=== PATIENT | male | born 1945 | race Caucasian/White ===

== ENCOUNTER → 2017-12-20 13:07 | Day surgery (SDC) | payer OTHER, SELFPAY ==
[2017-12-11 15:36] VITALS: TEMP 36.5
[2017-12-20] VITALS (10 sets, daily range): BP systolic 143–172; BP diastolic 72–99; PULSE 68–84; RESP 15–18; TEMP 36.1–36.5; O2SAT 94–97; BMI 26.9
[2017-12-20] MEDS: LACTATED RINGERS 1,000 ML 100 ML IV (14:15)
--- NOTE | 2017-12-20 14:43 | SUR.PREOP ---
Pt's scheduled surgery for 1415 got delayed d/t an emergent case requiring the OR. Pt is now read and prepped for surgery and he is aware of his delay as is Nicholas, his ride home. Delay is expected to be 60 minutes or more.
--- NOTE | 2017-12-20 16:36 | PM.HP.1 ---
History of Present Illness Chief complaint: repair hernia [id number] Narrative: Sung Hightower is a 72 year old male Here for repair of a left inguinal hernia that is symptomatic [facility] Surgical History Status post hernia repair Status post knee surgery Status post knee surgery Status post rotator cuff repair Social History household members: none Smoking Status: Never smoker Meds Home Medications Medication Instructions Recorded Confirmed Type aspirin [Aspir-81] 81 mg PO DAILY 11/27/17 12/20/17 History simvastatin 20 mg PO QPM 11/27/17 12/20/17 History Generic Name Dose Route Start Last Admin Trade Name Freq PRN Reason Stop Dose Admin Fentanyl 50 mcg 12/20/17 11:46 Sublimaze IV Q5MIN PRN Moderate Pain Lactated Ringer's 1,000 mls @ 100 mls/hr 12/20/17 01:00 12/20/17 14:15 Lactated Ringers IV 100 mls/hr CONT DARRELL Administration Lactated Ringer's 1,000 mls @ 42 mls/hr 12/20/17 12:00 Lactated Ringers IV CONT DARRELL Meperidine HCl 25 mg 12/20/17 11:46 Demerol IV Q5MIN PRN Pain and shivering Ondansetron HCl 4 mg 12/20/17 11:46 Zofran IV NOW PRN Nausea And Vomiting Oxycodone/Acetaminophen 1 tab 12/20/17 11:46 Percocet 5/325 PO Q30MIN PRN Mild or moderate pain Allergies Allergy/AdvReac Type Severity Reaction Status Date / Time No Known Drug Allergies Allergy Verified 11/27/17 15:47 Review of Systems Review of Systems All systems reviewed & are unremarkable except as noted in HPI and below Exam Vital Signs (past 8 hours): Vital Signs - 8 hr 12/20/17 13:47 Temperature 97 F L Pulse Rate 72 Respiratory Rate 16 Blood Pressure 143/72 H Pulse Oximetry 95 Pulse Oximetry 95 Oxygen Delivery Method Room Air Narrative Exam Narrative: Operative no apparent distress. His lungs are clear to auscultation there is rhonchi. Heart regular rate and rhythm no murmur or gallop. Abdomen is soft nontender without masses. He has a reducible left inguinal hernia. Testicles are unremarkable. He is alert and oriented x3. Assessment & Plan Plan: Plan: Operation including risks and benefits all discussed with the patient he appears to understand and wishes to proceed
--- NOTE | 2017-12-20 16:47 | PM.HP.1 ---
History of Present Illness Chief complaint: repair hernia [id number] Narrative: Sung Hightower is a 72 year old male [facility] Surgical History Status post hernia repair Status post knee surgery Status post knee surgery Status post rotator cuff repair Social History household members: none Smoking Status: Never smoker Meds Home Medications Medication Instructions Recorded Confirmed Type aspirin [Aspir-81] 81 mg PO DAILY 11/27/17 12/20/17 History simvastatin 20 mg PO QPM 11/27/17 12/20/17 History Generic Name Dose Route Start Last Admin Trade Name Freq PRN Reason Stop Dose Admin Fentanyl 50 mcg 12/20/17 11:46 Sublimaze IV Q5MIN PRN Moderate Pain Lactated Ringer's 1,000 mls @ 100 mls/hr 12/20/17 01:00 12/20/17 14:15 Lactated Ringers IV 100 mls/hr CONT DARRELL Administration Lactated Ringer's 1,000 mls @ 42 mls/hr 12/20/17 12:00 Lactated Ringers IV CONT DARRELL Meperidine HCl 25 mg 12/20/17 11:46 Demerol IV Q5MIN PRN Pain and shivering Ondansetron HCl 4 mg 12/20/17 11:46 Zofran IV NOW PRN Nausea And Vomiting Oxycodone/Acetaminophen 1 tab 12/20/17 11:46 Percocet 5/325 PO Q30MIN PRN Mild or moderate pain Allergies Allergy/AdvReac Type Severity Reaction Status Date / Time No Known Drug Allergies Allergy Verified 11/27/17 15:47 Review of Systems Review of Systems All systems reviewed & are unremarkable except as noted in HPI and below Exam Vital Signs (past 8 hours): Vital Signs - 8 hr 12/20/17 13:47 Temperature 97 F L Pulse Rate 72 Respiratory Rate 16 Blood Pressure 143/72 H Pulse Oximetry 95 Pulse Oximetry 95 Oxygen Delivery Method Room Air Narrative Exam Narrative: Lungs clear heart regular rate and rhythm without murmur or gallop abdomen is soft nontender without mass reducible left inguinal hernia normal testicle left. Scar from right inguinal hernias noted in the right. Assessment & Plan Plan: Plan: I discussed the procedure in rationale with the patient for repair. Risks of bleeding, infection, recurrence, injury to nerves which could cause chronic pain or numbness, testicular loss or vas deferens injury were all discussed with him. He appears to understand and wishes to proceed
--- NOTE | 2017-12-20 16:50 | P.HP_ITS ---
History of Present Illness Chief complaint: repair hernia [id number] Narrative: Sung Hightower is a 72 year old male Here for repair of a left inguinal hernia that is symptomatic [facility] Surgical History Status post hernia repair Status post knee surgery Status post knee surgery Status post rotator cuff repair Social History household members: none Smoking Status: Never smoker Meds Home Medications Medication Instructions Recorded Confirmed Type aspirin [Aspir-81] 81 mg PO DAILY 11/27/17 12/20/17 History simvastatin 20 mg PO QPM 11/27/17 12/20/17 History Generic Name Dose Route Start Last Admin Trade Name Freq PRN Reason Stop Dose Admin Fentanyl 50 mcg 12/20/17 11:46 Sublimaze IV Q5MIN PRN Moderate Pain Lactated Ringer's 1,000 mls @ 100 mls/hr 12/20/17 01:00 12/20/17 14:15 Lactated Ringers IV 100 mls/hr CONT DARRELL Administration Lactated Ringer's 1,000 mls @ 42 mls/hr 12/20/17 12:00 Lactated Ringers IV CONT DARRELL Meperidine HCl 25 mg 12/20/17 11:46 Demerol IV Q5MIN PRN Pain and shivering Ondansetron HCl 4 mg 12/20/17 11:46 Zofran IV NOW PRN Nausea And Vomiting Oxycodone/Acetaminophen 1 tab 12/20/17 11:46 Percocet 5/325 PO Q30MIN PRN Mild or moderate pain Allergies Allergy/AdvReac Type Severity Reaction Status Date / Time No Known Drug Allergies Allergy Verified 11/27/17 15:47 Review of Systems Review of Systems All systems reviewed & are unremarkable except as noted in HPI and below Exam Vital Signs (past 8 hours): Vital Signs - 8 hr 3 12/20/17 13:47 Temperature 97 F L Pulse Rate 72 Respiratory Rate 16 Blood Pressure 143/72 H Pulse Oximetry 95 Pulse Oximetry 95 Oxygen Delivery Method Room Air Narrative Exam Narrative: Operative no apparent distress. His lungs are clear to auscultation there is rhonchi. Heart regular rate and rhythm no murmur or gallop. Abdomen is soft nontender without masses. He has a reducible left inguinal hernia. Testicles are unremarkable. He is alert and oriented x3. Assessment & Plan Plan: Plan: Operation including risks and benefits all discussed with the patient he appears to understand and wishes to proceed
--- NOTE | 2017-12-20 16:50 | PM.PREOP ---
Pre-operative Note Interval Note Pre-op Check: History & Physical exam performed today H&P completed within 30 days and has changed as indicated here:: No change
[2017-12-20] MEDS: CEFAZOLIN 2 GM/100 ML FROZ.PIGGY IV (17:00)
--- NOTE | 2017-12-20 17:35 | SUR.OPER ---
Supine on padded OR bed, head on pillow, arms secured on padded arm boards at <90 degrees abduction, legs uncrossed, safety belt at thigh, tape over blanket over lower legs.
--- NOTE | 2017-12-20 18:11 | PM.OP.1 ---
Operative Date/Time/Diagnoses - Date of procedure: 12/20/17 Time of procedure: 18:12 Pre-op diagnosis: Reducible left inguinal hernia no incarceration and strangulation Post-op diagnosis: same (Direct and indirect component) Procedure & Clinicians Procedure: Left inguinal hernia repair with plug and patch technique Same procedure as scheduled: Yes Indications: Symptomatic hernia Surgeon: Aaron Neumann Anesthesia Type: General Operative Notes Findings: See postop diagnosis Closure Type: primary Specimen(s): none sent Implants & Drains: Match Estimated Blood Loss (mL): 5 Blood products transfused: none Procedure in detail: The patient was placed supine on the operating room table and underwent general LMA anesthesia. He was prepped and draped in the usual fashion. A transverse incision was made overlying the internal ring and carried down to the level of the external oblique. The external oblique was opened parallel with its fibers through the external ring. The cord structures were elevated. The cremaster was opened proximally and search made for an indirect sac. 1 was found containing intraperitoneal fat. It was opened, the fat was reduced and a 2 0 silk pursestring was placed. Distal portion of the sac was removed. The stump was allowed to retract. The cremaster was closed over the plug and cord structures with a 3 0 Polysorb.. The floor was examined and was found to be[lax]. A patch was placed across the floor and tacked at the pubic tubercle, the posterior lamella of the anterior rectus sheath, the ilioinguinal ligament, and superior lateral to the cord. The opening was modified as necessary to prevent tight constriction of the cord. Sutures of 0 Tycron were used to secure the mesh. The external oblique was closed with a running 3 0 Polysorb. The subcu was closed with interrupted 3 0 Polysorb. The skin was closed with a running 4 0 Polysorb subcuticular stitch and Steri-Strips. Dressing was applied, the patient was awakened, and the patient was taken to the recovery area in good condition. Complications: none Condition: stable Disposition: PACU
--- NOTE | 2017-12-20 18:51 | SUR.PHASEI ---
Somewhat prolonged stay in PACU due to being slow to wake up. Otherwise stable.
== END | disposition home or self-care (01) ==
PROVIDERS: Family Provider Family Medicine; PCP Family Medicine; Visit Provider Specialist
PROC: (CPT 49505; principal; 2017-12-20 14:15)
DX: K40.90 Unilateral inguinal hernia, without obstruction or gangrene, not specified as recurrent (principal)
CPT/HCPCS: 49505; C1781; J0690; J1100; J2405; J2704; J3010

== ENCOUNTER → 2018-02-21 10:13 | Outpatient (CLI) | payer OTHER, SELFPAY ==
[2018-02-21 11:23] LABS: Add Manual Diff / Slide Review NO; Basophils Percent Auto 0.6 % (0-2); Eosinophils Percent Auto 2.4 % (2-4); Hematocrit 43.1 % (41-53); Hemoglobin 14.8 g/dL (13.5-17.5); Lymphocytes Percent Auto 26.2 % (25-40); Mean Corpuscular HGB Conc 34.2 % (30-36); Mean Corpuscular Hemoglobin 31.4 PG (26-34); Mean Corpuscular Volume 91.7 fL (80-100); Monocytes Percent Auto 6.9 % (3-14); Neutrophils Absolute Auto 3600 /uL (3000-5900); Neutrophils Percent Auto 63.9 % (50-75); Platelet Count 186 X10^3/uL (150-400); Red Cell Distribution Width 13.4 % (11.6-14.8); White Blood Cell Count 5.6 X10^3/uL (4.5-11.0)
[2018-02-21 12:04] LABS: Alanine Aminotransferase 49 IU/L (21-72); Albumin 4.1 g/dL (3.5-5.0); Albumin Globulin Ratio 1.5 (1.0-2.8); Alkaline Phosphatase 74 U/L (38-126); Aspartate Aminotransferase 44 IU/L (17-59); BUN Creatinine Ratio 22.5 (6-22); Bilirubin Total 0.8 mg/dL (0.2-1.3); Blood Urea Nitrogen 18 mg/dL (9-20); Calcium 9.3 mg/dL (8.4-10.2); Carbon Dioxide 29 mmol/L (22-32); Chloride 105 mmol/L (98-107); Cholesterol 146 mg/dL (140-199); Estimated Glomerular Filt Rate > 60.0 mL/min (>60); Globulin 2.8 g/dL (1.7-4.1); Glucose 99 mg/dL (80-110); HDL Cholesterol 54 mg/dL (40-60); HEMOLYSIS < 15 (0-50); LDL Cholesterol Calculated 79 mg/dL (<100); Sodium 142 mmol/L (137-145); Total Protein 6.9 g/dL (6.3-8.2); Triglycerides 64 mg/dL (35-150)
== END ==
PROVIDERS: Family Provider Family Medicine; PCP Family Medicine; Visit Provider Family Medicine
DX: E78.00 Pure hypercholesterolemia, unspecified (principal); Z12.5 Encounter for screening for malignant neoplasm of prostate
CPT/HCPCS: 36415; 80053; 80061; 84153; 85025

== ENCOUNTER → 2018-12-11 08:32 | Outpatient (CLI) | payer OTHER, SELFPAY ==
--- NOTE | 2018-12-11 | DI.MRI.S_ITS ---
PROCEDURE: MR KNEE RT WO CON INDICATIONS: RT KNEE OSTEOARTHRITIS TECHNIQUE: Noncontrast sagittal PD fast spin echo and T2 fast spin echo with fat saturation, sagittal 3-D FLASH with fat saturation; coronal T1 spin echo and PD fast spin echo with fat saturation, and axial PD fast spin echo with fat saturation through the knee. COMPARISON: [facility] Clarissa, CR, KNEE SERIES RT, 02/27/2017, 11:00. FINDINGS: Image quality: Excellent. Menisci: There is moderate to severe degenerative tearing of the medial meniscus which is diminutive in appearance. There is mild peripheral extrusion. The meniscal root ligaments appear grossly intact. The lateral meniscus also appears intact. Cruciate ligaments: The anterior cruciate ligament is thickened and intermediate in signal intensity likely representing chronic myxoid degeneration versus sequela of a prior sprain. The posterior cruciate ligament appears intact. Medial structures: The medial collateral ligament appears intact. The semimembranosus tendon insertions and meniscocapsular junction appear intact. Visualized portions of the pes anserinus tendons appear intact without associated bursal fluid collections. Lateral structures: The lateral collateral ligament, long and short heads of the biceps femoris tendon appear intact. The popliteus tendon appears intact. Iliotibial band appears normal. Anterior structures: The quadriceps and patellar tendons appear intact. Patellar alignment is normal. No femoral trochlear dysplasia or ventral trochlear prominence. Bones and cartilage: No bone marrow contusions or fractures. There is tricompartmental osteophytosis. Severe cartilage thinning is demonstrated in the medial compartment with areas of full-thickness cartilage loss along the medial tibial plateau. There is associated subchondral sclerosis and subchondral edema most prominent along the medial tibial plateau. In the lateral compartment, there is mild cartilage thinning with superficial chondral fissuring. In the patellofemoral compartment, there is mild cartilage thinning with superficial chondral fissuring. Joint space: There is a small joint effusion. There is a small Lin's cyst. Normal appearing synovial plicae are incidentally noted. IMPRESSION: 1. Moderate to severe degenerative tearing of the medial meniscus. 2. Tricompartmental osteoarthritic changes including severe degeneration in the medial compartment. 3. Small joint effusion and small Lin's cyst. 4. 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 The majority of the fibers appear intact. Dictated by: Luis Nathan M.D. on 12/11/2018 at 16:13 Approved by: Luis Nathan M.D. on 12/11/2018 at 16:17
== END ==
PROVIDERS: PCP Nurse Practitioner Family; Visit Provider Orthopaedic Surgery
DX: M17.11 Unilateral primary osteoarthritis, right knee (principal); M23.203 Derangement of unspecified medial meniscus due to old tear or injury, right knee; M25.461 Effusion, right knee; M71.21 Synovial cyst of popliteal space [Baker], right knee
CPT/HCPCS: 73721

== ENCOUNTER → 2018-12-31 09:56 | Outpatient (CLI) | payer OTHER, SELFPAY ==
[2018-12-31 11:54] LABS: Hematocrit 45.9 % (41-53); Hemoglobin 15.4 g/dL (13.5-17.5); Mean Corpuscular HGB Conc 33.5 % (30-36); Mean Corpuscular Hemoglobin 30.8 PG (26-34); Platelet Count 194 X10^3/uL (150-400); Red Blood Cell Count 4.98 X10^6/uL (4.5-5.9); Red Cell Distribution Width 13.1 % (11.6-14.8); White Blood Cell Count 6.4 X10^3/uL (4.5-11.0)
[2018-12-31 12:34] LABS: Alanine Aminotransferase 42 IU/L (21-72); Albumin 4.3 g/dL (3.5-5.0); Albumin Globulin Ratio 1.5 (1.0-2.8); Alkaline Phosphatase 82 U/L (38-126); Aspartate Aminotransferase 38 IU/L (17-59); BUN Creatinine Ratio 22.9 (6-22); Blood Urea Nitrogen 16 mg/dL (9-20); Calcium 9.4 mg/dL (8.4-10.2); Carbon Dioxide 29 mmol/L (22-32); Chloride 103 mmol/L (98-107); Cholesterol 153 mg/dL (140-199); Estimated Glomerular Filt Rate > 60.0 mL/min (>60); Globulin 2.8 g/dL (1.7-4.1); Glucose 94 mg/dL (80-110); HDL Cholesterol 60 mg/dL (40-60); HEMOLYSIS < 15 (0-50); LDL Cholesterol Calculated 80 mg/dL (<100); Potassium 4.3 mmol/L (3.4-5.1); Sodium 138 mmol/L (137-145); Total Protein 7.1 g/dL (6.3-8.2); Triglycerides 63 mg/dL (35-150)
== END ==
PROVIDERS: Family Provider Nurse Practitioner Family; PCP Nurse Practitioner Family; Visit Provider Orthopaedic Surgery
DX: M17.11 Unilateral primary osteoarthritis, right knee (principal); E78.2 Mixed hyperlipidemia; Z01.818 Encounter for other preprocedural examination; Z01.812 Encounter for preprocedural laboratory examination
CPT/HCPCS: 36415; 80053; 80061; 85027; 93005; 93010

== ENCOUNTER 2019-01-29 08:13 | Inpatient (IN) | payer OTHER, SELFPAY ==
[2019-01-15 08:48] VITALS: BMI 27.8
[2019-01-29] VITALS (16 sets, daily range): BP systolic 96–141; BP diastolic 60–86; PULSE 68–97; RESP 12–18; TEMP 36.2–37.1; O2SAT 95–100; BMI 27.6
--- NOTE | 2019-01-29 06:00 | DI.RAD.S_ITS ---
PROCEDURE: XR KNEE RT 1TO2V INDICATIONS: post op right TKA TECHNIQUE: 2 view(s) of the knee acquired. COMPARISON: None. FINDINGS: Bones: Patient is status post knee joint arthroplasty. Hardware components are in expected positions. Visualized bony structures are intact. Soft tissues: Overlying postoperative changes are noted. IMPRESSION: Postop changes from right total knee arthroplasty with anatomic right knee alignment. Dictated by: Ford Bailey M.D. on 01/29/2019 at 14:09 Approved by: Ford Bailey M.D. on 01/29/2019 at 14:09
--- NOTE | 2019-01-29 08:48 | PM.PREOP ---
Pre-operative Note Interval Note History & Physical reviewed/Exam performed by Physician: Yes Changes to H&P: No
--- NOTE | 2019-01-29 08:49 | PM.OP.1 ---
Operative Date/Time/Diagnoses Date of procedure: 01/29/19 Time of procedure: 11:44 Pre-op diagnosis: Right knee osteoarthritis Post-op diagnosis: same Procedure & Clinicians Procedure: Right total knee arthroplasty Same procedure as scheduled: Yes Indications: The patient presents today for total knee arthroplasty after failure of conservative treatment. The nature of the procedure including the risks and benefits, alternatives, postoperative course and expected outcome were discussed and all questions answered. Consent was obtained. Operative site confirmed and marked. Surgeon: Luis Olivas Sanitation Superintendent: Valerie Gee Anesthesia Type: Spinal, Peripheral nerve block and Local Operative Notes Findings: Tricompartmental osteoarthritis with severe varus alignment Closure Type: primary Specimen(s): none sent Prosthetic devices, grafts, tissues, transplants, or devices: [employer] BCS: 5 femoral component, 5 tibial component, 9 mm BCS polyethylene tray and 35 x 9 mm round patella Applied: implant(s) Estimated Blood Loss (mL): 75 Blood products transfused: none Tourniquet time (min): 52 Procedure in detail: The patient was taken to the operative suite and placed under spinal anesthesia with an abductor nerve block. The patient was given prophylactic antibiotics prior to surgery. The patient was also given tranexamic acid, 1 g, just prior to surgery for postoperative hemostasis. The lateral knee was prepped and the joint injected with 20 mL of 1% Lidocaine with epinephrine. The knee was then prepped and draped in usual sterile fashion. The leg was exsanguinated with an Esmarch dressing and the tourniquet raised to 250 torr. A 15 cm anterior incision was made. Next a medial trivector arthrotomy was made. The extensor mechanism was marked to ensure accurate repair. Initial exposing dissection was carried out medially and laterally. The knee was then extended and the patellar thickness was measured and a cut made removing approximately 9 mm of bone with a goal of restoring normal patellar thickness. The patella was then sized and drilled. Some excess lateral bone was excised and the patellofemoral ligament released. The tourniquet was then released. The knee was then flexed and the [employer] femoral guide was placed. The anterior pins were placed and the distal rotation holes drilled. The distal cutting guide was placed and the templated distal femoral cut was made. The templating cutting block was then placed and the anterior, posterior and chamfer cuts made. The [employer] tibial guide was placed and the alignment checked along the axis of the proximal tibial with a isaura. The proximal tibial cut was then made with an oscillating saw. All meniscus and bony debris was then removed. Flexion extension gaps were checked. The medial side was tight as expected from the deformity. This was corrected with routine osteophyte and exposing releases. It also required some percutaneous release of the MCL with an 18 gauge needle. The soft tissues were then injected with a combination of 20 mL of half percent Marcaine with epinephrine and 20 mL of Exparel. The trial components were then placed. The knee went into full extension and flexion beyond 120?. There was excellent medial- lateral balance throughout motion with just slight increased lateral laxity in flexion and extension. Patellar tracking was excellent. The trial components were removed and size is confirmed for the final implants. The knee was then exsanguinated with an Esmarch dressing and the tourniquet reapplied for cementing. The knee was cleansed with Pulsavac irrigation and dried. The final components were cemented in with high viscosity vacuum mixed bone cement with antibiotics. The knee was held in extension and the patellar clamp until the cement had adequately cured. The knee was then irrigated with dilute Betadine solution. The extensor mechanism was closed with 5 interrupted #1 Vicryl sutures in 90 degrees of flexion. The joint was then injected with a combination of 1 g of tranexamic acid and 20 mL of quarter percent Marcaine with epinephrine. The subcutaneous tissue was closed with 2-0 Vicryl. The skin was closed with donald and surgical adhesive. An Aquacel dressing and Ramos wrap were then applied. Complications: none Condition: stable Disposition: PACU Plan for aftercare: [facility] protocol for total knee arthroplasty. Patient to be discharged today or tomorrow depending on initial postoperative course.
[2019-01-29] MEDS: CELECOXIB 200 MG CAPSULE PO (09:15)
[2019-01-29] MEDS: ACETAMINOPHEN 325 MG TABLET 975 MG PO ×3 (09:15→20:59)
[2019-01-29] MEDS: PREGABALIN 75 MG CAPSULE PO (09:15)
[2019-01-29] MEDS: fentaNYL 100 MCG/2 ML INJ 50 MCG IV (09:38)
[2019-01-29] MEDS: MIDAZOLAM 2 MG/2 ML VIAL IV (09:38)
[2019-01-29] MEDS: LACTATED RINGERS 1,000 ML 42 ML IV ×2 (10:03→11:09)
--- NOTE | 2019-01-29 10:05 | SUR.PREOP ---
Block start time [0938] . Monitoring initiated and maintained throughout procedure. Oxygen and medications given per anesthesiologist instructions. Patient remained stable throughout procedure, no adverse reactions noted. Block end time [0956].
[2019-01-29] MEDS: CEFAZOLIN 2 GM/100 ML FROZ.PIGGY IV ×2 (10:20→18:09)
--- NOTE | 2019-01-29 10:35 | SUR.OPER ---
Supine on padded OR bed. Pillow under head, arms secured on padded armboards <90 degree abduction. Safety belt across torso. Non-operative leg secured with tape over blanket over lower leg. Operative leg secured in DeMayo/López positioner. Foam padded brace at thigh of operative leg.
[2019-01-29] MEDS: BUPIVACAINE 0.25% W/ EPI (PF) 40 ML, BUPIVACAINE LIPOSOME 266 MG, SODIUM CHLORIDE 0.9% ... INJ (10:40)
[2019-01-29] MEDS: LIDOCAINE 1% W/EPI INJ 20 ML INJ (10:40)
[2019-01-29] MEDS: BUPIVACAINE 0.5% W/ EPI (PF) 10 ML, TRANEXAMIC ACID 1,000 MG, SODIUM CHLORIDE 0.9% 20 ML INJ (10:41)
[2019-01-29] MEDS: TRANEXAMIC ACID 1,000 MG VIAL 1000 MG INJ (10:43)
[2019-01-29] MEDS: POVIDONE-IODINE 15 ML, SODIUM CHLORIDE 0.9% 250 ML TOP (10:54)
--- NOTE | 2019-01-29 12:10 | SUR.PHASEI ---
bedside report given to MYRIAM Ernst. transferred care of pt to MYRIAM Ernst at this time. pt in stable condition, vss.
--- NOTE | 2019-01-29 13:21 | PC.NURSE ---
Patient brought up from PACU, VSS, denies pain. Oriented to room and call light. Transfer ordered not in, PACU notified, awaiting orders. Will continue to follow.
[2019-01-29] MEDS: LACTATED RINGERS 1,000 ML 125 ML IV ×2 (15:07→23:26)
--- NOTE | 2019-01-29 15:08 | PC.NURSE ---
Received from PACU, awake, alert, oriented. NAD. VSS. Sp02>/=90% on RA. SCDs in place. IVF started per order. All personal belongings with pt. Taking p.o. without difficulty. Call light in reach. Discussed plan of care and potential discharge.
--- NOTE | 2019-01-29 15:23 | CM.DANOTE ---
Discharge Planning/Care Management DCP: assessment: initiated: CR: pt has been in surgery all day and just now arrived to rm 208 and is getting admitted by RN team. Documentation reveals that pt is a 73 year old male who admitted this morning for a planned R TKA: Surgeon: Dr. Olivas. Payer: [facility]. PCP: Mara Arevalo. Dr. Olivas had documented that pt is ok to d/c either later this evening or tomorrow. Pt will see PT but is unclear if this will be this evening. Pt had identified his pre op plan/see below as home with a friend to assist. P: will check in with pt tomorrow for introduction of self and role and follow for any d/c needs that may arise. CM Discharge Assessment Start: 01/29/19 15:22 Freq: Status: Active Protocol: Document 01/29/19 15:22 ITV (Rec: 01/29/19 15:23 ITV [id number]) Discharge Planning Assessment Advance Directives? Yes Advance Directives on File No History Provided By Medical Record Prior Living Arrangements House Household Members none Review Status In Process Pre-Anesthesia Assessment Start: 01/15/19 08:48 Freq: Status: Active Protocol: Document 01/15/19 08:48 CAB (Rec: 01/15/19 09:31 CAB [id number]) Pre-Anesthesia Assessment PAC Comment Previous EKG 2014 scanned to chart, no significant change Patient Also Known As (AKA) Omid Patient Information Reviewed Via Phone Assessment Assessment Completed With Patient Diagnostic Results BMP/CMP CBC EKG Comment Labs/EKG @ [facility] 01/01/19 Primary Care Provider Mara Arevalo Seen Specialist in Last 12 Months Yes Specialist Seen General surgeon Orthopedist Primary Language Indonesian Clinical Data Research Required No Height 163.83 cm Weight 74.843 kg Body Mass Index (BMI) 27.8 Hearing Ability Normal Visual Assist Magnifying Glass Dentition Type Teeth, Natural Present Barriers to Learning None Other Aids No Hx Anesthesia Reactions No Hx Family Anesthesia Reaction No Hx Malignant Hyperthermia No Hx Blood Transfusions No Hx Blood Transfusion Reaction No Anesthesia Review Requested No Division Engineer No alcohol intake current alcohol intake frequency a few times a week Smoking Status Never smoker Substance Use Type does not use Pain Present Pain Reported Musculoskeletal Symptoms Abnormal Gait Difficulty Walking Joint Pain History of Falling (Recent or History of No ) Patient is completely paralyzed or No completely immobile Mental Status Oriented to own ability Is patient on oxygen? No Does patient have VEGA/SOB No Hx Sleep Apnea No CPAP/BIPAP use not prescribed Currently Taking a Beta Sandoval No Can You Climb a Flight of Stairs Without Yes SOB Hx Chest Pain No Hx SOB No Hx Syncope or Dizziness No Anti-Coagulant Therapy No Has a Oiler And Greaser No Cardiac Testing No Hx Pacemaker/ICD No Pacemaker Rep Required? No Cardiac Clearance Received Not Applicable Comment Previous EKG 2014 scanned to chart, no significant change Diet Type At Home Regular dysphagia No Bladder Pattern Frequency Urinary Catheter Present No Hx Urinary Self Catheterization No Diabetes No Hx Drug Resistant Organism No Presence of External or Internal Medical No Devices Have you traveled outside the [facility] in the last 30 days? Marital Status Single Lives With none Prior Living Arrangements House Number of Floors (Floors) One Floor Support System Friend(s) Patient Discharge Plan Description Return Home Comment Friend plans to stay w/pt to assist w/DC. Pt wants to go home same day Feels Safe in Current Environment Yes Been Physically Hurt or Threatened By a No Person in Current Environment Do you have thoughts of harming yourself None or others? Are you currently considering suicide? No Do you have a plan to hurt yourself or No Plan others? Do You Have Any Spiritual Beliefs That No May Affect Your HC Choices? Do You Have Any Cultural Practices That No May Affect Your HC Choices? Spiritual Referral None Comment [facility] Who Can We Speak to About Patient's Care Family, friends Identifying Code for Release of Patient Declines to issue Information Health Care Proxy/Next of Kin Aarti (sister) Health Care Proxy Emergency Contact Name Aarti (sister) Emergency Contact Advance Directives? Yes Advance Directives on File No Requested Patient Bring Advanced Yes Directives DOS Power of Distance Learning Technician Yes Power of Distance Learning Technician Name Aarti Hightower--Sister Power of Distance Learning Technician Phone Number Home: Work: PAC Instructions Durable medical equipment Medications to take/avoid Nasal antibiotic No ETOH/petroleum product on skin DOS NPO Pre-surgical wash Sturdy shoes/comfortable clothes Do not bring valuables and remove jewelry
--- NOTE | 2019-01-29 16:15 | PT.IIE ---
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) Cardiac arrhythmia (Chronic ~2009) Osteoarthritis (Chronic Unknown) Chickenpox (Resolved ~1949) Measles (Resolved ~1949) Mumps (Resolved ~1949) Physical Therapy Inpatient Evaluation/Re-Eval M1 PT/OT-IP Prior Functional Status Start: 01/29/19 17:18 Freq: NEEDED Status: Active Protocol: Document 01/29/19 16:15 AB (Rec: 01/29/19 17:34 AB [id number]) Medical Review Prior Functional Status Medical History Reviewed Yes Communication able to make needs known Mobility and Gait pt stated that he is independent with all mobilities and ambulation without AD Social History Household Members none Living Arrangements House Number of Floors (Floors) One Floor Number of Stairs To Enter/Railing? 1 step to enter Home Environment Standard Height Toilet Walk in Shower Home Equipment Front Wheel Walker Four Wheel Walker Straight Cane Crutches Raised Toilet Seat w/Armrests Shower Seat without Backrest Hand Held Shower Grab Bars In Shower Additional Social History Comment pt stated that his friend kassy will be staying with him to assist him at home M2 PT-IP Current Condition Start: 01/29/19 17:18 Freq: NEEDED Status: Active Protocol: Document 01/29/19 16:15 AB (Rec: 01/29/19 17:34 AB [id number]) Physical Therapy Current Condition Current Condition Evaluation Date 01/29/19 Treatment Diagnosis s/p R TKA; difficulty in walking Onset Date 01/29/19 Precautions Other Precautions BP Weight Bearing Status Weight Bearing Status Weight Bear as Tolerated M3 PT-IP Subjective Start: 01/29/19 17:18 Freq: NEEDED Status: Active Protocol: Document 01/29/19 16:15 AB (Rec: 01/29/19 17:34 AB [id number]) Subjective Physical Therapy Visit Type Type Initial Evaluation Visit Start Time 16:15 Visit Stop Time 17:15 Total Visit Minutes 60 Number of PROBATE CLERK Visits 0 Physical Therapy Visit Comments Patient Comments pt agreeable to do PT Therapy Pain Assessment Pain When Pain Assessed At Rest Pain Present Pain Present Pain Reported Location Right Knee Intensity 3 Scale Used Numeric (1 - 10) Pain Management Techniques Apply Cold Modification of Treatment Timing of Activity with Medications M4 PT-IP Mobility and Gait Start: 01/29/19 17:18 Freq: NEEDED Status: Active Protocol: Document 01/29/19 16:15 AB (Rec: 01/29/19 17:34 AB [id number]) PT-Bed Mobility Assessment Supine to Sit Supine to Sit Moderate Assistance 1 Person Assistance Sit to Supine Sit to Supine Maximum Assistance 1 Person Assistance Scooting Scooting to Edge of Bed Standby Assistance Scooting Up and Down in Bed Maximum Assistance PT-Transfer Assessment Comments Mobility Comments BP supine: 123/67. pt completed supine to sit mod A and max cues. pt was able to sit on EOB SBA. c/o dizziness /ooziness. BP 105/64. BP checked again after ~ 2 min: 86/41. instructed pt to scoot up towards HOB. assisted pt with sit to supine max A and max cues. NAC present to assist. positioned pt in bed. BP checked again: 87/50. ice pack provided. call light and table positioned. BP checked again: 110/61. PT-Balance Assessment Sitting Balance and Reactions Static Sitting Balance Ability Good Dynamic Sitting Balance Ability Good M5 PT-IP Objective Assessments Start: 01/29/19 17:18 Freq: NEEDED Status: Active Protocol: Document 01/29/19 16:15 AB (Rec: 01/29/19 17:34 AB [id number]) Orientation Orientation/Cognition Level of Alertness Alert Orientation Name Place Situation Language Function Ability No Deficits Noted Gross Range of Motion Lower Extremity ROM Assessment Right Impaired Impairments R knee flexion: ~ 80 deg R knee extension: lacking ~ 10deg R ankle DF tightness Strength Lower Extremity Strength Assessment Right Impaired Hip 4-/5 Knee 3+/5 Coordination Assessment Gross Coordination Gross Coordination WNL Muscle Tone Muscle Tone WNL Yes M6 PT-IP Treatment Start: 01/29/19 17:18 Freq: NEEDED Status: Active Protocol: Document 01/29/19 16:15 AB (Rec: 01/29/19 17:34 AB [id number]) Physical Therapy Treatment Exercises Exercises Quad Sets Heel Slides Education Education Provided Precautions Weight Bearing Status Post-Op Packet Safety M7 PT-IP Assessment and Plan Start: 01/29/19 17:18 Freq: NEEDED Status: Active Protocol: Document 01/29/19 16:15 AB (Rec: 01/29/19 17:34 AB [id number]) PT Summary Assessment and Plan Potential Rehabilitation Potential Good Status of Condition at Evaluation Evolving Summary Impairments Pain ROM Strength Balance Coordination Sensation Tone Cognition Bed Mobility Transfers Gait Activity Tolerance Assessment Summary pt unable to tolerate much activity today with decrease in BP during upright activity. d/c plan depending on progress and will have to assess further. pt plans to go home with his friend to assist him and stated that he is set up for outpt PT next week. Goals Bed Mobility Goal Independent Transfer Goal Independent Front Wheeled Walker Gait Goal Standby Assistance Front Wheel Walker Gait Distance 200 Other Goals up/down 1 step using FWW SBA Days to Meet Goals 5 Frequency of Treatment Frequency Of Treatment Twice a Day Treatment Plan Physical Therapy Treatment Plan Bed Mobility Training Transfer Training Gait Training Therapeutic Exercise Balance Retraining Post Op Education Discharge Planning Hot or Cold Pack Neuromuscular Re-ed Coordination Retraining Manual Therapy Other Recommendations and Next Treatment ambulation Focus Recommendations To Nursing Amount of Assist Needed PT/OT Assist Only Discharge Recommendations PT Discharge Recommendations Home with Assistance SNF Rehab Outpatient PT Other Discharge Recommendations depending on progress: SNF vs home with assist and outpt PT
[2019-01-29] MEDS: SIMVASTATIN 20 MG TABLET PO (16:16)
[2019-01-29] MEDS: IBUPROFEN 200 MG TABLET 400 MG PO (16:31)
[2019-01-29] MEDS: ASPIRIN EC 81 MG TABLET PO (21:00)
[2019-01-30] MEDS: OXYCODONE IR 5 MG TABLET PO ×3 (00:03→21:28)
[2019-01-30] MEDS: CEFAZOLIN 2 GM/100 ML FROZ.PIGGY IV (02:10)
--- NOTE | 2019-01-30 03:00 | PC.NURSE ---
Shift note: Received pt from evening shift. Pt returning to bed from bathroom at time of assessment. Assessment notable for incision to right knee, aquacell dressing C/D/I, venancio wrap over aquacell, pt reports 3/10 numeric pain in knee with movement, medicated with 5mg PO oxycodone per MAR. VSS, RA 98% O2 sat, SCDs to bilateral legs on and working. Uses urinal but can be impulsive when he feels like he needs to go and states that he must stand to pass urine. Bed alarm on, call light in reach, calls appropriately, pt is moderate fall risk at this time.
[2019-01-30 05:00] VITALS: BP 129/61; PULSE 63; RESP 16; TEMP 37.3; O2SAT 96
[2019-01-30 05:59] LABS: Hematocrit 38.5 % (41-53); Hemoglobin 12.9 g/dL (13.5-17.5)
[2019-01-30 07:39] VITALS: BP 130/68; PULSE 68; RESP 17; TEMP 36.4; O2SAT 97
[2019-01-30] MEDS: ASPIRIN EC 81 MG TABLET PO ×2 (08:21→21:28)
[2019-01-30] MEDS: ACETAMINOPHEN 325 MG TABLET 975 MG PO ×3 (08:21→21:28)
[2019-01-30] MEDS: SODIUM CHLORIDE 0.9% FLUSH 10 ML IV ×2 (08:22→21:31)
[2019-01-30] MEDS: ONDANSETRON 4 MG ODT PO (08:24)
--- NOTE | 2019-01-30 10:04 | P.PN_ITS ---
Subjective Date Patient Seen: 01/30/19 Time Patient Seen: 10:01 Interval history: Hospital day 2, postop day 1 following right total knee arthroplasty by Dr. Olivas. Patient has remained stable postoperatively. He did have limited physical therapy yesterday with limited weight-bearing. Does have increased knee pain today. He is a [facility]. He does not feel he is ready to go home today. He does have physical therapy scheduled at [facility]. Taking oxycodone for pain. Exam Vital Signs (past 8 hours): - 01/30/19 05:00 01/30/19 07:39 Temperature 99.1 F 97.5 F L Pulse Rate 63 68 Respiratory Rate 16 17 Blood Pressure 129/61 130/68 Pulse Oximetry 96 97 Fraction of Inspired Oxygen 21 Oxygen Delivery Method Room Air Oxygen Flow Rate 0 Narrative Exam Narrative: Alert, oriented no acute distress sitting in chair. Legs. Ramos wrap an Aquacel dressing to right knee is dry without drainage or inflammation. Mild swelling of thigh and calf. No calf tenderness. Pulses symmetrical. Patient unable to do right knee extension from sitting because of thigh pain. Objective Labs Result Diagrams: 01/30/19 05:28 Labs: Laboratory Results - last 24 hr 01/30/19 05:28 Hgb 12.9 L Hct 38.5 L Assessment & Plan Post-op Postoperative Procedures Operation Date: 01/29/19 10:15 Actual Procedures Side Surgeon p Total Knee Arthroplasty Right Luis Olivas MD Plan: Patient desiring to stay 1 more day to allow for better pain control and more physical therapy before going home. He does have prescriptions for oxycodone and Vistaril home. Anticipate discharge home tomorrow if stable.
--- NOTE | 2019-01-30 10:07 | PT.IPTN ---
Current Diagnoses Unilateral primary osteoarthritis, right knee (01/29/19) Surgery Performed Operation Date: 01/29/19 10:15 Actual Procedures p Total Knee Arthroplasty(Right) - Luis Olivas MD Physical Therapy Treatment Note M2 PT-IP Current Condition Start: 01/29/19 17:18 Freq: NEEDED Status: Active Protocol: Document 01/29/19 16:15 AB (Rec: 01/29/19 17:34 AB [id number]) Physical Therapy Current Condition Current Condition Evaluation Date 01/29/19 Treatment Diagnosis s/p R TKA; difficulty in walking Onset Date 01/29/19 Precautions Other Precautions BP Weight Bearing Status Weight Bearing Status Weight Bear as Tolerated M3 PT-IP Subjective Start: 01/29/19 17:18 Freq: NEEDED Status: Active Protocol: Document 01/30/19 09:57 SA (Rec: 01/30/19 10:07 SA [id number]) Subjective Physical Therapy Visit Type Type Treatment Note Visit Start Time 09:20 Visit Stop Time 09:55 Total Visit Minutes 35 Number of VEGETABLE TRIMMER Visits 1 Physical Therapy Visit Comments Patient Comments Pt up in chair, agreeable to PT. Patient Goals To go home tomorrow. Therapy Pain Assessment Pain When Pain Assessed During Mobility Pain Present Pain Present Pain Reported Location Right Knee Intensity 4 Scale Used Numeric (1 - 10) Pain Management Techniques Apply Cold Modification of Treatment Timing of Activity with Medications M4 PT-IP Mobility and Gait Start: 01/29/19 17:18 Freq: NEEDED Status: Active Protocol: Document 01/30/19 09:57 SA (Rec: 01/30/19 10:07 SA [id number]) PT-Bed Mobility Assessment Scooting Scooting to Edge of Bed Standby Assistance PT-Transfer Assessment Sit to and From Stand Sit to and from Stand Minimal Assistance 1 Person Assistance Use of Upper Extremities Equipment Transfer Assistive Device Gait Belt Front Wheeled Walker Orthotic/Prosthetic Devices or Brace: No Transfers Transfer Destination Chair Toilet Transfer Technique Stand Step Pivot Transfer Ability Level of Assist Contact Guard Assistance Minimal Assistance 1 Person Assistance Comments Mobility Comments BP seated prior to activity 148/71, standing at FWW 145/68 and seated after walking 141/ 83. Pt had no symptoms with mobility. CGA-Min A with sit to stands and transfers using FWW. Gait Assessment Gait Gait Assistance Required: Contact Guard Assist 1 Person Assist Distance (Feet) 85 Able to Maintain Weight Bearing Status Yes During Gait Assistive Devices Assistive Device Gait Belt Front Wheeled Walker Orthotic/Prosthetic Devices or Brace: No Gait Deviations General Gait Pattern Decreased Stride Length Decreased Feet Clearance Flexed Trunk Step-to Gait Factors Limiting Gait Function Factors Limiting Gait Function Decreased Activity Tolerance Decreased Strength Limited Range of Motion Pain Comments Gait Comments Pt with step to gait pattern and limited RLE WBing, able to increase WBing and LLE step length with cues as walking continued. Stair Climbing Assessment Comments Stair Climbing Comments To attempt single step this afternoon with caregiver present. PT-Balance Assessment Sitting Balance and Reactions Static Sitting Balance Ability Good Dynamic Sitting Balance Ability Good M5 PT-IP Objective Assessments Start: 01/29/19 17:18 Freq: NEEDED Status: Active Protocol: Document 01/29/19 16:15 AB (Rec: 01/29/19 17:34 AB [id number]) Orientation Orientation/Cognition Level of Alertness Alert Orientation Name Place Situation Language Function Ability No Deficits Noted Gross Range of Motion Lower Extremity ROM Assessment Right Impaired Impairments R knee flexion: ~ 80 deg R knee extension: lacking ~ 10deg R ankle DF tightness Strength Lower Extremity Strength Assessment Right Impaired Hip 4-/5 Knee 3+/5 Coordination Assessment Gross Coordination Gross Coordination WNL Muscle Tone Muscle Tone WNL Yes M6 PT-IP Treatment Start: 01/29/19 17:18 Freq: NEEDED Status: Active Protocol: Document 01/30/19 09:57 SA (Rec: 01/30/19 10:07 SA [id number]) Physical Therapy Treatment Exercises Exercises Ankle Pumps Gluteal Sets Quad Sets Heel Slides Seated Knee Flexion/Extension Education Education Provided Precautions Weight Bearing Status Post-Op Packet Safety Equipment Issued Equipment Type and Company Pt has FWW, elevated toilet seat. M7 PT-IP Assessment and Plan Start: 01/29/19 17:18 Freq: NEEDED Status: Active Protocol: Document 01/30/19 09:57 SA (Rec: 01/30/19 10:07 SA [id number]) PT Summary Assessment and Plan Potential Rehabilitation Potential Good Status of Condition at Evaluation Evolving Summary Impairments Pain ROM Strength Balance Coordination Sensation Tone Cognition Bed Mobility Transfers Gait Activity Tolerance Assessment Summary Pt BPs stabilized with good activity tolerance this AM. Pt able to ambulate and perform several transfers to/from toilet and chair. Frequency of Treatment Frequency Of Treatment Twice a Day Treatment Plan Physical Therapy Treatment Plan Bed Mobility Training Transfer Training Gait Training Therapeutic Exercise Balance Retraining Post Op Education Discharge Planning Hot or Cold Pack Neuromuscular Re-ed Coordination Retraining Manual Therapy Recommendations To Nursing Amount of Assist Needed 1 Person Assist Discharge Recommendations PT Discharge Recommendations Home with Assistance Outpatient PT
[2019-01-30] MEDS: MELOXICAM 7.5 MG TABLET 15 MG PO (10:51)
[2019-01-30 12:08] VITALS: BP 117/73; PULSE 68; RESP 15; TEMP 37.7; O2SAT 97
--- NOTE | 2019-01-30 14:51 | PT.IPTN ---
Current Diagnoses Unilateral primary osteoarthritis, right knee (01/29/19) Surgery Performed Operation Date: 01/29/19 10:15 Actual Procedures p Total Knee Arthroplasty(Right) - Luis Olivas MD Physical Therapy Treatment Note M2 PT-IP Current Condition Start: 01/29/19 17:18 Freq: NEEDED Status: Active Protocol: Document 01/29/19 16:15 AB (Rec: 01/29/19 17:34 AB [id number]) Physical Therapy Current Condition Current Condition Evaluation Date 01/29/19 Treatment Diagnosis s/p R TKA; difficulty in walking Onset Date 01/29/19 Precautions Other Precautions BP Weight Bearing Status Weight Bearing Status Weight Bear as Tolerated M3 PT-IP Subjective Start: 01/29/19 17:18 Freq: NEEDED Status: Active Protocol: Document 01/30/19 14:43 SA (Rec: 01/30/19 14:51 SA [id number]) Subjective Physical Therapy Visit Type Type Treatment Note Visit Start Time 13:40 Visit Stop Time 14:18 Total Visit Minutes 38 Number of STATISTICAL GENETICIST Visits 2 Physical Therapy Visit Comments Patient Comments Pt agreeable to PT, friend/ caregiver Nicholas present for caregiver training. Patient Goals To go home tomorrow. Therapy Pain Assessment Pain When Pain Assessed During Mobility Pain Present Pain Present Pain Reported Location Right Knee Intensity 4 Scale Used Numeric (1 - 10) Pain Management Techniques Apply Cold Modification of Treatment Timing of Activity with Medications M4 PT-IP Mobility and Gait Start: 01/29/19 17:18 Freq: NEEDED Status: Active Protocol: Document 01/30/19 14:43 SA (Rec: 01/30/19 14:51 SA [id number]) PT-Bed Mobility Assessment Supine to Sit Supine to Sit Minimal Assistance 1 Person Assistance Sit to Supine Sit to Supine Minimal Assistance Scooting Scooting to Edge of Bed Standby Assistance Scooting Up and Down in Bed Standby Assistance PT-Transfer Assessment Sit to and From Stand Sit to and from Stand Contact Guard Assistance 1 Person Assistance Equipment Transfer Assistive Device Gait Belt Front Wheeled Walker Orthotic/Prosthetic Devices or Brace: No Transfers Transfer Destination Bed Chair Transfer Technique Stand Step Pivot Transfer Ability Level of Assist Contact Guard Assistance 1 Person Assistance Comments Mobility Comments Pt able to use LLE underneath RLE for SUP<>sit transition in bed, needs Min A to cross legs but can do the rest himself. CGA with stand pivot txs and FWW. Gait Assessment Gait Gait Assistance Required: Standby Assistance Contact Guard Assist 1 Person Assist Distance (Feet) 125 Able to Maintain Weight Bearing Status Yes During Gait Assistive Devices Assistive Device Gait Belt Front Wheeled Walker Orthotic/Prosthetic Devices or Brace: No Gait Deviations General Gait Pattern Decreased Stride Length Flexed Trunk Factors Limiting Gait Function Factors Limiting Gait Function Decreased Activity Tolerance Decreased Strength Limited Range of Motion Pain Comments Gait Comments Improving gait distance and quality, pt doing well with step through gait pattern and self corrects posture, uses FWW safely. Did some walking with caregiver providing SBA- CGA. Stair Climbing Assessment Evaluation Level of Assist On Stairs Contact Guard Assistance Devices Stair Climbing Assistive Devices Front Wheel Walker Technique/Endurance Stair Climbing Direction Ascend and Descend Stair Climbing Technique Step to Step Number of Steps Climbed 1 Stair Climbing Set # Repetitions (reps) 2 Comments Stair Climbing Comments Used platform to replicate step at home, pt required CGA and min cues, step to gait pattern and able to do safely with Nicholas. Both feel comfortable doing at home. PT-Balance Assessment Sitting Balance and Reactions Static Sitting Balance Ability Good Dynamic Sitting Balance Ability Good M5 PT-IP Objective Assessments Start: 01/29/19 17:18 Freq: NEEDED Status: Active Protocol: Document 01/29/19 16:15 AB (Rec: 01/29/19 17:34 AB [id number]) Orientation Orientation/Cognition Level of Alertness Alert Orientation Name Place Situation Language Function Ability No Deficits Noted Gross Range of Motion Lower Extremity ROM Assessment Right Impaired Impairments R knee flexion: ~ 80 deg R knee extension: lacking ~ 10deg R ankle DF tightness Strength Lower Extremity Strength Assessment Right Impaired Hip 4-/5 Knee 3+/5 Coordination Assessment Gross Coordination Gross Coordination WNL Muscle Tone Muscle Tone WNL Yes M6 PT-IP Treatment Start: 01/29/19 17:18 Freq: NEEDED Status: Active Protocol: Document 01/30/19 14:43 SA (Rec: 01/30/19 14:51 SA [id number]) Physical Therapy Treatment Exercises Exercises Ankle Pumps Gluteal Sets Quad Sets Heel Slides Seated Knee Flexion/Extension Education Education Provided Precautions Weight Bearing Status Post-Op Packet Safety Equipment Issued Equipment Type and Company Pt has FWW, elevated toilet seat. M7 PT-IP Assessment and Plan Start: 01/29/19 17:18 Freq: NEEDED Status: Active Protocol: Document 01/30/19 14:43 SA (Rec: 01/30/19 14:51 [id number]) PT Summary Assessment and Plan Summary Assessment Summary Pt progressing well today with all mobilities. Anticipate safe d/c home tomorrow and cont with OP PT. Frequency of Treatment Frequency Of Treatment Twice a Day Treatment Plan Physical Therapy Treatment Plan Bed Mobility Training Transfer Training Gait Training Therapeutic Exercise Balance Retraining Post Op Education Discharge Planning Hot or Cold Pack Neuromuscular Re-ed Coordination Retraining Manual Therapy Recommendations To Nursing Amount of Assist Needed 1 Person Assist Discharge Recommendations PT Discharge Recommendations Home with Assistance Outpatient PT
--- NOTE | 2019-01-30 15:36 | CM.DPC ---
DCP: continued: met with pt as planned after EMR review and morning discussion of case in Team Rounds. Introduced self and role. Pt states he lives in a single level home in [place]: [address]. He has a room set up for his old climbing shelley who will be assisting him at d/c and who was here today particiapating in a PT session. He confirms he has a good assessment by Ortho WANDA Crawford this morning and says he greatly appreciated his obvious expertise. He plans at this point to d/c home tomorrow if deemed stable for same and will have OUTPT PT at . Will check in prn tomorrow. Documentation by PT supports this d/c plan. Pt expressed thankfulness for the visit.
[2019-01-30 16:00] VITALS: BP 142/65; PULSE 66; RESP 20; TEMP 37; O2SAT 96
[2019-01-30] MEDS: SIMVASTATIN 20 MG TABLET PO (18:06)
[2019-01-30 19:30] VITALS: BP 136/56; PULSE 71; RESP 20; TEMP 36.9
[2019-01-31 00:39] VITALS: BP 144/80; PULSE 72; RESP 18; TEMP 36.4; O2SAT 98
[2019-01-31] MEDS: OXYCODONE IR 5 MG TABLET PO ×2 (01:20→05:59)
--- NOTE | 2019-01-31 02:33 | PC.NURSE ---
Pt is A and O x 4, VSS. Pt reports px to be 3/10 and very positional. He prefers to have both LE elevated. Pt has urinated in urinal, standing by bedside. Pt is motivated to discharge.
[2019-01-31 04:50] VITALS: BP 142/81; PULSE 67; RESP 18; TEMP 36.6; O2SAT 97
[2019-01-31 08:00] VITALS: BP 144/75; PULSE 71; RESP 18; TEMP 36.7; O2SAT 97
[2019-01-31] MEDS: ASPIRIN EC 81 MG TABLET PO (08:41)
[2019-01-31] MEDS: MELOXICAM 7.5 MG TABLET 15 MG PO (08:41)
[2019-01-31] MEDS: ACETAMINOPHEN 325 MG TABLET 975 MG PO (08:42)
[2019-01-31] MEDS: SODIUM CHLORIDE 0.9% FLUSH 10 ML IV (08:42)
--- NOTE | 2019-01-31 09:29 | PT.IPTN ---
Current Diagnoses Unilateral primary osteoarthritis, right knee (01/29/19) Surgery Performed Operation Date: 01/29/19 10:15 Actual Procedures p Total Knee Arthroplasty(Right) - Luis Olivas MD Physical Therapy Treatment Note M2 PT-IP Current Condition Start: 01/29/19 17:18 Freq: NEEDED Status: Discharge Protocol: Document 01/29/19 16:15 AB (Rec: 01/29/19 17:34 AB [id number]) Physical Therapy Current Condition Current Condition Evaluation Date 01/29/19 Treatment Diagnosis s/p R TKA; difficulty in walking Onset Date 01/29/19 Precautions Other Precautions BP Weight Bearing Status Weight Bearing Status Weight Bear as Tolerated M3 PT-IP Subjective Start: 01/29/19 17:18 Freq: NEEDED Status: Discharge Protocol: Document 01/31/19 09:29 AB (Rec: 01/31/19 13:14 AB [id number]) Subjective Physical Therapy Visit Type Type Treatment Note Visit Start Time 09:29 Visit Stop Time 10:00 Total Visit Minutes 31 Number of BEEF LUGGER Visits 0 Physical Therapy Visit Comments Patient Comments pt agreeable to do PT Therapy Pain Assessment Pain When Pain Assessed At Rest Pain Present Pain Present Pain Reported Location Right Knee Intensity 4 Scale Used Numeric (1 - 10) Pain Management Techniques Apply Cold Re-positioning Timing of Activity with Medications M4 PT-IP Mobility and Gait Start: 01/29/19 17:18 Freq: NEEDED Status: Discharge Protocol: Document 01/31/19 09:29 AB (Rec: 01/31/19 13:14 AB [id number]) PT-Bed Mobility Assessment Supine to Sit Supine to Sit Standby Assistance Sit to Supine Sit to Supine Standby Assistance Scooting Scooting to Edge of Bed Standby Assistance PT-Transfer Assessment Sit to and From Stand Sit to and from Stand Standby Assistance Equipment Transfer Assistive Device Gait Belt Front Wheeled Walker Orthotic/Prosthetic Devices or Brace: No Comments Mobility Comments bed mobility training x 2 sets requiring SBA with intial cues for techniques to be able to elevate RLE up in bed without use of AD completed sit <>stand x 3 reps and cues for techniques for stability for initial standing Gait Assessment Gait Gait Assistance Required: Standby Assistance Distance (Feet) 100 Able to Maintain Weight Bearing Status Yes During Gait Assistive Devices Assistive Device Gait Belt Front Wheeled Walker Orthotic/Prosthetic Devices or Brace: No Gait Deviations General Gait Pattern Antalgic Decreased Stride Length Decreased Feet Clearance Factors Limiting Gait Function Factors Limiting Gait Function Decreased Activity Tolerance Decreased Strength Limited Range of Motion Pain Poor Balance Stair Climbing Assessment Evaluation Level of Assist On Stairs Contact Guard Assistance Devices Stair Climbing Assistive Devices Front Wheel Walker Technique/Endurance Stair Climbing Direction Ascend and Descend Stair Climbing Technique Step to Step Number of Steps Climbed 1 Stair Climbing Set # Repetitions (reps) 2 M5 PT-IP Objective Assessments Start: 01/29/19 17:18 Freq: NEEDED Status: Discharge Protocol: Document 01/29/19 16:15 AB (Rec: 01/29/19 17:34 AB [id number]) Orientation Orientation/Cognition Level of Alertness Alert Orientation Name Place Situation Language Function Ability No Deficits Noted Gross Range of Motion Lower Extremity ROM Assessment Right Impaired Impairments R knee flexion: ~ 80 deg R knee extension: lacking ~ 10deg R ankle DF tightness Strength Lower Extremity Strength Assessment Right Impaired Hip 4-/5 Knee 3+/5 Coordination Assessment Gross Coordination Gross Coordination WNL Muscle Tone Muscle Tone WNL Yes M6 PT-IP Treatment Start: 01/29/19 17:18 Freq: NEEDED Status: Discharge Protocol: Document 01/31/19 09:29 AB (Rec: 01/31/19 13:14 AB [id number]) Physical Therapy Treatment Education Education Provided Safety M7 PT-IP Assessment and Plan Start: 01/29/19 17:18 Freq: NEEDED Status: Discharge Protocol: Document 01/31/19 09:29 AB (Rec: 01/31/19 13:14 AB [id number]) PT Summary Assessment and Plan Potential Rehabilitation Potential Good Summary Impairments Pain ROM Strength Balance Coordination Sensation Tone Cognition Bed Mobility Transfers Gait Activity Tolerance Progress Towards Goals Progressing Toward Goals Assessment Summary pt requiring SBA with mobility and CGA with stair climbing. pt plans to go home and his friend will be assist him. pt may go home when medically stable. Goals Bed Mobility Goal Independent Transfer Goal Independent Front Wheeled Walker Gait Goal Standby Assistance Front Wheel Walker Gait Distance 200 Other Goals up/down 1 step using FWW SBA Days to Meet Goals 5 Frequency of Treatment Frequency Of Treatment Twice a Day Treatment Plan Physical Therapy Treatment Plan Bed Mobility Training Transfer Training Gait Training Therapeutic Exercise Balance Retraining Post Op Education Discharge Planning Hot or Cold Pack Neuromuscular Re-ed Coordination Retraining Manual Therapy Recommendations To Nursing Amount of Assist Needed 1 Person Assist Discharge Recommendations PT Discharge Recommendations Home with Assistance Outpatient PT
--- NOTE | 2019-01-31 11:23 | PM.DS.1 ---
History of Present Illness Date Patient Seen: 01/31/19 Time Patient Seen: 11:23 Chief complaint: [id number] Narrative: Hospital day 3, postop day 2 following right total knee arthroplasty by Dr. Olivas. Patient states he is doing much better today. Able to ambulate with physical therapy more. Patient ready for discharge home today. Discharge Providers Date of admission: 01/29/19 08:13 Discharge Date: 01/31/19 Primary care physician: KERON Callaway Consults: 01/29/19 14:06 Consult to Discharge Planning Routine Comment: Consult to Physical Therapy Evaluate & Treat Comment: Physician Instructions: postop TKA protocol Consult to Respiratory Therapy Evaluate & Treat Comment: Physician Instructions: Evaluate and treat Discharge provider: Sergo Crawford PA-C Summary Discharge Diagnosis: Status post right total knee arthroplasty Hospital Course: Patient brought to hospital on 01/29/2019 for above-noted surgery. Remained stable postoperatively. Had increased pain on postop day 1. And not ready to go home. Patient doing better at this time. Ready for discharge home. Status at Discharge Cognitive/behavioral status at discharge: oriented Functional status at discharge: uses cane/walker Overall status at discharge: patient is progressing back to baseline Time Spent with Patient Less than 30 minutes Exam Vital Signs (past 8 hours): - 01/31/19 04:50 01/31/19 08:00 Temperature 97.9 F 98.1 F Pulse Rate 67 71 Respiratory Rate 18 18 Blood Pressure 142/81 H 144/75 H Pulse Oximetry 97 97 Fraction of Inspired Oxygen 21 Oxygen Delivery Method Room Air Oxygen Flow Rate 0 Narrative Exam Narrative: Alert, oriented no acute distress sitting in chair. Legs. Ramos wrap an Aquacel dressing to right knee are dry without drainage or inflammation. No calf pain or swelling. Pulses symmetrical. Patient to be able to move his knee freely. Objective Labs Result Diagrams: 01/30/19 05:28 Discharge Plan Discharge Plan Patient Disposition: Home Discharge comment: Patient be discharged home after cleared by PT. He is a [facility] patient and has postoperative pain medication at home. Discharge Med Rec/Prescriptions Prescriptions: Continued simvastatin 20 mg tablet 20 mg PO QPM Qty: 90 RF: 1 Follow up/Referrals: Mara Arevalo ARNP [Primary Care Provider] - Luis Olivas MD [Physician] - 2 Weeks Provider Discharge Instructions Diet: Diet as Tolerated and Regular Activity: Rest the knee for the 1st few days for pain control. May then progress activity as tolerated. Cold/Heat Therapy: Ice the knee 2 or 3 times a day for 20 minutes. Other treatments: Use pain medication as prescribed from the clinic. Skin/Wound/Dressing Care Report to your healthcare provider any signs of infection, such as:: chills, fever, increased pain, unusual drainage and unusual redness Dressing: Keep Aquacel dressing in place until postop visit. Visit Report/Discharge Packet Instructions: DI for Knee Replacement Visit Report Forms: Stroke Signs & Symptoms Discharge Data Primary Care Provider: Mara Arevalo Attending Provider: Luis Olivas Admit Date/Time: 01/29/19 08:13
--- NOTE | 2019-01-31 11:58 | PC.NURSE ---
Pt showered, dressed, packed up and ready for discharge home with friend. Went over d/c instructions with Pt - discussed d/c meds, time of last dose, reviewed stroke education and s/s of infection. Encouraged Pt to drink plenty of fluids to prevent constipation or dehydration. Pt denies further questions and already has a follow up appointment set up. Pt out via w/c by [employer] to POV with Friend and all belongings.
== END 2019-01-31 11:58 | disposition home or self-care (01) | DRG 470 ==
PROVIDERS: Admitting Provider Orthopaedic Surgery; Family Provider Nurse Practitioner Family; PCP Nurse Practitioner Family; Visit Provider Orthopaedic Surgery
PROC: 0SRC0JZ Replacement of Right Knee Joint with Synthetic Substitute, Open Approach (ICD-10-PCS; CPT 27447; principal; 2019-01-29 10:15)
DX: M17.11 Unilateral primary osteoarthritis, right knee (principal)
CPT/HCPCS: 36415; 64447; 73560; 85014; 85018; 94762; 97110; 97116; 97162; 97530; C1776; C9290; J0690; J2250; J2704; J3010

== ENCOUNTER → 2019-06-09 14:07 | Outpatient (CLI) | payer OTHER, SELFPAY ==
[2019-01-29 13:12] VITALS: BMI 27.6
[2019-06-09 14:52] LABS: Add Manual Diff / Slide Review NO; Basophils Absolute Auto 0 /uL (0-100); Basophils Percent Auto 0.6 % (0-2); Eosinophils Absolute Auto 100 /uL (0-450); Eosinophils Percent Auto 0.9 % (2-4); Hematocrit 44.5 % (41-53); Hemoglobin 15.3 g/dL (13.5-17.5); Lymphocytes Absolute Auto 1800 /uL (1100-4500); Lymphocytes Percent Auto 24.2 % (25-40); Mean Corpuscular HGB Conc 34.3 % (30-36); Mean Corpuscular Hemoglobin 29.8 PG (26-34); Mean Corpuscular Volume 86.9 fL (80-100); Monocytes Absolute Auto 500 /uL (0-900); Monocytes Percent Auto 7.1 % (3-14); Neutrophils Absolute Auto 5000 /uL (1500-7000); Neutrophils Percent Auto 67.2 % (50-75); Platelet Count 238 X10^3/uL (150-400); Red Blood Cell Count 5.12 X10^6/uL (4.5-5.9); Red Cell Distribution Width 13.7 % (11.6-14.8); White Blood Cell Count 7.4 X10^3/uL (4.5-11.0)
[2019-06-09 15:16] LABS: Erythrocyte Sedimentation Rate 4 MM/HR (0-15)
[2019-06-09 15:25] LABS: C-Reactive Protein Quant < 0.5 mg/dL (<1.0)
== END ==
PROVIDERS: Family Provider Nurse Practitioner Family; PCP Nurse Practitioner Family; Visit Provider Orthopaedic Surgery
DX: R52 Pain, unspecified (principal); Z96.651 Presence of right artificial knee joint
CPT/HCPCS: 36415; 85025; 85651; 86140

== ENCOUNTER 2019-06-12 10:30 | Outpatient (RCR) | payer OTHER, SELFPAY ==
--- NOTE | 2019-01-15 14:37 | PT.OIE ---
Current Diagnoses Unilateral primary osteoarthritis, right knee (01/15/19) Past Medical History (Last Reviewed 02/19/18 @ 10:10 by Pollo Shi MD) Hyperlipemia (Chronic Unknown) Shoulder pain (Chronic Unknown) Hip pain, left (Resolved 1987) Knee pain, right (Chronic 2014) Primary osteoarthritis of left hip (Chronic 06/29/16) Cardiac arrhythmia (Chronic ~2009) Osteoarthritis (Chronic Unknown) Chickenpox (Resolved ~1950) Measles (Resolved ~1950) Mumps (Resolved ~1950) Past Surgical History (Last Reviewed 02/19/18 @ 10:10 by Pollo Shi MD) Status post hernia repair (Chronic) Status post knee surgery (Chronic) Status post knee surgery (Chronic) Status post rotator cuff repair (Chronic) Provider Visit Care Team Role Provider Type KERON Callaway Family Provider Advanced Ticket Writer Primary Care Provider Specialty: Family Practice Address: [address] [place] [address], [id number] Email: Luis Olivas MD Attending Provider Physician Specialty: Orthopedic Surgery Address: [address] [place] [address], [id number] Email: [email or web address] Physical Therapy Initial Evaluation PT-OP-A Visit Information Start: 01/15/19 13:58 Freq: Status: Active Protocol: Document 01/15/19 12:20 HH (Rec: 01/15/19 14:32 [email or web address]) Out-Patient Physical Therapy Visit Information Visit Information Visit Type Initial Evaluation Visit Note Pre-R TKA assessment Next appt on 02/10/19 Pt brought in FWW for adjustment. He also has 4ww and SPC at home. Visit Start Time 12:20 Visit Stop Time 13:05 Total Visit Minutes 45 Visit Number 08/27 Number of WIDE AREA NETWORK ENGINEER Visits 0 Evaluation Information Evaluation Date 01/15/19 PT-OP-B Current Condition Start: 01/15/19 13:58 Freq: Status: Active Protocol: Document 01/15/19 12:20 HH (Rec: 01/15/19 14:32 HH [email or web address]) Current Condition History of Current Condition Onset Date 4 years ago Current Complaints B knee pain R>L, decreased R knee strength, difficulty return to sports History of Current Condition Pt presents to clinic with chronic bilateral knee pain R> L since 4 years ago. Pt scheduled for [facility] Path R TKA on 01/29/[address] Olivas at [facility]. Pt's primary c/o at this point is knee pain and unable to fully extend his R knee. Symptoms get worse with hiking , skiing, stair climbing, prolonged walking and standing . He stated I had multiple x- rays for my knees and they all showed bone on bone especially my inner knee. I also noticed i have bow legged R>L. He prefers to use step to to climb stair with supoprt from railings recently. Pt is a very active and loves to ski and hike throughout the year. Prior Treatments and Tests Significant OA at his R knee from x-ray Future Testing and Treatments Planned R TKA on 01/29/19 Treatment Goals Patient/Caregiver Goals 1. To increase his LEs flexibility to be able to fully extend his R knee 2. Able to return to sports such as hiking and skiing 3. to be able to stand up from low chair without UE support Prior Functional Status Baseline Function- ADL's Independent Baseline Function- Mobility Independent Baseline Function- Other step over pattern for stair climbing without railings Current Functional Impairments (Reported) Functional Limitations- Mobility/Gait step to pattern for stairs Functional Limitations- Recreation/ increased pain during walking Hobbies on uneven surface, hiking, prolonged walking, standing. Unable to skii due to increased pain PT-OP-C Subjective Start: 01/15/19 13:58 Freq: Status: Active Protocol: Document 01/15/19 12:20 (Rec: 01/15/19 14:32 [email or web address]) OP-PT Subjective Patient Comments Patient Comments I am ready for the surgery . Patient Questionnaires Lower Extremity Functional Scale LEFS Score 57 LEFS Impairment 20 to 39% Impaired (Score 48- 62) OP-PT Pain Assessment Location Right Knee Pain Location Details medial knee pain Intensity 3 Scale Used Numeric (1 - 10) Description Aching Dull Frequency Constant Pain Aggravating Factors Activity Exercise Standing Walking Stair Climbing Pain Alleviating Factors Cold Inactivity PT-OP-G Mobility & Gait Start: 01/15/19 13:58 Freq: Status: Active Protocol: Document 01/15/19 12:20 (Rec: 01/15/19 14:32 [email or web address]) OP Gait Assessment Gait Gait Assistance Required: Independent Assistive Devices Assistive Device None Gait Deviations General Gait Pattern Antalgic Decreased Stride Length Decreased Feet Clearance Factors Limiting Gait Function Factors Limiting Gait Function Decreased Strength Limited Range of Motion Pain Comments Gait Comments R antalgic gait with decreased stance phase on RLE. Mod R knee varus noted at static stance. Stair Climbing Evaluation Evaluation Level of Assist On Stairs Independent Devices Stair Climbing Assistive Devices Left Railing Right Railing Technique/Endurance Stair Climbing Direction Ascend and Descend Stair Climbing Technique Step to Step PT-OP-J Posture/Palpation/Skin Start: 01/15/19 13:58 Freq: Status: Active Protocol: Document 01/15/19 12:20 (Rec: 01/15/19 14:32 [email or web address]) Posture Evaluation Position Standing Evaluation View Anterior Weight Distribution Weight Shifted Left Knee Posture (R) Genu Varus (R) Ext. Tibial Torsion PT-OP-K Range of Motion Start: 01/15/19 13:58 Freq: Status: Active Protocol: Document 01/15/19 12:20 (Rec: 01/15/19 14:32 [email or web address]) Knee Goniometric Range of Motion Knee Measured in Degrees Right Knee ROM WFL Yes Patient Position Supine Flexion Active (degrees) 115 Extension Active (degrees) 12 Left Knee ROM WFL Yes Patient Position Supine Flexion Active (degrees) 120 Extension Active (degrees) 4 PT-OP-M Strength Start: 01/15/19 13:58 Freq: Status: Active Protocol: Document 01/15/19 12:20 (Rec: 01/15/19 14:34 [email or web address]) Hip Strength Hip Manual Muscle Testing Right Flexion (L2) 4+ Good+ Extension (S1) 4+ Good+ Abduction 4+ Good+ Adduction 4+ Good+ Left Flexion (L2) 4+ Good+ Extension (S1) 4+ Good+ Abduction 4+ Good+ Adduction 4+ Good+ Knee Strength Knee Manual Muscle Testing Right Flexion (S2) 5 Normal Extension (L3) 4 Good Left Flexion (S2) 5 Normal Extension (L3) 5 Normal Ankle/Foot Strength Ankle and Foot Manual Muscle Testing Right Dorsiflexion (L4) 5 Normal Plantarflexion (S1) 5 Normal Inversion 5 Normal Eversion (S1) 5 Normal Left Dorsiflexion (L4) 5 Normal Plantarflexion (S1) 5 Normal Inversion 5 Normal Eversion (S1) 5 Normal PT-OP-T Assessment and Plan Start: 01/15/19 13:58 Freq: Status: Active Protocol: Document 01/15/19 12:20 HH (Rec: 01/15/19 14:32 HH [email or web address]) Physical Therapy Assessment Rehab Potential Rehabilitation Potential Excellent Evaluation Complexity Number of Personal Factors/Comorbidities 1-2 Number of Body Systems Impaired 1-2 Clinical Presentation at Evaluation Stable Impairments Impairments Activity Tolerance Balance Edema Functional Activities Functional Mobility Gait Pain Posture ROM Sensation Soft Tissue Mobility Strength Tone Goals walking program Impairment expect to have decreased activity tolerance after sx Nursing Home Goal (LTG) Pt will be able to amb >1 mile a day even/uneven ground safely without AD / increase in pain in order to return to sports in the future. LTG Duration 04/13/19 strength Impairment difficulty getting up from low chair and stair climbing Bathroom Tiling Professional Goal (LTG) Pt will be able to climb stair with step over pattern and stand up from low chair (15 inch) without using UEs for push off. LTG Duration 04/13/19 ROM Impairment R knee extension at 12 degrees during IE Nursing Home Goal (LTG) pt will be able to reach <5 degrees of R knee extension actively to improve gait mechanics and body upright alignment. LTG Duration 04/13/19 LEFS Impairment Pt scores 57 (20-39% impairment) for LEFS Bathroom Tiling Professional Goal (LTG) Pt will be able to score >63 points (below 20% impairments) on LEFS to improve his overall quality of life and functional mobility. LTG Duration 04/13/19 Assessment Summary Assessment Pt presents to clinic with chronic B knee pain R> L due to significant R knee OA. Pt will undergo R TKA on 01/29/19 who is here for pre-surgical assessment today. Pt is low complexity with high functional mobility upon assessment. Pt does present mild R genu varus with slight R antalgic gait during postural assessment and gait analysis. He also demonstrates lack of R knee extension (12- 115 degrees). Today's session focused on educating pt on post op ther-ex, gait training with FWW, stair climbing techniques and prognosis. Also adjusted pt's FWW to his wrist level. Pt will benefit from skilled PT to improve his post surgical mobility by overall strengthening, gait training, self care and balance training. Physical Therapy Plan Frequency and Duration Frequency of Treatment 2x/Week Duration of Treatment 10 weeks Plan of Care Start Date 01/15/19 Plan of Care End Date 04/13/19 Therapeutic Interventions Therapeutic Interventions Aquatic Therapy Balance Training Gait Training Home Exercise Program Joint Mobilizations Manual Therapy Neuromuscular Re-education Patient/Caregiver Education Self-Care/Home Management Soft Tissue Mobilization Taping Therapeutic Activities Therapeutic Exercises Modalities Cold Pack/Ice Massage Electric Stimulation Hot Packs Infrared Therapy Ultrasound Next Visit Focus/Plan Next Note Type Re-Evaluation Next Visit Plan Reassess pt's post op status review heP ROM as cristopher bike as cristopher
--- NOTE | 2019-02-10 17:28 | PT.OTN ---
Current Diagnoses Unilateral primary osteoarthritis, right knee (02/10/19) Physical Therapy Treatment Note PT-OP-A Visit Information Start: 01/15/19 13:58 Freq: Status: Active Protocol: Document 02/10/19 14:24 EA (Rec: 02/10/19 14:34 EA [id number]) Out-Patient Physical Therapy Visit Information Visit Information Visit Note re-cval performed today Visit Start Time 13:45 Visit Stop Time 14:30 Total Visit Minutes 45 Visit Number 2 PT-OP-B Current Condition Start: 01/15/19 13:58 Freq: Status: Active Protocol: Document 02/10/19 14:24 EA (Rec: 02/10/19 14:34 EA [id number]) Current Condition History of Current Condition Onset Date s/p L TKA 01/29/2019 Current Complaints gait difficulty History of Current Condition Patient is s/p left TKA. Patient independent in all functional mobility except with driving Treatment Goals Patient/Caregiver Goals 1. To increase his LEs flexibility to be able to fully extend his R knee 2. Able to return to sports such as hiking and skiing 3. to be able to stand up from low chair without UE support Prior Functional Status Baseline Function- ADL's Independent Baseline Function- Mobility Independent Baseline Function- Other step over pattern for stair climbing without railings Current Functional Impairments (Reported) Functional Limitations- Mobility/Gait step to pattern for stairs Functional Limitations- Recreation/ increased pain during walking Hobbies on uneven surface, hiking, prolonged walking, standing. Unable to skii due to increased pain PT-OP-C Subjective Start: 01/15/19 13:58 Freq: Status: Active Protocol: Document 02/10/19 14:24 EA (Rec: 02/10/19 14:34 EA [id number]) OP-PT Subjective Patient Comments Patient Comments Patient c/o of walking difficulty due to pain and weakness to left LE. Patient Questionnaires Lower Extremity Functional Scale LEFS Score 16 LEFS Impairment 80 to 99% Impaired (Score 1-16 ) OP-PT Pain Assessment Location Right Knee Pain Location Details medial knee pain Intensity 5 Scale Used Numeric (1 - 10) Description Aching Dull Frequency Constant Pain Aggravating Factors Activity Exercise Standing Walking Stair Climbing Pain Alleviating Factors Cold Inactivity Home Pain Medication Use Pain Medications Used Yes Home Pain Medication Frequency oxycodone Pain Behaviors Pain Behaviors Guarding Wincing PT-OP-G Mobility & Gait Start: 01/15/19 13:58 Freq: Status: Active Protocol: Document 01/15/19 12:20 HH (Rec: 01/15/19 14:32 HH [email or web address]) OP Gait Assessment Gait Gait Assistance Required: Independent Assistive Devices Assistive Device None Gait Deviations General Gait Pattern Antalgic Decreased Stride Length Decreased Feet Clearance Factors Limiting Gait Function Factors Limiting Gait Function Decreased Strength Limited Range of Motion Pain Comments Gait Comments R antalgic gait with decreased stance phase on RLE. Mod R knee varus noted at static stance. Stair Climbing Evaluation Evaluation Level of Assist On Stairs Independent Devices Stair Climbing Assistive Devices Left Railing Right Railing Technique/Endurance Stair Climbing Direction Ascend and Descend Stair Climbing Technique Step to Step PT-OP-J Posture/Palpation/Skin Start: 01/15/19 13:58 Freq: Status: Active Protocol: Document 02/10/19 14:24 EA (Rec: 02/10/19 14:34 EA [id number]) Skin Assessment Circumference Measurement 1 Comments 16.5 L: 14 R Incisional Assessment Incision Appearance/Comments Incision still covered PT-OP-K Range of Motion Start: 01/15/19 13:58 Freq: Status: Active Protocol: Document 01/15/19 12:20 HH (Rec: 01/15/19 14:32 HH [email or web address]) Knee Goniometric Range of Motion Knee Right Knee ROM WFL Yes Patient Position Supine Flexion Active (degrees) 115 Extension Active (degrees) 12 Left Knee ROM WFL Yes Patient Position Supine Flexion Active (degrees) 120 Extension Active (degrees) 4 PT-OP-M Strength Start: 01/15/19 13:58 Freq: Status: Active Protocol: Document 02/10/19 14:24 EA (Rec: 02/10/19 14:34 EA [id number]) Hip Strength Hip Manual Muscle Testing Right Reason Not Measured Pain Left Reason Not Measured WFL Knee Strength Knee Manual Muscle Testing Right Reason Not Measured WFL Pain Left Flexion (S2) 5 Normal Extension (L3) 5 Normal PT-OP-Q Treatments Start: 01/15/19 13:58 Freq: Status: Active Protocol: Document 02/10/19 14:24 EA (Rec: 02/10/19 14:34 EA [id number]) Therapeutic Exercises Supine Exercises 5 Supine Exercise Name SLR Reps/Minutes x 10 reps x 2 4 Supine Exercise Name Passive stretching 3 Supine Exercise Name SAQ Reps/Minutes x 10 reps x 2 2 Supine Exercise Name Quads sets 1 Supine Exercise Name Heel slides Reps/Minutes x 10 reps x 2 Self-Care/Home Management Treatment Education Patient Education Home Exercise Program Joint Protection Pain Management Safety PT-OP-R Modalities Start: 01/15/19 13:58 Freq: Status: Active Protocol: Document 02/10/19 14:24 EA (Rec: 02/10/19 14:34 EA [id number]) Electric Stimulation Electric Stimulation Interferential Current (IFC) Body Location right quads Duration (Minutes) 15 Patient Position Supine Combined With Heat/Cold Cold Pack PT-OP-T Assessment and Plan Start: 01/15/19 13:58 Freq: Status: Active Protocol: Document 02/10/19 14:24 EA (Rec: 02/10/19 14:34 EA [id number]) Physical Therapy Assessment Impairments Impairments Activity Tolerance Functional Mobility Gait Pain ROM Soft Tissue Mobility Strength Assessment Summary Assessment Patient presents 10 days R TKA post op with healing as expected. Right knee bending and extension is equally limited due to increased of swelling with grade 2 edema. Patient exhibited difficulty of mobility using FWW however has been independent at home. Patient would cont. to benfit with skilled PT focusing on gait correction, strengthening and increasing ROM with an aim of decreasing knee swelling.
--- NOTE | 2019-02-12 16:53 | PT.OTN ---
Current Diagnoses Unilateral primary osteoarthritis, right knee (02/12/19) Physical Therapy Treatment Note PT-OP-A Visit Information Start: 01/15/19 13:58 Freq: Status: Active Protocol: Document 02/12/19 12:53 EA (Rec: 02/12/19 13:00 EA [id number]) Out-Patient Physical Therapy Visit Information Visit Information Visit Type Aquatic Treatment Note Visit Start Time 12:15 Visit Stop Time 13:05 Total Visit Minutes 50 Visit Number 3 PT-OP-B Current Condition Start: 01/15/19 13:58 Freq: Status: Active Protocol: Document 02/10/19 14:24 EA (Rec: 02/10/19 14:34 EA [id number]) Current Condition History of Current Condition Onset Date s/p L TKA 01/29/2019 Current Complaints gait difficulty History of Current Condition Patient is s/p left TKA. Patient independent in all functional mobility except with driving Treatment Goals Patient/Caregiver Goals 1. To increase his LEs flexibility to be able to fully extend his R knee 2. Able to return to sports such as hiking and skiing 3. to be able to stand up from low chair without UE support Prior Functional Status Baseline Function- ADL's Independent Baseline Function- Mobility Independent Baseline Function- Other step over pattern for stair climbing without railings Current Functional Impairments (Reported) Functional Limitations- Mobility/Gait step to pattern for stairs Functional Limitations- Recreation/ increased pain during walking Hobbies on uneven surface, hiking, prolonged walking, standing. 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 PT-OP-G Mobility & Gait Start: 01/15/19 13:58 Freq: Status: Active Protocol: Document 01/15/19 12:20 HH (Rec: 01/15/19 14:32 HH [email or web address]) OP Gait Assessment Gait Gait Assistance Required: Independent Assistive Devices Assistive Device None Gait Deviations General Gait Pattern Antalgic Decreased Stride Length Decreased Feet Clearance Factors Limiting Gait Function Factors Limiting Gait Function Decreased Strength Limited Range of Motion Pain Comments Gait Comments R antalgic gait with decreased stance phase on RLE. Mod R knee varus noted at static stance. Stair Climbing Evaluation Evaluation Level of Assist On Stairs Independent Devices Stair Climbing Assistive Devices Left Railing Right Railing Technique/Endurance Stair Climbing Direction Ascend and Descend Stair Climbing Technique Step to Step PT-OP-J Posture/Palpation/Skin Start: 01/15/19 13:58 Freq: Status: Active Protocol: Document 02/10/19 14:24 EA (Rec: 02/10/19 14:34 EA [id number]) Skin Assessment Circumference Measurement 1 Comments 16.5 L: 14 R Incisional Assessment Incision Appearance/Comments Incision still covered PT-OP-K Range of Motion Start: 01/15/19 13:58 Freq: Status: Active Protocol: Document 01/15/19 12:20 HH (Rec: 01/15/19 14:32 HH [email or web address]) Knee Goniometric Range of Motion Knee Right Knee ROM WFL Yes Patient Position Supine Flexion Active (degrees) 115 Extension Active (degrees) 12 Left Knee ROM WFL Yes Patient Position Supine Flexion Active (degrees) 120 Extension Active (degrees) 4 PT-OP-M Strength Start: 01/15/19 13:58 Freq: Status: Active Protocol: Document 02/10/19 14:24 EA (Rec: 02/10/19 14:34 EA [id number]) Hip Strength Hip Manual Muscle Testing Right Reason Not Measured Pain Left Reason Not Measured WFL Knee Strength Knee Manual Muscle Testing Right Reason Not Measured WFL Pain Left Flexion (S2) 5 Normal Extension (L3) 5 Normal PT-OP-Q Treatments Start: 01/15/19 13:58 Freq: Status: Active Protocol: Document 02/12/19 12:53 EA (Rec: 02/12/19 13:00 EA [id number]) Cardio Equipment Recumbent Stepper (Sci-Fit) Duration (Minutes) 8 Resistance 1 Seat Position 13 Gym Equipment Shuttle Recovery Bilateral Squats Resistance 2cords Reps/Time pain free range Therapeutic Exercises Supine Exercises 5 Supine Exercise Name SLR Reps/Minutes x 10 reps x 2 4 Supine Exercise Name Passive hamstring stretching 3 Supine Exercise Name SAQ Reps/Minutes x 10 reps x 2 2 Supine Exercise Name Quads sets Reps/Minutes x5sh x 10 reps 1 Supine Exercise Name Heel slides Reps/Minutes x 10 reps x 2 Standing Exercises 2 Standing Exercise Name LEORA gastroc stretch 1 Standing Exercise Name hip // bars 3 way Reps/Minutes x 12 reps Gait Training Gait Activity 1 Device Used STC Level of Assistance flat level Surface SBA Distance/Duration 5 mins Treatment Focus heel to toe gait; cane sequencing Comments left hand use the cane PT-OP-R Modalities Start: 01/15/19 13:58 Freq: Status: Active Protocol: Document 02/12/19 12:53 EA (Rec: 02/12/19 13:00 EA [id number]) Electric Stimulation Electric Stimulation Interferential Current (IFC) Body Location right quads Duration (Minutes) 15 Intensity 15 Patient Position Supine Combined With Heat/Cold Cold Pack PT-OP-T Assessment and Plan Start: 01/15/19 13:58 Freq: Status: Active Protocol: Document 02/12/19 12:53 EA (Rec: 02/12/19 13:00 EA [id number]) Physical Therapy Assessment Assessment Summary Assessment Improved knee flexion and ext range with increased exercises tolerance today. Physical Therapy Plan Next Visit Focus/Plan Next Note Type Treatment Note
--- NOTE | 2019-02-17 17:27 | PT.OTN ---
Current Diagnoses Unilateral primary osteoarthritis, right knee (02/17/19) Physical Therapy Treatment Note PT-OP-A Visit Information Start: 01/15/19 13:58 Freq: Status: Active Protocol: Document 02/17/19 17:17 EA (Rec: 02/17/19 17:27 EA [id number]) Out-Patient Physical Therapy Visit Information Visit Information Visit Type Treatment Note Visit Start Time 12:15 Visit Stop Time 13:00 Total Visit Minutes 45 Visit Number 4 PT-OP-B Current Condition Start: 01/15/19 13:58 Freq: Status: Active Protocol: Document 02/10/19 14:24 EA (Rec: 02/10/19 14:34 EA [id number]) Current Condition History of Current Condition Onset Date s/p L TKA 01/29/2019 Current Complaints gait difficulty History of Current Condition Patient is s/p left TKA. Patient independent in all functional mobility except with driving Treatment Goals Patient/Caregiver Goals 1. To increase his LEs flexibility to be able to fully extend his R knee 2. Able to return to sports such as hiking and skiing 3. to be able to stand up from low chair without UE support Prior Functional Status Baseline Function- ADL's Independent Baseline Function- Mobility Independent Baseline Function- Other step over pattern for stair climbing without railings Current Functional Impairments (Reported) Functional Limitations- Mobility/Gait step to pattern for stairs Functional Limitations- Recreation/ increased pain during walking Hobbies on uneven surface, hiking, prolonged walking, standing. Unable to skii due to increased pain PT-OP-C Subjective Start: 01/15/19 13:58 Freq: Status: Active Protocol: Document 02/17/19 17:17 EA (Rec: 02/17/19 17:27 EA [id number]) OP-PT Subjective Patient Comments Patient Comments Pt reports compliant with HEP; states he has been walking somtimes without a cane and pain meds has been off. PT-OP-G Mobility & Gait Start: 01/15/19 13:58 Freq: Status: Active Protocol: Document 01/15/19 12:20 HH (Rec: 01/15/19 14:32 HH [email or web address]) OP Gait Assessment Gait Gait Assistance Required: Independent Assistive Devices Assistive Device None Gait Deviations General Gait Pattern Antalgic Decreased Stride Length Decreased Feet Clearance Factors Limiting Gait Function Factors Limiting Gait Function Decreased Strength Limited Range of Motion Pain Comments Gait Comments R antalgic gait with decreased stance phase on RLE. Mod R knee varus noted at static stance. Stair Climbing Evaluation Evaluation Level of Assist On Stairs Independent Devices Stair Climbing Assistive Devices Left Railing Right Railing Technique/Endurance Stair Climbing Direction Ascend and Descend Stair Climbing Technique Step to Step PT-OP-J Posture/Palpation/Skin Start: 01/15/19 13:58 Freq: Status: Active Protocol: Document 02/10/19 14:24 EA (Rec: 02/10/19 14:34 EA [id number]) Skin Assessment Circumference Measurement 1 Comments 16.5 L: 14 R Incisional Assessment Incision Appearance/Comments Incision still covered PT-OP-K Range of Motion Start: 01/15/19 13:58 Freq: Status: Active Protocol: Document 01/15/19 12:20 HH (Rec: 01/15/19 14:32 HH [email or web address]) Knee Goniometric Range of Motion Knee Right Knee ROM WFL Yes Patient Position Supine Flexion Active (degrees) 115 Extension Active (degrees) 12 Left Knee ROM WFL Yes Patient Position Supine Flexion Active (degrees) 120 Extension Active (degrees) 4 PT-OP-M Strength Start: 01/15/19 13:58 Freq: Status: Active Protocol: Document 02/10/19 14:24 EA (Rec: 02/10/19 14:34 EA [id number]) Hip Strength Hip Manual Muscle Testing Right Reason Not Measured Pain Left Reason Not Measured WFL Knee Strength Knee Manual Muscle Testing Right Reason Not Measured WFL Pain Left Flexion (S2) 5 Normal Extension (L3) 5 Normal PT-OP-Q Treatments Start: 01/15/19 13:58 Freq: Status: Active Protocol: Document 02/17/19 17:17 EA (Rec: 02/17/19 17:27 EA [id number]) Cardio Equipment Recumbent Stepper (Sci-Fit) Duration (Minutes) 8 Resistance 1 Seat Position 13 Gym Equipment Shuttle Recovery Unilateral Squats Resistance 12# Shuttle Recovery Platform Stable Reps/Time x 15 reps x2 Bilateral Squats Resistance 3cords Reps/Time pain free range Therapeutic Exercises Supine Exercises 5 Supine Exercise Name SLR Reps/Minutes x 10 reps x 2 4 Supine Exercise Name Passive hamstring stretching 3 Supine Exercise Name SAQ Reps/Minutes x 10 reps x 2 2 Supine Exercise Name Quads sets Reps/Minutes x5sh x 10 reps 1 Supine Exercise Name Heel slides Reps/Minutes x 10 reps x 2 Standing Exercises 4 Standing Exercise Name heels raises Reps/Minutes 15 reps 3 Standing Exercise Name side step squat Reps/Minutes x 3 laps 2 Standing Exercise Name LEORA gastroc stretch 1 Standing Exercise Name hip // bars 3 way Reps/Minutes x 12 reps Manual Therapy Treatment Soft Tissue Mobilization 1 Body Location quads Mobilization Type Manual Lymphatic Drainage Myofascial Release Intensity/Depth Moderate Body Position supine/hooklying PT-OP-R Modalities Start: 01/15/19 13:58 Freq: Status: Active Protocol: Document 02/17/19 17:17 EA (Rec: 02/17/19 17:27 EA [id number]) Electric Stimulation Electric Stimulation Interferential Current (IFC) Body Location right quads Duration (Minutes) 15 Intensity 15 Patient Position Supine Combined With Heat/Cold Cold Pack PT-OP-T Assessment and Plan Start: 01/15/19 13:58 Freq: Status: Active Protocol: Document 02/17/19 17:17 EA (Rec: 02/17/19 17:27 EA [id number]) Physical Therapy Assessment Assessment Summary Assessment Gait shows decreased push off and terminal extension but much improved since. ROM reveal - 2 to 60 deg Ext/F Physical Therapy Plan Next Visit Focus/Plan Next Note Type Treatment Note Next Visit Plan Cont. with current plan.
--- NOTE | 2019-02-20 13:50 | PT.OTN ---
Current Diagnoses Unilateral primary osteoarthritis, right knee (02/20/19) Physical Therapy Treatment Note PT-OP-A Visit Information Start: 01/15/19 13:58 Freq: Status: Active Protocol: Document 02/20/19 12:58 EA (Rec: 02/20/19 13:03 EA [id number]) Out-Patient Physical Therapy Visit Information Visit Information Visit Type Treatment Note Visit Start Time 12:15 Visit Stop Time 13:08 Total Visit Minutes 53 Visit Number 5 PT-OP-B Current Condition Start: 01/15/19 13:58 Freq: Status: Active Protocol: Document 02/10/19 14:24 EA (Rec: 02/10/19 14:34 EA [id number]) Current Condition History of Current Condition Onset Date s/p L TKA 01/29/2019 Current Complaints gait difficulty History of Current Condition Patient is s/p left TKA. Patient independent in all functional mobility except with driving Treatment Goals Patient/Caregiver Goals 1. To increase his LEs flexibility to be able to fully extend his R knee 2. Able to return to sports such as hiking and skiing 3. to be able to stand up from low chair without UE support Prior Functional Status Baseline Function- ADL's Independent Baseline Function- Mobility Independent Baseline Function- Other step over pattern for stair climbing without railings Current Functional Impairments (Reported) Functional Limitations- Mobility/Gait step to pattern for stairs Functional Limitations- Recreation/ increased pain during walking Hobbies on uneven surface, hiking, prolonged walking, standing. Unable to skii due to increased pain PT-OP-C Subjective Start: 01/15/19 13:58 Freq: Status: Active Protocol: Document 02/20/19 12:58 EA (Rec: 02/20/19 13:03 EA [id number]) OP-PT Subjective Patient Comments Patient Comments Pt reports not taking oxycodone only tylenol; feels swelling is getting down. PT-OP-G Mobility & Gait Start: 01/15/19 13:58 Freq: Status: Active Protocol: Document 01/15/19 12:20 HH (Rec: 01/15/19 14:32 HH [email or web address]) OP Gait Assessment Gait Gait Assistance Required: Independent Assistive Devices Assistive Device None Gait Deviations General Gait Pattern Antalgic Decreased Stride Length Decreased Feet Clearance Factors Limiting Gait Function Factors Limiting Gait Function Decreased Strength Limited Range of Motion Pain Comments Gait Comments R antalgic gait with decreased stance phase on RLE. Mod R knee varus noted at static stance. Stair Climbing Evaluation Evaluation Level of Assist On Stairs Independent Devices Stair Climbing Assistive Devices Left Railing Right Railing Technique/Endurance Stair Climbing Direction Ascend and Descend Stair Climbing Technique Step to Step PT-OP-J Posture/Palpation/Skin Start: 01/15/19 13:58 Freq: Status: Active Protocol: Document 02/10/19 14:24 EA (Rec: 02/10/19 14:34 EA [id number]) Skin Assessment Circumference Measurement 1 Comments 16.5 L: 14 R Incisional Assessment Incision Appearance/Comments Incision still covered PT-OP-K Range of Motion Start: 01/15/19 13:58 Freq: Status: Active Protocol: Document 01/15/19 12:20 HH (Rec: 01/15/19 14:32 HH [email or web address]) Knee Goniometric Range of Motion Knee Right Knee ROM WFL Yes Patient Position Supine Flexion Active (degrees) 115 Extension Active (degrees) 12 Left Knee ROM WFL Yes Patient Position Supine Flexion Active (degrees) 120 Extension Active (degrees) 4 PT-OP-M Strength Start: 01/15/19 13:58 Freq: Status: Active Protocol: Document 02/10/19 14:24 EA (Rec: 02/10/19 14:34 EA [id number]) Hip Strength Hip Manual Muscle Testing Right Reason Not Measured Pain Left Reason Not Measured WFL Knee Strength Knee Manual Muscle Testing Right Reason Not Measured WFL Pain Left Flexion (S2) 5 Normal Extension (L3) 5 Normal PT-OP-Q Treatments Start: 01/15/19 13:58 Freq: Status: Active Protocol: Document 02/20/19 12:58 EA (Rec: 02/20/19 13:03 EA [id number]) Cardio Equipment Recumbent Stepper (Sci-Fit) Duration (Minutes) 8 Resistance 1 Seat Position 13-11 Gym Equipment Shuttle Recovery Unilateral Squats Resistance 12# Shuttle Recovery Platform Stable Reps/Time x 15 reps x2 Bilateral Squats Resistance 3cords Reps/Time pain free range Therapeutic Exercises Supine Exercises 5 Supine Exercise Name SLR Reps/Minutes x 10 reps x 2 4 Supine Exercise Name Passive hamstring stretching 2 Supine Exercise Name Quads sets Reps/Minutes x5sh x 10 reps 1 Supine Exercise Name Heel slides Reps/Minutes x 10 reps x 2 Sitting Exercises 1 Sitting Exercise Name LAQ edge of bed Reps/Minutes x 15 reps x 2 Standing Exercises 4 Standing Exercise Name heels raises Reps/Minutes 15 reps 3 Standing Exercise Name side step squat Reps/Minutes x 3 laps 2 Standing Exercise Name LEORA gastroc stretch 1 Standing Exercise Name hip // bars 3 way Reps/Minutes x 12 reps Manual Therapy Treatment Soft Tissue Mobilization 1 Body Location quads Mobilization Type Manual Lymphatic Drainage Myofascial Release Intensity/Depth Moderate Body Position supine/hooklying Joint Mobilizations 1 Joint PF Direction sup/inf Grade I Body Position Supine Comments gentle PT-OP-R Modalities Start: 01/15/19 13:58 Freq: Status: Active Protocol: Document 02/20/19 12:58 EA (Rec: 02/20/19 13:03 EA [id number]) Electric Stimulation Electric Stimulation Interferential Current (IFC) Body Location right quads Duration (Minutes) 15 Intensity 15 Patient Position Supine Combined With Heat/Cold Cold Pack PT-OP-T Assessment and Plan Start: 01/15/19 13:58 Freq: Status: Active Protocol: Document 02/20/19 12:58 EA (Rec: 02/20/19 13:03 EA [id number]) Physical Therapy Assessment Assessment Summary Assessment Improved gait and exercises tolerance. Noted much decreased swelling. Physical Therapy Plan Next Visit Focus/Plan Next Note Type Treatment Note Next Visit Plan Cont. with current plan.
--- NOTE | 2019-02-24 12:15 | PT.OTN ---
Current Diagnoses Unilateral primary osteoarthritis, right knee (02/24/19) Physical Therapy Treatment Note PT-OP-A Visit Information Start: 01/15/19 13:58 Freq: Status: Active Protocol: Document 02/24/19 12:11 EA (Rec: 02/24/19 12:15 EA [id number]) Out-Patient Physical Therapy Visit Information Visit Information Visit Type Treatment Note Visit Start Time 10:30 Visit Stop Time 11:23 Total Visit Minutes 53 Visit Number 6 PT-OP-B Current Condition Start: 01/15/19 13:58 Freq: Status: Active Protocol: Document 02/10/19 14:24 EA (Rec: 02/10/19 14:34 EA [id number]) Current Condition History of Current Condition Onset Date s/p L TKA 01/29/2019 Current Complaints gait difficulty History of Current Condition Patient is s/p left TKA. Patient independent in all functional mobility except with driving Treatment Goals Patient/Caregiver Goals 1. To increase his LEs flexibility to be able to fully extend his R knee 2. Able to return to sports such as hiking and skiing 3. to be able to stand up from low chair without UE support Prior Functional Status Baseline Function- ADL's Independent Baseline Function- Mobility Independent Baseline Function- Other step over pattern for stair climbing without railings Current Functional Impairments (Reported) Functional Limitations- Mobility/Gait step to pattern for stairs Functional Limitations- Recreation/ increased pain during walking Hobbies on uneven surface, hiking, prolonged walking, standing. Unable to skii due to increased pain PT-OP-C Subjective Start: 01/15/19 13:58 Freq: Status: Active Protocol: Document 02/24/19 12:11 EA (Rec: 02/24/19 12:15 EA [id number]) OP-PT Subjective Patient Comments Patient Comments Pt reports able to sleep better last night and he has been compliant with HEP. He reports he will be seeing his surgeon tasha for possible manip under anesthesia. PT-OP-G Mobility & Gait Start: 01/15/19 13:58 Freq: Status: Active Protocol: Document 01/15/19 12:20 HH (Rec: 01/15/19 14:32 HH [email or web address]) OP Gait Assessment Gait Gait Assistance Required: Independent Assistive Devices Assistive Device None Gait Deviations General Gait Pattern Antalgic Decreased Stride Length Decreased Feet Clearance Factors Limiting Gait Function Factors Limiting Gait Function Decreased Strength Limited Range of Motion Pain Comments Gait Comments R antalgic gait with decreased stance phase on RLE. Mod R knee varus noted at static stance. Stair Climbing Evaluation Evaluation Level of Assist On Stairs Independent Devices Stair Climbing Assistive Devices Left Railing Right Railing Technique/Endurance Stair Climbing Direction Ascend and Descend Stair Climbing Technique Step to Step PT-OP-J Posture/Palpation/Skin Start: 01/15/19 13:58 Freq: Status: Active Protocol: Document 02/10/19 14:24 EA (Rec: 02/10/19 14:34 EA [id number]) Skin Assessment Circumference Measurement 1 Comments 16.5 L: 14 R Incisional Assessment Incision Appearance/Comments Incision still covered PT-OP-K Range of Motion Start: 01/15/19 13:58 Freq: Status: Active Protocol: Document 01/15/19 12:20 HH (Rec: 01/15/19 14:32 HH [email or web address]) Knee Goniometric Range of Motion Knee Right Knee ROM WFL Yes Patient Position Supine Flexion Active (degrees) 115 Extension Active (degrees) 12 Left Knee ROM WFL Yes Patient Position Supine Flexion Active (degrees) 120 Extension Active (degrees) 4 PT-OP-M Strength Start: 01/15/19 13:58 Freq: Status: Active Protocol: Document 02/10/19 14:24 EA (Rec: 02/10/19 14:34 EA [id number]) Hip Strength Hip Manual Muscle Testing Right Reason Not Measured Pain Left Reason Not Measured WFL Knee Strength Knee Manual Muscle Testing Right Reason Not Measured WFL Pain Left Flexion (S2) 5 Normal Extension (L3) 5 Normal PT-OP-Q Treatments Start: 01/15/19 13:58 Freq: Status: Active Protocol: Document 02/24/19 12:11 EA (Rec: 02/24/19 12:15 EA [id number]) Cardio Equipment Recumbent Stepper (Sci-Fit) Duration (Minutes) 8 Resistance 2 Seat Position 11-10 Gym Equipment Shuttle Recovery Unilateral Squats Resistance 12# Shuttle Recovery Platform Stable Reps/Time x 15 reps x2 Bilateral Squats Resistance 3cords Reps/Time pain free range Therapeutic Exercises Supine Exercises 5 Supine Exercise Name SLR Reps/Minutes x 10 reps x 2 4 Supine Exercise Name Passive hamstring stretching 2 Supine Exercise Name Quads sets Reps/Minutes x5sh x 10 reps 1 Supine Exercise Name Heel slides Reps/Minutes x 10 reps x 2 Sitting Exercises 1 Sitting Exercise Name LAQ edge of bed Reps/Minutes x 15 reps x 2 Standing Exercises 6 Standing Exercise Name step lunges fwd Comments rails support 5 Standing Exercise Name 4 steps up leading with right leg Comments with rails support 4 Standing Exercise Name heels raises Reps/Minutes 15 reps 3 Standing Exercise Name side step squat Reps/Minutes x 3 laps 2 Standing Exercise Name LEORA gastroc stretch 1 Standing Exercise Name hip // bars 3 way Reps/Minutes x 12 reps Manual Therapy Treatment Soft Tissue Mobilization 1 Body Location quads Mobilization Type Manual Lymphatic Drainage Myofascial Release Intensity/Depth Moderate Body Position supine/hooklying Joint Mobilizations 1 Joint PF Direction sup/inf Grade I Body Position Supine Comments gentle PT-OP-R Modalities Start: 01/15/19 13:58 Freq: Status: Active Protocol: Document 02/24/19 12:11 EA (Rec: 02/24/19 12:15 EA [id number]) Electric Stimulation Electric Stimulation Interferential Current (IFC) Body Location right quads Duration (Minutes) 15 Intensity 15 Patient Position Supine Combined With Heat/Cold Cold Pack PT-OP-T Assessment and Plan Start: 01/15/19 13:58 Freq: Status: Active Protocol: Document 02/24/19 12:11 EA (Rec: 02/24/19 12:15 EA [id number]) Physical Therapy Assessment Assessment Summary Assessment Improved gait with no AD; range to flexion still limited but decreased swelling. Physical Therapy Plan Next Visit Focus/Plan Next Note Type Treatment Note Next Visit Plan Cont. with current plan.
--- NOTE | 2019-02-27 12:34 | PT.OTN ---
Current Diagnoses Unilateral primary osteoarthritis, right knee (02/27/19) Physical Therapy Treatment Note PT-OP-A Visit Information Start: 01/15/19 13:58 Freq: Status: Active Protocol: Document 02/27/19 12:01 EA (Rec: 02/27/19 12:32 EA [id number]) Out-Patient Physical Therapy Visit Information Visit Information Visit Type Treatment Note Visit Start Time 10:30 Visit Stop Time 11:23 Total Visit Minutes 50 Visit Number 7 PT-OP-B Current Condition Start: 01/15/19 13:58 Freq: Status: Active Protocol: Document 02/10/19 14:24 EA (Rec: 02/10/19 14:34 EA [id number]) Current Condition History of Current Condition Onset Date s/p L TKA 01/29/2019 Current Complaints gait difficulty History of Current Condition Patient is s/p left TKA. Patient independent in all functional mobility except with driving Treatment Goals Patient/Caregiver Goals 1. To increase his LEs flexibility to be able to fully extend his R knee 2. Able to return to sports such as hiking and skiing 3. to be able to stand up from low chair without UE support Prior Functional Status Baseline Function- ADL's Independent Baseline Function- Mobility Independent Baseline Function- Other step over pattern for stair climbing without railings Current Functional Impairments (Reported) Functional Limitations- Mobility/Gait step to pattern for stairs Functional Limitations- Recreation/ increased pain during walking Hobbies on uneven surface, hiking, prolonged walking, standing. Unable to skii due to increased pain PT-OP-C Subjective Start: 01/15/19 13:58 Freq: Status: Active Protocol: Document 02/27/19 12:01 EA (Rec: 02/27/19 12:32 EA [id number]) OP-PT Subjective Patient Comments Patient Comments Pt reports compliant with HEP; states uses ICE pack and is helping him to decrease pain. PT-OP-G Mobility & Gait Start: 01/15/19 13:58 Freq: Status: Active Protocol: Document 01/15/19 12:20 HH (Rec: 01/15/19 14:32 HH [email or web address]) OP Gait Assessment Gait Gait Assistance Required: Independent Assistive Devices Assistive Device None Gait Deviations General Gait Pattern Antalgic Decreased Stride Length Decreased Feet Clearance Factors Limiting Gait Function Factors Limiting Gait Function Decreased Strength Limited Range of Motion Pain Comments Gait Comments R antalgic gait with decreased stance phase on RLE. Mod R knee varus noted at static stance. Stair Climbing Evaluation Evaluation Level of Assist On Stairs Independent Devices Stair Climbing Assistive Devices Left Railing Right Railing Technique/Endurance Stair Climbing Direction Ascend and Descend Stair Climbing Technique Step to Step PT-OP-J Posture/Palpation/Skin Start: 01/15/19 13:58 Freq: Status: Active Protocol: Document 02/10/19 14:24 EA (Rec: 02/10/19 14:34 EA [id number]) Skin Assessment Circumference Measurement 1 Comments 16.5 L: 14 R Incisional Assessment Incision Appearance/Comments Incision still covered PT-OP-K Range of Motion Start: 01/15/19 13:58 Freq: Status: Active Protocol: Document 01/15/19 12:20 HH (Rec: 01/15/19 14:32 HH [email or web address]) Knee Goniometric Range of Motion Knee Right Knee ROM WFL Yes Patient Position Supine Flexion Active (degrees) 115 Extension Active (degrees) 12 Left Knee ROM WFL Yes Patient Position Supine Flexion Active (degrees) 120 Extension Active (degrees) 4 PT-OP-M Strength Start: 01/15/19 13:58 Freq: Status: Active Protocol: Document 02/10/19 14:24 EA (Rec: 02/10/19 14:34 EA [id number]) Hip Strength Hip Manual Muscle Testing Right Reason Not Measured Pain Left Reason Not Measured WFL Knee Strength Knee Manual Muscle Testing Right Reason Not Measured WFL Pain Left Flexion (S2) 5 Normal Extension (L3) 5 Normal PT-OP-Q Treatments Start: 01/15/19 13:58 Freq: Status: Active Protocol: Document 02/27/19 12:32 EA (Rec: 02/27/19 12:34 EA [id number]) Therapeutic Exercises Supine Exercises 5 Supine Exercise Name SLR Reps/Minutes x 10 reps x 2 4 Supine Exercise Name Passive hamstring stretching 2 Supine Exercise Name Quads sets Reps/Minutes x5sh x 10 reps Comments ICE pack on top while exercising 1 Supine Exercise Name Heel slides Reps/Minutes x 10 reps x 2 Sitting Exercises 1 Sitting Exercise Name LAQ edge of bed Reps/Minutes x 15 reps x 2 Standing Exercises 6 Standing Exercise Name step lunges fwd Comments rails support 5 Standing Exercise Name 4 steps up leading with right leg Comments with rails support 4 Standing Exercise Name heels raises Reps/Minutes 15 reps 3 Standing Exercise Name side step squat Reps/Minutes x 3 laps 2 Standing Exercise Name LEORA gastroc stretch 1 Standing Exercise Name hip // bars 3 way Reps/Minutes x 12 reps Manual Therapy Treatment Soft Tissue Mobilization 1 Body Location quads Mobilization Type Manual Lymphatic Drainage Myofascial Release Intensity/Depth Moderate Body Position supine/hooklying Joint Mobilizations 1 Joint PF Direction sup/inf Grade I Body Position Supine Comments gentle PT-OP-R Modalities Start: 01/15/19 13:58 Freq: Status: Active Protocol: Document 02/27/19 12:01 EA (Rec: 02/27/19 12:32 EA [id number]) Hot Pack/Cold Pack Treatment Cold Pack Location right knee Patient Position Hooklying Treatment Duration (minutes) 10 Patient Tolerance Good PT-OP-T Assessment and Plan Start: 01/15/19 13:58 Freq: Status: Active Protocol: Document 02/27/19 12:01 EA (Rec: 02/27/19 12:32 EA [id number]) Physical Therapy Assessment Assessment Summary Assessment Pt has improved weight bearing tolerance to right; knee ROM progress is slow but improving . Physical Therapy Plan Next Visit Focus/Plan Next Note Type Treatment Note Next Visit Plan Cont. with current plan.
--- NOTE | 2019-03-03 12:10 | PT.OTN ---
Current Diagnoses Unilateral primary osteoarthritis, right knee (03/03/19) Physical Therapy Treatment Note PT-OP-A Visit Information Start: 01/15/19 13:58 Freq: Status: Active Protocol: Document 03/03/19 11:03 EA (Rec: 03/03/19 11:09 EA [id number]) Out-Patient Physical Therapy Visit Information Visit Information Visit Type Treatment Note Visit Start Time 10:30 Visit Stop Time 11:25 Total Visit Minutes 55 Visit Number 8 PT-OP-B Current Condition Start: 01/15/19 13:58 Freq: Status: Active Protocol: Document 02/10/19 14:24 EA (Rec: 02/10/19 14:34 EA [id number]) Current Condition History of Current Condition Onset Date s/p L TKA 01/29/2019 Current Complaints gait difficulty History of Current Condition Patient is s/p left TKA. Patient independent in all functional mobility except with driving Treatment Goals Patient/Caregiver Goals 1. To increase his LEs flexibility to be able to fully extend his R knee 2. Able to return to sports such as hiking and skiing 3. to be able to stand up from low chair without UE support Prior Functional Status Baseline Function- ADL's Independent Baseline Function- Mobility Independent Baseline Function- Other step over pattern for stair climbing without railings Current Functional Impairments (Reported) Functional Limitations- Mobility/Gait step to pattern for stairs Functional Limitations- Recreation/ increased pain during walking Hobbies on uneven surface, hiking, prolonged walking, standing. Unable to skii due to increased pain PT-OP-C Subjective Start: 01/15/19 13:58 Freq: Status: Active Protocol: Document 03/03/19 11:03 EA (Rec: 03/03/19 11:09 EA [id number]) OP-PT Subjective Patient Comments Patient Comments Pt reports able to walk 6 blocks yesterday and pain is quite increased last night. Reports compliance with the HEP. PT-OP-G Mobility & Gait Start: 01/15/19 13:58 Freq: Status: Active Protocol: Document 01/15/19 12:20 HH (Rec: 01/15/19 14:32 HH [email or web address]) OP Gait Assessment Gait Gait Assistance Required: Independent Assistive Devices Assistive Device None Gait Deviations General Gait Pattern Antalgic Decreased Stride Length Decreased Feet Clearance Factors Limiting Gait Function Factors Limiting Gait Function Decreased Strength Limited Range of Motion Pain Comments Gait Comments R antalgic gait with decreased stance phase on RLE. Mod R knee varus noted at static stance. Stair Climbing Evaluation Evaluation Level of Assist On Stairs Independent Devices Stair Climbing Assistive Devices Left Railing Right Railing Technique/Endurance Stair Climbing Direction Ascend and Descend Stair Climbing Technique Step to Step PT-OP-J Posture/Palpation/Skin Start: 01/15/19 13:58 Freq: Status: Active Protocol: Document 02/10/19 14:24 EA (Rec: 02/10/19 14:34 EA [id number]) Skin Assessment Circumference Measurement 1 Comments 16.5 L: 14 R Incisional Assessment Incision Appearance/Comments Incision still covered PT-OP-K Range of Motion Start: 01/15/19 13:58 Freq: Status: Active Protocol: Document 01/15/19 12:20 HH (Rec: 01/15/19 14:32 HH [email or web address]) Knee Goniometric Range of Motion Knee Right Knee ROM WFL Yes Patient Position Supine Flexion Active (degrees) 115 Extension Active (degrees) 12 Left Knee ROM WFL Yes Patient Position Supine Flexion Active (degrees) 120 Extension Active (degrees) 4 PT-OP-M Strength Start: 01/15/19 13:58 Freq: Status: Active Protocol: Document 02/10/19 14:24 EA (Rec: 02/10/19 14:34 EA [id number]) Hip Strength Hip Manual Muscle Testing Right Reason Not Measured Pain Left Reason Not Measured WFL Knee Strength Knee Manual Muscle Testing Right Reason Not Measured WFL Pain Left Flexion (S2) 5 Normal Extension (L3) 5 Normal PT-OP-Q Treatments Start: 01/15/19 13:58 Freq: Status: Active Protocol: Document 03/03/19 11:03 EA (Rec: 03/03/19 11:09 EA [id number]) Cardio Equipment Recumbent Stepper (Sci-Fit) Duration (Minutes) 8 Resistance 2 Seat Position 11-9 Gym Equipment Shuttle Recovery Unilateral Squats Resistance 25# Shuttle Recovery Platform Stable Reps/Time x 15 reps x2 Bilateral Squats Resistance 3cords Reps/Time pain free range Therapeutic Exercises Supine Exercises 5 Supine Exercise Name SLR Reps/Minutes x 10 reps x 2 2 Supine Exercise Name Quads sets Reps/Minutes x5sh x 10 reps Comments ICE pack on top while exercising 1 Supine Exercise Name Heel slides Reps/Minutes x 10 reps x 2 Sitting Exercises 1 Sitting Exercise Name LAQ edge of bed Reps/Minutes x 15 reps x 2 Standing Exercises 6 Standing Exercise Name step lunges fwd Comments rails support 5 Standing Exercise Name 4 steps up leading with right leg Comments with rails support 4 Standing Exercise Name heels raises Reps/Minutes 15 reps 3 Standing Exercise Name side step squat Reps/Minutes x 3 laps 2 Standing Exercise Name LEORA gastroc stretch 1 Standing Exercise Name hip // bars 3 way Reps/Minutes x 12 reps Manual Therapy Treatment Soft Tissue Mobilization 1 Body Location quads Mobilization Type Manual Lymphatic Drainage Myofascial Release Intensity/Depth Moderate Body Position supine/hooklying Joint Mobilizations 1 Joint PF Direction sup/inf Grade I Body Position Supine Comments gentle PT-OP-R Modalities Start: 01/15/19 13:58 Freq: Status: Active Protocol: Document 03/03/19 11:03 EA (Rec: 03/03/19 11:09 EA [id number]) Electric Stimulation Electric Stimulation Interferential Current (IFC) Body Location right quads Duration (Minutes) 15 Intensity 15 Patient Position Supine Combined With Heat/Cold Cold Pack PT-OP-T Assessment and Plan Start: 01/15/19 13:58 Freq: Status: Active Protocol: Document 03/03/19 11:03 EA (Rec: 03/03/19 11:09 EA [id number]) Physical Therapy Assessment Assessment Summary Assessment Gait and weight bearing tolerance is improved; however , knee ROM and swelling shows very slight improvement. Recommended patient cut down a bit of weight bearing activities and increase elevation and ROM exercises. Physical Therapy Plan Next Visit Focus/Plan Next Note Type Treatment Note Next Visit Plan Cont. with current plan.
--- NOTE | 2019-03-06 12:08 | PT.OTN ---
Current Diagnoses Unilateral primary osteoarthritis, right knee (03/06/19) Physical Therapy Treatment Note PT-OP-A Visit Information Start: 01/15/19 13:58 Freq: Status: Active Protocol: Document 03/06/19 12:01 EA (Rec: 03/06/19 12:08 EA [id number]) Out-Patient Physical Therapy Visit Information Visit Information Visit Type Treatment Note Visit Start Time 10:30 Visit Stop Time 11:20 Total Visit Minutes 50 Visit Number 9 PT-OP-B Current Condition Start: 01/15/19 13:58 Freq: Status: Active Protocol: Document 02/10/19 14:24 EA (Rec: 02/10/19 14:34 EA [id number]) Current Condition History of Current Condition Onset Date s/p L TKA 01/29/2019 Current Complaints gait difficulty History of Current Condition Patient is s/p left TKA. Patient independent in all functional mobility except with driving Treatment Goals Patient/Caregiver Goals 1. To increase his LEs flexibility to be able to fully extend his R knee 2. Able to return to sports such as hiking and skiing 3. to be able to stand up from low chair without UE support Prior Functional Status Baseline Function- ADL's Independent Baseline Function- Mobility Independent Baseline Function- Other step over pattern for stair climbing without railings Current Functional Impairments (Reported) Functional Limitations- Mobility/Gait step to pattern for stairs Functional Limitations- Recreation/ increased pain during walking Hobbies on uneven surface, hiking, prolonged walking, standing. Unable to skii due to increased pain PT-OP-C Subjective Start: 01/15/19 13:58 Freq: Status: Active Protocol: Document 03/06/19 12:01 EA (Rec: 03/06/19 12:08 EA [id number]) OP-PT Subjective Patient Comments Patient Comments Patient reports complaint with HEP. States he will be seeing his surgeon next week. PT-OP-G Mobility & Gait Start: 01/15/19 13:58 Freq: Status: Active Protocol: Document 01/15/19 12:20 HH (Rec: 01/15/19 14:32 HH [email or web address]) OP Gait Assessment Gait Gait Assistance Required: Independent Assistive Devices Assistive Device None Gait Deviations General Gait Pattern Antalgic Decreased Stride Length Decreased Feet Clearance Factors Limiting Gait Function Factors Limiting Gait Function Decreased Strength Limited Range of Motion Pain Comments Gait Comments R antalgic gait with decreased stance phase on RLE. Mod R knee varus noted at static stance. Stair Climbing Evaluation Evaluation Level of Assist On Stairs Independent Devices Stair Climbing Assistive Devices Left Railing Right Railing Technique/Endurance Stair Climbing Direction Ascend and Descend Stair Climbing Technique Step to Step PT-OP-J Posture/Palpation/Skin Start: 01/15/19 13:58 Freq: Status: Active Protocol: Document 02/10/19 14:24 EA (Rec: 02/10/19 14:34 EA [id number]) Skin Assessment Circumference Measurement 1 Comments 16.5 L: 14 R Incisional Assessment Incision Appearance/Comments Incision still covered PT-OP-K Range of Motion Start: 01/15/19 13:58 Freq: Status: Active Protocol: Document 01/15/19 12:20 HH (Rec: 01/15/19 14:32 HH [email or web address]) Knee Goniometric Range of Motion Knee Right Knee ROM WFL Yes Patient Position Supine Flexion Active (degrees) 115 Extension Active (degrees) 12 Left Knee ROM WFL Yes Patient Position Supine Flexion Active (degrees) 120 Extension Active (degrees) 4 PT-OP-M Strength Start: 01/15/19 13:58 Freq: Status: Active Protocol: Document 02/10/19 14:24 EA (Rec: 02/10/19 14:34 EA [id number]) Hip Strength Hip Manual Muscle Testing Right Reason Not Measured Pain Left Reason Not Measured WFL Knee Strength Knee Manual Muscle Testing Right Reason Not Measured WFL Pain Left Flexion (S2) 5 Normal Extension (L3) 5 Normal PT-OP-Q Treatments Start: 01/15/19 13:58 Freq: Status: Active Protocol: Document 03/06/19 12:01 EA (Rec: 03/06/19 12:08 EA [id number]) Cardio Equipment Recumbent Stepper (Sci-Fit) Duration (Minutes) 8 Resistance 2 Seat Position 10-8 Gym Equipment Shuttle Recovery Unilateral Squats Resistance 37## Shuttle Recovery Platform Stable Reps/Time x 15 reps x2 Bilateral Squats Resistance 4cords Reps/Time pain free range Therapeutic Exercises Supine Exercises 5 Supine Exercise Name SLR Reps/Minutes x 10 reps x 2 2 Supine Exercise Name Quads sets Reps/Minutes x5sh x 10 reps Comments ICE pack on top while exercising 1 Supine Exercise Name Heel slides Reps/Minutes x 10 reps x 2 Sitting Exercises 1 Sitting Exercise Name LAQ edge of bed Reps/Minutes x 15 reps x 2 Standing Exercises 6 Standing Exercise Name step lunges fwd Comments rails support 5 Standing Exercise Name 4 steps up leading with right leg Comments with rails support 4 Standing Exercise Name heels raises Reps/Minutes 15 reps 3 Standing Exercise Name side step squat Reps/Minutes x 3 laps 2 Standing Exercise Name LEORA gastroc stretch 1 Standing Exercise Name hip // bars 3 way Reps/Minutes x 12 reps Manual Therapy Treatment Soft Tissue Mobilization 1 Body Location quads Mobilization Type Manual Lymphatic Drainage Myofascial Release Intensity/Depth Moderate Body Position supine/hooklying Joint Mobilizations 1 Joint PF Direction sup/inf Grade II Body Position Supine Comments gentle PT-OP-R Modalities Start: 01/15/19 13:58 Freq: Status: Active Protocol: Document 03/06/19 12:01 EA (Rec: 03/06/19 12:08 EA [id number]) Hot Pack/Cold Pack Treatment Cold Pack Location right knee Patient Position Hooklying Treatment Duration (minutes) 10 Patient Tolerance Good PT-OP-T Assessment and Plan Start: 01/15/19 13:58 Freq: Status: Active Protocol: Document 03/06/19 12:01 EA (Rec: 03/06/19 12:08 EA [id number]) Physical Therapy Assessment Assessment Summary Assessment Patient show a min ROM improvement and quads control. He is progressing well. Physical Therapy Plan Next Visit Focus/Plan Next Note Type Treatment Note Next Visit Plan Re assess and see new recommendation from doctors visit.
--- NOTE | 2019-03-10 12:12 | PT.OTN ---
Current Diagnoses Unilateral primary osteoarthritis, right knee (03/10/19) Physical Therapy Treatment Note PT-OP-A Visit Information Start: 01/15/19 13:58 Freq: Status: Active Protocol: Document 03/10/19 11:13 EA (Rec: 03/10/19 11:15 EA [id number]) Out-Patient Physical Therapy Visit Information Visit Information Visit Type Treatment Note Visit Start Time 10:30 Visit Stop Time 11:20 Total Visit Minutes 50 Visit Number 9 PT-OP-B Current Condition Start: 01/15/19 13:58 Freq: Status: Active Protocol: Document 02/10/19 14:24 EA (Rec: 02/10/19 14:34 EA [id number]) Current Condition History of Current Condition Onset Date s/p L TKA 01/29/2019 Current Complaints gait difficulty History of Current Condition Patient is s/p left TKA. Patient independent in all functional mobility except with driving Treatment Goals Patient/Caregiver Goals 1. To increase his LEs flexibility to be able to fully extend his R knee 2. Able to return to sports such as hiking and skiing 3. to be able to stand up from low chair without UE support Prior Functional Status Baseline Function- ADL's Independent Baseline Function- Mobility Independent Baseline Function- Other step over pattern for stair climbing without railings Current Functional Impairments (Reported) Functional Limitations- Mobility/Gait step to pattern for stairs Functional Limitations- Recreation/ increased pain during walking Hobbies on uneven surface, hiking, prolonged walking, standing. Unable to skii due to increased pain PT-OP-C Subjective Start: 01/15/19 13:58 Freq: Status: Active Protocol: Document 03/10/19 11:13 EA (Rec: 03/10/19 11:15 EA [id number]) OP-PT Subjective Patient Comments Patient Comments Patient reports shcduled for EDER this week due to decreased knee ROM; states might cancel the next session after surgery. PT-OP-G Mobility & Gait Start: 01/15/19 13:58 Freq: Status: Active Protocol: Document 01/15/19 12:20 HH (Rec: 01/15/19 14:32 HH [email or web address]) OP Gait Assessment Gait Gait Assistance Required: Independent Assistive Devices Assistive Device None Gait Deviations General Gait Pattern Antalgic Decreased Stride Length Decreased Feet Clearance Factors Limiting Gait Function Factors Limiting Gait Function Decreased Strength Limited Range of Motion Pain Comments Gait Comments R antalgic gait with decreased stance phase on RLE. Mod R knee varus noted at static stance. Stair Climbing Evaluation Evaluation Level of Assist On Stairs Independent Devices Stair Climbing Assistive Devices Left Railing Right Railing Technique/Endurance Stair Climbing Direction Ascend and Descend Stair Climbing Technique Step to Step PT-OP-J Posture/Palpation/Skin Start: 01/15/19 13:58 Freq: Status: Active Protocol: Document 02/10/19 14:24 EA (Rec: 02/10/19 14:34 EA [id number]) Skin Assessment Circumference Measurement 1 Comments 16.5 L: 14 R Incisional Assessment Incision Appearance/Comments Incision still covered PT-OP-K Range of Motion Start: 01/15/19 13:58 Freq: Status: Active Protocol: Document 01/15/19 12:20 HH (Rec: 01/15/19 14:32 HH [email or web address]) Knee Goniometric Range of Motion Knee Right Knee ROM WFL Yes Patient Position Supine Flexion Active (degrees) 115 Extension Active (degrees) 12 Left Knee ROM WFL Yes Patient Position Supine Flexion Active (degrees) 120 Extension Active (degrees) 4 PT-OP-M Strength Start: 01/15/19 13:58 Freq: Status: Active Protocol: Document 02/10/19 14:24 EA (Rec: 02/10/19 14:34 EA [id number]) Hip Strength Hip Manual Muscle Testing Right Reason Not Measured Pain Left Reason Not Measured WFL Knee Strength Knee Manual Muscle Testing Right Reason Not Measured WFL Pain Left Flexion (S2) 5 Normal Extension (L3) 5 Normal PT-OP-Q Treatments Start: 01/15/19 13:58 Freq: Status: Active Protocol: Document 03/10/19 11:13 EA (Rec: 03/10/19 11:15 EA [id number]) Cardio Equipment Recumbent Stepper (Sci-Fit) Duration (Minutes) 8 Resistance 2 Seat Position 10-8 Bicycle (Upright) Duration (Minutes) 3 Resistance 1 Seat Position 7 Other half rev Gym Equipment Shuttle Recovery Unilateral Squats Resistance 37## Shuttle Recovery Platform Stable Reps/Time x 15 reps x2 Bilateral Squats Resistance 4cords Reps/Time pain free range PT-OP-R Modalities Start: 01/15/19 13:58 Freq: Status: Active Protocol: Document 03/06/19 12:01 EA (Rec: 03/06/19 12:08 EA [id number]) Hot Pack/Cold Pack Treatment Cold Pack Location right knee Patient Position Hooklying Treatment Duration (minutes) 10 Patient Tolerance Good PT-OP-T Assessment and Plan Start: 01/15/19 13:58 Freq: Status: Active Protocol: Document 03/10/19 12:10 EA (Rec: 03/10/19 12:12 EA [id number]) Physical Therapy Assessment Assessment Summary Assessment Patient still showing limited right knee flexion ROM and knee extension mildly. Patient would benefit with EDER as patient is currently 6 wks post op. I recommended patient to perform ROM to knee right after EDER and avoid strengthening until re- evaluated. Physical Therapy Plan Next Visit Focus/Plan Next Note Type Treatment Note Next Visit Plan Re-eval after EDER.
--- NOTE | 2019-03-13 13:02 | PT.OTN ---
Current Diagnoses Unilateral primary osteoarthritis, right knee (03/13/19) Physical Therapy Treatment Note PT-OP-A Visit Information Start: 01/15/19 13:58 Freq: Status: Active Protocol: Document 03/13/19 12:10 EA (Rec: 03/13/19 12:18 EA [id number]) Out-Patient Physical Therapy Visit Information Visit Information Visit Type Aquatic Treatment Note Visit Start Time 10:30 Visit Stop Time 11:20 Total Visit Minutes 50 Visit Number 10 PT-OP-B Current Condition Start: 01/15/19 13:58 Freq: Status: Active Protocol: Document 02/10/19 14:24 EA (Rec: 02/10/19 14:34 EA [id number]) Current Condition History of Current Condition Onset Date s/p L TKA 01/29/2019 Current Complaints gait difficulty History of Current Condition Patient is s/p left TKA. Patient independent in all functional mobility except with driving Treatment Goals Patient/Caregiver Goals 1. To increase his LEs flexibility to be able to fully extend his R knee 2. Able to return to sports such as hiking and skiing 3. to be able to stand up from low chair without UE support Prior Functional Status Baseline Function- ADL's Independent Baseline Function- Mobility Independent Baseline Function- Other step over pattern for stair climbing without railings Current Functional Impairments (Reported) Functional Limitations- Mobility/Gait step to pattern for stairs Functional Limitations- Recreation/ increased pain during walking Hobbies on uneven surface, hiking, prolonged walking, standing. Unable to skii due to increased pain PT-OP-C Subjective Start: 01/15/19 13:58 Freq: Status: Active Protocol: Document 03/13/19 12:10 EA (Rec: 03/13/19 12:18 EA [id number]) OP-PT Subjective Patient Comments Patient Comments Patient is s/p right knee EDER and is feeling very less pain at this time. Consistent with his doctor recommendation that patient advised him to perform agressive PT. PT-OP-G Mobility & Gait Start: 01/15/19 13:58 Freq: Status: Active Protocol: Document 01/15/19 12:20 HH (Rec: 01/15/19 14:32 HH [email or web address]) OP Gait Assessment Gait Gait Assistance Required: Independent Assistive Devices Assistive Device None Gait Deviations General Gait Pattern Antalgic Decreased Stride Length Decreased Feet Clearance Factors Limiting Gait Function Factors Limiting Gait Function Decreased Strength Limited Range of Motion Pain Comments Gait Comments R antalgic gait with decreased stance phase on RLE. Mod R knee varus noted at static stance. Stair Climbing Evaluation Evaluation Level of Assist On Stairs Independent Devices Stair Climbing Assistive Devices Left Railing Right Railing Technique/Endurance Stair Climbing Direction Ascend and Descend Stair Climbing Technique Step to Step PT-OP-J Posture/Palpation/Skin Start: 01/15/19 13:58 Freq: Status: Active Protocol: Document 02/10/19 14:24 EA (Rec: 02/10/19 14:34 EA [id number]) Skin Assessment Circumference Measurement 1 Comments 16.5 L: 14 R Incisional Assessment Incision Appearance/Comments Incision still covered PT-OP-K Range of Motion Start: 01/15/19 13:58 Freq: Status: Active Protocol: Document 03/13/19 12:10 EA (Rec: 03/13/19 12:18 EA [id number]) Knee Goniometric Range of Motion Knee Right Knee ROM WFL No Patient Position Supine Flexion Active (degrees) 90 Extension Active (degrees) 12 Left Knee ROM WFL Yes Patient Position Supine Flexion Active (degrees) 120 Extension Active (degrees) 4 PT-OP-M Strength Start: 01/15/19 13:58 Freq: Status: Active Protocol: Document 02/10/19 14:24 EA (Rec: 02/10/19 14:34 EA [id number]) Hip Strength Hip Manual Muscle Testing Right Reason Not Measured Pain Left Reason Not Measured WFL Knee Strength Knee Manual Muscle Testing Right Reason Not Measured WFL Pain Left Flexion (S2) 5 Normal Extension (L3) 5 Normal PT-OP-Q Treatments Start: 01/15/19 13:58 Freq: Status: Active Protocol: Document 03/13/19 12:10 EA (Rec: 03/13/19 12:18 EA [id number]) Therapeutic Exercises Supine Exercises 5 Supine Exercise Name SLR Reps/Minutes x 10 reps x 2 4 Supine Exercise Name Passive hamstring stretching 3 Supine Exercise Name SAQ Reps/Minutes x 10 reps x 2 2 Supine Exercise Name Quads sets Reps/Minutes x5sh x 10 reps Comments ICE pack on top while exercising 1 Supine Exercise Name Heel slides Reps/Minutes x 10 reps x 2 Comments red silk under heel Standing Exercises 6 Standing Exercise Name step lunges fwd Comments rails support 5 Standing Exercise Name 4 steps up leading with right leg Comments with rails support 4 Standing Exercise Name heels raises Reps/Minutes 15 reps 3 Standing Exercise Name side step squat Reps/Minutes x 3 laps 2 Standing Exercise Name LEORA gastroc stretch 1 Standing Exercise Name hip // bars 3 way Reps/Minutes x 12 reps Manual Therapy Treatment Soft Tissue Mobilization 1 Body Location quads Mobilization Type Cross-Friction Manual Lymphatic Drainage Myofascial Release Intensity/Depth Moderate Body Position supine/hooklying Joint Mobilizations 1 Joint PF/TF post glide TF joint Direction sup/inf Grade II Body Position Supine Comments gentle PT-OP-R Modalities Start: 01/15/19 13:58 Freq: Status: Active Protocol: Document 03/13/19 12:10 EA (Rec: 03/13/19 12:18 EA [id number]) Hot Pack/Cold Pack Treatment Cold Pack Location right knee Patient Position Hooklying Treatment Duration (minutes) 10 Patient Tolerance Good PT-OP-T Assessment and Plan Start: 01/15/19 13:58 Freq: Status: Active Protocol: Document 03/13/19 12:10 EA (Rec: 03/13/19 12:18 EA [id number]) Physical Therapy Assessment Assessment Summary Assessment Patient tolerated treatment well. He agreed to try to perform HEP aggressively first and will assess if required daily PT. HEP re-demonstrates and explained again today. Right knee flexion shows 15 degrees improvement than last week. Physical Therapy Plan Next Visit Focus/Plan Next Note Type Treatment Note Next Visit Plan Re-eval knee ROM.
--- NOTE | 2019-03-17 17:40 | PT.OPPOC ---
Current Diagnoses Unilateral primary osteoarthritis, right knee (03/17/19) Provider Visit Care Team Role Provider Type KERON Callaway Family Provider Advanced Director Of Corporate Communications Primary Care Provider Specialty: Family Practice Address: [address] [place] [address], [id number] Email: Luis Olivas MD Attending Provider Physician Specialty: Orthopedic Surgery Address: [address] [place] [address], [id number] Email: [email or web address] Plan Of Care PT-OP-T Assessment and Plan Start: 01/15/19 13:58 Freq: Status: Active Protocol: Document 03/17/19 17:40 EA (Rec: 03/17/19 12:16 EA [id number]) Physical Therapy Assessment Impairments Impairments Activity Tolerance Functional Mobility Gait Pain ROM Soft Tissue Mobility Strength Goals walking program Impairment expect to have decreased activity tolerance after sx Optoelectronic Technician Goal (LTG) Pt will be able to amb >1 mile a day even/uneven ground safely without AD / increase in pain in order to return to sports in the future. LTG Duration 4 wks strength Impairment difficulty getting up from low chair and stair climbing Optoelectronic Technician Goal (LTG) Pt will be able to climb stair with step over pattern and stand up from low chair (15 inch) without using UEs for push off. LTG Duration 4 wks ROM Impairment R knee extension at 12 degrees during IE Retirement Goal (LTG) pt will be able to reach <5 degrees of R knee extension actively to improve gait mechanics and body upright alignment. LTG Duration 4 wks LEFS Impairment Pt scores 57 (20-39% impairment) for LEFS Optoelectronic Technician Goal (LTG) Pt will be able to score >63 points (below 20% impairments) on LEFS to improve his overall quality of life and functional mobility. LTG Duration 6 wks Assessment Summary Assessment Pt tolerated treament with aggressive manual stretching. Increased by 5 degrees of flexion noted at this time. Recommends to increase session to 3 time a week this time. Patient will cont. to benefit with skilled PT. Physical Therapy Plan Frequency and Duration Frequency of Treatment 3x/Week Duration of Treatment 8 wks Plan of Care Start Date 03/17/19 Plan of Care End Date 05/12/19 Therapeutic Interventions Therapeutic Interventions Aquatic Therapy Balance Training Gait Training Home Exercise Program Joint Mobilizations Manual Therapy Neuromuscular Re-education Patient/Caregiver Education Self-Care/Home Management Soft Tissue Mobilization Taping Therapeutic Activities Therapeutic Exercises Modalities Cold Pack/Ice Massage Electric Stimulation Hot Packs Infrared Therapy Ultrasound Next Visit Focus/Plan Next Note Type Treatment Note Next Visit Plan Increase manual stretching and joint mob. Plan of Care Dates Plan of Care Start Date 03/17/19 Plan of Care End Date 05/12/19 Please Sign and Return: I have reviewed this Plan of Care and certify that the skilled therapy services above are required to meet the patient?s needs. Physician Signature Date Printed Name and Credentials Clinical Instructor Signature Printed Name and Credentials
--- NOTE | 2019-03-18 09:55 | PT.OTN ---
Current Diagnoses Unilateral primary osteoarthritis, right knee (03/18/19) Physical Therapy Treatment Note PT-OP-A Visit Information Start: 01/15/19 13:58 Freq: Status: Active Protocol: Document 03/18/19 09:44 GGD (Rec: 03/18/19 09:55 GGD [email or web address]) Out-Patient Physical Therapy Visit Information Visit Information Visit Type Treatment Note Visit Start Time 09:00 Visit Stop Time 09:55 Total Visit Minutes 55 Visit Number 12 Number of EMAIL OPERATIONS MANAGER Visits 1 PT-OP-B Current Condition Start: 01/15/19 13:58 Freq: Status: Active Protocol: Document 02/10/19 14:24 EA (Rec: 02/10/19 14:34 EA [id number]) Current Condition History of Current Condition Onset Date s/p L TKA 01/29/2019 Current Complaints gait difficulty History of Current Condition Patient is s/p left TKA. Patient independent in all functional mobility except with driving Treatment Goals Patient/Caregiver Goals 1. To increase his LEs flexibility to be able to fully extend his R knee 2. Able to return to sports such as hiking and skiing 3. to be able to stand up from low chair without UE support Prior Functional Status Baseline Function- ADL's Independent Baseline Function- Mobility Independent Baseline Function- Other step over pattern for stair climbing without railings Current Functional Impairments (Reported) Functional Limitations- Mobility/Gait step to pattern for stairs Functional Limitations- Recreation/ increased pain during walking Hobbies on uneven surface, hiking, prolonged walking, standing. Unable to skii due to increased pain PT-OP-C Subjective Start: 01/15/19 13:58 Freq: Status: Active Protocol: Document 03/18/19 09:44 GGD (Rec: 03/18/19 09:55 GGD [id number]) OP-PT Subjective Patient Comments Patient Comments PT states he is doing his HEP. PT-OP-G Mobility & Gait Start: 01/15/19 13:58 Freq: Status: Active Protocol: Document 01/15/19 12:20 HH (Rec: 01/15/19 14:32 HH [email or web address]) OP Gait Assessment Gait Gait Assistance Required: Independent Assistive Devices Assistive Device None Gait Deviations General Gait Pattern Antalgic Decreased Stride Length Decreased Feet Clearance Factors Limiting Gait Function Factors Limiting Gait Function Decreased Strength Limited Range of Motion Pain Comments Gait Comments R antalgic gait with decreased stance phase on RLE. Mod R knee varus noted at static stance. Stair Climbing Evaluation Evaluation Level of Assist On Stairs Independent Devices Stair Climbing Assistive Devices Left Railing Right Railing Technique/Endurance Stair Climbing Direction Ascend and Descend Stair Climbing Technique Step to Step PT-OP-J Posture/Palpation/Skin Start: 01/15/19 13:58 Freq: Status: Active Protocol: Document 02/10/19 14:24 EA (Rec: 02/10/19 14:34 EA [id number]) Skin Assessment Circumference Measurement 1 Comments 16.5 L: 14 R Incisional Assessment Incision Appearance/Comments Incision still covered PT-OP-K Range of Motion Start: 01/15/19 13:58 Freq: Status: Active Protocol: Document 03/18/19 09:44 GGD (Rec: 03/18/19 09:55 GGD [email or web address]) Knee Goniometric Range of Motion Knee Right Patient Position Supine Flexion Active (degrees) 93 Flexion Passive (degrees) 105 PT-OP-M Strength Start: 01/15/19 13:58 Freq: Status: Active Protocol: Document 02/10/19 14:24 EA (Rec: 02/10/19 14:34 EA [id number]) Hip Strength Hip Manual Muscle Testing Right Reason Not Measured Pain Left Reason Not Measured WFL Knee Strength Knee Manual Muscle Testing Right Reason Not Measured WFL Pain Left Flexion (S2) 5 Normal Extension (L3) 5 Normal PT-OP-Q Treatments Start: 01/15/19 13:58 Freq: Status: Active Protocol: Document 03/18/19 09:44 GGD (Rec: 03/18/19 09:55 GGD [email or web address]) Cardio Equipment Recumbent Stepper (Sci-Fit) Duration (Minutes) 5 Resistance 2-3 Seat Position 9-6 Bicycle (Upright) Duration (Minutes) 5 Resistance 1 Seat Position 7 Other half rev Manual Therapy Treatment Soft Tissue Mobilization 1 Body Location quads Mobilization Type Cross-Friction Manual Lymphatic Drainage Myofascial Release Intensity/Depth Moderate Body Position supine/hooklying Joint Mobilizations 1 Joint PF/TF post glide TF joint Direction sup/inf Grade III Body Position Supine Manual Techniques 1 Type Contract-relax passive stretch Comments x 5 mins: prone and supine PT-OP-R Modalities Start: 01/15/19 13:58 Freq: Status: Active Protocol: Document 03/18/19 09:44 GGD (Rec: 03/18/19 09:55 GGD [email or web address]) Electric Stimulation Electric Stimulation Interferential Current (IFC) Body Location right quads Duration (Minutes) 15 Intensity 15 Patient Position Supine Combined With Heat/Cold Cold Pack PT-OP-T Assessment and Plan Start: 01/15/19 13:58 Freq: Status: Active Protocol: Document 03/18/19 09:44 GGD (Rec: 03/18/19 09:55 GGD [email or web address]) Physical Therapy Assessment Assessment Summary Assessment Pt improving slowly with ROM. He tolerated treatment with aggressive manual stretching. Physical Therapy Plan Next Visit Focus/Plan Next Note Type Treatment Note Next Visit Plan Increase manual stretching and joint mob.
--- NOTE | 2019-03-20 12:17 | PT.OTN ---
Current Diagnoses Unilateral primary osteoarthritis, right knee (03/20/19) Physical Therapy Treatment Note PT-OP-A Visit Information Start: 01/15/19 13:58 Freq: Status: Active Protocol: Document 03/20/19 12:09 EA (Rec: 03/20/19 12:16 EA [id number]) Out-Patient Physical Therapy Visit Information Visit Information Visit Type Treatment Note Visit Start Time 10:30 Visit Stop Time 11:20 Total Visit Minutes 50 Visit Number 13 PT-OP-B Current Condition Start: 01/15/19 13:58 Freq: Status: Active Protocol: Document 02/10/19 14:24 EA (Rec: 02/10/19 14:34 EA [id number]) Current Condition History of Current Condition Onset Date s/p L TKA 01/29/2019 Current Complaints gait difficulty History of Current Condition Patient is s/p left TKA. Patient independent in all functional mobility except with driving Treatment Goals Patient/Caregiver Goals 1. To increase his LEs flexibility to be able to fully extend his R knee 2. Able to return to sports such as hiking and skiing 3. to be able to stand up from low chair without UE support Prior Functional Status Baseline Function- ADL's Independent Baseline Function- Mobility Independent Baseline Function- Other step over pattern for stair climbing without railings Current Functional Impairments (Reported) Functional Limitations- Mobility/Gait step to pattern for stairs Functional Limitations- Recreation/ increased pain during walking Hobbies on uneven surface, hiking, prolonged walking, standing. Unable to skii due to increased pain PT-OP-C Subjective Start: 01/15/19 13:58 Freq: Status: Active Protocol: Document 03/20/19 12:09 EA (Rec: 03/20/19 12:16 EA [id number]) OP-PT Subjective Patient Comments Patient Comments Patient reports not much pain but weak and tight. PT-OP-G Mobility & Gait Start: 01/15/19 13:58 Freq: Status: Active Protocol: Document 01/15/19 12:20 HH (Rec: 01/15/19 14:32 HH [email or web address]) OP Gait Assessment Gait Gait Assistance Required: Independent Assistive Devices Assistive Device None Gait Deviations General Gait Pattern Antalgic Decreased Stride Length Decreased Feet Clearance Factors Limiting Gait Function Factors Limiting Gait Function Decreased Strength Limited Range of Motion Pain Comments Gait Comments R antalgic gait with decreased stance phase on RLE. Mod R knee varus noted at static stance. Stair Climbing Evaluation Evaluation Level of Assist On Stairs Independent Devices Stair Climbing Assistive Devices Left Railing Right Railing Technique/Endurance Stair Climbing Direction Ascend and Descend Stair Climbing Technique Step to Step PT-OP-J Posture/Palpation/Skin Start: 01/15/19 13:58 Freq: Status: Active Protocol: Document 02/10/19 14:24 EA (Rec: 02/10/19 14:34 EA [id number]) Skin Assessment Circumference Measurement 1 Comments 16.5 L: 14 R Incisional Assessment Incision Appearance/Comments Incision still covered PT-OP-K Range of Motion Start: 01/15/19 13:58 Freq: Status: Active Protocol: Document 03/18/19 09:44 GGD (Rec: 03/18/19 09:55 GGD [id number]) Knee Goniometric Range of Motion Knee Right Patient Position Supine Flexion Active (degrees) 93 Flexion Passive (degrees) 105 PT-OP-M Strength Start: 01/15/19 13:58 Freq: Status: Active Protocol: Document 02/10/19 14:24 EA (Rec: 02/10/19 14:34 EA [id number]) Hip Strength Hip Manual Muscle Testing Right Reason Not Measured Pain Left Reason Not Measured WFL Knee Strength Knee Manual Muscle Testing Right Reason Not Measured WFL Pain Left Flexion (S2) 5 Normal Extension (L3) 5 Normal PT-OP-Q Treatments Start: 01/15/19 13:58 Freq: Status: Active Protocol: Document 03/20/19 12:09 EA (Rec: 03/20/19 12:16 EA [id number]) Cardio Equipment Recumbent Stepper (Sci-Fit) Duration (Minutes) 6 Resistance 2-3 Seat Position 9-6 Bicycle (Upright) Duration (Minutes) 5 Resistance 1 Seat Position 7 Other half rev Gym Equipment Shuttle Recovery Unilateral Squats Resistance 50## Shuttle Recovery Platform Stable Reps/Time x 15 reps x2 Shuttle Rebound 1 Exercise Details FWD/BWD tilt Reps/Duration 4 mins Therapeutic Exercises Prone Exercises 1 Prone Exercise Name Prone passive stretch Reps/Minutes 10 reps Comments RI: to follow stretch Standing Exercises 6 Standing Exercise Name step lunges fwd Reps/Minutes x10 reps Comments rails support 5 Standing Exercise Name 4 steps up leading with right leg Comments with rails support 4 Standing Exercise Name heels raises Reps/Minutes 15 reps 3 Standing Exercise Name BUSO with marching Reps/Minutes 3 mins Comments with support 2 Standing Exercise Name LEORA gastroc stretch 1 Standing Exercise Name 6 steps and down Reps/Minutes x 12 reps x 2 sets Comments cues to form Gait Training Gait Activity 1 Description Heel to toe gait Comments cues to swing velocity/right foot moment of stance phase Manual Therapy Treatment Soft Tissue Mobilization 1 Body Location quads Mobilization Type Cross-Friction Manual Lymphatic Drainage Myofascial Release Intensity/Depth Moderate Body Position supine/hooklying Manual Techniques 1 Type Contract-relax passive stretch Comments x 5 mins: prone and supine PT-OP-R Modalities Start: 01/15/19 13:58 Freq: Status: Active Protocol: Document 03/20/19 12:09 EA (Rec: 03/20/19 12:16 EA [id number]) Hot Pack/Cold Pack Treatment Cold Pack Location right knee Patient Position Hooklying Treatment Duration (minutes) 12 Patient Tolerance Good PT-OP-T Assessment and Plan Start: 01/15/19 13:58 Freq: Status: Active Protocol: Document 03/20/19 12:09 EA (Rec: 03/20/19 12:16 EA [id number]) Physical Therapy Assessment Assessment Summary Assessment Patient continued to show guarding prone manual mobilization. Advised to focus with ROM and stretching at home . Physical Therapy Plan Next Visit Focus/Plan Next Note Type Treatment Note Next Visit Plan Increase manual stretching and joint mob.
--- NOTE | 2019-03-21 16:15 | PT.OTN ---
Current Diagnoses Unilateral primary osteoarthritis, right knee (03/21/19) Physical Therapy Treatment Note PT-OP-A Visit Information Start: 01/15/19 13:58 Freq: Status: Active Protocol: Document 03/21/19 13:00 HH (Rec: 03/21/19 16:13 HH [email or web address]) Out-Patient Physical Therapy Visit Information Visit Information Visit Type Treatment Note Visit Start Time 13:00 Visit Stop Time 13:45 Total Visit Minutes 45 Visit Number 14 Number of METALLURGICAL OR MATERIALS TECHNICIAN Visits 0 PT-OP-B Current Condition Start: 01/15/19 13:58 Freq: Status: Active Protocol: Document 02/10/19 14:24 EA (Rec: 02/10/19 14:34 EA [id number]) Current Condition History of Current Condition Onset Date s/p L TKA 01/29/2019 Current Complaints gait difficulty History of Current Condition Patient is s/p left TKA. Patient independent in all functional mobility except with driving Treatment Goals Patient/Caregiver Goals 1. To increase his LEs flexibility to be able to fully extend his R knee 2. Able to return to sports such as hiking and skiing 3. to be able to stand up from low chair without UE support Prior Functional Status Baseline Function- ADL's Independent Baseline Function- Mobility Independent Baseline Function- Other step over pattern for stair climbing without railings Current Functional Impairments (Reported) Functional Limitations- Mobility/Gait step to pattern for stairs Functional Limitations- Recreation/ increased pain during walking Hobbies on uneven surface, hiking, prolonged walking, standing. Unable to skii due to increased pain PT-OP-C Subjective Start: 01/15/19 13:58 Freq: Status: Active Protocol: Document 03/21/19 13:00 HH (Rec: 03/21/19 16:13 HH [email or web address]) OP-PT Subjective Patient Comments Patient Comments Patient reports not much pain but still have a hard time bending his knee. PT-OP-G Mobility & Gait Start: 01/15/19 13:58 Freq: Status: Active Protocol: Document 01/15/19 12:20 HH (Rec: 01/15/19 14:32 HH [email or web address]) OP Gait Assessment Gait Gait Assistance Required: Independent Assistive Devices Assistive Device None Gait Deviations General Gait Pattern Antalgic Decreased Stride Length Decreased Feet Clearance Factors Limiting Gait Function Factors Limiting Gait Function Decreased Strength Limited Range of Motion Pain Comments Gait Comments R antalgic gait with decreased stance phase on RLE. Mod R knee varus noted at static stance. Stair Climbing Evaluation Evaluation Level of Assist On Stairs Independent Devices Stair Climbing Assistive Devices Left Railing Right Railing Technique/Endurance Stair Climbing Direction Ascend and Descend Stair Climbing Technique Step to Step PT-OP-J Posture/Palpation/Skin Start: 01/15/19 13:58 Freq: Status: Active Protocol: Document 02/10/19 14:24 EA (Rec: 02/10/19 14:34 EA [id number]) Skin Assessment Circumference Measurement 1 Comments 16.5 L: 14 R Incisional Assessment Incision Appearance/Comments Incision still covered PT-OP-K Range of Motion Start: 01/15/19 13:58 Freq: Status: Active Protocol: Document 03/18/19 09:44 GGD (Rec: 03/18/19 09:55 GGD [email or web address]) Knee Goniometric Range of Motion Knee Right Patient Position Supine Flexion Active (degrees) 93 Flexion Passive (degrees) 105 PT-OP-M Strength Start: 01/15/19 13:58 Freq: Status: Active Protocol: Document 02/10/19 14:24 EA (Rec: 02/10/19 14:34 EA [id number]) Hip Strength Hip Manual Muscle Testing Right Reason Not Measured Pain Left Reason Not Measured WFL Knee Strength Knee Manual Muscle Testing Right Reason Not Measured WFL Pain Left Flexion (S2) 5 Normal Extension (L3) 5 Normal PT-OP-Q Treatments Start: 01/15/19 13:58 Freq: Status: Active Protocol: Document 03/21/19 13:00 HH (Rec: 03/21/19 16:13 HH [email or web address]) Cardio Equipment Recumbent Bicycle Duration (Minutes) 5 Other half of the cycle Therapeutic Exercises Supine Exercises passive knee flexion Supine Exercise Name A/PROM knee flexion Side right Reps/Minutes 5 mins Comments body at the edge of the table with hip extension and knee flexion Manual Therapy Treatment Soft Tissue Mobilization hamstrings Body Location hamstrings Mobilization Type Cross-Friction Manual Lymphatic Drainage Myofascial Release Sustained Pressure Intensity/Depth Deep Body Position Hooklying Comments proximal stroke 1 Body Location quads Mobilization Type Cross-Friction Manual Lymphatic Drainage Myofascial Release Intensity/Depth Deep Body Position supine/hooklying Comments proximal stroke Joint Mobilizations 1 Joint PF/TF post glide TF joint Direction sup/inf Grade III Body Position Supine PT-OP-R Modalities Start: 01/15/19 13:58 Freq: Status: Active Protocol: Document 03/20/19 12:09 EA (Rec: 03/20/19 12:16 EA [id number]) Hot Pack/Cold Pack Treatment Cold Pack Location right knee Patient Position Hooklying Treatment Duration (minutes) 12 Patient Tolerance Good PT-OP-T Assessment and Plan Start: 01/15/19 13:58 Freq: Status: Active Protocol: Document 03/21/19 13:00 HH (Rec: 03/21/19 16:13 HH [email or web address]) Physical Therapy Assessment Assessment Summary Assessment pt cont to show muscle guarding on quads and hamstrings during Passive ROM. Pt stated I think im relaxed but apparently im not. Tx focused on aggressive STM on quad and HS muscle belly. Pt felt relieved with less stiffness and reduced muscle guarding. Pt did not c/o pain much for today. pt able to reach 90-100 degrees of knee flexion on recumbent bike. Physical Therapy Plan Next Visit Focus/Plan Next Note Type Treatment Note Next Visit Plan Increase manual stretching and joint mob.
--- NOTE | 2019-03-24 17:35 | PT.OTN ---
Current Diagnoses Unilateral primary osteoarthritis, right knee (03/24/19) Physical Therapy Treatment Note PT-OP-A Visit Information Start: 01/15/19 13:58 Freq: Status: Active Protocol: Document 03/24/19 17:34 EA (Rec: 03/24/19 17:40 EA [id number]) Out-Patient Physical Therapy Visit Information Visit Information Visit Type Treatment Note Visit Start Time 10:30 Visit Stop Time 11:20 Total Visit Minutes 50 Visit Number 15 PT-OP-B Current Condition Start: 01/15/19 13:58 Freq: Status: Active Protocol: Document 02/10/19 14:24 EA (Rec: 02/10/19 14:34 EA [id number]) Current Condition History of Current Condition Onset Date s/p L TKA 01/29/2019 Current Complaints gait difficulty History of Current Condition Patient is s/p left TKA. Patient independent in all functional mobility except with driving Treatment Goals Patient/Caregiver Goals 1. To increase his LEs flexibility to be able to fully extend his R knee 2. Able to return to sports such as hiking and skiing 3. to be able to stand up from low chair without UE support Prior Functional Status Baseline Function- ADL's Independent Baseline Function- Mobility Independent Baseline Function- Other step over pattern for stair climbing without railings Current Functional Impairments (Reported) Functional Limitations- Mobility/Gait step to pattern for stairs Functional Limitations- Recreation/ increased pain during walking Hobbies on uneven surface, hiking, prolonged walking, standing. Unable to skii due to increased pain PT-OP-C Subjective Start: 01/15/19 13:58 Freq: Status: Active Protocol: Document 03/24/19 17:34 EA (Rec: 03/24/19 17:40 EA [id number]) OP-PT Subjective Patient Comments Patient Comments Pt reports angelito he has been compliant with HEP. PT-OP-G Mobility & Gait Start: 01/15/19 13:58 Freq: Status: Active Protocol: Document 01/15/19 12:20 HH (Rec: 01/15/19 14:32 HH [email or web address]) OP Gait Assessment Gait Gait Assistance Required: Independent Assistive Devices Assistive Device None Gait Deviations General Gait Pattern Antalgic Decreased Stride Length Decreased Feet Clearance Factors Limiting Gait Function Factors Limiting Gait Function Decreased Strength Limited Range of Motion Pain Comments Gait Comments R antalgic gait with decreased stance phase on RLE. Mod R knee varus noted at static stance. Stair Climbing Evaluation Evaluation Level of Assist On Stairs Independent Devices Stair Climbing Assistive Devices Left Railing Right Railing Technique/Endurance Stair Climbing Direction Ascend and Descend Stair Climbing Technique Step to Step PT-OP-J Posture/Palpation/Skin Start: 01/15/19 13:58 Freq: Status: Active Protocol: Document 02/10/19 14:24 EA (Rec: 02/10/19 14:34 EA [id number]) Skin Assessment Circumference Measurement 1 Comments 16.5 L: 14 R Incisional Assessment Incision Appearance/Comments Incision still covered PT-OP-K Range of Motion Start: 01/15/19 13:58 Freq: Status: Active Protocol: Document 03/18/19 09:44 GGD (Rec: 03/18/19 09:55 GGD [email or web address]) Knee Goniometric Range of Motion Knee Right Patient Position Supine Flexion Active (degrees) 93 Flexion Passive (degrees) 105 PT-OP-M Strength Start: 01/15/19 13:58 Freq: Status: Active Protocol: Document 02/10/19 14:24 EA (Rec: 02/10/19 14:34 EA [id number]) Hip Strength Hip Manual Muscle Testing Right Reason Not Measured Pain Left Reason Not Measured WFL Knee Strength Knee Manual Muscle Testing Right Reason Not Measured WFL Pain Left Flexion (S2) 5 Normal Extension (L3) 5 Normal PT-OP-Q Treatments Start: 01/15/19 13:58 Freq: Status: Active Protocol: Document 03/24/19 17:34 EA (Rec: 03/24/19 17:40 EA [id number]) Cardio Equipment Recumbent Stepper (Sci-Fit) Duration (Minutes) 6 Resistance 2-3 Seat Position 9-6 Gym Equipment Shuttle Recovery Unilateral Heel Raises Resistance 1 cord Reps/Time x 15 reps x 2 Unilateral Squats Resistance 50-75## Shuttle Recovery Platform Stable Reps/Time x 15 reps x2 Shuttle Rebound 1 Exercise Details FWD/BWD tilt Reps/Duration 4 mins Therapeutic Exercises Prone Exercises 1 Prone Exercise Name Prone passive stretch Reps/Minutes 10 reps Comments RI: to follow stretch Sitting Exercises 2 Sitting Exercise Name Hamstring curl Resistance GTB Reps/Minutes x 15 reps x 2 1 Sitting Exercise Name LAQ Resistance 4# Reps/Minutes x 12 reps x 2 Standing Exercises 5 Standing Exercise Name 4 steps up leading with right leg Comments with rails support 4 Standing Exercise Name heels raises Reps/Minutes 15 reps 3 Standing Exercise Name BUSO with marching Reps/Minutes 3 mins Comments with support 2 Standing Exercise Name LEORA gastroc stretch Manual Therapy Treatment Soft Tissue Mobilization hamstrings Body Location hamstrings Mobilization Type Cross-Friction Manual Lymphatic Drainage Myofascial Release Sustained Pressure Intensity/Depth Deep Body Position Hooklying Comments proximal stroke 1 Body Location quads Mobilization Type Cross-Friction Manual Lymphatic Drainage Myofascial Release Intensity/Depth Deep Body Position supine/hooklying Joint Mobilizations 1 Joint PF/TF post glide TF joint Direction sup/inf Grade III Body Position Supine Manual Techniques 1 Type Contract-relax passive stretch Comments x 5 mins: prone and supine PT-OP-R Modalities Start: 01/15/19 13:58 Freq: Status: Active Protocol: Document 03/24/19 17:34 EA (Rec: 03/24/19 17:40 EA [id number]) Hot Pack/Cold Pack Treatment Cold Pack Location right knee Patient Position Hooklying Treatment Duration (minutes) 12 Patient Tolerance Good PT-OP-T Assessment and Plan Start: 01/15/19 13:58 Freq: Status: Active Protocol: Document 03/24/19 17:34 EA (Rec: 03/24/19 17:40 EA [id number]) Physical Therapy Assessment Assessment Summary Assessment Received his doctor's referral of a dynamic extension brace. Today patient demonstrates improve tolerance to therex and improve gait with few minor cues. Still noted difficulty with 6 stairs descent due to lack of knee flexion and weak quads strength. Knee extension reached max of -2 to full extension in passive. Patient may benefit with extension brace and will discussed next session. Physical Therapy Plan Next Visit Focus/Plan Next Note Type Treatment Note Next Visit Plan To discuss acquiring of knee extension brace. Cont. manual PT to improve knee flexion and extension.
--- NOTE | 2019-03-25 07:33 | PT.OPPOC ---
Current Diagnoses Unilateral primary osteoarthritis, right knee (03/24/19) Provider Visit Care Team Role Provider Type KERON Callaway Family Provider Advanced Wearing Apparel Shaker Primary Care Provider Specialty: Family Practice Address: [address] [place] [address], [id number] Email: Luis Olivas MD Attending Provider Physician Specialty: Orthopedic Surgery Address: [address] [place] [address], [id number] Email: [email or web address] Plan Of Care PT-OP-T Assessment and Plan Start: 01/15/19 13:58 Freq: Status: Active Protocol: Document 03/24/19 17:40 EA (Rec: 03/17/19 12:16 EA [id number]) Physical Therapy Assessment Impairments Impairments Activity Tolerance Functional Mobility Gait Pain ROM Soft Tissue Mobility Strength Goals walking program Impairment expect to have decreased activity tolerance after sx Pipeline Welder Goal (LTG) Pt will be able to amb >1 mile a day even/uneven ground safely without AD / increase in pain in order to return to sports in the future. LTG Duration 4 wks strength Impairment difficulty getting up from low chair and stair climbing Pipeline Welder Goal (LTG) Pt will be able to climb stair with step over pattern and stand up from low chair (15 inch) without using UEs for push off. LTG Duration 4 wks ROM Impairment R knee extension at 12 degrees during IE Senior Living Goal (LTG) pt will be able to reach <5 degrees of R knee extension actively to improve gait mechanics and body upright alignment. LTG Duration 4 wks LEFS Impairment Pt scores 57 (20-39% impairment) for LEFS Pipeline Welder Goal (LTG) Pt will be able to score >63 points (below 20% impairments) on LEFS to improve his overall quality of life and functional mobility. LTG Duration 6 wks Assessment Summary Assessment Pt tolerated treatment with aggressive manual stretching. Increased by 5 degrees of flexion noted at this time. Recommends to increase session to 3 time a week this time. Patient will cont. to benefit with skilled PT. Physical Therapy Plan Frequency and Duration Frequency of Treatment 3x/Week Duration of Treatment 8 wks Plan of Care Start Date 03/17/19 Plan of Care End Date 05/12/19 Therapeutic Interventions Therapeutic Interventions Aquatic Therapy Balance Training Gait Training Home Exercise Program Joint Mobilizations Manual Therapy Neuromuscular Re-education Patient/Caregiver Education Self-Care/Home Management Soft Tissue Mobilization Taping Therapeutic Activities Therapeutic Exercises Modalities Cold Pack/Ice Massage Electric Stimulation Hot Packs Infrared Therapy Ultrasound Next Visit Focus/Plan Next Note Type Treatment Note Next Visit Plan Increase manual stretching and joint mob. Plan of Care Dates Plan of Care Start Date 03/17/19 Plan of Care End Date 05/12/19 Please Sign and Return: I have reviewed this Plan of Care and certify that the skilled therapy services above are required to meet the patient?s needs. Physician Signature Date Printed Name and Credentials Clinical Instructor Signature Printed Name and Credentials
--- NOTE | 2019-03-25 15:21 | PT.OTN ---
Current Diagnoses Unilateral primary osteoarthritis, right knee (03/25/19) Physical Therapy Treatment Note PT-OP-A Visit Information Start: 01/15/19 13:58 Freq: Status: Active Protocol: Document 03/25/19 14:30 DCW (Rec: 03/25/19 15:21 DCW [id number]) Out-Patient Physical Therapy Visit Information Visit Information Visit Type Treatment Note Visit Start Time 14:30 Visit Stop Time 15:25 Total Visit Minutes 55 Visit Number 16 PT-OP-B Current Condition Start: 01/15/19 13:58 Freq: Status: Active Protocol: Document 02/10/19 14:24 EA (Rec: 02/10/19 14:34 EA [id number]) Current Condition History of Current Condition Onset Date s/p L TKA 01/29/2019 Current Complaints gait difficulty History of Current Condition Patient is s/p left TKA. Patient independent in all functional mobility except with driving Treatment Goals Patient/Caregiver Goals 1. To increase his LEs flexibility to be able to fully extend his R knee 2. Able to return to sports such as hiking and skiing 3. to be able to stand up from low chair without UE support Prior Functional Status Baseline Function- ADL's Independent Baseline Function- Mobility Independent Baseline Function- Other step over pattern for stair climbing without railings Current Functional Impairments (Reported) Functional Limitations- Mobility/Gait step to pattern for stairs Functional Limitations- Recreation/ increased pain during walking Hobbies on uneven surface, hiking, prolonged walking, standing. Unable to skii due to increased pain PT-OP-C Subjective Start: 01/15/19 13:58 Freq: Status: Active Protocol: Document 03/25/19 14:30 DCW (Rec: 03/25/19 15:21 DCW [id number]) OP-PT Subjective Patient Comments Patient Comments Pt feels like he is making pregress, although it is slow. PT-OP-G Mobility & Gait Start: 01/15/19 13:58 Freq: Status: Active Protocol: Document 01/15/19 12:20 HH (Rec: 01/15/19 14:32 HH [email or web address]) OP Gait Assessment Gait Gait Assistance Required: Independent Assistive Devices Assistive Device None Gait Deviations General Gait Pattern Antalgic Decreased Stride Length Decreased Feet Clearance Factors Limiting Gait Function Factors Limiting Gait Function Decreased Strength Limited Range of Motion Pain Comments Gait Comments R antalgic gait with decreased stance phase on RLE. Mod R knee varus noted at static stance. Stair Climbing Evaluation Evaluation Level of Assist On Stairs Independent Devices Stair Climbing Assistive Devices Left Railing Right Railing Technique/Endurance Stair Climbing Direction Ascend and Descend Stair Climbing Technique Step to Step PT-OP-J Posture/Palpation/Skin Start: 01/15/19 13:58 Freq: Status: Active Protocol: Document 02/10/19 14:24 EA (Rec: 02/10/19 14:34 EA [id number]) Skin Assessment Circumference Measurement 1 Comments 16.5 L: 14 R Incisional Assessment Incision Appearance/Comments Incision still covered PT-OP-K Range of Motion Start: 01/15/19 13:58 Freq: Status: Active Protocol: Document 03/18/19 09:44 GGD (Rec: 03/18/19 09:55 GGD [id number]) Knee Goniometric Range of Motion Knee Right Patient Position Supine Flexion Active (degrees) 93 Flexion Passive (degrees) 105 PT-OP-M Strength Start: 01/15/19 13:58 Freq: Status: Active Protocol: Document 02/10/19 14:24 EA (Rec: 02/10/19 14:34 EA [id number]) Hip Strength Hip Manual Muscle Testing Right Reason Not Measured Pain Left Reason Not Measured WFL Knee Strength Knee Manual Muscle Testing Right Reason Not Measured WFL Pain Left Flexion (S2) 5 Normal Extension (L3) 5 Normal PT-OP-Q Treatments Start: 01/15/19 13:58 Freq: Status: Active Protocol: Document 03/25/19 14:30 DCW (Rec: 03/25/19 15:21 DCW [id number]) Cardio Equipment Recumbent Stepper (Sci-Fit) Duration (Minutes) 6 Resistance 2-3 Seat Position 9-6 Gym Equipment Shuttle Recovery Unilateral Heel Raises Resistance 50# Reps/Time 2x15 Unilateral Squats Resistance 75# Shuttle Recovery Platform Stable Reps/Time x 15 reps x2 Therapeutic Exercises Standing Exercises 6 Standing Exercise Name step flexion stretch 5 Standing Exercise Name 6 steps up leading with right leg Comments with rails support 3 Standing Exercise Name BUSO with marching Reps/Minutes 3 mins Comments with support Manual Therapy Treatment Soft Tissue Mobilization hamstrings Body Location hamstrings Mobilization Type Cross-Friction Manual Lymphatic Drainage Myofascial Release Sustained Pressure Other Intensity/Depth Deep Body Position Hooklying Comments proximal stroke 1 Body Location quads Mobilization Type Cross-Friction Manual Lymphatic Drainage Myofascial Release Intensity/Depth Deep Body Position supine/hooklying Joint Mobilizations 1 Joint PF/TF post glide TF joint Direction sup/inf Grade III Body Position Supine Manual Techniques 1 Type Contract-relax passive stretch Comments x 5 mins: prone and supine PT-OP-R Modalities Start: 01/15/19 13:58 Freq: Status: Active Protocol: Document 03/25/19 14:30 DCW (Rec: 03/25/19 15:21 DCW [id number]) Electric Stimulation Electric Stimulation Interferential Current (IFC) Body Location right quads Duration (Minutes) 15 Intensity 15 Patient Position Supine Combined With Heat/Cold Cold Pack PT-OP-T Assessment and Plan Start: 01/15/19 13:58 Freq: Status: Active Protocol: Document 03/25/19 14:30 DCW (Rec: 03/25/19 15:21 DCW [id number]) Physical Therapy Assessment Goals walking program Impairment expect to have decreased activity tolerance after sx Senior Living Goal (LTG) Pt will be able to amb >1 mile a day even/uneven ground safely without AD / increase in pain in order to return to sports in the future. LTG Duration 4 wks strength Impairment difficulty getting up from low chair and stair climbing Senior Living Goal (LTG) Pt will be able to climb stair with step over pattern and stand up from low chair (15 inch) without using UEs for push off. LTG Duration 4 wks ROM Impairment R knee extension at 12 degrees during IE [employer] Goal (LTG) pt will be able to reach <5 degrees of R knee extension actively to improve gait mechanics and body upright alignment. LTG Duration 4 wks LEFS Impairment Pt scores 57 (20-39% impairment) for LEFS Senior Living Goal (LTG) Pt will be able to score >63 points (below 20% impairments) on LEFS to improve his overall quality of life and functional mobility. LTG Duration 6 wks Assessment Summary Assessment Pt felt much better following STM/Manual therapy, notes overall improvement with strength. Pt interested in obtaining dynamic extension brace. Physical Therapy Plan Frequency and Duration Frequency of Treatment 3x/Week Duration of Treatment 8 wks Plan of Care Start Date 03/17/19 Plan of Care End Date 05/12/19 Next Visit Focus/Plan Next Note Type Treatment Note Next Visit Plan Increase manual stretching and joint mob.
--- NOTE | 2019-03-27 12:51 | PT.OTN ---
Current Diagnoses Unilateral primary osteoarthritis, right knee (03/27/19) Physical Therapy Treatment Note PT-OP-A Visit Information Start: 01/15/19 13:58 Freq: Status: Active Protocol: Document 03/27/19 11:14 EA (Rec: 03/27/19 11:15 EA [id number]) Out-Patient Physical Therapy Visit Information Visit Information Visit Type Treatment Note Visit Start Time 10:30 Visit Stop Time 11:20 Total Visit Minutes 53 Visit Number 15 PT-OP-B Current Condition Start: 01/15/19 13:58 Freq: Status: Active Protocol: Document 02/10/19 14:24 EA (Rec: 02/10/19 14:34 EA [id number]) Current Condition History of Current Condition Onset Date s/p L TKA 01/29/2019 Current Complaints gait difficulty History of Current Condition Patient is s/p left TKA. Patient independent in all functional mobility except with driving Treatment Goals Patient/Caregiver Goals 1. To increase his LEs flexibility to be able to fully extend his R knee 2. Able to return to sports such as hiking and skiing 3. to be able to stand up from low chair without UE support Prior Functional Status Baseline Function- ADL's Independent Baseline Function- Mobility Independent Baseline Function- Other step over pattern for stair climbing without railings Current Functional Impairments (Reported) Functional Limitations- Mobility/Gait step to pattern for stairs Functional Limitations- Recreation/ increased pain during walking Hobbies on uneven surface, hiking, prolonged walking, standing. Unable to skii due to increased pain PT-OP-C Subjective Start: 01/15/19 13:58 Freq: Status: Active Protocol: Document 03/27/19 11:58 EA (Rec: 03/27/19 12:01 EA [id number]) OP-PT Subjective Patient Comments Patient Comments Pt reports called recived from his docotr's office to followed up with knee extension brace. Previous PT states that order was in placed and just waiting for it . PT-OP-G Mobility & Gait Start: 01/15/19 13:58 Freq: Status: Active Protocol: Document 01/15/19 12:20 HH (Rec: 01/15/19 14:32 HH [email or web address]) OP Gait Assessment Gait Gait Assistance Required: Independent Assistive Devices Assistive Device None Gait Deviations General Gait Pattern Antalgic Decreased Stride Length Decreased Feet Clearance Factors Limiting Gait Function Factors Limiting Gait Function Decreased Strength Limited Range of Motion Pain Comments Gait Comments R antalgic gait with decreased stance phase on RLE. Mod R knee varus noted at static stance. Stair Climbing Evaluation Evaluation Level of Assist On Stairs Independent Devices Stair Climbing Assistive Devices Left Railing Right Railing Technique/Endurance Stair Climbing Direction Ascend and Descend Stair Climbing Technique Step to Step PT-OP-J Posture/Palpation/Skin Start: 01/15/19 13:58 Freq: Status: Active Protocol: Document 02/10/19 14:24 EA (Rec: 02/10/19 14:34 EA [id number]) Skin Assessment Circumference Measurement 1 Comments 16.5 L: 14 R Incisional Assessment Incision Appearance/Comments Incision still covered PT-OP-K Range of Motion Start: 01/15/19 13:58 Freq: Status: Active Protocol: Document 03/18/19 09:44 GGD (Rec: 03/18/19 09:55 GGD [id number]) Knee Goniometric Range of Motion Knee Right Patient Position Supine Flexion Active (degrees) 93 Flexion Passive (degrees) 105 PT-OP-M Strength Start: 01/15/19 13:58 Freq: Status: Active Protocol: Document 02/10/19 14:24 EA (Rec: 02/10/19 14:34 EA [id number]) Hip Strength Hip Manual Muscle Testing Right Reason Not Measured Pain Left Reason Not Measured WFL Knee Strength Knee Manual Muscle Testing Right Reason Not Measured WFL Pain Left Flexion (S2) 5 Normal Extension (L3) 5 Normal PT-OP-Q Treatments Start: 01/15/19 13:58 Freq: Status: Active Protocol: Document 03/27/19 11:58 EA (Rec: 03/27/19 12:01 EA [id number]) Cardio Equipment Recumbent Bicycle Duration (Minutes) 10 Other Full cycle with few trunk bending to complete Gym Equipment Shuttle Recovery Unilateral Heel Raises Resistance 50# Reps/Time 2x15 Unilateral Squats Resistance 75# Shuttle Recovery Platform Stable Reps/Time x 15 reps x2 Therapeutic Exercises Standing Exercises 6 Standing Exercise Name step flexion stretch 5 Standing Exercise Name 6 steps up leading with right leg Comments with rails support 3 Standing Exercise Name BUSO with marching Reps/Minutes 3 mins Comments with support 2 Standing Exercise Name LEORA gastroc stretch Manual Therapy Treatment Soft Tissue Mobilization hamstrings Body Location hamstrings Mobilization Type Cross-Friction Manual Lymphatic Drainage Myofascial Release Sustained Pressure Other Intensity/Depth Deep Body Position Hooklying Comments proximal stroke 1 Body Location quads Mobilization Type Cross-Friction Manual Lymphatic Drainage Myofascial Release Intensity/Depth Deep Body Position supine/hooklying Joint Mobilizations 1 Joint PF/TF post glide TF joint Direction sup/inf Grade III Body Position Supine Manual Techniques 1 Type Contract-relax passive stretch Comments x 5 mins: prone and supine PT-OP-R Modalities Start: 01/15/19 13:58 Freq: Status: Active Protocol: Document 03/27/19 11:58 EA (Rec: 03/27/19 12:01 EA [id number]) Hot Pack/Cold Pack Treatment Cold Pack Location right knee Patient Position Hooklying Treatment Duration (minutes) 12 Patient Tolerance Good PT-OP-T Assessment and Plan Start: 01/15/19 13:58 Freq: Status: Active Protocol: Document 03/27/19 11:58 EA (Rec: 03/27/19 12:01 EA [id number]) Physical Therapy Assessment Assessment Summary Assessment Patient shows improved quads control during gait; however full extension still not evident and therefore requires knee extension brace. Ant trunk lean during right stance phase is much less which consistent to less patient pain complaint. Patient is progressing slow. Physical Therapy Plan Next Visit Focus/Plan Next Note Type Treatment Note Next Visit Plan Increase manual stretching and joint mob.
--- NOTE | 2019-03-31 13:53 | PT.OTN ---
Current Diagnoses Unilateral primary osteoarthritis, right knee (03/31/19) Physical Therapy Treatment Note PT-OP-A Visit Information Start: 01/15/19 13:58 Freq: Status: Active Protocol: Document 03/31/19 11:09 EA (Rec: 03/31/19 11:16 EA [id number]) Out-Patient Physical Therapy Visit Information Visit Information Visit Type Treatment Note Visit Start Time 10:30 Visit Stop Time 11:18 Total Visit Minutes 48 Visit Number 16 PT-OP-B Current Condition Start: 01/15/19 13:58 Freq: Status: Active Protocol: Document 02/10/19 14:24 EA (Rec: 02/10/19 14:34 EA [id number]) Current Condition History of Current Condition Onset Date s/p L TKA 01/29/2019 Current Complaints gait difficulty History of Current Condition Patient is s/p left TKA. Patient independent in all functional mobility except with driving Treatment Goals Patient/Caregiver Goals 1. To increase his LEs flexibility to be able to fully extend his R knee 2. Able to return to sports such as hiking and skiing 3. to be able to stand up from low chair without UE support Prior Functional Status Baseline Function- ADL's Independent Baseline Function- Mobility Independent Baseline Function- Other step over pattern for stair climbing without railings Current Functional Impairments (Reported) Functional Limitations- Mobility/Gait step to pattern for stairs Functional Limitations- Recreation/ increased pain during walking Hobbies on uneven surface, hiking, prolonged walking, standing. Unable to skii due to increased pain PT-OP-C Subjective Start: 01/15/19 13:58 Freq: Status: Active Protocol: Document 03/31/19 11:09 EA (Rec: 03/31/19 11:16 EA [id number]) OP-PT Subjective Patient Comments Patient Comments Pt reports complaint with HEP; states feels improving. PT-OP-G Mobility & Gait Start: 01/15/19 13:58 Freq: Status: Active Protocol: Document 01/15/19 12:20 HH (Rec: 01/15/19 14:32 HH [email or web address]) OP Gait Assessment Gait Gait Assistance Required: Independent Assistive Devices Assistive Device None Gait Deviations General Gait Pattern Antalgic Decreased Stride Length Decreased Feet Clearance Factors Limiting Gait Function Factors Limiting Gait Function Decreased Strength Limited Range of Motion Pain Comments Gait Comments R antalgic gait with decreased stance phase on RLE. Mod R knee varus noted at static stance. Stair Climbing Evaluation Evaluation Level of Assist On Stairs Independent Devices Stair Climbing Assistive Devices Left Railing Right Railing Technique/Endurance Stair Climbing Direction Ascend and Descend Stair Climbing Technique Step to Step PT-OP-J Posture/Palpation/Skin Start: 01/15/19 13:58 Freq: Status: Active Protocol: Document 02/10/19 14:24 EA (Rec: 02/10/19 14:34 EA [id number]) Skin Assessment Circumference Measurement 1 Comments 16.5 L: 14 R Incisional Assessment Incision Appearance/Comments Incision still covered PT-OP-K Range of Motion Start: 01/15/19 13:58 Freq: Status: Active Protocol: Document 03/18/19 09:44 GGD (Rec: 03/18/19 09:55 GGD [email or web address]) Knee Goniometric Range of Motion Knee Right Patient Position Supine Flexion Active (degrees) 93 Flexion Passive (degrees) 105 PT-OP-M Strength Start: 01/15/19 13:58 Freq: Status: Active Protocol: Document 02/10/19 14:24 EA (Rec: 02/10/19 14:34 EA [id number]) Hip Strength Hip Manual Muscle Testing Right Reason Not Measured Pain Left Reason Not Measured WFL Knee Strength Knee Manual Muscle Testing Right Reason Not Measured WFL Pain Left Flexion (S2) 5 Normal Extension (L3) 5 Normal PT-OP-Q Treatments Start: 01/15/19 13:58 Freq: Status: Active Protocol: Document 03/31/19 11:09 EA (Rec: 03/31/19 11:16 EA [id number]) Cardio Equipment Recumbent Stepper (Sci-Fit) Duration (Minutes) 6 Resistance 2-3 Seat Position 9-3 Recumbent Bicycle Duration (Minutes) 5 Seat Position 6-4 Other Full rev Gym Equipment Shuttle Recovery Unilateral Heel Raises Resistance 50# Reps/Time 2x15 Unilateral Squats Resistance 75# Shuttle Recovery Platform Stable Reps/Time x 15 reps x2 Therapeutic Exercises Prone Exercises 1 Prone Exercise Name Prone passive stretch Reps/Minutes 10 reps Comments RI: to follow stretch Sitting Exercises 2 Sitting Exercise Name Hamstring curl Resistance GTB Reps/Minutes x 15 reps x 2 1 Sitting Exercise Name LAQ Resistance 6# Reps/Minutes x 12 reps x 2 Standing Exercises 5 Standing Exercise Name 4-6 steps up and down fwd/bwd Comments Rails PRN 4 Standing Exercise Name heels raises Reps/Minutes 15 reps 3 Standing Exercise Name BUSO with marching Reps/Minutes 3 mins Comments with support 2 Standing Exercise Name LEORA gastroc stretch 1 Standing Exercise Name Side step squats Reps/Minutes x 12 ft rails x 2 sets Manual Therapy Treatment Soft Tissue Mobilization 1 Body Location quads Mobilization Type Cross-Friction Manual Lymphatic Drainage Myofascial Release Intensity/Depth Deep Body Position supine/hooklying Joint Mobilizations 1 Joint PF/TF post glide TF joint Direction sup/inf, post/ant Grade III Body Position Supine Comments grade 11/111 PT-OP-R Modalities Start: 01/15/19 13:58 Freq: Status: Active Protocol: Document 03/31/19 11:09 EA (Rec: 03/31/19 11:16 EA [id number]) Hot Pack/Cold Pack Treatment Cold Pack Location right knee Patient Position Hooklying Treatment Duration (minutes) 10 Patient Tolerance Good PT-OP-T Assessment and Plan Start: 01/15/19 13:58 Freq: Status: Active Protocol: Document 03/31/19 11:09 EA (Rec: 03/31/19 11:16 EA [id number]) Physical Therapy Assessment Assessment Summary Assessment Improved range to 107 knee flexion and 0 extension. Patient cont. to progress as to ROM and activity tolerance. Physical Therapy Plan Next Visit Focus/Plan Next Note Type Treatment Note Next Visit Plan Progressive strengthening
--- NOTE | 2019-04-03 16:16 | PT.OTN ---
Current Diagnoses Unilateral primary osteoarthritis, right knee (04/03/19) Physical Therapy Treatment Note PT-OP-A Visit Information Start: 01/15/19 13:58 Freq: Status: Active Protocol: Document 04/03/19 16:04 GGD (Rec: 04/03/19 16:16 GGD [email or web address]) Out-Patient Physical Therapy Visit Information Visit Information Visit Type Treatment Note Visit Start Time 10:30 Visit Stop Time 11:25 Total Visit Minutes 50 Visit Number 20 Number of PROMOTION OFFICER Visits 1 Evaluation Information Evaluation Date 01/15/19 PT-OP-B Current Condition Start: 01/15/19 13:58 Freq: Status: Active Protocol: Document 02/10/19 14:24 EA (Rec: 02/10/19 14:34 EA [id number]) Current Condition History of Current Condition Onset Date s/p L TKA 01/29/2019 Current Complaints gait difficulty History of Current Condition Patient is s/p left TKA. Patient independent in all functional mobility except with driving Treatment Goals Patient/Caregiver Goals 1. To increase his LEs flexibility to be able to fully extend his R knee 2. Able to return to sports such as hiking and skiing 3. to be able to stand up from low chair without UE support Prior Functional Status Baseline Function- ADL's Independent Baseline Function- Mobility Independent Baseline Function- Other step over pattern for stair climbing without railings Current Functional Impairments (Reported) Functional Limitations- Mobility/Gait step to pattern for stairs Functional Limitations- Recreation/ increased pain during walking Hobbies on uneven surface, hiking, prolonged walking, standing. Unable to skii due to increased pain PT-OP-C Subjective Start: 01/15/19 13:58 Freq: Status: Active Protocol: Document 04/03/19 16:04 GGD (Rec: 04/03/19 16:16 GGD [email or web address]) OP-PT Subjective Patient Comments Patient Comments Pt states he been doing his HEP. PT-OP-G Mobility & Gait Start: 01/15/19 13:58 Freq: Status: Active Protocol: Document 01/15/19 12:20 HH (Rec: 01/15/19 14:32 HH [email or web address]) OP Gait Assessment Gait Gait Assistance Required: Independent Assistive Devices Assistive Device None Gait Deviations General Gait Pattern Antalgic Decreased Stride Length Decreased Feet Clearance Factors Limiting Gait Function Factors Limiting Gait Function Decreased Strength Limited Range of Motion Pain Comments Gait Comments R antalgic gait with decreased stance phase on RLE. Mod R knee varus noted at static stance. Stair Climbing Evaluation Evaluation Level of Assist On Stairs Independent Devices Stair Climbing Assistive Devices Left Railing Right Railing Technique/Endurance Stair Climbing Direction Ascend and Descend Stair Climbing Technique Step to Step PT-OP-J Posture/Palpation/Skin Start: 01/15/19 13:58 Freq: Status: Active Protocol: Document 02/10/19 14:24 EA (Rec: 02/10/19 14:34 EA [id number]) Skin Assessment Circumference Measurement 1 Comments 16.5 L: 14 R Incisional Assessment Incision Appearance/Comments Incision still covered PT-OP-K Range of Motion Start: 01/15/19 13:58 Freq: Status: Active Protocol: Document 03/18/19 09:44 GGD (Rec: 03/18/19 09:55 GGD [email or web address]) Knee Goniometric Range of Motion Knee Right Patient Position Supine Flexion Active (degrees) 93 Flexion Passive (degrees) 105 PT-OP-M Strength Start: 01/15/19 13:58 Freq: Status: Active Protocol: Document 02/10/19 14:24 EA (Rec: 02/10/19 14:34 EA [id number]) Hip Strength Hip Manual Muscle Testing Right Reason Not Measured Pain Left Reason Not Measured WFL Knee Strength Knee Manual Muscle Testing Right Reason Not Measured WFL Pain Left Flexion (S2) 5 Normal Extension (L3) 5 Normal PT-OP-Q Treatments Start: 01/15/19 13:58 Freq: Status: Active Protocol: Document 04/03/19 16:04 GGD (Rec: 04/03/19 16:16 GGD [email or web address]) Cardio Equipment Recumbent Stepper (Sci-Fit) Duration (Minutes) 6 Resistance 2-3 Seat Position 9-3 Recumbent Bicycle Duration (Minutes) 5 Seat Position 6-4 Other Full rev Gym Equipment Shuttle Recovery Unilateral Heel Raises Resistance 50# Reps/Time 2x15 Unilateral Squats Resistance 75# Shuttle Recovery Platform Stable Reps/Time x 15 reps x2 Therapeutic Exercises Prone Exercises 1 Prone Exercise Name Prone passive stretch Reps/Minutes 10 reps Comments RI: to follow stretch Sitting Exercises 2 Sitting Exercise Name Hamstring curl Resistance GTB Reps/Minutes x 15 reps x 2 1 Sitting Exercise Name LAQ Reps/Minutes x 12 reps x 2 Standing Exercises 6 Standing Exercise Name step flexion stretch 5 Standing Exercise Name 4-6 steps up and down fwd/bwd Comments Rails PRN 2 Standing Exercise Name LEORA gastroc stretch Manual Therapy Treatment Soft Tissue Mobilization hamstrings Body Location hamstrings Mobilization Type Cross-Friction Manual Lymphatic Drainage Myofascial Release Sustained Pressure Other Intensity/Depth Deep Body Position Hooklying Comments proximal stroke 1 Body Location quads Mobilization Type Cross-Friction Manual Lymphatic Drainage Myofascial Release Intensity/Depth Deep Body Position supine/hooklying Joint Mobilizations 1 Joint PF/TF post glide TF joint Direction sup/inf, post/ant Grade III Body Position Supine Comments grade 11/111 Manual Techniques 1 Type Contract-relax passive stretch Comments x 5 mins: prone and supine PT-OP-R Modalities Start: 01/15/19 13:58 Freq: Status: Active Protocol: Document 04/03/19 16:04 GGD (Rec: 04/03/19 16:16 GGD [email or web address]) Hot Pack/Cold Pack Treatment Cold Pack Location right knee Patient Position Hooklying Treatment Duration (minutes) 10 Patient Tolerance Good PT-OP-T Assessment and Plan Start: 01/15/19 13:58 Freq: Status: Active Protocol: Document 04/03/19 16:04 GGD (Rec: 04/03/19 16:16 GGD [email or web address]) Physical Therapy Assessment Goals walking program Impairment expect to have decreased activity tolerance after sx Correction Goal (LTG) Pt will be able to amb >1 mile a day even/uneven ground safely without AD / increase in pain in order to return to sports in the future. LTG Duration 4 wks strength Impairment difficulty getting up from low chair and stair climbing Dining Chair Seat Cushion Trimmer Goal (LTG) Pt will be able to climb stair with step over pattern and stand up from low chair (15 inch) without using UEs for push off. LTG Duration 4 wks ROM Impairment R knee extension at 12 degrees during IE Correction Goal (LTG) pt will be able to reach <5 degrees of R knee extension actively to improve gait mechanics and body upright alignment. LTG Duration 4 wks LEFS Impairment Pt scores 57 (20-39% impairment) for LEFS Correction Goal (LTG) Pt will be able to score >63 points (below 20% impairments) on LEFS to improve his overall quality of life and functional mobility. LTG Duration 6 wks Assessment Summary Assessment Pt is improving slowly with knee flexion ROM. He is progressing his HEP for strengthening. Physical Therapy Plan Frequency and Duration Frequency of Treatment 3x/Week Duration of Treatment 8 wks Plan of Care Start Date 03/17/19 Plan of Care End Date 05/12/19 Next Visit Focus/Plan Next Note Type Progress Note Next Visit Plan Increase manual stretching and joint mob. into extension
--- NOTE | 2019-04-07 12:43 | PT.OTN ---
Current Diagnoses Unilateral primary osteoarthritis, right knee (04/07/19) Physical Therapy Treatment Note PT-OP-A Visit Information Start: 01/15/19 13:58 Freq: Status: Active Protocol: Document 04/07/19 12:06 AW (Rec: 04/07/19 12:42 AW [email or web address]) Out-Patient Physical Therapy Visit Information Visit Information Visit Type Progress Note Visit Start Time 11:15 Visit Stop Time 12:15 Total Visit Minutes 60 Visit Number 21 Number of DIRECTOR PROCESS IMPROVEMENT Visits 0 Evaluation Information Evaluation Date 01/15/19 PT-OP-B Current Condition Start: 01/15/19 13:58 Freq: Status: Active Protocol: Document 02/10/19 14:24 EA (Rec: 02/10/19 14:34 EA [id number]) Current Condition History of Current Condition Onset Date s/p L TKA 01/29/2019 Current Complaints gait difficulty History of Current Condition Patient is s/p left TKA. Patient independent in all functional mobility except with driving Treatment Goals Patient/Caregiver Goals 1. To increase his LEs flexibility to be able to fully extend his R knee 2. Able to return to sports such as hiking and skiing 3. to be able to stand up from low chair without UE support Prior Functional Status Baseline Function- ADL's Independent Baseline Function- Mobility Independent Baseline Function- Other step over pattern for stair climbing without railings Current Functional Impairments (Reported) Functional Limitations- Mobility/Gait step to pattern for stairs Functional Limitations- Recreation/ increased pain during walking Hobbies on uneven surface, hiking, prolonged walking, standing. Unable to skii due to increased pain PT-OP-C Subjective Start: 01/15/19 13:58 Freq: Status: Active Protocol: Document 04/07/19 12:06 AW (Rec: 04/07/19 12:42 AW [email or web address]) OP-PT Subjective Patient Comments Patient Comments Pt states he is happy with his progress, feels his pain-free range of motion is improving Patient Questionnaires Lower Extremity Functional Scale LEFS Score 41/80 LEFS Impairment 40 to 59% Impaired (Score 32- 47) PT-OP-G Mobility & Gait Start: 01/15/19 13:58 Freq: Status: Active Protocol: Document 04/07/19 12:06 AW (Rec: 04/07/19 12:42 AW [email or web address]) Stair Climbing Evaluation Evaluation Level of Assist On Stairs Standby Assistance Contact Guard Assistance Devices Stair Climbing Assistive Devices Left Railing Right Railing Technique/Endurance Stair Climbing Direction Ascend and Descend Stair Climbing Technique Step Over Step Number of Steps Climbed 4 Stair Climbing Set # Repetitions (reps) 8 Comments Stair Climbing Comments Pt able to ascend/descend with step over step pattern, but required CGA to achieve. SBA only required when pt used unilateral rail. PT-OP-J Posture/Palpation/Skin Start: 01/15/19 13:58 Freq: Status: Active Protocol: Document 02/10/19 14:24 EA (Rec: 02/10/19 14:34 EA [id number]) Skin Assessment Circumference Measurement 1 Comments 16.5 L: 14 R Incisional Assessment Incision Appearance/Comments Incision still covered PT-OP-K Range of Motion Start: 01/15/19 13:58 Freq: Status: Active Protocol: Document 04/07/19 12:06 AW (Rec: 04/07/19 12:42 AW [email or web address]) Knee Goniometric Range of Motion Knee Right Patient Position Supine Flexion Active (degrees) 105 Flexion Passive (degrees) 110 Knee ROM Limitations Comments Pt lacking 10 degrees active R knee extension, 8 degrees passive knee extension. PT-OP-M Strength Start: 01/15/19 13:58 Freq: Status: Active Protocol: Document 02/10/19 14:24 EA (Rec: 02/10/19 14:34 EA [id number]) Hip Strength Hip Manual Muscle Testing Right Reason Not Measured Pain Left Reason Not Measured WFL Knee Strength Knee Manual Muscle Testing Right Reason Not Measured WFL Pain Left Flexion (S2) 5 Normal Extension (L3) 5 Normal PT-OP-Q Treatments Start: 01/15/19 13:58 Freq: Status: Active Protocol: Document 04/07/19 12:06 AW (Rec: 04/07/19 12:42 AW [email or web address]) Cardio Equipment Recumbent Stepper (Sci-Fit) Duration (Minutes) 5 Resistance 3.1 Bicycle (Upright) Duration (Minutes) 5 Resistance 4 Seat Position 4 Gym Equipment Shuttle Recovery Unilateral Heel Raises Resistance 50# Shuttle Recovery Platform Stable Reps/Time 2x15 Unilateral Squats Resistance 75# Shuttle Recovery Platform Stable Reps/Time x 15 reps x2 Therapeutic Exercises Standing Exercises 5 Standing Exercise Name 4 steps up and down Side bilateral Reps/Minutes 4 steps x 8 reps Comments Unilateral rail for decreased level of assist. Manual Therapy Treatment Joint Mobilizations 1 Joint PF/TF post glide TF joint Direction sup/inf, post/ant Grade III Body Position Supine Comments pt tolerated well. Extension measured after mob was lacking 8 degrees. PT-OP-R Modalities Start: 01/15/19 13:58 Freq: Status: Active Protocol: Document 04/07/19 12:43 AW (Rec: 04/07/19 12:43 AW [email or web address]) Hot Pack/Cold Pack Treatment Cold Pack Location right knee Patient Position Hooklying Treatment Duration (minutes) 10 Patient Tolerance Good PT-OP-T Assessment and Plan Start: 01/15/19 13:58 Freq: Status: Active Protocol: Document 04/07/19 12:06 AW (Rec: 04/07/19 12:42 AW [email or web address]) Physical Therapy Assessment Goals walking program Impairment expect to have decreased activity tolerance after sx Shelter Goal (LTG) Pt will be able to amb >1 mile a day even/uneven ground safely without AD / increase in pain in order to return to sports in the future. 04/06: Pt walking ~1/2 mile at this time on all surfaces without AD. strength Impairment difficulty getting up from low chair and stair climbing Shelter Goal (LTG) Pt will be able to climb stair with step over pattern and stand up from low chair (15 inch) without using UEs for push off. 04/06 PARTIALLY MET: Pt able to rise from 15 surface x 3 without use of UE's. Pt able to ascend/descend 4 steps mod independent with unilateral handrail, SBA without rails. LTG Duration 4 wks ROM Impairment R knee extension at 12 degrees during IE Shelter Goal (LTG) pt will be able to reach <5 degrees of R knee extension actively to improve gait mechanics and body upright alignment. 04/06 NOT MET: Pt lacking 8-10 degrees extension on exam today. LEFS Impairment Pt scores 57 (20-39% impairment) for LEFS Shelter Goal (LTG) Pt will be able to score >63 points (below 20% impairments) on LEFS to improve his overall quality of life and functional mobility. 04/06 NOT MET: Pt scored 41/80 (49% impaired) on LEFS today Assessment Summary Assessment Pt mainitaining knee flexion gains and ambulating further distance with less pain. Continued skilled PT required to meet functional goals. Physical Therapy Plan Frequency and Duration Frequency of Treatment 3x/Week Duration of Treatment 8 wks Plan of Care Start Date 03/17/19 Plan of Care End Date 05/12/19 Next Visit Focus/Plan Next Visit Plan Continue to progress manual stretching/joint mob to increase R knee extension.
--- NOTE | 2019-04-10 10:17 | PT.OTN ---
Current Diagnoses Unilateral primary osteoarthritis, right knee (04/10/19) Physical Therapy Treatment Note PT-OP-A Visit Information Start: 01/15/19 13:58 Freq: Status: Active Protocol: Document 04/10/19 09:00 HH (Rec: 04/10/19 10:17 HH [email or web address]) Out-Patient Physical Therapy Visit Information Visit Information Visit Type Treatment Note Visit Start Time 09:00 Visit Stop Time 09:49 Total Visit Minutes 49 Visit Number 22 Number of SECURITY DEVELOPER Visits 0 PT-OP-B Current Condition Start: 01/15/19 13:58 Freq: Status: Active Protocol: Document 02/10/19 14:24 EA (Rec: 02/10/19 14:34 EA [id number]) Current Condition History of Current Condition Onset Date s/p L TKA 01/29/2019 Current Complaints gait difficulty History of Current Condition Patient is s/p left TKA. Patient independent in all functional mobility except with driving Treatment Goals Patient/Caregiver Goals 1. To increase his LEs flexibility to be able to fully extend his R knee 2. Able to return to sports such as hiking and skiing 3. to be able to stand up from low chair without UE support Prior Functional Status Baseline Function- ADL's Independent Baseline Function- Mobility Independent Baseline Function- Other step over pattern for stair climbing without railings Current Functional Impairments (Reported) Functional Limitations- Mobility/Gait step to pattern for stairs Functional Limitations- Recreation/ increased pain during walking Hobbies on uneven surface, hiking, prolonged walking, standing. Unable to skii due to increased pain PT-OP-C Subjective Start: 01/15/19 13:58 Freq: Status: Active Protocol: Document 04/10/19 09:00 HH (Rec: 04/10/19 10:17 HH [email or web address]) OP-PT Subjective Patient Comments Patient Comments I am walking better and practicing single leg balance. Patient Reported Progress Improving PT-OP-G Mobility & Gait Start: 01/15/19 13:58 Freq: Status: Active Protocol: Document 04/07/19 12:06 AW (Rec: 04/07/19 12:42 AW [email or web address]) Stair Climbing Evaluation Evaluation Level of Assist On Stairs Standby Assistance,Contact Guard Assistance Devices Stair Climbing Assistive Devices Left Railing,Right Railing Technique/Endurance Stair Climbing Direction Ascend and Descend Stair Climbing Technique Step Over Step Number of Steps Climbed 4 Stair Climbing Set # Repetitions (reps) 8 Comments Stair Climbing Comments Pt able to ascend/descend with step over step pattern, but required CGA to achieve. SBA only required when pt used unilateral rail. PT-OP-J Posture/Palpation/Skin Start: 01/15/19 13:58 Freq: Status: Active Protocol: Document 02/10/19 14:24 EA (Rec: 02/10/19 14:34 EA [id number]) Skin Assessment Circumference Measurement 1 Comments 16.5 L: 14 R Incisional Assessment Incision Appearance/Comments Incision still covered PT-OP-K Range of Motion Start: 01/15/19 13:58 Freq: Status: Active Protocol: Document 04/07/19 12:06 AW (Rec: 04/07/19 12:42 AW [email or web address]) Knee Goniometric Range of Motion Knee Right Patient Position Supine Flexion Active (degrees) 105 Flexion Passive (degrees) 110 Knee ROM Limitations Comments Pt lacking 10 degrees active R knee extension, 8 degrees passive knee extension. PT-OP-M Strength Start: 01/15/19 13:58 Freq: Status: Active Protocol: Document 02/10/19 14:24 EA (Rec: 02/10/19 14:34 EA [id number]) Hip Strength Hip Manual Muscle Testing Right Reason Not Measured Pain Left Reason Not Measured WFL Knee Strength Knee Manual Muscle Testing Right Reason Not Measured WFL,Pain Left Flexion (S2) 5 Normal Extension (L3) 5 Normal PT-OP-Q Treatments Start: 01/15/19 13:58 Freq: Status: Active Protocol: Document 04/10/19 09:00 HH (Rec: 04/10/19 10:17 HH [email or web address]) Cardio Equipment Recumbent Stepper (Sci-Fit) Duration (Minutes) 5 Resistance 3.1 Bicycle (Upright) Duration (Minutes) 5 Resistance 4 Seat Position 4 Therapeutic Exercises Supine Exercises supine hip flexor stretch Supine Exercise Name yi test position Side right Equipment Used manual assistance Reps/Minutes 5 mins Prone Exercises 1 Prone Exercise Name Prone passive stretch Reps/Minutes 10 reps Comments RI: to follow stretch Standing Exercises squat Side bilateral Equipment Used 4 inch stool underneath L foot Reps/Minutes 10 x4 Comments to facilitate WB on RLE standing TKE Standing Exercise Name stagger stance Side right Equipment Used level 3 band Comments cues on isolation knee extension 5 Standing Exercise Name single leg step up and down Equipment Used 4 inch step Reps/Minutes 12 x 3 Comments cues on eccentric control 2 Standing Exercise Name LEORA gastroc stretch Reps/Minutes 10 x2 Comments with toe touch and knee extension PT-OP-R Modalities Start: 01/15/19 13:58 Freq: Status: Active Protocol: Document 04/07/19 12:43 AW (Rec: 04/07/19 12:43 AW [email or web address]) Hot Pack/Cold Pack Treatment Cold Pack Location right knee Patient Position Hooklying Treatment Duration (minutes) 10 Patient Tolerance Good PT-OP-T Assessment and Plan Start: 01/15/19 13:58 Freq: Status: Active Protocol: Document 04/10/19 09:00 HH (Rec: 04/10/19 10:17 HH [email or web address]) Physical Therapy Assessment Goals walking program Impairment expect to have decreased activity tolerance after sx Prison Goal (LTG) Pt will be able to amb >1 mile a day even/uneven ground safely without AD / increase in pain in order to return to sports in the future. LTG Duration 4 wks strength Impairment difficulty getting up from low chair and stair climbing Prison Goal (LTG) Pt will be able to climb stair with step over pattern and stand up from low chair (15 inch) without using UEs for push off. 04/06 PARTIALLY MET: Pt able to rise from 15 surface x 3 without use of UE's. Pt able to ascend/descend 4 steps mod independent with unilateral handrail, SBA without rails. LTG Duration 4 wks ROM Impairment R knee extension at 12 degrees during IE Prison Goal (LTG) pt will be able to reach <5 degrees of R knee extension actively to improve gait mechanics and body upright alignment. 04/06 NOT MET: Pt lacking 8-10 degrees extension on exam today. LEFS Impairment Pt scores 57 (20-39% impairment) for LEFS Prison Goal (LTG) Pt will be able to score >63 points (below 20% impairments) on LEFS to improve his overall quality of life and functional mobility. 04/06 NOT MET: Pt scored 41/80 (49% impaired) on LEFS today Assessment Summary Assessment Today focused on modification of his home ex to improve quad activation and WB during STS. Pt appears to have excessive weight shift to L during squat and using momentum during R TKE. Pt also interested in returning [employer] to workout. Recommended pt to go through gym equipment usage and techniques for safe strengthening. Physical Therapy Plan Next Visit Focus/Plan Next Visit Plan review squat mechanics Continue to progress manual stretching/joint mob to increase R knee extension.
--- NOTE | 2019-04-16 17:55 | PT.OTN ---
Current Diagnoses Unilateral primary osteoarthritis, right knee (04/16/19) Physical Therapy Treatment Note PT-OP-A Visit Information Start: 01/15/19 13:58 Freq: Status: Active Protocol: Document 04/16/19 15:55 HH (Rec: 04/16/19 17:55 HH [email or web address]) Out-Patient Physical Therapy Visit Information Visit Information Visit Type Treatment Note Visit Start Time 15:55 Visit Stop Time 16:52 Total Visit Minutes 57 Visit Number 23 Number of COPYWRITING INTERN Visits 0 PT-OP-B Current Condition Start: 01/15/19 13:58 Freq: Status: Active Protocol: Document 02/10/19 14:24 EA (Rec: 02/10/19 14:34 EA [id number]) Current Condition History of Current Condition Onset Date s/p L TKA 01/29/2019 Current Complaints gait difficulty History of Current Condition Patient is s/p left TKA. Patient independent in all functional mobility except with driving Treatment Goals Patient/Caregiver Goals 1. To increase his LEs flexibility to be able to fully extend his R knee 2. Able to return to sports such as hiking and skiing 3. to be able to stand up from low chair without UE support Prior Functional Status Baseline Function- ADL's Independent Baseline Function- Mobility Independent Baseline Function- Other step over pattern for stair climbing without railings Current Functional Impairments (Reported) Functional Limitations- Mobility/Gait step to pattern for stairs Functional Limitations- Recreation/ increased pain during walking Hobbies on uneven surface, hiking, prolonged walking, standing. Unable to skii due to increased pain PT-OP-C Subjective Start: 01/15/19 13:58 Freq: Status: Active Protocol: Document 04/16/19 15:55 HH (Rec: 04/16/19 17:55 HH [email or web address]) OP-PT Subjective Patient Comments Patient Comments Im pretty sore during past few days. I've doing my HEP everyday and spent 1.5 to 2 hours at least to finish them. PT-OP-G Mobility & Gait Start: 01/15/19 13:58 Freq: Status: Active Protocol: Document 04/07/19 12:06 AW (Rec: 04/07/19 12:42 AW [email or web address]) Stair Climbing Evaluation Evaluation Level of Assist On Stairs Standby Assistance,Contact Guard Assistance Devices Stair Climbing Assistive Devices Left Railing,Right Railing Technique/Endurance Stair Climbing Direction Ascend and Descend Stair Climbing Technique Step Over Step Number of Steps Climbed 4 Stair Climbing Set # Repetitions (reps) 8 Comments Stair Climbing Comments Pt able to ascend/descend with step over step pattern, but required CGA to achieve. SBA only required when pt used unilateral rail. PT-OP-J Posture/Palpation/Skin Start: 01/15/19 13:58 Freq: Status: Active Protocol: Document 02/10/19 14:24 EA (Rec: 02/10/19 14:34 EA [id number]) Skin Assessment Circumference Measurement 1 Comments 16.5 L: 14 R Incisional Assessment Incision Appearance/Comments Incision still covered PT-OP-K Range of Motion Start: 01/15/19 13:58 Freq: Status: Active Protocol: Document 04/07/19 12:06 AW (Rec: 04/07/19 12:42 AW [email or web address]) Knee Goniometric Range of Motion Knee Right Patient Position Supine Flexion Active (degrees) 105 Flexion Passive (degrees) 110 Knee ROM Limitations Comments Pt lacking 10 degrees active R knee extension, 8 degrees passive knee extension. PT-OP-M Strength Start: 01/15/19 13:58 Freq: Status: Active Protocol: Document 02/10/19 14:24 EA (Rec: 02/10/19 14:34 EA [id number]) Hip Strength Hip Manual Muscle Testing Right Reason Not Measured Pain Left Reason Not Measured WFL Knee Strength Knee Manual Muscle Testing Right Reason Not Measured WFL,Pain Left Flexion (S2) 5 Normal Extension (L3) 5 Normal PT-OP-Q Treatments Start: 01/15/19 13:58 Freq: Status: Active Protocol: Document 04/16/19 15:55 HH (Rec: 04/16/19 17:55 HH [email or web address]) Cardio Equipment Recumbent Stepper (Sci-Fit) Duration (Minutes) 8 Resistance 3.1 Bicycle (Upright) Duration (Minutes) 8 Resistance 4 Seat Position 4 Therapeutic Exercises Supine Exercises supine hip flexor stretch Supine Exercise Name yi test position Side right Equipment Used manual assistance Reps/Minutes 5 + 5 mins Comments hip flexor followed by knee flexion Standing Exercises hurdles Side bilateral Equipment Used sherron Comments cues on heel strikes and avoid lateral weight shift squat Standing Exercise Name stagger stance Side bilateral Reps/Minutes 10 x4 Comments to facilitate WB on RLE standing TKE Standing Exercise Name stagger stance Side right Equipment Used level 3 band Comments cues on isolation knee extension 5 Standing Exercise Name single leg step up and down Equipment Used 4 inch step Reps/Minutes 8 x3 Comments cues on eccentric control Manual Therapy Treatment Soft Tissue Mobilization quads Mobilization Type Cross-Friction,Strumming, Sustained Pressure,Trigger Point Release Intensity/Depth Moderate Body Position Supine hip adductors Mobilization Type Cross-Friction,Sustained Pressure,Trigger Point Release Intensity/Depth Moderate Body Position Hooklying PT-OP-R Modalities Start: 01/15/19 13:58 Freq: Status: Active Protocol: Document 04/07/19 12:43 AW (Rec: 04/07/19 12:43 AW [email or web address]) Hot Pack/Cold Pack Treatment Cold Pack Location right knee Patient Position Hooklying Treatment Duration (minutes) 10 Patient Tolerance Good PT-OP-T Assessment and Plan Start: 01/15/19 13:58 Freq: Status: Active Protocol: Document 04/16/19 15:55 HH (Rec: 04/16/19 17:55 HH [email or web address]) Physical Therapy Assessment Goals walking program Impairment expect to have decreased activity tolerance after sx Correction Goal (LTG) Pt will be able to amb >1 mile a day even/uneven ground safely without AD / increase in pain in order to return to sports in the future. LTG Duration 4 wks strength Impairment difficulty getting up from low chair and stair climbing Barrel Repairer Goal (LTG) Pt will be able to climb stair with step over pattern and stand up from low chair (15 inch) without using UEs for push off. 04/06 PARTIALLY MET: Pt able to rise from 15 surface x 3 without use of UE's. Pt able to ascend/descend 4 steps mod independent with unilateral handrail, SBA without rails. LTG Duration 4 wks ROM Impairment R knee extension at 12 degrees during IE Barrel Repairer Goal (LTG) pt will be able to reach <5 degrees of R knee extension actively to improve gait mechanics and body upright alignment. 04/06 NOT MET: Pt lacking 8-10 degrees extension on exam today. LEFS Impairment Pt scores 57 (20-39% impairment) for LEFS Correction Goal (LTG) Pt will be able to score >63 points (below 20% impairments) on LEFS to improve his overall quality of life and functional mobility. 04/06 NOT MET: Pt scored 41/80 (49% impaired) on LEFS today Assessment Summary Assessment Pt standing lunges reaches 105 knee flexion, supine= 110. Today's session focused on ex programming. Recommended pt to reduce his ex loads down to 6-8 ex a day, up to 40 mins. Physical Therapy Plan Next Visit Focus/Plan Next Note Type Treatment Note Next Visit Plan review pt's soreness symtoms review squat mechanics Continue to progress manual stretching/joint mob to increase R knee extension.
--- NOTE | 2019-04-22 08:39 | PT.OTN ---
Current Diagnoses Unilateral primary osteoarthritis, right knee (04/21/19) Physical Therapy Treatment Note PT-OP-A Visit Information Start: 01/15/19 13:58 Freq: Status: Active Protocol: Document 04/22/19 08:17 AW (Rec: 04/22/19 08:39 AW [id number]) Out-Patient Physical Therapy Visit Information Visit Information Visit Type Treatment Note Visit Start Time 13:47 Visit Stop Time 14:39 Total Visit Minutes 52 Visit Number 24 Number of TECHNICAL LABORATORY ASST Visits 0 PT-OP-B Current Condition Start: 01/15/19 13:58 Freq: Status: Active Protocol: Document 02/10/19 14:24 EA (Rec: 02/10/19 14:34 EA [id number]) Current Condition History of Current Condition Onset Date s/p L TKA 01/29/2019 Current Complaints gait difficulty History of Current Condition Patient is s/p left TKA. Patient independent in all functional mobility except with driving Treatment Goals Patient/Caregiver Goals 1. To increase his LEs flexibility to be able to fully extend his R knee 2. Able to return to sports such as hiking and skiing 3. to be able to stand up from low chair without UE support Prior Functional Status Baseline Function- ADL's Independent Baseline Function- Mobility Independent Baseline Function- Other step over pattern for stair climbing without railings Current Functional Impairments (Reported) Functional Limitations- Mobility/Gait step to pattern for stairs Functional Limitations- Recreation/ increased pain during walking Hobbies on uneven surface, hiking, prolonged walking, standing. Unable to skii due to increased pain PT-OP-C Subjective Start: 01/15/19 13:58 Freq: Status: Active Protocol: Document 04/22/19 08:17 AW (Rec: 04/22/19 08:39 AW [id number]) OP-PT Subjective Patient Comments Patient Comments I took Jamison's advice and cut back my exercises, but I felt really good yesterday, so I worked out for 90 minutes, so today I'm pretty sore. Patient Reported Progress Improving OP-PT Pain Assessment Location Right Knee Pain Location Details R knee Intensity 2 Scale Used Numeric (1 - 10) PT-OP-G Mobility & Gait Start: 01/15/19 13:58 Freq: Status: Active Protocol: Document 04/07/19 12:06 AW (Rec: 04/07/19 12:42 AW [email or web address]) Stair Climbing Evaluation Evaluation Level of Assist On Stairs Standby Assistance,Contact Guard Assistance Devices Stair Climbing Assistive Devices Left Railing,Right Railing Technique/Endurance Stair Climbing Direction Ascend and Descend Stair Climbing Technique Step Over Step Number of Steps Climbed 4 Stair Climbing Set # Repetitions (reps) 8 Comments Stair Climbing Comments Pt able to ascend/descend with step over step pattern, but required CGA to achieve. SBA only required when pt used unilateral rail. PT-OP-J Posture/Palpation/Skin Start: 01/15/19 13:58 Freq: Status: Active Protocol: Document 02/10/19 14:24 EA (Rec: 02/10/19 14:34 EA [id number]) Skin Assessment Circumference Measurement 1 Comments 16.5 L: 14 R Incisional Assessment Incision Appearance/Comments Incision still covered PT-OP-K Range of Motion Start: 01/15/19 13:58 Freq: Status: Active Protocol: Document 04/07/19 12:06 AW (Rec: 04/07/19 12:42 AW [email or web address]) Knee Goniometric Range of Motion Knee Right Patient Position Supine Flexion Active (degrees) 105 Flexion Passive (degrees) 110 Knee ROM Limitations Comments Pt lacking 10 degrees active R knee extension, 8 degrees passive knee extension. PT-OP-M Strength Start: 01/15/19 13:58 Freq: Status: Active Protocol: Document 02/10/19 14:24 EA (Rec: 02/10/19 14:34 EA [id number]) Hip Strength Hip Manual Muscle Testing Right Reason Not Measured Pain Left Reason Not Measured WFL Knee Strength Knee Manual Muscle Testing Right Reason Not Measured WFL,Pain Left Flexion (S2) 5 Normal Extension (L3) 5 Normal PT-OP-Q Treatments Start: 01/15/19 13:58 Freq: Status: Active Protocol: Document 04/22/19 08:17 AW (Rec: 04/22/19 08:39 AW [id number]) Cardio Equipment Recumbent Stepper (Sci-Fit) Duration (Minutes) 6 Resistance 3.1 Bicycle (Upright) Duration (Minutes) 5 Resistance 4 Seat Position 4 Therapeutic Exercises Standing Exercises hurdles Standing Exercise Name hurdles Side bilateral Equipment Used hurdles, in parallel bars Comments cues for heel strike standing TKE Standing Exercise Name standing TKE Equipment Used level 3 band Reps/Minutes 4x10 reps Comments difficulty isolating knee extension 5 Standing Exercise Name single leg step up and down Side right Equipment Used 4 inch step Reps/Minutes 2x10 reps, 2x10 reps Comments step up first, followed by step downs with toe tap Therapeutic Activity Therapeutic Activity stairs Name stairs Reps/Minutes 8 minutes Comments up and down 6 5.5 stairs using R handrail and step over step pattern. cues required for greater hip flexion to clear steps. SBA Manual Therapy Treatment Joint Mobilizations 2 Joint R knee Direction posterior Grade IV Body Position Hooklying Reps/Duration 5 minutes Comments posterior glides at proximal tibia to increase flexion 1 Joint R knee Direction posterior Grade IV Body Position Supine Reps/Duration 5 minutes Comments ankle propped on bolster; posterior glides at distal femur to increase extension PT-OP-R Modalities Start: 01/15/19 13:58 Freq: Status: Active Protocol: Document 04/22/19 08:17 AW (Rec: 04/22/19 08:39 AW [id number]) Hot Pack/Cold Pack Treatment Cold Pack Location R knee Patient Position Supine Treatment Duration (minutes) 10 Patient Tolerance Good PT-OP-T Assessment and Plan Start: 01/15/19 13:58 Freq: Status: Active Protocol: Document 04/22/19 08:17 AW (Rec: 04/22/19 08:39 AW [id number]) Physical Therapy Assessment Goals walking program Impairment expect to have decreased activity tolerance after sx Plastic Design Applier Goal (LTG) Pt will be able to amb >1 mile a day even/uneven ground safely without AD / increase in pain in order to return to sports in the future. LTG Duration 4 wks strength Impairment difficulty getting up from low chair and stair climbing Plastic Design Applier Goal (LTG) Pt will be able to climb stair with step over pattern and stand up from low chair (15 inch) without using UEs for push off. 04/06 PARTIALLY MET: Pt able to rise from 15 surface x 3 without use of UE's. Pt able to ascend/descend 4 steps mod independent with unilateral handrail, SBA without rails. LTG Duration 4 wks ROM Impairment R knee extension at 12 degrees during IE Plastic Design Applier Goal (LTG) pt will be able to reach <5 degrees of R knee extension actively to improve gait mechanics and body upright alignment. 04/06 NOT MET: Pt lacking 8-10 degrees extension on exam today. LEFS Impairment Pt scores 57 (20-39% impairment) for LEFS Long-Term Goal (LTG) Pt will be able to score >63 points (below 20% impairments) on LEFS to improve his overall quality of life and functional mobility. 04/06 NOT MET: Pt scored 41/80 (49% impaired) on LEFS today Assessment Summary Assessment Pt with increased antalgic gait today due to intensity of home exercise. Pt again counseled to choose 6-8 exercises daily and to alternate days instead of trying to do his entire HEP daily. Pt agrees. Physical Therapy Plan Next Visit Focus/Plan Next Note Type Treatment Note Next Visit Plan Plan to measure for pt's ISRRAEL brace. review pt's soreness symtoms review squat mechanics Continue to progress manual stretching/joint mob to increase R knee extension.
--- NOTE | 2019-04-23 17:52 | PT.OTN ---
Current Diagnoses Unilateral primary osteoarthritis, right knee (04/23/19) Physical Therapy Treatment Note PT-OP-A Visit Information Start: 01/15/19 13:58 Freq: Status: Active Protocol: Document 04/23/19 14:35 HH (Rec: 04/23/19 17:52 HH [email or web address]) Out-Patient Physical Therapy Visit Information Visit Information Visit Type Treatment Note Visit Start Time 14:35 Visit Stop Time 15:17 Total Visit Minutes 42 Visit Number 25 Number of CLEANING SPECIALIST Visits 0 PT-OP-B Current Condition Start: 01/15/19 13:58 Freq: Status: Active Protocol: Document 02/10/19 14:24 EA (Rec: 02/10/19 14:34 EA [id number]) Current Condition History of Current Condition Onset Date s/p L TKA 01/29/2019 Current Complaints gait difficulty History of Current Condition Patient is s/p left TKA. Patient independent in all functional mobility except with driving Treatment Goals Patient/Caregiver Goals 1. To increase his LEs flexibility to be able to fully extend his R knee 2. Able to return to sports such as hiking and skiing 3. to be able to stand up from low chair without UE support Prior Functional Status Baseline Function- ADL's Independent Baseline Function- Mobility Independent Baseline Function- Other step over pattern for stair climbing without railings Current Functional Impairments (Reported) Functional Limitations- Mobility/Gait step to pattern for stairs Functional Limitations- Recreation/ increased pain during walking Hobbies on uneven surface, hiking, prolonged walking, standing. Unable to skii due to increased pain PT-OP-C Subjective Start: 01/15/19 13:58 Freq: Status: Active Protocol: Document 04/23/19 14:35 HH (Rec: 04/23/19 17:52 HH [email or web address]) OP-PT Subjective Patient Comments Patient Comments I feel okay today. Sleeping is still my main difficulty due to pain. I was feeling pretty good during the weekend possibly due to reducing my ex time. PT-OP-G Mobility & Gait Start: 01/15/19 13:58 Freq: Status: Active Protocol: Document 04/07/19 12:06 AW (Rec: 04/07/19 12:42 AW [email or web address]) Stair Climbing Evaluation Evaluation Level of Assist On Stairs Standby Assistance,Contact Guard Assistance Devices Stair Climbing Assistive Devices Left Railing,Right Railing Technique/Endurance Stair Climbing Direction Ascend and Descend Stair Climbing Technique Step Over Step Number of Steps Climbed 4 Stair Climbing Set # Repetitions (reps) 8 Comments Stair Climbing Comments Pt able to ascend/descend with step over step pattern, but required CGA to achieve. SBA only required when pt used unilateral rail. PT-OP-J Posture/Palpation/Skin Start: 01/15/19 13:58 Freq: Status: Active Protocol: Document 02/10/19 14:24 EA (Rec: 02/10/19 14:34 EA [id number]) Skin Assessment Circumference Measurement 1 Comments 16.5 L: 14 R Incisional Assessment Incision Appearance/Comments Incision still covered PT-OP-K Range of Motion Start: 01/15/19 13:58 Freq: Status: Active Protocol: Document 04/07/19 12:06 AW (Rec: 04/07/19 12:42 AW [email or web address]) Knee Goniometric Range of Motion Knee Right Patient Position Supine Flexion Active (degrees) 105 Flexion Passive (degrees) 110 Knee ROM Limitations Comments Pt lacking 10 degrees active R knee extension, 8 degrees passive knee extension. PT-OP-M Strength Start: 01/15/19 13:58 Freq: Status: Active Protocol: Document 02/10/19 14:24 EA (Rec: 02/10/19 14:34 EA [id number]) Hip Strength Hip Manual Muscle Testing Right Reason Not Measured Pain Left Reason Not Measured WFL Knee Strength Knee Manual Muscle Testing Right Reason Not Measured WFL,Pain Left Flexion (S2) 5 Normal Extension (L3) 5 Normal PT-OP-Q Treatments Start: 01/15/19 13:58 Freq: Status: Active Protocol: Document 04/23/19 14:35 HH (Rec: 04/23/19 17:52 HH [email or web address]) Cardio Equipment Bicycle (Upright) Duration (Minutes) 5 Resistance 4 Seat Position 3 Therapeutic Exercises Standing Exercises hurdles Standing Exercise Name hurdles Side bilateral Equipment Used hurdles, in parallel bars Comments cues for heel strike and heel off Manual Therapy Treatment Joint Mobilizations 2 Joint R knee Direction posterior Grade IV Body Position Hooklying Reps/Duration 5 minutes Comments posterior glides at proximal tibia to increase flexion 1 Joint R knee Direction posterior Grade IV Body Position Supine Reps/Duration 5 minutes Comments ankle propped on bolster; posterior glides at distal femur to increase extension Orthotic/Prosthetic Management and Training Treatment Details of Training Dr. Olivas prescribed pt to acquire extension immobilizer. Did girth of his R LE today for ISRRAEL PT-OP-R Modalities Start: 01/15/19 13:58 Freq: Status: Active Protocol: Document 04/22/19 08:17 AW (Rec: 04/22/19 08:39 AW [id number]) Hot Pack/Cold Pack Treatment Cold Pack Location R knee Patient Position Supine Treatment Duration (minutes) 10 Patient Tolerance Good PT-OP-T Assessment and Plan Start: 01/15/19 13:58 Freq: Status: Active Protocol: Document 04/23/19 14:35 HH (Rec: 04/23/19 17:52 HH [email or web address]) Physical Therapy Assessment Goals walking program Impairment expect to have decreased activity tolerance after sx Assisted Goal (LTG) Pt will be able to amb >1 mile a day even/uneven ground safely without AD / increase in pain in order to return to sports in the future. LTG Duration 4 wks strength Impairment difficulty getting up from low chair and stair climbing Assisted Goal (LTG) Pt will be able to climb stair with step over pattern and stand up from low chair (15 inch) without using UEs for push off. 04/06 PARTIALLY MET: Pt able to rise from 15 surface x 3 without use of UE's. Pt able to ascend/descend 4 steps mod independent with unilateral handrail, SBA without rails. LTG Duration 4 wks ROM Impairment R knee extension at 12 degrees during IE Assisted Goal (LTG) pt will be able to reach <5 degrees of R knee extension actively to improve gait mechanics and body upright alignment. 04/06 NOT MET: Pt lacking 8-10 degrees extension on exam today. LEFS Impairment Pt scores 57 (20-39% impairment) for LEFS Players Club Representative Goal (LTG) Pt will be able to score >63 points (below 20% impairments) on LEFS to improve his overall quality of life and functional mobility. 04/06 NOT MET: Pt scored 41/80 (49% impaired) on LEFS today Assessment Summary Assessment Educated pt again today regarding HEP frequency to prevent overexhaustion. today' s Tx primarily focused on taking measurements for ISRRAEL knee immobilizer to improve pt 's knee extension. His AROM FL = 105-108, ext= 8. Joint mob also performed, followed by gait training. Pt will have MD appt on next sunday. Physical Therapy Plan Next Visit Focus/Plan Next Note Type Treatment Note Next Visit Plan review pt's soreness symtoms review squat mechanics Continue to progress manual stretching/joint mob to increase R knee extension. [ End ]
--- NOTE | 2019-04-28 14:53 | PT.OTN ---
Addendum entered and electronically signed by Leida Hollingsworth, PT 04/28/19 14:53: Pt reports [facility] at [facility] had not received measurements from last session. pharmacist aide re-faxed information. Confirmation page filed. Original Note: Current Diagnoses Unilateral primary osteoarthritis, right knee (04/28/19) Physical Therapy Treatment Note PT-OP-A Visit Information Start: 01/15/19 13:58 Freq: Status: Active Protocol: Document 04/23/19 14:35 HH (Rec: 04/23/19 17:52 HH [email or web address]) Out-Patient Physical Therapy Visit Information Visit Information Visit Type Treatment Note Visit Start Time 14:35 Visit Stop Time 15:17 Total Visit Minutes 42 Visit Number 25 Number of E MERCHANT Visits 0 PT-OP-B Current Condition Start: 01/15/19 13:58 Freq: Status: Active Protocol: Document 02/10/19 14:24 EA (Rec: 02/10/19 14:34 EA [id number]) Current Condition History of Current Condition Onset Date s/p L TKA 01/29/2019 Current Complaints gait difficulty History of Current Condition Patient is s/p left TKA. Patient independent in all functional mobility except with driving Treatment Goals Patient/Caregiver Goals 1. To increase his LEs flexibility to be able to fully extend his R knee 2. Able to return to sports such as hiking and skiing 3. to be able to stand up from low chair without UE support Prior Functional Status Baseline Function- ADL's Independent Baseline Function- Mobility Independent Baseline Function- Other step over pattern for stair climbing without railings Current Functional Impairments (Reported) Functional Limitations- Mobility/Gait step to pattern for stairs Functional Limitations- Recreation/ increased pain during walking Hobbies on uneven surface, hiking, prolonged walking, standing. Unable to skii due to increased pain PT-OP-C Subjective Start: 01/15/19 13:58 Freq: Status: Active Protocol: Document 04/28/19 13:38 AW (Rec: 04/28/19 14:52 AW [email or web address]) OP-PT Subjective Patient Comments Patient Comments I've been more diligent about only exercising about 30 minutes per day. I even took a day off and I'm feeling better. PT-OP-G Mobility & Gait Start: 01/15/19 13:58 Freq: Status: Active Protocol: Document 04/07/19 12:06 AW (Rec: 04/07/19 12:42 AW [email or web address]) Stair Climbing Evaluation Evaluation Level of Assist On Stairs Standby Assistance,Contact Guard Assistance Devices Stair Climbing Assistive Devices Left Railing,Right Railing Technique/Endurance Stair Climbing Direction Ascend and Descend Stair Climbing Technique Step Over Step Number of Steps Climbed 4 Stair Climbing Set # Repetitions (reps) 8 Comments Stair Climbing Comments Pt able to ascend/descend with step over step pattern, but required CGA to achieve. SBA only required when pt used unilateral rail. PT-OP-J Posture/Palpation/Skin Start: 01/15/19 13:58 Freq: Status: Active Protocol: Document 02/10/19 14:24 EA (Rec: 02/10/19 14:34 EA [id number]) Skin Assessment Circumference Measurement 1 Comments 16.5 L: 14 R Incisional Assessment Incision Appearance/Comments Incision still covered PT-OP-K Range of Motion Start: 01/15/19 13:58 Freq: Status: Active Protocol: Document 04/07/19 12:06 AW (Rec: 04/07/19 12:42 AW [email or web address]) Knee Goniometric Range of Motion Knee Right Patient Position Supine Flexion Active (degrees) 105 Flexion Passive (degrees) 110 Knee ROM Limitations Comments Pt lacking 10 degrees active R knee extension, 8 degrees passive knee extension. PT-OP-M Strength Start: 01/15/19 13:58 Freq: Status: Active Protocol: Document 02/10/19 14:24 EA (Rec: 02/10/19 14:34 EA [id number]) Hip Strength Hip Manual Muscle Testing Right Reason Not Measured Pain Left Reason Not Measured WFL Knee Strength Knee Manual Muscle Testing Right Reason Not Measured WFL,Pain Left Flexion (S2) 5 Normal Extension (L3) 5 Normal PT-OP-Q Treatments Start: 01/15/19 13:58 Freq: Status: Active Protocol: Document 04/28/19 13:38 AW (Rec: 04/28/19 14:52 AW [email or web address]) Cardio Equipment Bicycle (Upright) Duration (Minutes) 8 Resistance 4 Seat Position 4 Gym Equipment Shuttle Balance 2 Details single leg stance Reps/Duration 30 sec x 3 Comments CGA, no UE support 1 Details narrow stance Reps/Duration 1 minute x 2 Comments fading UE support; no UE support second rep Therapeutic Exercises Standing Exercises hurdles Standing Exercise Name sidestepping hurdles Side bilateral Equipment Used hurdles, at railing Comments cues for increased hip and knee flexion standing TKE Standing Exercise Name standing TKE Side bilateral Equipment Used level 3 band Reps/Minutes 3x10 reps Comments bilateral 1st set; right only last sets; cues to shift weight left first 5 Standing Exercise Name single leg step up and down Side right Equipment Used 6 step Reps/Minutes 2x10 reps Comments step up first, followed by step downs with toe tap 4 Standing Exercise Name passive knee flexion on 8 step Side right Equipment Used 4 steps Reps/Minutes 2 minutes Comments cues for neutral spine while bending forward 3 Standing Exercise Name gastroc stretch Side bilateral Equipment Used LEORA Reps/Minutes 2 minutes Comments cues to maintain hip extension for increased stretch Manual Therapy Treatment Joint Mobilizations 2 Joint R knee Direction posterior Grade IV Body Position Hooklying Reps/Duration 7 minutes Comments posterior glides at proximal tibia to increase flexion 1 Joint R knee Direction posterior Grade IV Body Position Supine Reps/Duration 7 minutes Comments ankle propped on bolster; posterior glides at distal femur to increase extension PT-OP-R Modalities Start: 01/15/19 13:58 Freq: Status: Active Protocol: Document 04/28/19 13:38 AW (Rec: 04/28/19 14:52 AW [email or web address]) Hot Pack/Cold Pack Treatment Cold Pack Location R knee Patient Position Supine Treatment Duration (minutes) 10 Patient Tolerance Good PT-OP-T Assessment and Plan Start: 01/15/19 13:58 Freq: Status: Active Protocol: Document 04/28/19 13:38 AW (Rec: 04/28/19 14:52 AW [email or web address]) Physical Therapy Assessment Goals walking program Impairment expect to have decreased activity tolerance after sx Residential Goal (LTG) Pt will be able to amb >1 mile a day even/uneven ground safely without AD / increase in pain in order to return to sports in the future. LTG Duration 4 wks strength Impairment difficulty getting up from low chair and stair climbing Residential Goal (LTG) Pt will be able to climb stair with step over pattern and stand up from low chair (15 inch) without using UEs for push off. 04/06 PARTIALLY MET: Pt able to rise from 15 surface x 3 without use of UE's. Pt able to ascend/descend 4 steps mod independent with unilateral handrail, SBA without rails. LTG Duration 4 wks ROM Impairment R knee extension at 12 degrees during IE Special Weapons And Tactics Officer Goal (LTG) pt will be able to reach <5 degrees of R knee extension actively to improve gait mechanics and body upright alignment. 04/06 NOT MET: Pt lacking 8-10 degrees extension on exam today. LEFS Impairment Pt scores 57 (20-39% impairment) for LEFS Residential Goal (LTG) Pt will be able to score >63 points (below 20% impairments) on LEFS to improve his overall quality of life and functional mobility. 04/06 NOT MET: Pt scored 41/80 (49% impaired) on LEFS today Assessment Summary Assessment Pt reports good follow-through with advice to exercise with decreased duration. Treatment today focused on joint mobs for increased excursion, strengthening, and stretching in functional positions. Physical Therapy Plan Next Visit Focus/Plan Next Note Type Treatment Note Next Visit Plan review pt's soreness symtoms review squat mechanics Continue to progress manual stretching/joint mob to increase R knee extension. [ End ]
--- NOTE | 2019-05-01 12:01 | PT.OTN ---
Current Diagnoses Unilateral primary osteoarthritis, right knee (05/01/19) Physical Therapy Treatment Note PT-OP-A Visit Information Start: 01/15/19 13:58 Freq: Status: Active Protocol: Document 05/01/19 09:05 HH (Rec: 05/01/19 12:01 HH [email or web address]) Out-Patient Physical Therapy Visit Information Visit Information Visit Type Treatment Note Visit Start Time 09:05 Visit Stop Time 09:50 Total Visit Minutes 45 Visit Number 26 Number of BRUSH POLISHER Visits 0 PT-OP-B Current Condition Start: 01/15/19 13:58 Freq: Status: Active Protocol: Document 02/10/19 14:24 EA (Rec: 02/10/19 14:34 EA [id number]) Current Condition History of Current Condition Onset Date s/p L TKA 01/29/2019 Current Complaints gait difficulty History of Current Condition Patient is s/p left TKA. Patient independent in all functional mobility except with driving Treatment Goals Patient/Caregiver Goals 1. To increase his LEs flexibility to be able to fully extend his R knee 2. Able to return to sports such as hiking and skiing 3. to be able to stand up from low chair without UE support Prior Functional Status Baseline Function- ADL's Independent Baseline Function- Mobility Independent Baseline Function- Other step over pattern for stair climbing without railings Current Functional Impairments (Reported) Functional Limitations- Mobility/Gait step to pattern for stairs Functional Limitations- Recreation/ increased pain during walking Hobbies on uneven surface, hiking, prolonged walking, standing. Unable to skii due to increased pain PT-OP-C Subjective Start: 01/15/19 13:58 Freq: Status: Active Protocol: Document 05/01/19 09:05 HH (Rec: 05/01/19 12:01 HH [email or web address]) OP-PT Subjective Patient Comments Patient Comments I feel pretty good since i started to ex less. I've been finally sleeping more without waking up too much. Dr. Olivas said he is pleased with his progress and the ROM might take sometimes to get better. Patient Reported Progress Improving PT-OP-G Mobility & Gait Start: 01/15/19 13:58 Freq: Status: Active Protocol: Document 04/07/19 12:06 AW (Rec: 04/07/19 12:42 AW [email or web address]) Stair Climbing Evaluation Evaluation Level of Assist On Stairs Standby Assistance,Contact Guard Assistance Devices Stair Climbing Assistive Devices Left Railing,Right Railing Technique/Endurance Stair Climbing Direction Ascend and Descend Stair Climbing Technique Step Over Step Number of Steps Climbed 4 Stair Climbing Set # Repetitions (reps) 8 Comments Stair Climbing Comments Pt able to ascend/descend with step over step pattern, but required CGA to achieve. SBA only required when pt used unilateral rail. PT-OP-J Posture/Palpation/Skin Start: 01/15/19 13:58 Freq: Status: Active Protocol: Document 02/10/19 14:24 EA (Rec: 02/10/19 14:34 EA [id number]) Skin Assessment Circumference Measurement 1 Comments 16.5 L: 14 R Incisional Assessment Incision Appearance/Comments Incision still covered PT-OP-K Range of Motion Start: 01/15/19 13:58 Freq: Status: Active Protocol: Document 04/07/19 12:06 AW (Rec: 04/07/19 12:42 AW [email or web address]) Knee Goniometric Range of Motion Knee Right Patient Position Supine Flexion Active (degrees) 105 Flexion Passive (degrees) 110 Knee ROM Limitations Comments Pt lacking 10 degrees active R knee extension, 8 degrees passive knee extension. PT-OP-M Strength Start: 01/15/19 13:58 Freq: Status: Active Protocol: Document 02/10/19 14:24 EA (Rec: 02/10/19 14:34 EA [id number]) Hip Strength Hip Manual Muscle Testing Right Reason Not Measured Pain Left Reason Not Measured WFL Knee Strength Knee Manual Muscle Testing Right Reason Not Measured WFL,Pain Left Flexion (S2) 5 Normal Extension (L3) 5 Normal PT-OP-Q Treatments Start: 01/15/19 13:58 Freq: Status: Active Protocol: Document 05/01/19 09:05 HH (Rec: 05/01/19 12:01 HH [email or web address]) Cardio Equipment Bicycle (Upright) Duration (Minutes) 11 Resistance 4 Seat Position 3 and 4 Other seat height : 4 for 6mins, 3 for 5 mins Gym Equipment Sport Cord backward walking Exercise Details to facilitate knee extension Cord/Resistance red Reps/Duration 6 mins Comments 1 step over only with chair support Therapeutic Exercises Prone Exercises prone knee extension Side right Resistance 4lbs ankle weight Reps/Minutes 30 secs hold x 10 Comments low load long hold stretch Manual Therapy Treatment Joint Mobilizations 2 Joint R knee Direction posterior Grade IV Body Position Hooklying Reps/Duration 7 minutes Comments posterior glides at proximal tibia to increase flexion 1 Joint R knee Direction posterior Grade IV Body Position Supine Reps/Duration 7 minutes Comments ankle propped on bolster; posterior glides at distal femur to increase extension PT-OP-R Modalities Start: 01/15/19 13:58 Freq: Status: Active Protocol: Document 04/28/19 13:38 AW (Rec: 04/28/19 14:52 AW [email or web address]) Hot Pack/Cold Pack Treatment Cold Pack Location R knee Patient Position Supine Treatment Duration (minutes) 10 Patient Tolerance Good PT-OP-T Assessment and Plan Start: 01/15/19 13:58 Freq: Status: Active Protocol: Document 05/01/19 09:05 HH (Rec: 05/01/19 12:01 HH [email or web address]) Physical Therapy Assessment Goals walking program Impairment expect to have decreased activity tolerance after sx Assisted Goal (LTG) Pt will be able to amb >1 mile a day even/uneven ground safely without AD / increase in pain in order to return to sports in the future. LTG Duration 4 wks strength Impairment difficulty getting up from low chair and stair climbing Assisted Goal (LTG) Pt will be able to climb stair with step over pattern and stand up from low chair (15 inch) without using UEs for push off. 04/06 PARTIALLY MET: Pt able to rise from 15 surface x 3 without use of UE's. Pt able to ascend/descend 4 steps mod independent with unilateral handrail, SBA without rails. LTG Duration 4 wks ROM Impairment R knee extension at 12 degrees during IE Edge Worker Goal (LTG) pt will be able to reach <5 degrees of R knee extension actively to improve gait mechanics and body upright alignment. 04/06 NOT MET: Pt lacking 8-10 degrees extension on exam today. LEFS Impairment Pt scores 57 (20-39% impairment) for LEFS Edge Worker Goal (LTG) Pt will be able to score >63 points (below 20% impairments) on LEFS to improve his overall quality of life and functional mobility. 04/06 NOT MET: Pt scored 41/80 (49% impaired) on LEFS today Assessment Summary Assessment Introduced pt with low load long hold stretch in prone position with weight to improve muscle guarding by fatiguing both knee flexors and extensors. Pt seems to feel better in general since he ex less. His gait is also less antalgic. Discussed with him to join gym to primarily bike to improve knee flexion. Physical Therapy Plan Next Visit Focus/Plan Next Note Type Treatment Note Next Visit Plan review pt's soreness symtoms reassess prone knee extension review squat mechanics Continue to progress manual stretching/joint mob to increase R knee extension. [ End ]
--- NOTE | 2019-05-05 12:56 | PT.OTN ---
Current Diagnoses Unilateral primary osteoarthritis, right knee (05/05/19) Physical Therapy Treatment Note PT-OP-A Visit Information Start: 01/15/19 13:58 Freq: Status: Active Protocol: Document 05/05/19 12:03 AW (Rec: 05/05/19 12:56 AW [email or web address]) Out-Patient Physical Therapy Visit Information Visit Information Visit Type Treatment Note Visit Start Time 11:45 Visit Stop Time 12:07 Total Visit Minutes 52 Visit Number 27 Number of CNA CAREGIVER Visits 0 PT-OP-B Current Condition Start: 01/15/19 13:58 Freq: Status: Active Protocol: Document 02/10/19 14:24 EA (Rec: 02/10/19 14:34 EA [id number]) Current Condition History of Current Condition Onset Date s/p L TKA 01/29/2019 Current Complaints gait difficulty History of Current Condition Patient is s/p left TKA. Patient independent in all functional mobility except with driving Treatment Goals Patient/Caregiver Goals 1. To increase his LEs flexibility to be able to fully extend his R knee 2. Able to return to sports such as hiking and skiing 3. to be able to stand up from low chair without UE support Prior Functional Status Baseline Function- ADL's Independent Baseline Function- Mobility Independent Baseline Function- Other step over pattern for stair climbing without railings Current Functional Impairments (Reported) Functional Limitations- Mobility/Gait step to pattern for stairs Functional Limitations- Recreation/ increased pain during walking Hobbies on uneven surface, hiking, prolonged walking, standing. Unable to skii due to increased pain PT-OP-C Subjective Start: 01/15/19 13:58 Freq: Status: Active Protocol: Document 05/05/19 12:03 AW (Rec: 05/05/19 12:56 AW [email or web address]) OP-PT Subjective Patient Comments Patient Comments I'm having less soreness during the day, but the same at night. I've been able to do the new low-load stretches for about 5 minutes at a time. Patient Reported Progress Improving PT-OP-G Mobility & Gait Start: 01/15/19 13:58 Freq: Status: Active Protocol: Document 04/07/19 12:06 AW (Rec: 04/07/19 12:42 AW [email or web address]) Stair Climbing Evaluation Evaluation Level of Assist On Stairs Standby Assistance,Contact Guard Assistance Devices Stair Climbing Assistive Devices Left Railing,Right Railing Technique/Endurance Stair Climbing Direction Ascend and Descend Stair Climbing Technique Step Over Step Number of Steps Climbed 4 Stair Climbing Set # Repetitions (reps) 8 Comments Stair Climbing Comments Pt able to ascend/descend with step over step pattern, but required CGA to achieve. SBA only required when pt used unilateral rail. PT-OP-J Posture/Palpation/Skin Start: 01/15/19 13:58 Freq: Status: Active Protocol: Document 02/10/19 14:24 EA (Rec: 02/10/19 14:34 EA [id number]) Skin Assessment Circumference Measurement 1 Comments 16.5 L: 14 R Incisional Assessment Incision Appearance/Comments Incision still covered PT-OP-K Range of Motion Start: 01/15/19 13:58 Freq: Status: Active Protocol: Document 04/07/19 12:06 AW (Rec: 04/07/19 12:42 AW [email or web address]) Knee Goniometric Range of Motion Knee Right Patient Position Supine Flexion Active (degrees) 105 Flexion Passive (degrees) 110 Knee ROM Limitations Comments Pt lacking 10 degrees active R knee extension, 8 degrees passive knee extension. PT-OP-M Strength Start: 01/15/19 13:58 Freq: Status: Active Protocol: Document 02/10/19 14:24 EA (Rec: 02/10/19 14:34 EA [id number]) Hip Strength Hip Manual Muscle Testing Right Reason Not Measured Pain Left Reason Not Measured WFL Knee Strength Knee Manual Muscle Testing Right Reason Not Measured WFL,Pain Left Flexion (S2) 5 Normal Extension (L3) 5 Normal PT-OP-Q Treatments Start: 01/15/19 13:58 Freq: Status: Active Protocol: Document 05/05/19 12:03 AW (Rec: 05/05/19 12:56 AW [email or web address]) Cardio Equipment Bicycle (Upright) Duration (Minutes) 8 Resistance 4 Seat Position 3 Gym Equipment Sport Cord backward walking Exercise Details backward walking Cord/Resistance red Reps/Duration 8 minutes Comments Repeated weight shift in tandem stance with RLE back. verbal cues for heel lift with anterior weight shift. Also incorporated step over step backward walking with minimal tension on cord. Therapeutic Exercises Prone Exercises prone knee extension Prone Exercise Name low-load prolonged stretch - extension Side right Resistance 3# Reps/Minutes 2 minutes x 2 Sitting Exercises 1 Sitting Exercise Name seated passive extension stretch Side right Resistance 5# weight Reps/Minutes 2 minutes x 2 Comments ankle propped on chair with weight just proximal to knee Manual Therapy Treatment Joint Mobilizations 2 Joint R knee Direction posterior Grade IV Body Position Hooklying Reps/Duration 7 minutes Comments posterior glides at proximal tibia to increase flexion 1 Joint R knee Direction posterior Grade IV Body Position Supine Reps/Duration 7 minutes Comments ankle propped on bolster; posterior glides at distal femur to increase extension PT-OP-R Modalities Start: 01/15/19 13:58 Freq: Status: Active Protocol: Document 04/28/19 13:38 AW (Rec: 04/28/19 14:52 AW [email or web address]) Hot Pack/Cold Pack Treatment Cold Pack Location R knee Patient Position Supine Treatment Duration (minutes) 10 Patient Tolerance Good PT-OP-T Assessment and Plan Start: 01/15/19 13:58 Freq: Status: Active Protocol: Document 05/05/19 12:03 AW (Rec: 05/05/19 12:56 AW [email or web address]) Physical Therapy Assessment Goals walking program Impairment expect to have decreased activity tolerance after sx Long-Term Goal (LTG) Pt will be able to amb >1 mile a day even/uneven ground safely without AD / increase in pain in order to return to sports in the future. LTG Duration 4 wks strength Impairment difficulty getting up from low chair and stair climbing Vp Director Of Creative Strategy Goal (LTG) Pt will be able to climb stair with step over pattern and stand up from low chair (15 inch) without using UEs for push off. 04/06 PARTIALLY MET: Pt able to rise from 15 surface x 3 without use of UE's. Pt able to ascend/descend 4 steps mod independent with unilateral handrail, SBA without rails. LTG Duration 4 wks ROM Impairment R knee extension at 12 degrees during IE Vp Director Of Creative Strategy Goal (LTG) pt will be able to reach <5 degrees of R knee extension actively to improve gait mechanics and body upright alignment. 04/06 NOT MET: Pt lacking 8-10 degrees extension on exam today. LEFS Impairment Pt scores 57 (20-39% impairment) for LEFS Vp Director Of Creative Strategy Goal (LTG) Pt will be able to score >63 points (below 20% impairments) on LEFS to improve his overall quality of life and functional mobility. 04/06 NOT MET: Pt scored 41/80 (49% impaired) on LEFS today Assessment Summary Assessment Pt attempted low load prolonged stretches at home and has been able to tolerate ~5 minutes at a time. Educated pt to try increasing time every day by 30-60 seconds until he can tolerate 10 minutes at a time. Joint continues to feel stiff with little difference before/after joint mobilization. ROM after mobilization today was 9-111 AROM and 9-117 PROM. Discussed progress with [facility] who notes the extension brace was denied by insurance. Physical Therapy Plan Frequency and Duration Frequency of Treatment 3x/Week Duration of Treatment 8 wks Plan of Care Start Date 03/17/19 Plan of Care End Date 05/12/19 Next Visit Focus/Plan Next Note Type Treatment Note Next Visit Plan Check in for progress with low load stretch. Review squat mechanics. Continue with joint mobs to increase ROM.
--- NOTE | 2019-05-08 12:18 | PT.OTN ---
Current Diagnoses Unilateral primary osteoarthritis, right knee (05/08/19) Physical Therapy Treatment Note PT-OP-A Visit Information Start: 01/15/19 13:58 Freq: Status: Active Protocol: Document 05/08/19 09:45 HH (Rec: 05/08/19 12:18 HH [email or web address]) Out-Patient Physical Therapy Visit Information Visit Information Visit Type Treatment Note Visit Start Time 09:45 Visit Stop Time 10:32 Total Visit Minutes 47 Visit Number 28 Number of CARDROOM HAND Visits 0 PT-OP-B Current Condition Start: 01/15/19 13:58 Freq: Status: Active Protocol: Document 02/10/19 14:24 EA (Rec: 02/10/19 14:34 EA [id number]) Current Condition History of Current Condition Onset Date s/p L TKA 01/29/2019 Current Complaints gait difficulty History of Current Condition Patient is s/p left TKA. Patient independent in all functional mobility except with driving Treatment Goals Patient/Caregiver Goals 1. To increase his LEs flexibility to be able to fully extend his R knee 2. Able to return to sports such as hiking and skiing 3. to be able to stand up from low chair without UE support Prior Functional Status Baseline Function- ADL's Independent Baseline Function- Mobility Independent Baseline Function- Other step over pattern for stair climbing without railings Current Functional Impairments (Reported) Functional Limitations- Mobility/Gait step to pattern for stairs Functional Limitations- Recreation/ increased pain during walking Hobbies on uneven surface, hiking, prolonged walking, standing. Unable to skii due to increased pain PT-OP-C Subjective Start: 01/15/19 13:58 Freq: Status: Active Protocol: Document 05/08/19 09:45 HH (Rec: 05/08/19 12:18 HH [email or web address]) OP-PT Subjective Patient Comments Patient Comments Less soreness overall in general and I did yard work yesterday for couple hours and i am suprised that my knee doesnt really hurt / buckle while bendng down. I also got extra 15 visits for PT. Patient Reported Progress Improving PT-OP-G Mobility & Gait Start: 01/15/19 13:58 Freq: Status: Active Protocol: Document 04/07/19 12:06 AW (Rec: 04/07/19 12:42 AW [email or web address]) Stair Climbing Evaluation Evaluation Level of Assist On Stairs Standby Assistance,Contact Guard Assistance Devices Stair Climbing Assistive Devices Left Railing,Right Railing Technique/Endurance Stair Climbing Direction Ascend and Descend Stair Climbing Technique Step Over Step Number of Steps Climbed 4 Stair Climbing Set # Repetitions (reps) 8 Comments Stair Climbing Comments Pt able to ascend/descend with step over step pattern, but required CGA to achieve. SBA only required when pt used unilateral rail. PT-OP-J Posture/Palpation/Skin Start: 01/15/19 13:58 Freq: Status: Active Protocol: Document 02/10/19 14:24 EA (Rec: 02/10/19 14:34 EA [id number]) Skin Assessment Circumference Measurement 1 Comments 16.5 L: 14 R Incisional Assessment Incision Appearance/Comments Incision still covered PT-OP-K Range of Motion Start: 01/15/19 13:58 Freq: Status: Active Protocol: Document 04/07/19 12:06 AW (Rec: 04/07/19 12:42 AW [email or web address]) Knee Goniometric Range of Motion Knee Right Patient Position Supine Flexion Active (degrees) 105 Flexion Passive (degrees) 110 Knee ROM Limitations Comments Pt lacking 10 degrees active R knee extension, 8 degrees passive knee extension. PT-OP-M Strength Start: 01/15/19 13:58 Freq: Status: Active Protocol: Document 02/10/19 14:24 EA (Rec: 02/10/19 14:34 EA [id number]) Hip Strength Hip Manual Muscle Testing Right Reason Not Measured Pain Left Reason Not Measured WFL Knee Strength Knee Manual Muscle Testing Right Reason Not Measured WFL,Pain Left Flexion (S2) 5 Normal Extension (L3) 5 Normal PT-OP-Q Treatments Start: 01/15/19 13:58 Freq: Status: Active Protocol: Document 05/08/19 09:45 HH (Rec: 05/08/19 12:18 HH [email or web address]) Cardio Equipment Bicycle (Upright) Duration (Minutes) 8 Resistance 4 Seat Position 3 Gym Equipment Sport Cord mid stance and preswing Cord/Resistance red Reps/Duration 6 mins Comments sherron on LLE. Facilitate knee ext during mid stance phase. backward walking Exercise Details backward walking Cord/Resistance red Reps/Duration 6 minutes Comments Repeated weight shift in tandem stance with RLE back. verbal cues for heel lift with anterior weight shift. Also incorporated step over step backward walking with minimal tension on cord. Therapeutic Exercises Prone Exercises prone knee extension Prone Exercise Name low-load prolonged stretch - extension Side right Resistance manual asssitance Reps/Minutes 4 minutes Standing Exercises step down Side bilateral Equipment Used 4 inch step Reps/Minutes 10 x 3 Comments cues on hip hinge and heel down. Manual Therapy Treatment Joint Mobilizations 2 Joint R knee Direction posterior Grade IV Body Position Hooklying Reps/Duration 7 minutes Comments posterior glides at proximal tibia to increase flexion 1 Joint R knee Direction posterior Grade IV Body Position Supine Reps/Duration 7 minutes Comments ankle propped on bolster; posterior glides at distal femur to increase extension PT-OP-R Modalities Start: 01/15/19 13:58 Freq: Status: Active Protocol: Document 04/28/19 13:38 AW (Rec: 04/28/19 14:52 AW [email or web address]) Hot Pack/Cold Pack Treatment Cold Pack Location R knee Patient Position Supine Treatment Duration (minutes) 10 Patient Tolerance Good PT-OP-T Assessment and Plan Start: 01/15/19 13:58 Freq: Status: Active Protocol: Document 05/08/19 09:45 HH (Rec: 05/08/19 12:18 HH [email or web address]) Physical Therapy Assessment Goals walking program Impairment expect to have decreased activity tolerance after sx Telephone Interviewer Goal (LTG) Pt will be able to amb >1 mile a day even/uneven ground safely without AD / increase in pain in order to return to sports in the future. LTG Duration 4 wks strength Impairment difficulty getting up from low chair and stair climbing [facility] Goal (LTG) Pt will be able to climb stair with step over pattern and stand up from low chair (15 inch) without using UEs for push off. 04/06 PARTIALLY MET: Pt able to rise from 15 surface x 3 without use of UE's. Pt able to ascend/descend 4 steps mod independent with unilateral handrail, SBA without rails. LTG Duration 4 wks ROM Impairment R knee extension at 12 degrees during IE Telephone Interviewer Goal (LTG) pt will be able to reach <5 degrees of R knee extension actively to improve gait mechanics and body upright alignment. 04/06 NOT MET: Pt lacking 8-10 degrees extension on exam today. LEFS Impairment Pt scores 57 (20-39% impairment) for LEFS Telephone Interviewer Goal (LTG) Pt will be able to score >63 points (below 20% impairments) on LEFS to improve his overall quality of life and functional mobility. 04/06 NOT MET: Pt scored 41/80 (49% impaired) on LEFS today Assessment Summary Assessment Pt said he could cristopher 10 mins of low load stretch at home but it gets difficult sometimes. ROM after mobilization today was 9-113 AROM and 8-118 PROM. Tx focused on gait training on mid stance and preswing with sport cord. Physical Therapy Plan Next Visit Focus/Plan Next Note Type Treatment Note Next Visit Plan Check in for progress with low load stretch. Continue with joint mobs to increase ROM. cont gait training end range strengthening step up/down with hip hinge
--- NOTE | 2019-05-15 14:20 | PT.OTRE ---
Current Diagnoses Unilateral primary osteoarthritis, right knee (05/15/19) Past Medical History (Last Reviewed 02/19/18 @ 10:10 by Pollo Shi MD) Cardiac arrhythmia (Chronic ~2009) Chickenpox (Resolved ~1949) Hip pain, left (Resolved 1987) Hyperlipemia (Chronic Unknown) Knee pain, right (Chronic 2014) Measles (Resolved ~1950) Mumps (Resolved ~1950) Osteoarthritis (Chronic Unknown) Primary osteoarthritis of left hip (Chronic 06/29/16) Shoulder pain (Chronic Unknown) Surgical History (Last Reviewed 02/19/18 @ 10:10 by Pollo Shi MD) Status post hernia repair (Deleted) Status post hernia repair (Chronic) Status post knee surgery (Chronic) Status post knee surgery (Chronic) Status post rotator cuff repair (Chronic) Visit Care Team Role Provider Type KERON Callaway Family Provider Advanced Continuity Reader Primary Care Provider Specialty: Family Practice Address: [address] [place] [address], [address] Email: [email or web address] Luis Olivas MD Attending Provider Physician Specialty: Orthopedic Surgery Address: [address] [place] [address], [address] Email: [email or web address] Physical Therapy Re-Evaluation PT-OP-A Visit Information Start: 01/15/19 13:58 Freq: Status: Active Protocol: Document 05/15/19 11:15 HH (Rec: 05/15/19 14:20 HH [email or web address]) Out-Patient Physical Therapy Visit Information Visit Information Visit Type Re-Evaluation Visit Note Missed visit on 05/13 due to a cold Visit Start Time 11:15 Visit Stop Time 12:00 Total Visit Minutes 45 Visit Number 29 Number of OCEAN BIOLOGIST Visits 0 PT-OP-B Current Condition Start: 01/15/19 13:58 Freq: Status: Active Protocol: Document 02/10/19 14:24 EA (Rec: 02/10/19 14:34 EA [id number]) Current Condition History of Current Condition Onset Date s/p L TKA 01/29/2019 Current Complaints gait difficulty History of Current Condition Patient is s/p left TKA. Patient independent in all functional mobility except with driving Treatment Goals Patient/Caregiver Goals 1. To increase his LEs flexibility to be able to fully extend his R knee 2. Able to return to sports such as hiking and skiing 3. to be able to stand up from low chair without UE support Prior Functional Status Baseline Function- ADL's Independent Baseline Function- Mobility Independent Baseline Function- Other step over pattern for stair climbing without railings Current Functional Impairments (Reported) Functional Limitations- Mobility/Gait step to pattern for stairs Functional Limitations- Recreation/ increased pain during walking Hobbies on uneven surface, hiking, prolonged walking, standing. Unable to skii due to increased pain PT-OP-C Subjective Start: 01/15/19 13:58 Freq: Status: Active Protocol: Document 05/15/19 11:15 HH (Rec: 05/15/19 14:20 HH [email or web address]) OP-PT Subjective Patient Comments Patient Comments I started walking 1-2 miles a day followed by stair climbing (14steps x 3 rounds) I also activated my gym membership again and planning to go again starting from next week. Patient Reported Progress Improving Patient Questionnaires Lower Extremity Functional Scale LEFS Score 47 LEFS Impairment 40 to 59% Impaired (Score 32- 47) PT-OP-G Mobility & Gait Start: 01/15/19 13:58 Freq: Status: Active Protocol: Document 04/07/19 12:06 AW (Rec: 04/07/19 12:42 AW [email or web address]) Stair Climbing Evaluation Evaluation Level of Assist On Stairs Standby Assistance,Contact Guard Assistance Devices Stair Climbing Assistive Devices Left Railing,Right Railing Technique/Endurance Stair Climbing Direction Ascend and Descend Stair Climbing Technique Step Over Step Number of Steps Climbed 4 Stair Climbing Set # Repetitions (reps) 8 Comments Stair Climbing Comments Pt able to ascend/descend with step over step pattern, but required CGA to achieve. SBA only required when pt used unilateral rail. PT-OP-J Posture/Palpation/Skin Start: 01/15/19 13:58 Freq: Status: Active Protocol: Document 02/10/19 14:24 EA (Rec: 02/10/19 14:34 EA [id number]) Skin Assessment Circumference Measurement 1 Comments 16.5 L: 14 R Incisional Assessment Incision Appearance/Comments Incision still covered PT-OP-K Range of Motion Start: 01/15/19 13:58 Freq: Status: Active Protocol: Document 05/15/19 11:15 HH (Rec: 05/15/19 14:20 HH [email or web address]) Knee Goniometric Range of Motion Knee Measured in Degrees Right Flexion Active (degrees) 112 Flexion Passive (degrees) 115 Extension Active (degrees) 8 Extension Passive (degrees) 7 PT-OP-M Strength Start: 01/15/19 13:58 Freq: Status: Active Protocol: Document 05/15/19 11:15 HH (Rec: 05/15/19 14:20 [email or web address]) Knee Strength Knee Manual Muscle Testing Right Flexion (S2) 4+ Good+ Extension (L3) 4+ Good+ PT-OP-Q Treatments Start: 01/15/19 13:58 Freq: Status: Active Protocol: Document 05/15/19 11:15 HH (Rec: 05/15/19 14:20 [email or web address]) Cardio Equipment Bicycle (Upright) Duration (Minutes) 5 Resistance 4 Seat Position 3 Therapeutic Exercises Standing Exercises end range STS Side bilateral Reps/Minutes 1 0x3 Comments end range STS pause squat Standing Exercise Name UE support on bar Side bilateral Reps/Minutes 8 x 3 Comments at the bottom of the squat ( from 90 degrees to 70 degrees) Manual Therapy Treatment Joint Mobilizations 2 Joint R knee Direction posterior Grade IV Body Position Hooklying Reps/Duration 4 minutes Comments posterior glides at proximal tibia to increase flexion 1 Joint R knee Direction posterior Grade IV Body Position Supine Reps/Duration 7 minutes Comments ankle propped on bolster; posterior glides at distal femur to increase extension PT-OP-R Modalities Start: 01/15/19 13:58 Freq: Status: Active Protocol: Document 04/28/19 13:38 AW (Rec: 04/28/19 14:52 AW [email or web address]) Hot Pack/Cold Pack Treatment Cold Pack Location R knee Patient Position Supine Treatment Duration (minutes) 10 Patient Tolerance Good PT-OP-T Assessment and Plan Start: 01/15/19 13:58 Freq: Status: Active Protocol: Document 05/15/19 11:15 HH (Rec: 05/15/19 14:20 HH [email or web address]) Physical Therapy Assessment Goals transfer Impairment Pt cont to have knee pain during STS transfers [facility] Goal (LTG) Pt will not have pain during transfers (especially from the bottom of the squat and top of the squat) LTG Duration 8 weeks walking program [facility] Goal (LTG) 05/15: goal met -- pt is able to amb a mile a day without AD / increase in pain strength [facility] Goal (LTG) Goal met on 05/15 for STS from 15 inches Pt cont needs UE support on rails for step over pattern. LTG Duration 8 wks ROM [facility] [employer] [facility] Goal (LTG) Cont in progress 05/15: Active knee extension at 8 degrees, PROM at 7 degrees flexion at 112-115. LTG Duration 12 weeks LEFS [facility] Goal (LTG) cont in progress on 05/15: pt scores 47 on LEFS. Pt will be able to score >63 points (below 20% impairments) on LEFS to improve his overall quality of life and functional mobility. LTG Duration 12 weeks Progress Towards Goals Progress Towards Goals Slow Progress due to Medical Issues Assessment Summary Assessment Pt shows overall improvements on activity tolerance, ROM and strength slowly possibly but his surgeon is satisfied with his progress at this point. Pt has been lowering his exercise intensity recently which he stated that it's been helping. Educated pt to do ~6 ex a day ( stretching for knee ext, flexion, daily walking, stair climbing, cycling and pause squat) to prevent overexhaustion. Recently added low load long period stretch seems to help his ROM. Pt is returning to gym starting from next week. Pt will cont benefit from skilled therapy to improve his functional mobility, gait mechanics, and functional strength. POC for 2x /week x 4 weeks, 1x/week x 6 weeks Physical Therapy Plan Frequency and Duration Frequency of Treatment 2x/Week Duration of Treatment 10 weeks Plan of Care Start Date 05/15/19 Plan of Care End Date 07/29/19 Therapeutic Interventions Therapeutic Interventions Gait Training,Home Exercise Program,Joint Mobilizations, Manual Therapy,Neuromuscular Re-education,Patient/Caregiver Education,Self-Care/Home Management,Soft Tissue Mobilization,Taping, Therapeutic Activities, Therapeutic Exercises Next Visit Focus/Plan Next Note Type Treatment Note Next Visit Plan monitor his ex level at gym Check in for progress with low load stretch. end range of squat strengthening (for his pain during transfer) Continue with joint mobs to increase ROM. cont gait training end range strengthening step up/down with hip hinge
--- NOTE | 2019-05-20 14:32 | PT.OTN ---
Current Diagnoses Unilateral primary osteoarthritis, right knee (05/20/19) Physical Therapy Treatment Note PT-OP-A Visit Information Start: 01/15/19 13:58 Freq: Status: Active Protocol: Document 05/20/19 13:45 DCW (Rec: 05/20/19 14:32 DCW [id number]) Out-Patient Physical Therapy Visit Information Visit Information Visit Type Treatment Note Visit Start Time 13:45 Visit Stop Time 14:30 Total Visit Minutes 45 Visit Number 30 Number of TUBE FORMER OPERATOR Visits 0 PT-OP-B Current Condition Start: 01/15/19 13:58 Freq: Status: Active Protocol: Document 02/10/19 14:24 EA (Rec: 02/10/19 14:34 EA [id number]) Current Condition History of Current Condition Onset Date s/p L TKA 01/29/2019 Current Complaints gait difficulty History of Current Condition Patient is s/p left TKA. Patient independent in all functional mobility except with driving Treatment Goals Patient/Caregiver Goals 1. To increase his LEs flexibility to be able to fully extend his R knee 2. Able to return to sports such as hiking and skiing 3. to be able to stand up from low chair without UE support Prior Functional Status Baseline Function- ADL's Independent Baseline Function- Mobility Independent Baseline Function- Other step over pattern for stair climbing without railings Current Functional Impairments (Reported) Functional Limitations- Mobility/Gait step to pattern for stairs Functional Limitations- Recreation/ increased pain during walking Hobbies on uneven surface, hiking, prolonged walking, standing. Unable to skii due to increased pain PT-OP-C Subjective Start: 01/15/19 13:58 Freq: Status: Active Protocol: Document 05/20/19 13:45 DCW (Rec: 05/20/19 14:32 DCW [id number]) OP-PT Subjective Patient Comments Patient Comments Pt reports he is still having a little pain with his right knee when on the stationary bike on seat level 3, but I was also down working out at [employer] last night, so that might be why. PT-OP-G Mobility & Gait Start: 01/15/19 13:58 Freq: Status: Active Protocol: Document 04/07/19 12:06 AW (Rec: 04/07/19 12:42 AW [email or web address]) Stair Climbing Evaluation Evaluation Level of Assist On Stairs Standby Assistance,Contact Guard Assistance Devices Stair Climbing Assistive Devices Left Railing,Right Railing Technique/Endurance Stair Climbing Direction Ascend and Descend Stair Climbing Technique Step Over Step Number of Steps Climbed 4 Stair Climbing Set # Repetitions (reps) 8 Comments Stair Climbing Comments Pt able to ascend/descend with step over step pattern, but required CGA to achieve. SBA only required when pt used unilateral rail. PT-OP-J Posture/Palpation/Skin Start: 01/15/19 13:58 Freq: Status: Active Protocol: Document 02/10/19 14:24 EA (Rec: 02/10/19 14:34 EA [id number]) Skin Assessment Circumference Measurement 1 Comments 16.5 L: 14 R Incisional Assessment Incision Appearance/Comments Incision still covered PT-OP-K Range of Motion Start: 01/15/19 13:58 Freq: Status: Active Protocol: Document 05/15/19 11:15 HH (Rec: 05/15/19 14:20 HH [email or web address]) Knee Goniometric Range of Motion Knee Right Flexion Active (degrees) 112 Flexion Passive (degrees) 115 Extension Active (degrees) 8 Extension Passive (degrees) 7 PT-OP-M Strength Start: 01/15/19 13:58 Freq: Status: Active Protocol: Document 05/15/19 11:15 HH (Rec: 05/15/19 14:20 HH [email or web address]) Knee Strength Knee Manual Muscle Testing Right Flexion (S2) 4+ Good+ Extension (L3) 4+ Good+ PT-OP-Q Treatments Start: 01/15/19 13:58 Freq: Status: Active Protocol: Document 05/20/19 13:45 DCW (Rec: 05/20/19 14:32 DCW [id number]) Cardio Equipment Bicycle (Upright) Duration (Minutes) 5 Resistance 4 Seat Position 3 Gym Equipment Sport Cord BOSU Lunge Exercise Details Lunge onto BOSU Cord/Resistance Red Comments Forward, Lateral lunges Therapeutic Exercises Prone Exercises prone knee extension Prone Exercise Name low-load prolonged stretch - extension Side right Resistance manual asssitance Reps/Minutes 4 minutes Standing Exercises end range STS Standing Exercise Name Single leg STS from high table Side bilateral Reps/Minutes x15 Comments end range STS Other Exercises BOSU Other Exercise Name Step-ups, Marching Equipment Used Blue BOSU Manual Therapy Treatment Joint Mobilizations 2 Joint R knee Direction posterior Grade IV Body Position Hooklying Reps/Duration 4 minutes Comments posterior glides at proximal tibia to increase flexion 1 Joint R knee Direction posterior Grade IV Body Position Supine Reps/Duration 7 minutes Comments ankle propped on bolster; posterior glides at distal femur to increase extension PT-OP-R Modalities Start: 01/15/19 13:58 Freq: Status: Active Protocol: Document 04/28/19 13:38 AW (Rec: 04/28/19 14:52 AW [email or web address]) Hot Pack/Cold Pack Treatment Cold Pack Location R knee Patient Position Supine Treatment Duration (minutes) 10 Patient Tolerance Good PT-OP-T Assessment and Plan Start: 01/15/19 13:58 Freq: Status: Active Protocol: Document 05/20/19 13:45 DCW (Rec: 05/20/19 14:32 DCW [id number]) Physical Therapy Assessment Goals transfer Impairment Pt cont to have knee pain during STS transfers [facility] Goal (LTG) Pt will not have pain during transfers (especially from the bottom of the squat and top of the squat) LTG Duration 8 weeks walking program Field Case Manager Goal (LTG) 05/15: goal met -- pt is able to amb a mile a day without AD / increase in pain strength [facility] Goal (LTG) Goal met on 05/15 for STS from 15 inches Pt cont needs UE support on rails for step over pattern. LTG Duration 8 wks ROM Field Case Manager Goal (LTG) Cont in progress 05/15: Active knee extension at 8 degrees, PROM at 7 degrees flexion at 112-115. LTG Duration 12 weeks LEFS Field Case Manager Goal (LTG) cont in progress on 05/15: pt scores 47 on LEFS. Pt will be able to score >63 points (below 20% impairments) on LEFS to improve his overall quality of life and functional mobility. LTG Duration 12 weeks Assessment Summary Assessment Pt very [facility] very well today. Instructed pt to spend less time with pillows under his knee in a flexed position. Physical Therapy Plan Frequency and Duration Frequency of Treatment 2x/Week Duration of Treatment 10 weeks Plan of Care Start Date 05/15/19 Plan of Care End Date 07/29/19 Therapeutic Interventions Therapeutic Interventions Gait Training,Home Exercise Program,Joint Mobilizations, Manual Therapy,Neuromuscular Re-education,Patient/Caregiver Education,Self-Care/Home Management,Soft Tissue Mobilization,Taping, Therapeutic Activities, Therapeutic Exercises Next Visit Focus/Plan Next Note Type Treatment Note Next Visit Plan monitor his ex level at gym Check in for progress with low load stretch. end range of squat strengthening (for his pain during transfer) Continue with joint mobs to increase ROM. cont gait training end range strengthening step up/down with hip hinge
--- NOTE | 2019-05-23 16:26 | PT.OTN ---
Current Diagnoses Unilateral primary osteoarthritis, right knee (05/23/19) Physical Therapy Treatment Note PT-OP-A Visit Information Start: 01/15/19 13:58 Freq: Status: Active Protocol: Document 05/23/19 13:45 HH (Rec: 05/23/19 16:26 HH [email or web address]) Out-Patient Physical Therapy Visit Information Visit Information Visit Type Treatment Note Visit Start Time 13:45 Visit Stop Time 14:29 Total Visit Minutes 44 Visit Number 31 Number of CARTRIDGE GAUGER Visits 0 PT-OP-B Current Condition Start: 01/15/19 13:58 Freq: Status: Active Protocol: Document 02/10/19 14:24 EA (Rec: 02/10/19 14:34 EA [id number]) Current Condition History of Current Condition Onset Date s/p L TKA 01/29/2019 Current Complaints gait difficulty History of Current Condition Patient is s/p left TKA. Patient independent in all functional mobility except with driving Treatment Goals Patient/Caregiver Goals 1. To increase his LEs flexibility to be able to fully extend his R knee 2. Able to return to sports such as hiking and skiing 3. to be able to stand up from low chair without UE support Prior Functional Status Baseline Function- ADL's Independent Baseline Function- Mobility Independent Baseline Function- Other step over pattern for stair climbing without railings Current Functional Impairments (Reported) Functional Limitations- Mobility/Gait step to pattern for stairs Functional Limitations- Recreation/ increased pain during walking Hobbies on uneven surface, hiking, prolonged walking, standing. Unable to skii due to increased pain PT-OP-C Subjective Start: 01/15/19 13:58 Freq: Status: Active Protocol: Document 05/23/19 13:45 HH (Rec: 05/23/19 16:26 HH [email or web address]) OP-PT Subjective Patient Comments Patient Comments 'My R knee feels really sore after working out at [employer]. I was unable to get to seat level 2today for biking since it feels swollen. My L hip starts feeling achy lately PT-OP-G Mobility & Gait Start: 01/15/19 13:58 Freq: Status: Active Protocol: Document 04/07/19 12:06 AW (Rec: 04/07/19 12:42 AW [email or web address]) Stair Climbing Evaluation Evaluation Level of Assist On Stairs Standby Assistance,Contact Guard Assistance Devices Stair Climbing Assistive Devices Left Railing,Right Railing Technique/Endurance Stair Climbing Direction Ascend and Descend Stair Climbing Technique Step Over Step Number of Steps Climbed 4 Stair Climbing Set # Repetitions (reps) 8 Comments Stair Climbing Comments Pt able to ascend/descend with step over step pattern, but required CGA to achieve. SBA only required when pt used unilateral rail. PT-OP-J Posture/Palpation/Skin Start: 01/15/19 13:58 Freq: Status: Active Protocol: Document 02/10/19 14:24 EA (Rec: 02/10/19 14:34 EA [id number]) Skin Assessment Circumference Measurement 1 Comments 16.5 L: 14 R Incisional Assessment Incision Appearance/Comments Incision still covered PT-OP-K Range of Motion Start: 01/15/19 13:58 Freq: Status: Active Protocol: Document 05/15/19 11:15 HH (Rec: 05/15/19 14:20 HH [email or web address]) Knee Goniometric Range of Motion Knee Right Flexion Active (degrees) 112 Flexion Passive (degrees) 115 Extension Active (degrees) 8 Extension Passive (degrees) 7 PT-OP-M Strength Start: 01/15/19 13:58 Freq: Status: Active Protocol: Document 05/15/19 11:15 HH (Rec: 05/15/19 14:20 HH [email or web address]) Knee Strength Knee Manual Muscle Testing Right Flexion (S2) 4+ Good+ Extension (L3) 4+ Good+ PT-OP-Q Treatments Start: 01/15/19 13:58 Freq: Status: Active Protocol: Document 05/23/19 13:45 HH (Rec: 05/23/19 16:26 HH [email or web address]) Cardio Equipment Bicycle (Upright) Duration (Minutes) 5 Resistance 4 Seat Position 3 Therapeutic Exercises Standing Exercises hurdles Standing Exercise Name SLS on R Side right Reps/Minutes 8 mins Comments cues on heel strike on L with soft landing Gait Training Gait Activity ground level Level of Assistance metronome Distance/Duration 20 ft x 10 Treatment Focus RLE stance phase Comments cues on increasing L step length and increased ravin to improve WB on RLE Manual Therapy Treatment Soft Tissue Mobilization L TFL Mobilization Type Sustained Pressure,Trigger Point Release Intensity/Depth Moderate Body Position Sidelying quads Mobilization Type Rolling,Sustained Pressure, Trigger Point Release Intensity/Depth Moderate Body Position Supine PT-OP-R Modalities Start: 01/15/19 13:58 Freq: Status: Active Protocol: Document 04/28/19 13:38 AW (Rec: 04/28/19 14:52 AW [email or web address]) Hot Pack/Cold Pack Treatment Cold Pack Location R knee Patient Position Supine Treatment Duration (minutes) 10 Patient Tolerance Good PT-OP-T Assessment and Plan Start: 01/15/19 13:58 Freq: Status: Active Protocol: Document 05/23/19 13:45 HH (Rec: 05/23/19 16:26 HH [email or web address]) Physical Therapy Assessment Goals transfer Impairment Pt cont to have knee pain during STS transfers Grain Drier Goal (LTG) Pt will not have pain during transfers (especially from the bottom of the squat and top of the squat) LTG Duration 8 weeks walking program Penitentiary Goal (LTG) 05/15: goal met -- pt is able to amb a mile a day without AD / increase in pain strength Grain Drier Goal (LTG) Goal met on 05/15 for STS from 15 inches Pt cont needs UE support on rails for step over pattern. LTG Duration 8 wks ROM Grain Drier Goal (LTG) Cont in progress 05/15: Active knee extension at 8 degrees, PROM at 7 degrees flexion at 112-115. LTG Duration 12 weeks LEFS Grain Drier Goal (LTG) cont in progress on 05/15: pt scores 47 on LEFS. Pt will be able to score >63 points (below 20% impairments) on LEFS to improve his overall quality of life and functional mobility. LTG Duration 12 weeks Assessment Summary Assessment Pt has onset of increased L hip dsicomfort recently. Gait analysis appears pt has reduced time spend on RLE stance phase, R hip drop during LLE stance phase. Tx focused on educating pt to increase step length on L and WB through R LE. Increasing ravin as well with metronome . Also educating on reducing his ex load at the gym Physical Therapy Plan Next Visit Focus/Plan Next Note Type Treatment Note Next Visit Plan reassess pt's gait focus on RLE WB during stance phase monitor his ex level at gym Check in for progress with low load stretch. end range of squat strengthening (for his pain during transfer) Continue with joint mobs to increase ROM. cont gait training end range strengthening step up/down with hip hinge
--- NOTE | 2019-05-26 14:52 | PT.OTN ---
Current Diagnoses Unilateral primary osteoarthritis, right knee (05/26/19) Physical Therapy Treatment Note PT-OP-A Visit Information Start: 01/15/19 13:58 Freq: Status: Active Protocol: Document 05/26/19 14:32 AW (Rec: 05/26/19 14:52 AW [email or web address]) Out-Patient Physical Therapy Visit Information Visit Information Visit Type Treatment Note Visit Start Time 13:45 Visit Stop Time 14:41 Total Visit Minutes 56 Visit Number 32 Number of SECONDARY SPECIAL EDUCATION TEACHER Visits 0 PT-OP-B Current Condition Start: 01/15/19 13:58 Freq: Status: Active Protocol: Document 02/10/19 14:24 EA (Rec: 02/10/19 14:34 EA [id number]) Current Condition History of Current Condition Onset Date s/p L TKA 01/29/2019 Current Complaints gait difficulty History of Current Condition Patient is s/p left TKA. Patient independent in all functional mobility except with driving Treatment Goals Patient/Caregiver Goals 1. To increase his LEs flexibility to be able to fully extend his R knee 2. Able to return to sports such as hiking and skiing 3. to be able to stand up from low chair without UE support Prior Functional Status Baseline Function- ADL's Independent Baseline Function- Mobility Independent Baseline Function- Other step over pattern for stair climbing without railings Current Functional Impairments (Reported) Functional Limitations- Mobility/Gait step to pattern for stairs Functional Limitations- Recreation/ increased pain during walking Hobbies on uneven surface, hiking, prolonged walking, standing. Unable to skii due to increased pain PT-OP-C Subjective Start: 01/15/19 13:58 Freq: Status: Active Protocol: Document 05/26/19 14:32 AW (Rec: 05/26/19 14:52 AW [email or web address]) OP-PT Subjective Patient Comments Patient Comments My right knee still feels sore even though I haven't worked out at [employer] since last Sunday. It feels so stiff. PT-OP-G Mobility & Gait Start: 01/15/19 13:58 Freq: Status: Active Protocol: Document 04/07/19 12:06 AW (Rec: 04/07/19 12:42 AW [email or web address]) Stair Climbing Evaluation Evaluation Level of Assist On Stairs Standby Assistance,Contact Guard Assistance Devices Stair Climbing Assistive Devices Left Railing,Right Railing Technique/Endurance Stair Climbing Direction Ascend and Descend Stair Climbing Technique Step Over Step Number of Steps Climbed 4 Stair Climbing Set # Repetitions (reps) 8 Comments Stair Climbing Comments Pt able to ascend/descend with step over step pattern, but required CGA to achieve. SBA only required when pt used unilateral rail. PT-OP-J Posture/Palpation/Skin Start: 01/15/19 13:58 Freq: Status: Active Protocol: Document 02/10/19 14:24 EA (Rec: 02/10/19 14:34 EA [id number]) Skin Assessment Circumference Measurement 1 Comments 16.5 L: 14 R Incisional Assessment Incision Appearance/Comments Incision still covered PT-OP-K Range of Motion Start: 01/15/19 13:58 Freq: Status: Active Protocol: Document 05/15/19 11:15 HH (Rec: 05/15/19 14:20 HH [email or web address]) Knee Goniometric Range of Motion Knee Right Flexion Active (degrees) 112 Flexion Passive (degrees) 115 Extension Active (degrees) 8 Extension Passive (degrees) 7 PT-OP-M Strength Start: 01/15/19 13:58 Freq: Status: Active Protocol: Document 05/15/19 11:15 HH (Rec: 05/15/19 14:20 HH [email or web address]) Knee Strength Knee Manual Muscle Testing Right Flexion (S2) 4+ Good+ Extension (L3) 4+ Good+ PT-OP-Q Treatments Start: 01/15/19 13:58 Freq: Status: Active Protocol: Document 05/26/19 14:32 AW (Rec: 05/26/19 14:52 AW [email or web address]) Cardio Equipment Bicycle (Upright) Duration (Minutes) 5 Resistance 4 Seat Position 3 Therapeutic Exercises Supine Exercises passive DF stretch Supine Exercise Name passive DF stretch Side right Resistance manual Reps/Minutes 3 minutes passive knee flexion Supine Exercise Name A/PROM knee flexion/extension Side right Reps/Minutes 5 mins Comments with hip neutral and with hip in flexion 4 Supine Exercise Name Passive hamstring stretching Side right Resistance manual Reps/Minutes 3 minutes Comments contract/relax; pt continues to exhibit excessive guarding Standing Exercises forward step up Standing Exercise Name forward step up Side right Equipment Used 6 step Reps/Minutes 10 reps Comments pt complained of increased pain anterior thigh; discontinued lateral step up Standing Exercise Name lateral step up Side right Equipment Used 6 step Reps/Minutes 10 reps Comments pt complained of increased pain anterior thigh; discontinued Manual Therapy Treatment Soft Tissue Mobilization quads Body Location right quads Mobilization Type Cross-Friction,Rolling, Sustained Pressure,Trigger Point Release Intensity/Depth Moderate Body Position Supine Joint Mobilizations 2 Joint R knee Direction posterior Grade IV Body Position Hooklying Reps/Duration 7 minutes Comments posterior glides at proximal tibia to increase flexion 1 Joint R knee Direction posterior Grade IV Body Position Supine Reps/Duration 7 minutes Comments ankle propped on bolster; posterior glides at distal femur to increase extension PT-OP-R Modalities Start: 01/15/19 13:58 Freq: Status: Active Protocol: Document 04/28/19 13:38 AW (Rec: 04/28/19 14:52 AW [email or web address]) Hot Pack/Cold Pack Treatment Cold Pack Location R knee Patient Position Supine Treatment Duration (minutes) 10 Patient Tolerance Good PT-OP-T Assessment and Plan Start: 01/15/19 13:58 Freq: Status: Active Protocol: Document 05/26/19 14:32 AW (Rec: 05/26/19 14:52 AW [email or web address]) Physical Therapy Assessment Goals transfer Impairment Pt cont to have knee pain during STS transfers Longterm Goal (LTG) Pt will not have pain during transfers (especially from the bottom of the squat and top of the squat) LTG Duration 8 weeks walking program Reporting Specialist Goal (LTG) 05/15: goal met -- pt is able to amb a mile a day without AD / increase in pain strength Impairment difficulty getting up from low chair and stair climbing Longterm Goal (LTG) Goal met on 05/15 for STS from 15 inches Pt cont needs UE support on rails for step over pattern. LTG Duration 8 wks ROM Longterm Goal (LTG) Cont in progress 05/15: Active knee extension at 8 degrees, PROM at 7 degrees flexion at 112-115. LTG Duration 12 weeks LEFS Reporting Specialist Goal (LTG) cont in progress on 05/15: pt scores 47 on LEFS. Pt will be able to score >63 points (below 20% impairments) on LEFS to improve his overall quality of life and functional mobility. LTG Duration 12 weeks Assessment Summary Assessment Continued to reinforce need to reduce exercise load at the gym, particularly with resistance exercise. Pt with increased difficulty managing step-ups today which increased his pain. Finished session with STM to right quads and ice to address potential overuse strain. Pt does not have a smartphone, but advised pt to look up metronome in search engine on home computer to find adjustable audio cues for gait practice at home. Physical Therapy Plan Frequency and Duration Frequency of Treatment 2x/Week Duration of Treatment 10 weeks Plan of Care Start Date 05/15/19 Plan of Care End Date 07/29/19 Therapeutic Interventions Therapeutic Interventions Gait Training,Home Exercise Program,Joint Mobilizations, Manual Therapy,Neuromuscular Re-education,Patient/Caregiver Education,Self-Care/Home Management,Soft Tissue Mobilization,Taping, Therapeutic Activities, Therapeutic Exercises Next Visit Focus/Plan Next Note Type Treatment Note Next Visit Plan reassess pt's gait focus on RLE WB during stance phase monitor his ex level at gym Check in for progress with low load stretch. end range of squat strengthening (for his pain during transfer) Continue with joint mobs to increase ROM. cont gait training end range strengthening step up/down with hip hinge
--- NOTE | 2019-05-29 16:44 | PT.OTN ---
Current Diagnoses Unilateral primary osteoarthritis, right knee (05/29/19) Physical Therapy Treatment Note PT-OP-A Visit Information Start: 01/15/19 13:58 Freq: Status: Active Protocol: Document 05/29/19 16:00 DCW (Rec: 05/29/19 16:44 DCW [id number]) Out-Patient Physical Therapy Visit Information Visit Information Visit Type Treatment Note Visit Start Time 16:00 Visit Stop Time 16:45 Total Visit Minutes 45 Visit Number 33 Number of CELL POURER Visits 0 PT-OP-B Current Condition Start: 01/15/19 13:58 Freq: Status: Active Protocol: Document 02/10/19 14:24 EA (Rec: 02/10/19 14:34 EA [id number]) Current Condition History of Current Condition Onset Date s/p L TKA 01/29/2019 Current Complaints gait difficulty History of Current Condition Patient is s/p left TKA. Patient independent in all functional mobility except with driving Treatment Goals Patient/Caregiver Goals 1. To increase his LEs flexibility to be able to fully extend his R knee 2. Able to return to sports such as hiking and skiing 3. to be able to stand up from low chair without UE support Prior Functional Status Baseline Function- ADL's Independent Baseline Function- Mobility Independent Baseline Function- Other step over pattern for stair climbing without railings Current Functional Impairments (Reported) Functional Limitations- Mobility/Gait step to pattern for stairs Functional Limitations- Recreation/ increased pain during walking Hobbies on uneven surface, hiking, prolonged walking, standing. Unable to skii due to increased pain PT-OP-C Subjective Start: 01/15/19 13:58 Freq: Status: Active Protocol: Document 05/29/19 16:00 DCW (Rec: 05/29/19 16:44 DCW [id number]) OP-PT Subjective Patient Comments Patient Comments Pt reports he had a harder time getting started on the bike today. Admits that he has been having trouble ever since he started back at [employer], believes he may have overdone it. PT-OP-G Mobility & Gait Start: 01/15/19 13:58 Freq: Status: Active Protocol: Document 04/07/19 12:06 AW (Rec: 04/07/19 12:42 AW [email or web address]) Stair Climbing Evaluation Evaluation Level of Assist On Stairs Standby Assistance,Contact Guard Assistance Devices Stair Climbing Assistive Devices Left Railing,Right Railing Technique/Endurance Stair Climbing Direction Ascend and Descend Stair Climbing Technique Step Over Step Number of Steps Climbed 4 Stair Climbing Set # Repetitions (reps) 8 Comments Stair Climbing Comments Pt able to ascend/descend with step over step pattern, but required CGA to achieve. SBA only required when pt used unilateral rail. PT-OP-J Posture/Palpation/Skin Start: 01/15/19 13:58 Freq: Status: Active Protocol: Document 02/10/19 14:24 EA (Rec: 02/10/19 14:34 EA [id number]) Skin Assessment Circumference Measurement 1 Comments 16.5 L: 14 R Incisional Assessment Incision Appearance/Comments Incision still covered PT-OP-K Range of Motion Start: 01/15/19 13:58 Freq: Status: Active Protocol: Document 05/15/19 11:15 HH (Rec: 05/15/19 14:20 HH [email or web address]) Knee Goniometric Range of Motion Knee Right Flexion Active (degrees) 112 Flexion Passive (degrees) 115 Extension Active (degrees) 8 Extension Passive (degrees) 7 PT-OP-M Strength Start: 01/15/19 13:58 Freq: Status: Active Protocol: Document 05/15/19 11:15 HH (Rec: 05/15/19 14:20 HH [email or web address]) Knee Strength Knee Manual Muscle Testing Right Flexion (S2) 4+ Good+ Extension (L3) 4+ Good+ PT-OP-Q Treatments Start: 01/15/19 13:58 Freq: Status: Active Protocol: Document 05/29/19 16:00 DCW (Rec: 05/29/19 16:44 DCW [id number]) Cardio Equipment Bicycle (Upright) Duration (Minutes) 5 Resistance 4 Seat Position 3 Gym Equipment Sport Cord BOSU Lunge Exercise Details Lunge onto BOSU Cord/Resistance Red Comments Forward, Lateral lunges Therapeutic Exercises Standing Exercises forward step up Standing Exercise Name forward step up Side right Equipment Used 6 step Reps/Minutes 10 reps lateral step up Standing Exercise Name lateral step up Side right Equipment Used 6 step Reps/Minutes 10 reps hurdles Standing Exercise Name SLS on R Side right 1 Standing Exercise Name Stair flexion stretch Side bilateral Manual Therapy Treatment Soft Tissue Mobilization quads Body Location right quads Mobilization Type Cross-Friction,Rolling, Sustained Pressure,Trigger Point Release Intensity/Depth Moderate Body Position Supine Joint Mobilizations 2 Joint R knee Direction posterior Grade IV Body Position Hooklying Reps/Duration 7 minutes Comments posterior glides at proximal tibia to increase flexion 1 Joint R knee Direction posterior Grade IV Body Position Supine Reps/Duration 7 minutes Comments ankle propped on bolster; posterior glides at distal femur to increase extension PT-OP-R Modalities Start: 01/15/19 13:58 Freq: Status: Active Protocol: Document 04/28/19 13:38 AW (Rec: 04/28/19 14:52 AW [email or web address]) Hot Pack/Cold Pack Treatment Cold Pack Location R knee Patient Position Supine Treatment Duration (minutes) 10 Patient Tolerance Good PT-OP-T Assessment and Plan Start: 01/15/19 13:58 Freq: Status: Active Protocol: Document 05/29/19 16:00 DCW (Rec: 05/29/19 16:44 DCW [id number]) Physical Therapy Assessment Goals transfer Impairment Pt cont to have knee pain during STS transfers Trim Installer Goal (LTG) Pt will not have pain during transfers (especially from the bottom of the squat and top of the squat) LTG Duration 8 weeks walking program Halfway Goal (LTG) 05/15: goal met -- pt is able to amb a mile a day without AD / increase in pain strength Impairment difficulty getting up from low chair and stair climbing Trim Installer Goal (LTG) Goal met on 05/15 for STS from 15 inches Pt cont needs UE support on rails for step over pattern. LTG Duration 8 wks ROM Trim Installer Goal (LTG) Cont in progress 05/15: Active knee extension at 8 degrees, PROM at 7 degrees flexion at 112-115. LTG Duration 12 weeks LEFS Trim Installer Goal (LTG) cont in progress on 05/15: pt scores 47 on LEFS. Pt will be able to score >63 points (below 20% impairments) on LEFS to improve his overall quality of life and functional mobility. LTG Duration 12 weeks Assessment Summary Assessment Pt again reminded to not overdo his exercises or walking. Pt has tendency to over work his knee and then syffer for an extended period of time afterward. Physical Therapy Plan Frequency and Duration Frequency of Treatment 2x/Week Duration of Treatment 10 weeks Plan of Care Start Date 05/15/19 Plan of Care End Date 07/29/19 Therapeutic Interventions Therapeutic Interventions Gait Training,Home Exercise Program,Joint Mobilizations, Manual Therapy,Neuromuscular Re-education,Patient/Caregiver Education,Self-Care/Home Management,Soft Tissue Mobilization,Taping, Therapeutic Activities, Therapeutic Exercises Next Visit Focus/Plan Next Note Type Treatment Note Next Visit Plan reassess pt's gait focus on RLE WB during stance phase monitor his ex level at gym Check in for progress with low load stretch. end range of squat strengthening (for his pain during transfer) Continue with joint mobs to increase ROM. cont gait training end range strengthening step up/down with hip hinge
--- NOTE | 2019-06-03 17:37 | PT.OTN ---
Current Diagnoses Unilateral primary osteoarthritis, right knee (06/03/19) Physical Therapy Treatment Note PT-OP-A Visit Information Start: 01/15/19 13:58 Freq: Status: Active Protocol: Document 06/03/19 16:45 DCW (Rec: 06/03/19 17:37 DCW [id number]) Out-Patient Physical Therapy Visit Information Visit Information Visit Type Treatment Note Visit Start Time 16:45 Visit Stop Time 17:30 Total Visit Minutes 45 Visit Number 34 Number of HYDRAULIC CHAIR ASSEMBLER Visits 0 PT-OP-B Current Condition Start: 01/15/19 13:58 Freq: Status: Active Protocol: Document 02/10/19 14:24 EA (Rec: 02/10/19 14:34 EA [id number]) Current Condition History of Current Condition Onset Date s/p L TKA 01/29/2019 Current Complaints gait difficulty History of Current Condition Patient is s/p left TKA. Patient independent in all functional mobility except with driving Treatment Goals Patient/Caregiver Goals 1. To increase his LEs flexibility to be able to fully extend his R knee 2. Able to return to sports such as hiking and skiing 3. to be able to stand up from low chair without UE support Prior Functional Status Baseline Function- ADL's Independent Baseline Function- Mobility Independent Baseline Function- Other step over pattern for stair climbing without railings Current Functional Impairments (Reported) Functional Limitations- Mobility/Gait step to pattern for stairs Functional Limitations- Recreation/ increased pain during walking Hobbies on uneven surface, hiking, prolonged walking, standing. Unable to skii due to increased pain PT-OP-C Subjective Start: 01/15/19 13:58 Freq: Status: Active Protocol: Document 06/03/19 16:45 DCW (Rec: 06/03/19 17:37 DCW [id number]) OP-PT Subjective Patient Comments Patient Comments Pt reports that he was pretty stiff getting sore today, and now has a little bit of burning while he is on the stationary bike. Notes that he had a poor night's sleep last night. PT-OP-G Mobility & Gait Start: 01/15/19 13:58 Freq: Status: Active Protocol: Document 04/07/19 12:06 AW (Rec: 04/07/19 12:42 AW [email or web address]) Stair Climbing Evaluation Evaluation Level of Assist On Stairs Standby Assistance,Contact Guard Assistance Devices Stair Climbing Assistive Devices Left Railing,Right Railing Technique/Endurance Stair Climbing Direction Ascend and Descend Stair Climbing Technique Step Over Step Number of Steps Climbed 4 Stair Climbing Set # Repetitions (reps) 8 Comments Stair Climbing Comments Pt able to ascend/descend with step over step pattern, but required CGA to achieve. SBA only required when pt used unilateral rail. PT-OP-J Posture/Palpation/Skin Start: 01/15/19 13:58 Freq: Status: Active Protocol: Document 02/10/19 14:24 EA (Rec: 02/10/19 14:34 EA [id number]) Skin Assessment Circumference Measurement 1 Comments 16.5 L: 14 R Incisional Assessment Incision Appearance/Comments Incision still covered PT-OP-K Range of Motion Start: 01/15/19 13:58 Freq: Status: Active Protocol: Document 05/15/19 11:15 HH (Rec: 05/15/19 14:20 HH [email or web address]) Knee Goniometric Range of Motion Knee Right Flexion Active (degrees) 112 Flexion Passive (degrees) 115 Extension Active (degrees) 8 Extension Passive (degrees) 7 PT-OP-M Strength Start: 01/15/19 13:58 Freq: Status: Active Protocol: Document 05/15/19 11:15 HH (Rec: 05/15/19 14:20 HH [email or web address]) Knee Strength Knee Manual Muscle Testing Right Flexion (S2) 4+ Good+ Extension (L3) 4+ Good+ PT-OP-Q Treatments Start: 01/15/19 13:58 Freq: Status: Active Protocol: Document 06/03/19 16:45 DCW (Rec: 06/03/19 17:37 DCW [id number]) Cardio Equipment Recumbent Bicycle Duration (Minutes) 5 Resistance 0 Seat Position 2 Bicycle (Upright) Duration (Minutes) 5 Resistance 4 Seat Position 3 Gym Equipment Shuttle Recovery Bilateral Squats Resistance 50# Reps/Time slow, sustained flexion, hold stretch Shuttle Balance 1 Details Red Comments Wide GISELLE, Staggered Stance Sport Cord BOSU Lunge Exercise Details Lunge onto BOSU Cord/Resistance Red Comments Forward, Lateral lunges Manual Therapy Treatment Soft Tissue Mobilization quads Body Location right quads Mobilization Type Cross-Friction,Rolling, Sustained Pressure,Trigger Point Release Intensity/Depth Moderate Body Position Supine Joint Mobilizations 2 Joint R knee Direction posterior Grade IV Body Position Hooklying Reps/Duration 7 minutes Comments posterior glides at proximal tibia to increase flexion 1 Joint R knee Direction posterior Grade IV Body Position Supine Reps/Duration 7 minutes Comments ankle propped on bolster; posterior glides at distal femur to increase extension PT-OP-R Modalities Start: 01/15/19 13:58 Freq: Status: Active Protocol: Document 04/28/19 13:38 AW (Rec: 04/28/19 14:52 AW [email or web address]) Hot Pack/Cold Pack Treatment Cold Pack Location R knee Patient Position Supine Treatment Duration (minutes) 10 Patient Tolerance Good PT-OP-T Assessment and Plan Start: 01/15/19 13:58 Freq: Status: Active Protocol: Document 06/03/19 16:45 DCW (Rec: 06/03/19 17:37 DCW [id number]) Physical Therapy Assessment Goals transfer Impairment Pt cont to have knee pain during STS transfers Nurse Orthopedic Goal (LTG) Pt will not have pain during transfers (especially from the bottom of the squat and top of the squat) LTG Duration 8 weeks walking program Nurse Orthopedic Goal (LTG) 05/15: goal met -- pt is able to amb a mile a day without AD / increase in pain strength Impairment difficulty getting up from low chair and stair climbing [facility] Goal (LTG) Goal met on 05/15 for STS from 15 inches Pt cont needs UE support on rails for step over pattern. LTG Duration 8 wks ROM [facility] Goal (LTG) Cont in progress 05/15: Active knee extension at 8 degrees, PROM at 7 degrees flexion at 112-115. LTG Duration 12 weeks LEFS Nurse Orthopedic Goal (LTG) cont in progress on 05/15: pt scores 47 on LEFS. Pt will be able to score >63 points (below 20% impairments) on LEFS to improve his overall quality of life and functional mobility. LTG Duration 12 weeks Assessment Summary Assessment Pt getting frustrated at his extended recovery time. Pt interested in returning to thrive to try to make the progress go faster, liked that the recumbent bike forced him to bend his knee a little more than the upright. Physical Therapy Plan Frequency and Duration Frequency of Treatment 2x/Week Duration of Treatment 10 weeks Plan of Care Start Date 05/15/19 Plan of Care End Date 07/29/19 Therapeutic Interventions Therapeutic Interventions Gait Training,Home Exercise Program,Joint Mobilizations, Manual Therapy,Neuromuscular Re-education,Patient/Caregiver Education,Self-Care/Home Management,Soft Tissue Mobilization,Taping, Therapeutic Activities, Therapeutic Exercises Next Visit Focus/Plan Next Note Type Treatment Note Next Visit Plan reassess pt's gait focus on RLE WB during stance phase monitor his ex level at gym Check in for progress with low load stretch. end range of squat strengthening (for his pain during transfer) Continue with joint mobs to increase ROM. cont gait training end range strengthening step up/down with hip hinge
--- NOTE | 2019-06-05 16:47 | PT.OTN ---
Current Diagnoses Unilateral primary osteoarthritis, right knee (06/05/19) Physical Therapy Treatment Note PT-OP-A Visit Information Start: 01/15/19 13:58 Freq: Status: Active Protocol: Document 06/05/19 16:00 DCW (Rec: 06/05/19 16:47 DCW [id number]) Out-Patient Physical Therapy Visit Information Visit Information Visit Type Treatment Note Visit Start Time 16:00 Visit Stop Time 16:45 Total Visit Minutes 45 Visit Number 35 Number of SALES REPRESENTATIVE SUPERVISOR Visits 0 PT-OP-B Current Condition Start: 01/15/19 13:58 Freq: Status: Active Protocol: Document 02/10/19 14:24 EA (Rec: 02/10/19 14:34 EA [id number]) Current Condition History of Current Condition Onset Date s/p L TKA 01/29/2019 Current Complaints gait difficulty History of Current Condition Patient is s/p left TKA. Patient independent in all functional mobility except with driving Treatment Goals Patient/Caregiver Goals 1. To increase his LEs flexibility to be able to fully extend his R knee 2. Able to return to sports such as hiking and skiing 3. to be able to stand up from low chair without UE support Prior Functional Status Baseline Function- ADL's Independent Baseline Function- Mobility Independent Baseline Function- Other step over pattern for stair climbing without railings Current Functional Impairments (Reported) Functional Limitations- Mobility/Gait step to pattern for stairs Functional Limitations- Recreation/ increased pain during walking Hobbies on uneven surface, hiking, prolonged walking, standing. Unable to skii due to increased pain PT-OP-C Subjective Start: 01/15/19 13:58 Freq: Status: Active Protocol: Document 06/03/19 16:45 DCW (Rec: 06/03/19 17:37 DCW [id number]) OP-PT Subjective Patient Comments Patient Comments Pt reports that he was pretty stiff getting sore today, and now has a little bit of burning while he is on the stationary bike. Notes that he had a poor night's sleep last night. PT-OP-G Mobility & Gait Start: 01/15/19 13:58 Freq: Status: Active Protocol: Document 04/07/19 12:06 AW (Rec: 04/07/19 12:42 AW [email or web address]) Stair Climbing Evaluation Evaluation Level of Assist On Stairs Standby Assistance,Contact Guard Assistance Devices Stair Climbing Assistive Devices Left Railing,Right Railing Technique/Endurance Stair Climbing Direction Ascend and Descend Stair Climbing Technique Step Over Step Number of Steps Climbed 4 Stair Climbing Set # Repetitions (reps) 8 Comments Stair Climbing Comments Pt able to ascend/descend with step over step pattern, but required CGA to achieve. SBA only required when pt used unilateral rail. PT-OP-J Posture/Palpation/Skin Start: 01/15/19 13:58 Freq: Status: Active Protocol: Document 02/10/19 14:24 EA (Rec: 02/10/19 14:34 EA [id number]) Skin Assessment Circumference Measurement 1 Comments 16.5 L: 14 R Incisional Assessment Incision Appearance/Comments Incision still covered PT-OP-K Range of Motion Start: 01/15/19 13:58 Freq: Status: Active Protocol: Document 05/15/19 11:15 HH (Rec: 05/15/19 14:20 HH [email or web address]) Knee Goniometric Range of Motion Knee Right Flexion Active (degrees) 112 Flexion Passive (degrees) 115 Extension Active (degrees) 8 Extension Passive (degrees) 7 PT-OP-M Strength Start: 01/15/19 13:58 Freq: Status: Active Protocol: Document 05/15/19 11:15 HH (Rec: 05/15/19 14:20 HH [email or web address]) Knee Strength Knee Manual Muscle Testing Right Flexion (S2) 4+ Good+ Extension (L3) 4+ Good+ PT-OP-Q Treatments Start: 01/15/19 13:58 Freq: Status: Active Protocol: Document 06/05/19 16:00 DCW (Rec: 06/05/19 16:47 DCW [id number]) Cardio Equipment Recumbent Bicycle Duration (Minutes) 5 Resistance 0 Seat Position 2 Bicycle (Upright) Duration (Minutes) 5 Resistance 4 Seat Position 3 Gym Equipment Shuttle Recovery Unilateral Squats Resistance 25# Reps/Time slow, sustained flexion, hold stretch Bilateral Squats Resistance 50# Reps/Time slow, sustained flexion, hold stretch Shuttle Balance 1 Details Red Comments Wide GISELLE, Staggered Stance Therapeutic Exercises Standing Exercises forward step up Standing Exercise Name forward step up Side right Equipment Used 6 step Reps/Minutes 10 reps lateral step up Standing Exercise Name lateral step up Side right Equipment Used 6 step Reps/Minutes 10 reps hurdles Standing Exercise Name SLS on R Side right 1 Standing Exercise Name Stair flexion stretch Side bilateral Manual Therapy Treatment Soft Tissue Mobilization quads Body Location right quads Mobilization Type Cross-Friction,Rolling, Sustained Pressure,Trigger Point Release Intensity/Depth Moderate Body Position Supine Joint Mobilizations 2 Joint R knee Direction posterior Grade IV Body Position Hooklying Reps/Duration 7 minutes Comments posterior glides at proximal tibia to increase flexion 1 Joint R knee Direction posterior Grade IV Body Position Supine Reps/Duration 7 minutes Comments ankle propped on bolster; posterior glides at distal femur to increase extension PT-OP-R Modalities Start: 01/15/19 13:58 Freq: Status: Active Protocol: Document 04/28/19 13:38 AW (Rec: 04/28/19 14:52 AW [email or web address]) Hot Pack/Cold Pack Treatment Cold Pack Location R knee Patient Position Supine Treatment Duration (minutes) 10 Patient Tolerance Good PT-OP-T Assessment and Plan Start: 01/15/19 13:58 Freq: Status: Active Protocol: Document 06/05/19 16:00 DCW (Rec: 06/05/19 16:47 DCW [id number]) Physical Therapy Assessment Goals transfer Impairment Pt cont to have knee pain during STS transfers Skilled Nursing Goal (LTG) Pt will not have pain during transfers (especially from the bottom of the squat and top of the squat) LTG Duration 8 weeks walking program Skilled Nursing Goal (LTG) 05/15: goal met -- pt is able to amb a mile a day without AD / increase in pain strength Impairment difficulty getting up from low chair and stair climbing Skilled Nursing Goal (LTG) Goal met on 05/15 for STS from 15 inches Pt cont needs UE support on rails for step over pattern. LTG Duration 8 wks ROM Skilled Nursing Goal (LTG) Cont in progress 05/15: Active knee extension at 8 degrees, PROM at 7 degrees flexion at 112-115. LTG Duration 12 weeks LEFS Skilled Nursing Goal (LTG) cont in progress on 05/15: pt scores 47 on LEFS. Pt will be able to score >63 points (below 20% impairments) on LEFS to improve his overall quality of life and functional mobility. LTG Duration 12 weeks Assessment Summary Assessment Pt in a better mood today regarding his recovery, increased hamstring tightness/ guarding. Agreeable to add HS flexibility to his HEP. Physical Therapy Plan Frequency and Duration Frequency of Treatment 2x/Week Duration of Treatment 10 weeks Plan of Care Start Date 05/15/19 Plan of Care End Date 07/29/19 Therapeutic Interventions Therapeutic Interventions Gait Training,Home Exercise Program,Joint Mobilizations, Manual Therapy,Neuromuscular Re-education,Patient/Caregiver Education,Self-Care/Home Management,Soft Tissue Mobilization,Taping, Therapeutic Activities, Therapeutic Exercises Next Visit Focus/Plan Next Note Type Treatment Note Next Visit Plan reassess pt's gait focus on RLE WB during stance phase monitor his ex level at gym Check in for progress with low load stretch. end range of squat strengthening (for his pain during transfer) Continue with joint mobs to increase ROM. cont gait training end range strengthening step up/down with hip hinge
--- NOTE | 2019-06-09 12:47 | PT.OTN ---
Current Diagnoses Unilateral primary osteoarthritis, right knee (06/09/19) Physical Therapy Treatment Note PT-OP-A Visit Information Start: 01/15/19 13:58 Freq: Status: Active Protocol: Document 06/09/19 12:30 AW (Rec: 06/09/19 12:47 AW [email or web address]) Out-Patient Physical Therapy Visit Information Visit Information Visit Type Treatment Note Visit Start Time 11:15 Visit Stop Time 12:12 Total Visit Minutes 57 Visit Number 36 Number of LUMBER STRAIGHTENER Visits 0 PT-OP-B Current Condition Start: 01/15/19 13:58 Freq: Status: Active Protocol: Document 02/10/19 14:24 EA (Rec: 02/10/19 14:34 EA [id number]) Current Condition History of Current Condition Onset Date s/p L TKA 01/29/2019 Current Complaints gait difficulty History of Current Condition Patient is s/p left TKA. Patient independent in all functional mobility except with driving Treatment Goals Patient/Caregiver Goals 1. To increase his LEs flexibility to be able to fully extend his R knee 2. Able to return to sports such as hiking and skiing 3. to be able to stand up from low chair without UE support Prior Functional Status Baseline Function- ADL's Independent Baseline Function- Mobility Independent Baseline Function- Other step over pattern for stair climbing without railings Current Functional Impairments (Reported) Functional Limitations- Mobility/Gait step to pattern for stairs Functional Limitations- Recreation/ increased pain during walking Hobbies on uneven surface, hiking, prolonged walking, standing. Unable to skii due to increased pain PT-OP-C Subjective Start: 01/15/19 13:58 Freq: Status: Active Protocol: Document 06/09/19 12:30 AW (Rec: 06/09/19 12:47 AW [email or web address]) OP-PT Subjective Patient Comments Patient Comments Pt is still sleeping poorly and is concerned with his difficulty transitioning from sit to stand. PT-OP-G Mobility & Gait Start: 01/15/19 13:58 Freq: Status: Active Protocol: Document 04/07/19 12:06 AW (Rec: 04/07/19 12:42 AW [email or web address]) Stair Climbing Evaluation Evaluation Level of Assist On Stairs Standby Assistance,Contact Guard Assistance Devices Stair Climbing Assistive Devices Left Railing,Right Railing Technique/Endurance Stair Climbing Direction Ascend and Descend Stair Climbing Technique Step Over Step Number of Steps Climbed 4 Stair Climbing Set # Repetitions (reps) 8 Comments Stair Climbing Comments Pt able to ascend/descend with step over step pattern, but required CGA to achieve. SBA only required when pt used unilateral rail. PT-OP-J Posture/Palpation/Skin Start: 01/15/19 13:58 Freq: Status: Active Protocol: Document 02/10/19 14:24 EA (Rec: 02/10/19 14:34 EA [id number]) Skin Assessment Circumference Measurement 1 Comments 16.5 L: 14 R Incisional Assessment Incision Appearance/Comments Incision still covered PT-OP-K Range of Motion Start: 01/15/19 13:58 Freq: Status: Active Protocol: Document 05/15/19 11:15 HH (Rec: 05/15/19 14:20 HH [email or web address]) Knee Goniometric Range of Motion Knee Right Flexion Active (degrees) 112 Flexion Passive (degrees) 115 Extension Active (degrees) 8 Extension Passive (degrees) 7 PT-OP-M Strength Start: 01/15/19 13:58 Freq: Status: Active Protocol: Document 05/15/19 11:15 HH (Rec: 05/15/19 14:20 HH [email or web address]) Knee Strength Knee Manual Muscle Testing Right Flexion (S2) 4+ Good+ Extension (L3) 4+ Good+ PT-OP-Q Treatments Start: 01/15/19 13:58 Freq: Status: Active Protocol: Document 06/09/19 12:30 AW (Rec: 06/09/19 12:47 AW [email or web address]) Cardio Equipment Recumbent Bicycle Duration (Minutes) 6 Resistance 0 Seat Position 2 Therapeutic Exercises Supine Exercises passive knee flexion Supine Exercise Name A/PROM knee flexion/extension Side right Reps/Minutes 3 mins Comments with hip neutral and with hip in flexion 4 Supine Exercise Name Passive hamstring stretching Side right Resistance manual Reps/Minutes 3 minutes Comments contract/relax; pt continues to exhibit excessive guarding Standing Exercises forward step up Standing Exercise Name forward step up Side right Equipment Used 4 step Reps/Minutes 10 reps Comments increased pain in anterior knee hurdles Standing Exercise Name SLS on R Side right Reps/Minutes 30 sec x 3 1 Standing Exercise Name Stair flexion stretch Side right Equipment Used 12 step Reps/Minutes 3 min Other Exercises BOSU Other Exercise Name Step-ups, Marching Equipment Used [employer] Gait Training Gait Activity ground level Description level surface walking - carpet and tile Device Used metronome ~80 bpm Level of Assistance SBA Distance/Duration 100 feet x 5; 10 minutes Treatment Focus RLE stance phase Comments cues on increasing L step length and increased ravin to improve WB on RLE Manual Therapy Treatment Soft Tissue Mobilization quads Body Location right quads Mobilization Type Cross-Friction,Rolling, Sustained Pressure,Trigger Point Release Intensity/Depth Moderate Body Position Supine Joint Mobilizations 2 Joint R knee Direction posterior Grade IV Body Position Hooklying Reps/Duration 5 minutes Comments posterior glides at proximal tibia to increase flexion 1 Joint R knee Direction posterior Grade IV Body Position Supine Reps/Duration 5 minutes Comments ankle propped on bolster; posterior glides at distal femur to increase extension PT-OP-R Modalities Start: 01/15/19 13:58 Freq: Status: Active Protocol: Document 04/28/19 13:38 AW (Rec: 04/28/19 14:52 AW [email or web address]) Hot Pack/Cold Pack Treatment Cold Pack Location R knee Patient Position Supine Treatment Duration (minutes) 10 Patient Tolerance Good PT-OP-T Assessment and Plan Start: 01/15/19 13:58 Freq: Status: Active Protocol: Document 06/09/19 12:30 AW (Rec: 06/09/19 12:47 AW [email or web address]) Physical Therapy Assessment Goals transfer Impairment Pt cont to have knee pain during STS transfers Test Inspection Engineer Goal (LTG) Pt will not have pain during transfers (especially from the bottom of the squat and top of the squat) LTG Duration 8 weeks walking program [facility] Goal (LTG) 05/15: goal met -- pt is able to amb a mile a day without AD / increase in pain strength Impairment difficulty getting up from low chair and stair climbing [facility] Goal (LTG) Goal met on 05/15 for STS from 15 inches Pt cont needs UE support on rails for step over pattern. LTG Duration 8 wks ROM [facility] Goal (LTG) Cont in progress 05/15: Active knee extension at 8 degrees, PROM at 7 degrees flexion at 112-115. LTG Duration 12 weeks LEFS [facility] Goal (LTG) cont in progress on 05/15: pt scores 47 on LEFS. Pt will be able to score >63 points (below 20% impairments) on LEFS to improve his overall quality of life and functional mobility. LTG Duration 12 weeks Assessment Summary Assessment Pt reports good follow-through with supine HS stretch at home. Manual stretch in clinic today demonstrates continued significant guarding, especially moving from flexion to extension. Gait training with metronome today focused on increasing left step length and increasing right stance time. Pt required heavy cueing to avoid early heel strike with LLE. Physical Therapy Plan Frequency and Duration Frequency of Treatment 2x/Week Duration of Treatment 10 weeks Plan of Care Start Date 05/15/19 Plan of Care End Date 07/29/19 Therapeutic Interventions Therapeutic Interventions Gait Training,Home Exercise Program,Joint Mobilizations, Manual Therapy,Neuromuscular Re-education,Patient/Caregiver Education,Self-Care/Home Management,Soft Tissue Mobilization,Taping, Therapeutic Activities, Therapeutic Exercises Next Visit Focus/Plan Next Note Type Treatment Note Next Visit Plan Continue gait training focus on RLE WB during stance phase monitor his ex level at gym Check in for progress with low load stretch. end range of squat strengthening (for his pain during transfer) Continue with joint mobs to increase ROM. cont gait training end range strengthening step up/down with hip hinge
--- NOTE | 2019-06-12 13:23 | PT.OTN ---
Current Diagnoses Unilateral primary osteoarthritis, right knee (06/12/19) Physical Therapy Treatment Note PT-OP-A Visit Information Start: 01/15/19 13:58 Freq: Status: Active Protocol: Document 06/12/19 10:40 HH (Rec: 06/12/19 12:17 HH [id number]) Out-Patient Physical Therapy Visit Information Visit Information Visit Type Treatment Note Visit Note Pt went to see surgeon Dr. Olivas on Sunday. Had X- ray on his R knee. Surgeon stated he has concern with pt' s progress due to noticeable increased seperation between her lower prosthetic and tibia . Visit Start Time 10:40 Visit Stop Time 10:55 Total Visit Minutes 15 Visit Number [id number] Number of PUBLIC AFFAIRS MANAGER Visits 0 PT-OP-B Current Condition Start: 01/15/19 13:58 Freq: Status: Active Protocol: Document 02/10/19 14:24 EA (Rec: 02/10/19 14:34 EA [id number]) Current Condition History of Current Condition Onset Date s/p L TKA 01/29/2019 Current Complaints gait difficulty History of Current Condition Patient is s/p left TKA. Patient independent in all functional mobility except with driving Treatment Goals Patient/Caregiver Goals 1. To increase his LEs flexibility to be able to fully extend his R knee 2. Able to return to sports such as hiking and skiing 3. to be able to stand up from low chair without UE support Prior Functional Status Baseline Function- ADL's Independent Baseline Function- Mobility Independent Baseline Function- Other step over pattern for stair climbing without railings Current Functional Impairments (Reported) Functional Limitations- Mobility/Gait step to pattern for stairs Functional Limitations- Recreation/ increased pain during walking Hobbies on uneven surface, hiking, prolonged walking, standing. Unable to skii due to increased pain PT-OP-C Subjective Start: 01/15/19 13:58 Freq: Status: Active Protocol: Document 06/12/19 10:40 HH (Rec: 06/12/19 12:17 HH [id number]) OP-PT Subjective Patient Comments Patient Comments My knee is more sore today because I did lawn work and walked a lot yesterday. I saw my doctor on Sunday and he thinks the hardware in my knee might be coming loose. PT-OP-G Mobility & Gait Start: 01/15/19 13:58 Freq: Status: Active Protocol: Document 04/07/19 12:06 AW (Rec: 04/07/19 12:42 AW [email or web address]) Stair Climbing Evaluation Evaluation Level of Assist On Stairs Standby Assistance,Contact Guard Assistance Devices Stair Climbing Assistive Devices Left Railing,Right Railing Technique/Endurance Stair Climbing Direction Ascend and Descend Stair Climbing Technique Step Over Step Number of Steps Climbed 4 Stair Climbing Set # Repetitions (reps) 8 Comments Stair Climbing Comments Pt able to ascend/descend with step over step pattern, but required CGA to achieve. SBA only required when pt used unilateral rail. PT-OP-J Posture/Palpation/Skin Start: 01/15/19 13:58 Freq: Status: Active Protocol: Document 02/10/19 14:24 EA (Rec: 02/10/19 14:34 EA [id number]) Skin Assessment Circumference Measurement 1 Comments 16.5 L: 14 R Incisional Assessment Incision Appearance/Comments Incision still covered PT-OP-K Range of Motion Start: 01/15/19 13:58 Freq: Status: Active Protocol: Document 05/15/19 11:15 HH (Rec: 05/15/19 14:20 HH [email or web address]) Knee Goniometric Range of Motion Knee Right Flexion Active (degrees) 112 Flexion Passive (degrees) 115 Extension Active (degrees) 8 Extension Passive (degrees) 7 PT-OP-M Strength Start: 01/15/19 13:58 Freq: Status: Active Protocol: Document 05/15/19 11:15 HH (Rec: 05/15/19 14:20 HH [email or web address]) Knee Strength Knee Manual Muscle Testing Right Flexion (S2) 4+ Good+ Extension (L3) 4+ Good+ PT-OP-Q Treatments Start: 01/15/19 13:58 Freq: Status: Active Protocol: Document 06/12/19 10:40 HH (Rec: 06/12/19 12:17 HH [id number]) Self-Care/Home Management Treatment Education Other Education Disc cont plateau in progress and ROM limitations. Reviewed xray findings and doctor's plan. Disc holding PT until PT can talk to doctor about cont therapy. PT-OP-R Modalities Start: 01/15/19 13:58 Freq: Status: Active Protocol: Document 04/28/19 13:38 AW (Rec: 04/28/19 14:52 AW [email or web address]) Hot Pack/Cold Pack Treatment Cold Pack Location R knee Patient Position Supine Treatment Duration (minutes) 10 Patient Tolerance Good PT-OP-T Assessment and Plan Start: 01/15/19 13:58 Freq: Status: Active Protocol: Document 06/12/19 10:40 HH (Rec: 06/12/19 12:17 HH [id number]) Physical Therapy Assessment Goals transfer Impairment Pt cont to have knee pain during STS transfers Retirement Goal (LTG) Pt will not have pain during transfers (especially from the bottom of the squat and top of the squat) LTG Duration 8 weeks walking program Creping Machine Operator Helper Goal (LTG) 05/15: goal met -- pt is able to amb a mile a day without AD / increase in pain strength Impairment difficulty getting up from low chair and stair climbing Retirement Goal (LTG) Goal met on 05/15 for STS from 15 inches Pt cont needs UE support on rails for step over pattern. LTG Duration 8 wks ROM Creping Machine Operator Helper Goal (LTG) Cont in progress 05/15: Active knee extension at 8 degrees, PROM at 7 degrees flexion at 112-115. LTG Duration 12 weeks LEFS Retirement Goal (LTG) cont in progress on 05/15: pt scores 47 on LEFS. Pt will be able to score >63 points (below 20% impairments) on LEFS to improve his overall quality of life and functional mobility. LTG Duration 12 weeks Assessment Summary Assessment Pt demonstrates no change in ROM limitations. Pt also reports increased pain and difficulty with activities such as biking and walking compared to a couple months ago. Treatment today focused on self care and pt education about potentials risks/ benefits of cont therapy. Disc following up with surgeon prior to cont therapy. Physical Therapy Plan Next Visit Focus/Plan Next Note Type Treatment Note Next Visit Plan Call PCP and discuss therapy focus
--- NOTE | 2019-08-19 14:20 | PT-IP ANOTE ---
called Pt via phone. Pt was found to have EF 40-50% from echocardiogram in Jul which stopped him from performing revision of his TKA. Pt is waiting to be scheduled for stress test this week and will need further evaluation from 2nd opinion. D/c from PT at this point.
== END 2019-06-12 11:30 ==
LOC: PHYS 10:30
PROVIDERS: Family Provider Nurse Practitioner Family; PCP Nurse Practitioner Family; Visit Provider Orthopaedic Surgery
DX: M17.11 Unilateral primary osteoarthritis, right knee (principal)
CPT/HCPCS: 97010; 97014; 97110; 97112; 97116; 97140; 97161; 97164; 97530; 97535; 97763; G0283

== ENCOUNTER → 2019-06-19 08:02 | Outpatient (CLI) | payer OTHER, SELFPAY ==
[2019-01-29 13:12] VITALS: BMI 27.6
--- NOTE | 2019-06-19 | DI.NM.S_ITS ---
PROCEDURE: [place] BONE 3 PHASE RADIOPHARMACEUTICAL: 21 mCi Tc-99m MDP IV. INDICATIONS: Presence of right artificial knee joint/Poss herni TECHNIQUE: Multiple bone scintigrams were obtained after intravenous injection of Tc-99m MDP, including flow, blood pool, and delayed images centered to the region of interest. COMPARISON: [facility], CR, XR KNEE ARTHRITIC SERIES RT, 03/10/2019, 8:36. [facility], CR, XR KNEE ARTHRITIC SERIES RT, 06/09/2019, 13:21. FINDINGS: A triple phase bone scan was obtained. The flow and blood pool images demonstrate increased vascular activity around the right knee. There is right knee total arthroplasty. Delayed images demonstrated increased uptake around the knee prosthesis had the prosthesis bone interface around the tibial component. Low level increased uptake in the left knee medially is consistent with arthritic change. IMPRESSION: 1. There is increased flow, blood pool and delayed activity on bone scan around the prosthesis. The scintigraphic findings could be related to be prosthesis loosening or infection. Recommend clinical correlation. Dictated by: Jose Angel Graves M.D. on 06/19/2019 at 17:21 Approved by: Jose Angel Graves M.D. on 06/19/2019 at 17:24
--- NOTE | 2019-06-19 | DI.CT.S_ITS ---
PROCEDURE: CT ABDOMEN PELVIS WO CON INDICATIONS: possible hernia left TECHNIQUE: Noncontrast 5 mm thick sections acquired from the diaphragms to the symphysis. 5 mm coronal and sagittal reformats were then performed. For radiation dose reduction, the following was used: automated exposure control, adjustment of mA and/or kV according to patient size. COMPARISON: [place], [place], [place] BONE 3 PHASE, 06/19/2019, 8:12. FINDINGS: Image quality: Excellent. ABDOMEN: Lung bases: No acute consolidation. Ill-defined groundglass nodule measuring 3 mm image 6 series 3 involving the right middle lobe, and nonspecific 3 mm nodular focus on image 8 series 3 involving the right middle lobe is indeterminate. Solid organs: Liver is normal in size. Gallbladder unremarkable. Pancreas is normal in contours. Spleen is normal in size. No adrenal nodules. Kidneys are normal in size, without hydronephrosis. Several punctate bilateral-2 mm nephrolithiasis incidentally noted. Exophytic lesion measuring 9 mm at the superior pole of the right kidney demonstrating non-water attenuation and technically indeterminate. This is too small to characterize accurately recommend continued followup Peritoneum and bowel: Unenhanced bowel loops demonstrate normal wall thickness and caliber. No free fluid or air. Nodes and vessels: No retroperitoneal or mesenteric adenopathy by size criteria. Aorta and inferior vena cava are normal in caliber. Miscellaneous: No ventral hernias. PELVIS: Genitourinary: Bladder wall thickness is normal. Miscellaneous: No right inguinal hernia. Ill-defined stranding and fat attenuation in the left inguinal region, presumed postoperative sequela, however no definite recurrent hernia identified. No pelvic adenopathy Bones: Mixed lytic and sclerotic lesion involving the left ischial tuberosity Diffuse spondylosis and Schmorl's nodes. Facet arthropathy. No vertebral body compression fractures. IMPRESSION: No definite recurrent inguinal hernia. Postoperative changes related to prior hernia repair. Mixed lytic and sclerotic appearing lesion involving the left ischial tuberosity, indeterminate. Differential includes Paget's disease, previous post-traumatic or infectious sequela, among other metastatic/neoplastic possibilities. Recommend further evaluation with bone scan and at minimum continued surveillance with radiographs or CT to document long-term stability Indeterminate exophytic lesion at the superior pole the right kidney. Recommend further evaluation and continued monitoring with dedicated renal ultrasound to exclude solid/neoplastic possibilities Nonspecific subcentimeter right middle lobe pulmonary nodules. These could be followed up with noncontrast chest CT in one year to document stability and exclude early metastatic or malignant processes given the absence of any relevant prior studies for comparison. Incidentally noted nonobstructive bilateral nephrolithiasis. Small hiatal hernia. Dictated by: Mika Thao M.D. on 06/19/2019 at 13:43 Approved by: Mika Thao M.D. on 06/19/2019 at 13:55
== END ==
PROVIDERS: Family Provider Nurse Practitioner Family; PCP Nurse Practitioner Family; Visit Provider Orthopaedic Surgery
DX: R91.8 Other nonspecific abnormal finding of lung field (principal); N28.9 Disorder of kidney and ureter, unspecified; K44.9 Diaphragmatic hernia without obstruction or gangrene; N20.0 Calculus of kidney; Z96.651 Presence of right artificial knee joint
CPT/HCPCS: 74176; 78315; A9503

== ENCOUNTER → 2019-06-24 09:48 | Outpatient (CLI) | payer OTHER, SELFPAY ==
[2019-01-29 13:12] VITALS: BMI 27.6
[2019-06-24 10:39] LABS: Add Manual Diff / Slide Review NO; Basophils Absolute Auto 0 /uL (0-100); Basophils Percent Auto 0.6 % (0-2); Eosinophils Absolute Auto 200 /uL (0-450); Eosinophils Percent Auto 2.6 % (2-4); Hematocrit 42.8 % (41-53); Hemoglobin 14.7 g/dL (13.5-17.5); Lymphocytes Absolute Auto 1400 /uL (1100-4500); Lymphocytes Percent Auto 22.3 % (25-40); Mean Corpuscular HGB Conc 34.3 % (30-36); Mean Corpuscular Hemoglobin 29.7 PG (26-34); Mean Corpuscular Volume 86.5 fL (80-100); Monocytes Absolute Auto 500 /uL (0-900); Monocytes Percent Auto 7.9 % (3-14); Neutrophils Absolute Auto 4100 /uL (1500-7000); Neutrophils Percent Auto 66.6 % (50-75); Platelet Count 202 X10^3/uL (150-400); Red Blood Cell Count 4.94 X10^6/uL (4.5-5.9); Red Cell Distribution Width 14.4 % (11.6-14.8); White Blood Cell Count 6.1 X10^3/uL (4.5-11.0)
[2019-06-24 10:53] LABS: BUN Creatinine Ratio 34.3 (6-22); Blood Urea Nitrogen 24 mg/dL (9-20); Calcium 9.9 mg/dL (8.4-10.2); Carbon Dioxide 28 mmol/L (22-32); Chloride 103 mmol/L (98-107); Estimated Glomerular Filt Rate > 60.0 mL/min (>60); Glucose 95 mg/dL (80-110); HEMOLYSIS < 15 (0-50); Potassium 4.4 mmol/L (3.4-5.1); Sodium 140 mmol/L (137-145)
[2019-06-24 10:56] LABS: C-Reactive Protein Quant < 0.5 mg/dL (<1.0)
[2019-06-24 11:08] LABS: Erythrocyte Sedimentation Rate 5 MM/HR (0-15)
== END ==
PROVIDERS: PCP Nurse Practitioner Family; Visit Provider Orthopaedic Surgery Adult Reconstructive Orthopaedic Surgery
DX: Z01.818 Encounter for other preprocedural examination (principal); Z01.812 Encounter for preprocedural laboratory examination; T84.032A Mechanical loosening of internal right knee prosthetic joint, initial encounter; M17.10 Unilateral primary osteoarthritis, unspecified knee
CPT/HCPCS: 36415; 80048; 85025; 85651; 86140

== ENCOUNTER → 2019-09-04 08:08 | Outpatient (CLI) | payer MEDICARE, SELFPAY ==
[2019-01-29 13:12] VITALS: BMI 27.6
--- NOTE | 2019-09-04 | DI.NM.S_ITS ---
PROCEDURE: [place] FRANCISCO PERF SPECT R&S PHARM Rest and pharmacological stress myocardial perfusion SPECT with gated imaging and ejection fraction RADIOPHARMACEUTICAL: 25 mCi Tc-99m tetrafosmin IV at rest and 27.5 mCi Tc-99m tetrafosmin IV at peak effect of pharmacological stress. Ncy-ohk-ppfecbll was performed. INDICATIONS: Dilated cardiomyopathy TECHNIQUE: Radiopharmaceutical was injected at peak stress test, and also at rest. SPECT images were obtained. SPECT myocardial perfusion images were displayed in short axis, horizontal long axis, and vertical long axis views. Gated images were reviewed using imgfave software. COMPARISON: [place], [place], [place] BONE 3 PHASE, 06/19/2019, 8:12. CARDIAC STRESS: A pharmacologic stress test was performed under the supervision of an attending staff, using an infusion of Lexiscan. Hemodynamic data: There is normal blood pressure and heart rate response to pharmacologic stress. Symptoms: The patient denied anginal chest pain. Aminophylline: Not used EKG: Patient developed 1-1.5 mm horizontal and downsloping ST depression and T wave inversion inferolaterally with walking as part of low level exercise before Lexiscan injection. Occassional PVCs in recovery. FINDINGS: Raw data: There is good myocardial uptake of radiotracer. No significant motion artifacts. Ncuh-yo-dicfg ratio is 0.35 (normal is less than 0.38 for tetrafosmin tracer). Left ventricle function: Gated images demonstrate normal left ventricular wall thickening at rest with mild hypokinesia at inferolateral wall at stress. No other segmental wall motion abnormalities. No transient ischemic dilation; TID is 1.00 (normal less than 1.3). Left ventricle resting end diastolic volume is139 mL. Left ventricle stress ejection fraction is 54% ; normal range is above 45%. Myocardial perfusion: There is a small, mild perfusion defect in the basal inferior and inferolateral wall on both supine and prone stress which is absent on rest, consistent with ischemia. There is subdiaphragmatic attenuation but this defect appears more on stress. It should be noted that this was a two-day test and the effect of subdiaphragmatic attenuation can be different on the stress versus rest day. There is a small apical defect at rest and stress, consistent with apical thinning. Otherwise normal distribution of activity in the left ventricular myocardium. IMPRESSION: -Abnormal study with a small, mild reversible defect in basal inferior and inferolateral wall. -Abnormal ECG with walking part of the stress test with significant ST depression as above. Dictated by: Too Carmichael M.D. on 09/05/2019 at 17:40 Approved by: Too Carmichael M.D. on 09/05/2019 at 17:49
--- NOTE | 2019-09-04 09:16 | PM.TREADMILL ---
Cardiac Stress Test Report Referral & Results Date Patient Seen: 09/04/19 Time Patient Seen: 09:16 Requesting provider: Sung Salcedo Indication: Dilated Cardiomyopathy Pre-orthopedic surgery eval. Procedure Note: Low level treadmill exercise (1.0 mph, 0% grade) during lexiscan pharmacologic nm test performed without incident. Baseline ECG NSR. Exercise ECG sinus to 136 bpm with 1.[address] segment depression in lead III, and 1.3 -1.4 mm horizontal to downsloping ST segment depressions in leads V5 and V6 respectively. The patient denied any chest discomfort or tightness and did not have dyspnea. nm imaging study is pending. Harsh Perez PA-C Impression: Mr. Hightower had ischemic ECG changes with very low level exercise but did not have ischemic symptoms. Nuclear Imaging report is pending. Harsh Perez PA-C Please note: Actual ECG tracings can be found in the PACS system.
== END ==
PROVIDERS: PCP Nurse Practitioner Family; Visit Provider Internal Medicine Cardiovascular Disease
DX: I42.0 Dilated cardiomyopathy (principal); R94.31 Abnormal electrocardiogram [ECG] [EKG]; R94.39 Abnormal result of other cardiovascular function study
CPT/HCPCS: 78452; 93017; A9502; J2785

== ENCOUNTER → 2019-10-13 14:40 | Outpatient (CLI) | payer MEDICARE, SELFPAY ==
[2019-01-29 13:12] VITALS: BMI 27.6
[2019-10-13 15:02] LABS: Add Manual Diff / Slide Review NO; Basophils Absolute Auto 0 /uL (0-100); Basophils Percent Auto 0.7 % (0-2); Eosinophils Absolute Auto 200 /uL (0-450); Eosinophils Percent Auto 3.3 % (2-4); Hemoglobin 14.6 g/dL (13.5-17.5); Lymphocytes Absolute Auto 1400 /uL (1100-4500); Lymphocytes Percent Auto 22.3 % (25-40); Mean Corpuscular Hemoglobin 30.8 PG (26-34); Mean Corpuscular Volume 90.5 fL (80-100); Monocytes Absolute Auto 600 /uL (0-900); Monocytes Percent Auto 9.8 % (3-14); Neutrophils Absolute Auto 4100 /uL (1500-7000); Neutrophils Percent Auto 63.9 % (50-75); Platelet Count 193 X10^3/uL (150-400); Red Blood Cell Count 4.75 X10^6/uL (4.5-5.9); Red Cell Distribution Width 13.7 % (11.6-14.8); White Blood Cell Count 6.3 X10^3/uL (4.5-11.0)
[2019-10-13 15:38] LABS: C-Reactive Protein Quant < 0.5 mg/dL (<1.0); Carbon Dioxide 30 mmol/L (22-32); Chloride 105 mmol/L (98-107); HEMOLYSIS < 15 (0-50); Potassium 4.9 mmol/L (3.4-5.1); Sodium 141 mmol/L (137-145)
== END ==
PROVIDERS: PCP Family Medicine; Referring Provider Orthopaedic Surgery Adult Reconstructive Orthopaedic Surgery; Visit Provider Orthopaedic Surgery Adult Reconstructive Orthopaedic Surgery
DX: Z01.812 Encounter for preprocedural laboratory examination (principal); Z01.818 Encounter for other preprocedural examination
CPT/HCPCS: 36415; 80051; 85025; 86140

== ENCOUNTER → 2019-12-19 15:19 | Outpatient (CLI) | payer MEDICARE, SELFPAY ==
[2019-01-29 13:12] VITALS: BMI 27.6
[2019-12-19 16:40] LABS: Erythrocyte Sedimentation Rate 2 MM/HR (0-15)
[2019-12-19 17:18] LABS: C-Reactive Protein Quant < 0.5 mg/dL (<1.0)
== END ==
PROVIDERS: PCP Family Medicine; Referring Provider Orthopaedic Surgery Adult Reconstructive Orthopaedic Surgery; Visit Provider Orthopaedic Surgery Adult Reconstructive Orthopaedic Surgery
DX: T84.038A Mechanical loosening of other internal prosthetic joint, initial encounter (principal); Z96.659 Presence of unspecified artificial knee joint
CPT/HCPCS: 36415; 85651; 86140

== ENCOUNTER → 2019-12-29 14:05 | Outpatient (CLI) | payer MEDICARE, SELFPAY ==
[2019-01-29 13:12] VITALS: BMI 27.6
--- NOTE | 2019-12-29 14:07 | DI.RAD.S_ITS ---
PROCEDURE: XR HIP W PEL IF DONE LT 2V INDICATIONS: Progressive left hip pain TECHNIQUE: AP pelvis with lateral view(s) of the left hip(s). COMPARISON: [facility], [place], [place] BONE 3 PHASE, 06/19/2019, 8:12. [facility], CT, CT ABDOMEN PELVIS WO CON, 06/19/2019, 8:35. FINDINGS: Bones: No fractures or dislocations but there is heterogeneous sclerosis involving the greater tuberosity on the left near the hip joint, in this patient with prior CT scanning also showing an abnormality at that site 06/19/19. Pelvic ring appears intact. No suspicious bony lesions. Soft tissues: The visualized bowel gas pattern is normal. No suspicious soft tissue calcifications. IMPRESSION: There is mild to moderate osteoarthritis of the left hip but the dominant abnormality is a mixed sclerotic and osteolucency abnormality at the greater tuberosity area of the left hip, which corresponds both to the current plain film abnormalities and an osseous abnormality in that area seen on CT scanning of the abdomen/pelvis 06/19/19. Contrast enhanced MR scanning likely is warranted for further characterization given persistent and worsening pain. Dictated by: Mandeep Cardona M.D. on 12/29/2019 at 15:12 Approved by: Mandeep Cardona M.D. on 12/29/2019 at 15:16
== END ==
PROVIDERS: PCP Family Medicine; Referring Provider Family Medicine; Visit Provider Family Medicine
DX: M25.552 Pain in left hip (principal); M16.12 Unilateral primary osteoarthritis, left hip
CPT/HCPCS: 73502

== ENCOUNTER → 2020-01-06 12:03 | Outpatient (CLI) | payer MEDICARE, SELFPAY ==
[2019-01-29 13:12] VITALS: BMI 27.6
[2020-01-06 13:10] LABS: Add Manual Diff / Slide Review NO; Basophils Absolute Auto 0 /uL (0-100); Basophils Percent Auto 0.3 % (0-2); Eosinophils Absolute Auto 100 /uL (0-450); Eosinophils Percent Auto 1.4 % (2-4); Hematocrit 44.5 % (41-53); Hemoglobin 15.2 g/dL (13.5-17.5); Lymphocytes Absolute Auto 1600 /uL (1100-4500); Mean Corpuscular HGB Conc 34.1 % (30-36); Mean Corpuscular Hemoglobin 31.3 PG (26-34); Mean Corpuscular Volume 91.9 fL (80-100); Monocytes Absolute Auto 500 /uL (0-900); Monocytes Percent Auto 7.5 % (3-14); Neutrophils Absolute Auto 4900 /uL (1500-7000); Neutrophils Percent Auto 68.8 % (50-75); Platelet Count 180 X10^3/uL (150-400); Red Blood Cell Count 4.84 X10^6/uL (4.5-5.9); Red Cell Distribution Width 13.4 % (11.6-14.8); White Blood Cell Count 7.2 X10^3/uL (4.5-11.0)
[2020-01-06 13:20] LABS: Alanine Aminotransferase 31 IU/L (<50); Albumin 4.6 g/dL (3.5-5.0); Albumin Globulin Ratio 1.4 (1.0-2.8); Alkaline Phosphatase 82 U/L (38-126); Aspartate Aminotransferase 37 IU/L (17-59); BUN Creatinine Ratio 22.7 (6-22); Bilirubin Total 1.2 mg/dL (0.2-1.3); Blood Urea Nitrogen 17 mg/dL (9-20); Calcium 9.6 mg/dL (8.4-10.2); Carbon Dioxide 28 mmol/L (22-32); Chloride 104 mmol/L (98-107); Cholesterol 147 mg/dL (140-199); Estimated Glomerular Filt Rate > 60.0 mL/min (>60); Globulin 3.2 g/dL (1.7-4.1); Glucose 107 mg/dL (80-110); HDL Cholesterol 45 mg/dL (40-60); HEMOLYSIS < 15 (0-50); LDL Cholesterol Calculated 85 mg/dL (<100); Potassium 4.9 mmol/L (3.4-5.1); Sodium 139 mmol/L (137-145); Total Protein 7.8 g/dL (6.3-8.2); Triglycerides 85 mg/dL (35-150)
[2020-01-06 13:34] LABS: Carbon Dioxide 27 mmol/L (22-32); Chloride 104 mmol/L (98-107); HEMOLYSIS < 15 (0-50); Sodium 138 mmol/L (137-145)
== END ==
PROVIDERS: PCP Family Medicine; Referring Provider Orthopaedic Surgery; Visit Provider Orthopaedic Surgery
DX: Z01.812 Encounter for preprocedural laboratory examination (principal); Z01.818 Encounter for other preprocedural examination; E78.5 Hyperlipidemia, unspecified
CPT/HCPCS: 36415; 80051; 80053; 80061; 85025

== ENCOUNTER → 2020-01-07 11:22 | Outpatient (CLI) | payer MEDICARE, SELFPAY ==
[2019-01-29 13:12] VITALS: BMI 27.6
--- NOTE | 2020-01-07 11:23 | DI.MRI.S_ITS ---
PROCEDURE: MR HIP LT WO CON INDICATIONS: osseous abnormality of left hip TECHNIQUE: Noncontrast coronal T1 spin echo and STIR through the bony pelvis. Coronal and axial T2 fast spin echo with fat saturation, sagittal T1 spin echo, and oblique axial T2 fast spin echo with fat saturation through the hip. COMPARISON: [facility], CR, XR HIP W PEL IF DONE LT 2V, 12/29/2019, 14:01. FINDINGS: Image quality: Excellent. Bones and joints: There is mild edema involving left iliac bone extending to left acetabulum. Previous CT and radiographic finding of mixed lytic and sclerotic area involving left ischium near ischial tuberosity is again seen with no adjacent cortical erosion or periosteal reaction. No marrow edema is noted in this area. Cystic changes in left posterior ischial bone near posterior acetabulum is seen. Moderate left hip joint osteoarthritic changes are noted with joint space narrowing, subchondral sclerosis and marginal osteophyte formation. No evidence of avascular necrosis of femoral head. Subchondral cyst formation involving the lateral aspect of left acetabular roof is seen. No other area of abnormal marrow signal. The Tendons and ligaments: The gluteus medius and minimus tendons appear intact, without associated muscle atrophy. The nearby proximal iliotibial band also appears intact. The iliopsoas tendon appears intact, without adjacent bursal fluid collections or evidence for impingement syndrome. The origin of the hamstring tendon is intact at the ischial tuberosity, as well as the associated sacrotuberous ligament. The straight and reflected heads of the rectus femoris muscle origin appear intact, as well as the conjoint tendon. The ligamentum teres appears intact where visualized. Labrum and cartilage: The there is suggestion of extensive superior anterior left hip labral tear in the absence of intra-articular contrast. Diffuse thinning of articulating cartilage is a long left femoral head is seen. The alpha angle of the femur is within normal limits at less than 55 degrees. Soft tissues: Visualized muscles demonstrate normal bulk and internal signal. Quadratus femoris muscle demonstrates no internal edema to suggest ischiofemoral impingement. The proximal sciatic neurovascular bundle appears normal adjacent to the hamstring tendons. No free pelvic fluid. Bladder wall thickness is normal. Genitourinary structures and bowel loops appear normal where visualized. IMPRESSION: 1. Moderate to severe left hip joint osteoarthritis. No evidence of avascular necrosis of femoral head. No fracture or dislocation. 2. Nonspecific edema involving left inferior ilium extending to involve left acetabulum. No periosteal reaction. No definite intraosseous lesion. 3. Previously described mixed lytic and sclerotic area involving left ischium near ischial tuberosity is seen and showed no edema or periosteal reaction in this area likely represent benign process. Metastatic bony lesion is unlikely. 4. Suggestion of extensive left hip labral tear. Dictated by: Ford Bailey M.D. on 01/07/2020 at 13:02 Approved by: Ford Bailey M.D. on 01/07/2020 at 17:49
== END ==
PROVIDERS: PCP Family Medicine; Referring Provider Family Medicine; Visit Provider Family Medicine
DX: M25.552 Pain in left hip (principal); M16.12 Unilateral primary osteoarthritis, left hip
CPT/HCPCS: 73721

== ENCOUNTER → 2020-01-20 09:20 | Outpatient (CLI) | payer MEDICARE, SELFPAY ==
[2019-01-29 13:12] VITALS: BMI 27.6
[2020-01-21 10:45] LABS: COVID19 Sendout NOT DETECTED (Not Detect)
== END ==
PROVIDERS: PCP Family Medicine; Visit Provider Registered Nurse
DX: Z01.818 Encounter for other preprocedural examination (principal)
CPT/HCPCS: 87635

== ENCOUNTER 2020-01-23 06:34 | Inpatient (IN) | payer MEDICARE, SELFPAY ==
[2019-01-29 13:12] VITALS: BMI 27.6
[2020-01-14 08:25] VITALS: BMI 27.8
[2020-01-23] VITALS (35 sets, daily range): BP systolic 71–164; BP diastolic 40–92; PULSE 38–74; RESP 7–20; TEMP 36.2–37.5; O2SAT 94–100; BMI 28.0
[2020-01-23] MEDS: LACTATED RINGERS 1,000 ML 42 ML IV ×3 (07:05→11:59)
[2020-01-23] MEDS: ACETAMINOPHEN 325 MG TABLET 975 MG PO (07:17)
[2020-01-23] MEDS: GABAPENTIN 300 MG CAPSULE PO (07:18)
[2020-01-23] MEDS: CELECOXIB 200 MG CAPSULE 400 MG PO (07:18)
--- NOTE | 2020-01-23 07:24 | PM.PREOP ---
Pre-operative Note COVID-19 COVID-19 status: Negative Result date/Date tested (Pos, Neg/Pending): 01/20/20 Interval Note History & Physical reviewed/Exam performed by Physician: Yes Changes to H&P: No H&P completed within 30 days and has changed as indicated here:: Plan for revision R TKA for tibial base plate loosening.
[2020-01-23] MEDS: CEFAZOLIN 2 GM/100 ML FROZ.PIGGY IV ×2 (07:43→17:05)
[2020-01-23] MEDS: TRANEXAMIC ACID 1,000 MG VIAL 1000 MG IV (08:15)
[2020-01-23] MEDS: ROPIVACAINE 0.5% PF 5 MG/ML 20ML VIAL 10 ML INJ (08:24)
[2020-01-23] MEDS: MORPHINE 4 MG/ML INJ SUBCUT (08:29)
[2020-01-23] MEDS: KETOROLAC 30 MG/ML VIAL IV (08:31)
--- NOTE | 2020-01-23 08:39 | SUR.OPER ---
Supine on padded OR bed. Pillow under head, arms secured on padded armboards <90 degree abduction. Safety belt across torso. Non-operative leg secured with tape over blanket over lower leg. Operative leg on bed post positioner. Foam padded brace at thigh of operative leg.
--- NOTE | 2020-01-23 10:53 | PM.OP.1 ---
Operative Date/Time/Diagnoses Date of procedure: 01/23/20 Time of procedure: 10:53 Pre-op diagnosis: Loose tibial base plate; (failed TKA) Post-op diagnosis: same Procedure & Clinicians Procedure: Revision right TKA Same procedure as scheduled: Yes Indications: Subsidence and loosening of the right tibial base plate; without evidence of infection. Surgeon: Dalton Cardona Picking Machine Operator: Tushar Diaz Click Yes if Unassisted: No Anesthesia Type: General and Spinal Operative Notes Findings: Subsided tibial bas. Most of subsidence occurred on the lateral side. Arthrofibrosis. Closure Type: non-primary Specimen(s): other (2x swabs) Prosthetic devices, grafts, tissues, transplants, or devices: Bryant and Nephew size 6 legion revision tibial base plate with Journey locking mechanism Bryant and Nephew 6 mm offset driver retraining instructor Bryant [employer] Nephew 12 mm x 160 mm stem Bryant and Nephew size 5-6 11 mm the BCS constrained polyethylene Estimated Blood Loss (mL): 100 Blood products transfused: none Tourniquet time (min): 108 Procedure in detail: Patient was met in the preoperative holding area where the site and side of surgery were marked by MD. All last minute questions were answered. Consent was signed in clinic but was also reviewed in the preoperative holding area. Patient demonstrates understanding of the risks and benefits of surgery and wishes to proceed. Patient was then brought back into the operating room he received a spinal anesthetic and then received general anesthesia. He was placed supine on the operating room table. A nonsterile tourniquet was placed on the right thigh and the right lower extremity then prepped and draped in normal sterile fashion. A surgical time-out was performed verifying the site and side of surgery. The right lower extremity was then exsanguinated using an Esmarch and the tourniquet was insufflated to 250 mm of mercury. A skin knife 10. Blade was used to cut through the previous surgical site it was extended approximately 1 cm distal and 2 cm proximal. Sharp dissection was carried down to the level of the quadriceps tendon. Medial and lateral flaps were elevated with sharp dissection. A medial parapatellar arthrotomy was performed at this 0.2 culture swabs were taken and sent (no preoperative evidence of infection). A medial peel of the MCL was performed. At this point debridement arthrofibrosis and scar within the suprapatellar pouch was performed as well as clearing the medial and lateral gutters. Scar was then removed from the underside of the patellar tendon as well. Working progressively more to the lateral corner. At this point there is strong radiographic evidence that the tibial component is loose and subsided. We turned our attention to the femoral side which appears to be well fixed on the x-ray. We thoroughly inspected the prosthetic cement and cement bone interface at the edges of the femoral component and seemed to be well fixed. We then removed the polyethylene which allowed us to bring the tibia forward of the femoral prosthetic diabetic. We took great care to avoid rupture of the extensor mechanism. We then able to place a bent Hohmann over the lateral side thereby gaining us acceptable access to the tibial component for removal. A revision saw blade was used from the anterior aspect working towards the keel take a minimal amount of bone. We worked medial 1st and we worked lateral at this point I was able to work over the posterior medial corner of the tibial base plate and work towards the posterior lateral side. At this point the tibial base plate was able to be removed, with minimal bone loss. Osteotomes were then used to break the cement mantle within the space for the keel. Cement was removed and I began hand reaming to a good cortical fit in the tibia. Started with a size 9 mm and worked my way up to a size 12 mm with a depth of at least 160 mm to accommodate the stem. I then performed my freshen up cut again verifying that were taking more bone on the medial side than the lateral side. I used several alignment checks aside from the intramedullary isaura to confirm our tibial freshen up cut. We also used the tibial base plate a drop isaura to confirm alignment. Next the tibia was sized to a size 6. It was determined that we would need a 6 mm offset driver retraining instructor. The tray was secured to the tibia using headed pins and a 6 mm driver retraining instructor was center to of 4-1/2 position on the dial. We then did sequential reaming to accommodate our driver retraining instructor. The jigs were then removed and a trial component tibial component consisting of a size 6 tibia with a 6 mm offset driver retraining instructor set the 4.5 and a 12 x 160 mm tibial stem. This was placed and then we began trialing using a 10. Polyethylene. There was some slight laxity in flexion so we decided to go to size 11 polyethylene. The trials were then removed pulse lavage was used to clean the cut bone surface. The final component was assembled on the back table and positioning of the offset driver retraining instructor was verified. This was malleted onto the Deleon taper. Cement was then finger packed onto the cut surface of the tibia as well as undersurface of the tibial tray down to the level of the driver retraining instructor. This was then placed into the tibia and malleted into place. Excess cement was removed. A trial 11 mm constrained polyethylene was placed and the leg was brought to full extension. Betadine was added to the wound and the cement was allowed to fully cure. At this point. Body was used to remove the Betadine the a thorough check to look for any loose debris or cement. The trial polyethylene was removed and a 11 mm polyethylene was selected. This was then placed in the locking mechanism and secured. The tourniquet was let down and hemostasis was achieved using electrocautery. The medial parapatellar arthrotomy was closed with 1. Vicryl in interrupted fashion followed by 2 Vicryl in the skin subcutaneous layer followed by donald and Aquacel dressing. Complications: none Post-operative Condition: stable Disposition: PACU Plan for aftercare: Weightbearing as tolerated right lower extremity. Anticipate patient will stay 1 night in the hospital. DVT prophylaxis for 6 weeks. 24 hours of postop antibiotics.
--- NOTE | 2020-01-23 11:10 | DI.RAD.S_ITS ---
PROCEDURE: XR KNEE RT 1TO2V INDICATIONS: POST OP KNEE TECHNIQUE: 2 views of the knee were acquired. COMPARISON: [facility], , XR KNEE RT 1TO2V, 01/29/2019, 12:07. FINDINGS: Bones: No fractures or dislocations. No suspicious bony lesions. Status post right knee arthroplasty revision in expected postoperative alignment. Soft tissues: Overlying postsurgical changes and skin odnald IMPRESSION: Expected postoperative alignment Dictated by: Mika Thao M.D. on 01/23/2020 at 11:50 Approved by: Mika Thao M.D. on 01/23/2020 at 11:51
--- NOTE | 2020-01-23 11:48 | SUR.PHASEI ---
Report called to Juan
--- NOTE | 2020-01-23 11:59 | SUR.PHASEI ---
BP 80/47, hr in the 40s. Patient pale, drowsy, +pp, no bleeding to dressing. 2nd bag of LR had infused. Dr. Chang notified. VVO to given to give another 250mls of fluid bolus and call MD if no improvement. Patient denied feelings of chest pain, nausea. Skin cool and dry. Bolus initiated. HR continued to drop to 30-40s, bp 71/41. Dr. Vance in the PACU and ordered 0.1mg Glycopyrrolate for HR, may repeat if necessary. Patient medicated. HR currently 65, bp 75/42.
[2020-01-23] MEDS: GLYCOPYRROLATE 0.2 MG/ML 0.1 MG IV ×2 (12:06→12:08)
--- NOTE | 2020-01-23 12:39 | SUR.PHASEI ---
Update called to Juan
--- NOTE | 2020-01-23 12:48 | SUR.PHASEI ---
Patient status discussed with Dr. Chang. Ok to transfer patient to the floor per
[2020-01-23] MEDS: LACTATED RINGERS 1,000 ML 100 ML IV ×2 (13:00→21:17)
--- NOTE | 2020-01-23 13:04 | SUR.PHASEI ---
Patient transferred to the floor with walker and belongings bag. IV saline locked. Report given to Juan. VS stable. RT knee dressing clean, dry, intact. +PP x2. Sensation intact to alberta feet, + ankle waves.
--- NOTE | 2020-01-23 14:12 | PC.ADMIT ---
[email or web address]– [place] [address] Admission Note: The patient,Sung Hightower,74 y/o, was given written information regarding hospital policies, unit procedures and contact persons. Patient's smoking status: Never smoker. Vital Signs - 8 hr 01/23/20 07:05 01/23/20 11:00 01/23/20 11:05 Temperature 98.1 F 99.5 F Pulse Rate 56 L 57 L 56 L Respiratory Rate 16 17 17 Blood Pressure 164/92 H 83/51 L 87/45 L Pulse Oximetry 99 97 100 01/23/20 11:10 01/23/20 11:15 01/23/20 11:20 Temperature Pulse Rate 55 L 48 L 63 Respiratory Rate 12 8 L 11 L Blood Pressure 85/49 L 88/49 L 93/50 L Pulse Oximetry 99 100 100 01/23/20 11:25 01/23/20 11:39 01/23/20 11:43 Temperature 98.5 F Pulse Rate 58 L 58 L Respiratory Rate 12 20 Blood Pressure 92/54 L 102/56 L Pulse Oximetry 100 94 01/23/20 11:44 01/23/20 11:49 01/23/20 11:53 Temperature Pulse Rate 50 L 43 L 46 L Respiratory Rate 10 L Blood Pressure 91/49 L 77/47 L 80/47 L Pulse Oximetry 97 100 99 01/23/20 11:54 01/23/20 11:59 01/23/20 12:00 Temperature Pulse Rate 47 L 43 L 43 L Respiratory Rate 11 L 7 L Blood Pressure 85/48 L 71/40 L 71/42 L Pulse Oximetry 99 97 95 01/23/20 12:03 01/23/20 12:04 01/23/20 12:07 Temperature Pulse Rate 38 L 43 L 43 L Respiratory Rate Blood Pressure 73/42 L 71/41 L 76/44 L Pulse Oximetry 100 98 99 01/23/20 12:09 01/23/20 12:15 01/23/20 12:19 Temperature Pulse Rate 49 L 56 L 66 Respiratory Rate 9 L 20 20 Blood Pressure 75/42 L 89/50 L 97/59 L Pulse Oximetry 100 100 96 01/23/20 12:24 01/23/20 12:30 01/23/20 12:39 Temperature 97.2 F L Pulse Rate 69 67 58 L Respiratory Rate 11 L 16 16 Blood Pressure 95/53 L 101/57 L 98/53 L Pulse Oximetry 98 96 97 01/23/20 12:44 01/23/20 13:00 01/23/20 13:20 Temperature 97.8 F 97.3 F L Pulse Rate 63 66 58 L Respiratory Rate 12 16 Blood Pressure 105/58 L 112/58 L 106/57 L Pulse Oximetry 96 96 98 01/23/20 13:50 01/23/20 14:00 Temperature 97.1 F L Pulse Rate 48 L 57 L Respiratory Rate Blood Pressure 82/49 L 103/58 L Pulse Oximetry 96 PATIENT ADMITTED TO 211. AWAKE, ALERT AND ORIENTED, CONVERSANT. RATES PAIN 3/10, STATES IS TOLERABLE. NO NAUSEA. TOLERATED JUICE, WATER. CMS INTACT, AQUACEL/ACEWRAP CDI.
[2020-01-23 14:40] LABS: Add Manual Diff / Slide Review NO; Basophils Absolute Auto 0 /uL (0-100); Basophils Percent Auto 0.1 % (0-2); Eosinophils Absolute Auto 0 /uL (0-450); Eosinophils Percent Auto 0.2 % (2-4); Hematocrit 34.4 % (41-53); Hemoglobin 11.8 g/dL (13.5-17.5); Lymphocytes Absolute Auto 700 /uL (1100-4500); Lymphocytes Percent Auto 6.5 % (25-40); Mean Corpuscular HGB Conc 34.4 % (30-36); Mean Corpuscular Hemoglobin 31.9 PG (26-34); Mean Corpuscular Volume 92.7 fL (80-100); Monocytes Absolute Auto 400 /uL (0-900); Monocytes Percent Auto 3.7 % (3-14); Neutrophils Absolute Auto 9000 /uL (1500-7000); Neutrophils Percent Auto 89.5 % (50-75); Platelet Count 146 X10^3/uL (150-400); Red Blood Cell Count 3.71 X10^6/uL (4.5-5.9); Red Cell Distribution Width 13.3 % (11.6-14.8)
--- NOTE | 2020-01-23 16:59 | PT.IIE ---
Current Diagnoses Mechanical loosening of internal right knee prosthetic joint, subsequent encounter (01/23/20) Presence of right artificial knee joint (01/23/20) Surgery Performed Operation Date: 01/23/20 07:45 Actual Procedures p Total Knee Arthroplasty Revision(Right) - Dalton Cardona MD Surgical History (Last Updated 01/14/20 @ 08:30 by Steff Miller, RN) History of arthroplasty of right knee (Acute 01/29/19) Status post hernia repair (Deleted) Status post hernia repair (Chronic) Status post knee surgery (Chronic) Status post knee surgery (Chronic) Status post rotator cuff repair (Chronic) Medical History (Last Updated 01/14/20 @ 12:32 by Steff Miller, RN) Cardiac arrhythmia (Chronic ~2009) Cardiomyopathy (Acute) Chickenpox (Resolved ~1949) Double vision (Acute 04/2019) Ejection fraction < 50% (Acute 06/2019) Hip pain, left (Resolved 1987) Hyperlipemia (Chronic Unknown) Knee pain, right (Chronic 2014) Left hip pain (Acute) Measles (Resolved ~1949) Mumps (Resolved ~1949) Osteoarthritis (Chronic Unknown) 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 able to make needs known. Mobility and Gait Pt was independent prior to sx without using AD Activities of Daily Living and IADL's independent with ADLs and IADLs without AD Prior Functional Level (Other details) Knee ROM 8-115 after 1st surgery. Social History Household Members none Living Arrangements House Number of Floors (Floors) One Floor Number of Stairs To Enter/Railing? 1 JASMYN Home Environment Standard Height Toilet,Walk in Shower Home Equipment Front Wheel Walker,Four Wheel Walker,Straight Cane,Crutches, Raised Toilet Seat Without Armrests,Shower Seat without Backrest,Hand Held Shower,Grab Bars In Shower Additional Social History Comment Pt stated that his friend ' Nicholas will be staying with him if needed. Pt had a failed R TKA last year with lossening of the tibial prosthetic. Pt went through course of PT and EDER and were unsuccessful. M2 PT-IP Current Condition Start: 01/23/20 15:22 Freq: NEEDED Status: Active Protocol: Document 01/23/20 16:32 HH (Rec: 01/23/20 16:59 [id number]) Physical Therapy Current Condition Current Condition Evaluation Date 01/23/20 Treatment Diagnosis s/p revision R TKA, difficulty in walking Onset Date 01/23/20 Weight Bearing Status Weight Bearing Status Weight Bear as Tolerated M3 PT-IP Subjective Start: 01/23/20 15:22 Freq: NEEDED Status: Active Protocol: Document 01/23/20 16:32 HH (Rec: 01/23/20 16:59 [id number]) Subjective Physical Therapy Visit Type Type Initial Evaluation Visit Start Time 15:45 Visit Stop Time 16:12 Total Visit Minutes 27 Number of CONTINUOUS DRYOUT OPERATOR Visits 0 Physical Therapy Visit Comments Patient Comments Im feeling pretty good right now. Patient Goals Able to regain full ROM Therapy Pain Assessment Pain When Pain Assessed During Mobility Pain Present Pain Present Pain Reported FLACC Pain Scale Face No particular expression Location Right Knee Intensity 3 Scale Used Numeric (0 - 10) Description Aching,Acute Pain Management Techniques Modification of Treatment,Re- positioning,Timing of Activity with Medications M4 PT-IP Mobility and Gait Start: 01/23/20 15:22 Freq: NEEDED Status: Active Protocol: Document 01/23/20 16:32 HH (Rec: 01/23/20 16:59 [id number]) PT-Bed Mobility Assessment Rolling Type of Rolling Roll to Right Level of Assist Standby Assistance Supine to Sit Supine to Sit Standby Assistance Scooting Scooting to Edge of Bed Standby Assistance PT-Transfer Assessment Sit to and From Stand Sit to and from Stand Contact Guard Assistance,Use of Upper Extremities Equipment Transfer Assistive Device Gait Belt,Front Wheeled Walker Orthotic/Prosthetic Devices or Brace: No Transfers Transfer Destination Bed,Chair Transfer Technique FWW Transfer Ability Level of Assist Contact Guard Assistance,Use of Upper Extremities Comments Mobility Comments Pt was in bed upon PT arrival. Denied any discomfort. Pt performed heel slide and quad set in bed then proceeded supine to sit with SBA. He did seated heel slide after with towel on floor who was able to reach approx 110 degrees of flexion. He stood up with CGA and FWW after and started ambulating towards hallway. Pt used step to gait pattern with cues to facilitate knee extension at midstance. He denies increased discomfort and report better than my first surgery. He completed approx 110 ft with FWW SBA and returned to chair with safe hand placements and walker management. Provided post op booklet and placed call light within reach. Gait Assessment Gait Gait Assistance Required: Standby Assistance Assistive Devices Assistive Device Gait Belt,Front Wheeled Walker Orthotic/Prosthetic Devices or Brace: No Gait Deviations General Gait Pattern Antalgic,Decreased Stride Length,Decreased Feet Clearance,Step-to Gait Factors Limiting Gait Function Factors Limiting Gait Function Decreased Activity Tolerance, Decreased Strength,Limited Range of Motion,Pain Comments Gait Comments see mobility comment Stair Climbing Assessment Comments Stair Climbing Comments did not assess PT-Balance Assessment Sitting Balance and Reactions Static Sitting Balance Ability Normal Dynamic Sitting Balance Ability Normal Standing Balance and Reactions Static Standing Balance Ability Normal Dynamic Standing Balance Ability Normal Device Used FWW M5 PT-IP Objective Assessments Start: 01/23/20 15:22 Freq: NEEDED Status: Active Protocol: Document 01/23/20 16:32 (Rec: 01/23/20 16:59 [id number]) Orientation Orientation/Cognition Level of Alertness Alert Orientation Name,Age,Birthday,Month,Date, Year,Day of Week,Place, Situation Language Function Ability No Deficits Noted Safety Awareness Understands Safety Issues Memory Description No Deficits Noted Gross Range of Motion Upper Extremity ROM Assessment Within Functional Limits Lower Extremity ROM Assessment Right Impaired Impairments 6-110 knee AROM Strength Upper Extremity Strength Assessment Within Functional Limits Lower Extremity Strength Assessment Right Impaired Hip 4/5 Knee 4/5 Ankle 5/5 Sensation Assessment Sensation Gross Sensation WNL Muscle Tone Muscle Tone WNL Yes M6 PT-IP Treatment Start: 01/23/20 15:22 Freq: NEEDED Status: Active Protocol: Document 01/23/20 16:32 (Rec: 01/23/20 16:59 [id number]) Physical Therapy Treatment Exercises Exercises Ankle Pumps,Gluteal Sets,Quad Sets,Heel Slides Education Education Provided Precautions,Weight Bearing Status,Post-Op Packet,Safety M7 PT-IP Assessment and Plan Start: 01/23/20 15:22 Freq: NEEDED Status: Active Protocol: Document 01/23/20 16:32 (Rec: 01/23/20 16:59 [id number]) PT Summary Assessment and Plan Potential Rehabilitation Potential Excellent Status of Condition at Evaluation Stable Summary Assessment Summary This is a low complexity evaluation for this 74 yo male s/o POD0 revision for RTKA d/ t loosening of tibial compartment. Pt was independent with an antalgic gait since her last surgery but he has not had any falls even though she lives alone. Pt currently feels better compared to his last surgery and able to reach approx 8-110 R knee AROM today with minimal pain. He also amb 110 ft with SBA. I expect pt to be d/c back to home with outpatient PT. Goals Bed Mobility Goal Independent Transfer Goal Independent,Front Wheeled Walker Gait Goal Independent,Front Wheel Walker Gait Distance 300 Other Goals 1 JASMYN with FWW Days to Meet Goals 2 Frequency of Treatment Frequency Of Treatment Twice a Day Treatment Plan Physical Therapy Treatment Plan Bed Mobility Training,Transfer Training,Gait Training, Therapeutic Exercise,Balance Retraining,Post Op Education, Discharge Planning,Hot or Cold Pack,Neuromuscular Re-ed Other Recommendations and Next Treatment 1 JASMYN with FWW Focus gait training step over pattern Recommendations To Nursing Amount of Assist Needed 1 Person Assist Discharge Recommendations PT Discharge Recommendations Home,Outpatient PT Transportation Needs at Discharge Private Vehicle
[2020-01-23] MEDS: ACETAMINOPHEN 325 MG TABLET 650 MG PO ×2 (17:05→21:16)
[2020-01-23] MEDS: DOCUSATE 100 MG CAPSULE PO (21:16)
[2020-01-23] MEDS: ASPIRIN EC 81 MG TABLET PO (21:16)
[2020-01-23] MEDS: SIMVASTATIN 10 MG TABLET 20 MG PO (21:16)
[2020-01-24] VITALS (9 sets, daily range): BP systolic 119–154; BP diastolic 63–77; PULSE 61–81; RESP 16–18; TEMP 36.3–37.2; O2SAT 95–99
[2020-01-24] MEDS: CEFAZOLIN 2 GM/100 ML FROZ.PIGGY IV (00:09)
[2020-01-24 06:20] LABS: Hematocrit 36.7 % (41-53); Hemoglobin 12.6 g/dL (13.5-17.5)
--- NOTE | 2020-01-24 06:33 | PC.NURSE ---
Pt reports minimal pain, not requesting a pain med. Having some urinary retention. At the start of shift he was doing very frequent small voids; bladder scanned for 400mL; Performed and In&Out cath at 0130 and got 575cc out. This morning around 0600 he peed 100mL pink tinged urine (due to In &Out); he was then bladder scanned after for 284mL. IVF d/c'ed this morning. B/L SCDs on throughout night. Pt mobilizes well with a 1p FWW
--- NOTE | 2020-01-24 07:16 | PM.PN.1 ---
Subjective Subjective Date Patient Seen: 01/24/20 Time Patient Seen: 07:16 Interval history: Patient is now postop day 1 from revision right total knee arthroplasty. Overall doing well. Exam Vital Signs (past 8 hours): - 01/24/20 02:12 01/24/20 06:40 Temperature 98.8 F 98.9 F Pulse Rate 66 68 Respiratory Rate 17 16 Blood Pressure 154/77 H 133/77 Pulse Oximetry 95 95 Oxygen Delivery Method Room Air Oxygen Flow Rate 0 Narrative Exam Narrative: Knee with moderate effusion. Dressing clean dry intact. Neurovascular intact. Objective Labs Result Diagrams: 01/24/20 05:51 Labs: Laboratory Results - last 24 hr 01/23/20 01/24/20 14:21 05:51 WBC 10.0 RBC 3.71 L Hgb 11.8 L 12.6 L Hct 34.4 L 36.7 L MCV 92.7 MCH 31.9 MCHC 34.4 RDW 13.3 Plt Count 146 L Neut % (Auto) 89.5 H Lymph % (Auto) 6.5 L Dolores % (Auto) 3.7 Eos % (Auto) 0.2 L Baso % (Auto) 0.1 Neut # (Auto) 9000 H Lymph # (Auto) 700 L Dolores # (Auto) 400 Eos # (Auto) 0 Baso # (Auto) 0 Assessment & Plan Assessment & Plan narrative: Patient is a 74-year-old gentleman now postop day 1 from revision right total knee arthroplasty. Patient has a history of prostate hyperplasia. She had difficulty passing urine postoperatively he required an I and O cath last night. Okay to repeat INR catheterization today. Discharge pending bladder control. - Work with PT - urinary retentionneil today - [place] home if cleared by PT and not retaining urine Time Spent With Patient Time with patient: 15-24 minutes
[2020-01-24] MEDS: DOCUSATE 100 MG CAPSULE PO (08:53)
[2020-01-24] MEDS: ASPIRIN EC 81 MG TABLET PO ×2 (08:53→21:17)
[2020-01-24] MEDS: ACETAMINOPHEN 325 MG TABLET 650 MG PO ×3 (08:54→21:17)
--- NOTE | 2020-01-24 10:43 | PT.IPTN ---
Current Diagnoses Mechanical loosening of internal right knee prosthetic joint, subsequent encounter (01/23/20) Presence of right artificial knee joint (01/23/20) Surgery Performed Operation Date: 01/23/20 07:45 Actual Procedures p Total Knee Arthroplasty Revision(Right) - Dalton Cardona MD Physical Therapy Treatment Note M2 PT-IP Current Condition Start: 01/23/20 15:22 Freq: NEEDED Status: Active Protocol: Document 01/23/20 16:32 HH (Rec: 01/23/20 16:59 HH [id number]) Physical Therapy Current Condition Current Condition Evaluation Date 01/23/20 Treatment Diagnosis s/p revision R TKA, difficulty in walking Onset Date 01/23/20 Weight Bearing Status Weight Bearing Status Weight Bear as Tolerated M3 PT-IP Subjective Start: 01/23/20 15:22 Freq: NEEDED Status: Active Protocol: Document 01/24/20 10:02 KS (Rec: 01/24/20 12:46 KS [id number]) Subjective Physical Therapy Visit Type Type Treatment Note Visit Start Time 10:02 Visit Stop Time 10:43 Total Visit Minutes 41 Number of RECRUITMENT SPECIALIST Visits 1 Physical Therapy Visit Comments Patient Comments Pt agreeable to working w/ therapy. Patient Goals Able to regain full ROM Therapy Pain Assessment Pain When Pain Assessed During Mobility Pain Present Pain Present Pain Reported Location Right Knee Intensity 3 Scale Used Numeric (0 - 10) Description Aching,Acute Pain Management Techniques Apply Cold,Re-positioning, Timing of Activity with Medications M4 PT-IP Mobility and Gait Start: 01/23/20 15:22 Freq: NEEDED Status: Active Protocol: Document 01/24/20 10:02 KS (Rec: 01/24/20 12:46 KS [id number]) PT-Bed Mobility Assessment Rolling Type of Rolling Roll to Right Level of Assist Contact Guard Assistance Supine to Sit Supine to Sit Contact Guard Assistance Sit to Supine Sit to Supine Standby Assistance Scooting Scooting to Edge of Bed Standby Assistance PT-Transfer Assessment Sit to and From Stand Sit to and from Stand Contact Guard Assistance,Use of Upper Extremities Equipment Transfer Assistive Device Gait Belt,Front Wheeled Walker Orthotic/Prosthetic Devices or Brace: No Transfers Transfer Destination Bed Transfer Ability Level of Assist Contact Guard Assistance,Use of Upper Extremities Comments Mobility Comments Pt was in bed upon arrival from therapy. Pt unable to sup <>sit w/ HOB flat due to weakness and reported pain in knee. HOB elevated 50 degrees to assist pt sup<>sit. SBA for scooting to EOB. CGA for sit< >stand w/ FWW. Pt then completed 5 min weight shifting and marching in place to initiate gait training. Pt then ambulated ~150 ft to platform step. CGA for platform step w/ cues for sequencing and FWW management. Pt required 2x standing rest breaks during ambulation back to room. Pt then returned to room, stand<>sit and sit<>sup CGA. Pt left in bed w/ ice applied to knee and all needs in reach. Gait Assessment Gait Gait Assistance Required: Contact Guard Assist Assistive Devices Assistive Device Gait Belt,Front Wheeled Walker Orthotic/Prosthetic Devices or Brace: No Gait Deviations General Gait Pattern Antalgic,Decreased Stride Length,Decreased Feet Clearance,Step-to Gait Factors Limiting Gait Function Factors Limiting Gait Function Decreased Activity Tolerance, Decreased Strength,Limited Range of Motion,Pain Comments Gait Comments Pt ambulated ~300 ft w/ FWW and CGA and 2x standing rest breaks. Pt ambulated w/ step to gait pattern, but was able to improve to step thru pattern w/ frequent cues. Required cues also for upright posture and heel toe walking. Stair Climbing Assessment Evaluation Level of Assist On Stairs Contact Guard Assistance,1 Person Assistance Devices Stair Climbing Assistive Devices Front Wheel Walker Technique/Endurance Stair Climbing Direction Ascend and Descend Stair Climbing Technique Step to Step Number of Steps Climbed 1 Stair Climbing Set # Repetitions (reps) 1 Comments Stair Climbing Comments Pt ascended/descended 1 platform step w/ FWW and CGA and cues for sequencing and FWW management. PT-Balance Assessment Sitting Balance and Reactions Static Sitting Balance Ability Normal Dynamic Sitting Balance Ability Normal Standing Balance and Reactions Static Standing Balance Ability Normal Dynamic Standing Balance Ability Good Device Used FWW M5 PT-IP Objective Assessments Start: 01/23/20 15:22 Freq: NEEDED Status: Active Protocol: Document 01/23/20 16:32 (Rec: 01/23/20 16:59 [id number]) Orientation Orientation/Cognition Level of Alertness Alert Orientation Name,Age,Birthday,Month,Date, Year,Day of Week,Place, Situation Language Function Ability No Deficits Noted Safety Awareness Understands Safety Issues Memory Description No Deficits Noted Gross Range of Motion Upper Extremity ROM Assessment Within Functional Limits Lower Extremity ROM Assessment Right Impaired Impairments 6-110 knee AROM Strength Upper Extremity Strength Assessment Within Functional Limits Lower Extremity Strength Assessment Right Impaired Hip 4/5 Knee 4/5 Ankle 5/5 Sensation Assessment Sensation Gross Sensation WNL Muscle Tone Muscle Tone WNL Yes M6 PT-IP Treatment Start: 01/23/20 15:22 Freq: NEEDED Status: Active Protocol: Document 01/24/20 10:02 KS (Rec: 01/24/20 12:46 KS [id number]) Physical Therapy Treatment Education Education Provided Precautions,Weight Bearing Status,Post-Op Packet,Safety M7 PT-IP Assessment and Plan Start: 01/23/20 15:22 Freq: NEEDED Status: Active Protocol: Document 01/24/20 10:02 KS (Rec: 01/24/20 12:46 KS [id number]) PT Summary Assessment and Plan Potential Rehabilitation Potential Excellent Status of Condition at Evaluation Stable Summary Assessment Summary Pt able to tolerate ambulation w/ FWW but requires cues for normalized gait, upright posture, and heel toe walking. Pt also able to complete 1 step w/ FWW and cues. He is showing improvements w/ ambulation, but is demonstrating some weakness w/ bed mobility and has decreased tolerance for activity. Pt will benefit from additional bed mobility training before d/c home to improve functional mobility. Goals Bed Mobility Goal Independent Transfer Goal Independent,Front Wheeled Walker Gait Goal Independent,Front Wheel Walker Gait Distance 300 Other Goals 1 JASMYN with FWW Days to Meet Goals 2 Frequency of Treatment Frequency Of Treatment Twice a Day Treatment Plan Physical Therapy Treatment Plan Bed Mobility Training,Transfer Training,Gait Training, Therapeutic Exercise,Balance Retraining,Post Op Education, Discharge Planning,Hot or Cold Pack,Neuromuscular Re-ed Other Recommendations and Next Treatment Bed mobility Focus Recommendations To Nursing Amount of Assist Needed 1 Person Assist Discharge Recommendations PT Discharge Recommendations Home,Outpatient PT Transportation Needs at Discharge Private Vehicle
--- NOTE | 2020-01-24 14:22 | CM.DANOTE ---
Addendum entered by Viry Last LPN 01/24/20 15:00: Met with pt as planned and introduced self and role. He noted that he recognized me from his last stay here: I had the surgery on my knee almost exactly a year ago. I feel like I know lots of the staff here. RONY Prieto was just completing her treatment of pt. She notes that bed mobility remains a challenge but in all other ways he is doing well for a d/c to his home. She recommends that he continue to stay and work further on the bed mobility in the morning. Pt also states that his voiding is improving but that, too has been a concern. MYRIAM Ascencio is currently unavailable so am not able to check on specifics with her yet. Asked about pt's post d/c support system. He states long time neighbors [place] and [place] will be picking him up at d/c and will be looking in on him. They have a chavez to his home and live just minutes away. He says he feels very comfortable with this plan. Did speak with Dr. Vargas who is here checking on patients and is operation shift supervisor. He confirms he will be back tomorrow. He is updating, gives order to cancel the d/c for today. MYRIAM Ascencio is then updated and will put in the cancellation shortly. P: will check in again tomorrow and follow. Anticipate home after morning PT as per above. Original Note: Discharge Planning/Care Management DCP: assessment: case received and discussed in Team Rounds. EMR now reviewed. A d/c to home order was in place early this morning but with addendum in progress note by Dr. Cardona that pt will d/c once cleared for home setting by PT and when able to void. Pt is a 74 year old male who admitted yesterday for a scheduled revision of a prior RTKA. Surgeon: Dr. Cardona Payer: [facility] Admission status: INPT: confirmed by UR MYRIAM Arce. Pt stated to MYRIAM SALINAS during his pre-op phone assessment that his plan at d/c was for home with friends stay and assist. He lives alone in a single level home. PT has worked with pt today but it is unclear if he has been cleared yet for home. Pt also had problems post op with urine retention. No notes are in thus far from nursing re this. Will check in with pt now and continue this assessment process. CM Discharge Assessment Start: 01/24/20 14:20 Freq: Status: Active Protocol: Document 01/24/20 14:21 ITV (Rec: 01/24/20 14:21 ITV [id number]) Discharge Planning Assessment Advance Directives? Yes Advance Directives on File No History Provided By Medical Record Prior Living Arrangements House Household Members none Is patient alert and oriented? Yes Review Status In Process Pre-Anesthesia Assessment Start: 01/14/20 08:25 Freq: Status: Active Protocol: Document 01/14/20 08:25 CAB (Rec: 01/14/20 09:25 CAB [id number]) Pre-Anesthesia Assessment Preferred Name Omid Patient Information Reviewed Via Phone Assessment Assessment Completed With Patient Diagnostic Results BMP/CMP,CBC Comment Labs @ 01/08/20-Pt needs to schedule COVID screening Primary Care Provider Anthony Rosas Seen Specialist in Last 12 Months Yes Specialist Seen Consumer Services Advisor,Orthopedist Primary Language Cymraes Preferred Language Cymraes Product Marketing Specialist Required No Height 163.83 cm Weight 74.843 kg Body Mass Index (BMI) 27.8 Hearing Ability Normal Visual Assist Magnifying Glass Dentition Type Teeth, Natural Present Barriers to Learning None Other Aids No Hx Anesthesia Reactions No Hx Family Anesthesia Reaction No Hx Malignant Hyperthermia No Hx Blood Transfusions No Hx Blood Transfusion Reaction No Anesthesia Review Requested No Sole Seamer No alcohol intake current alcohol intake frequency a few times a week Smoking Status Never smoker Substance Use Type does not use Pain Present Pain Reported Musculoskeletal Symptoms Abnormal Gait,Difficulty Walking,Joint Pain,Joint Stiffness,Limited Range of Motion History of Falling (Recent or History of No ) Patient is completely paralyzed or No completely immobile Prosthesis or Orthotic Device Front Wheel Walker Mental Status Oriented to own ability Is patient on oxygen? No Does patient have VEGA/SOB No Hx Sleep Apnea No CPAP/BIPAP use not prescribed Currently Taking a Beta Sandoval Yes: Metoprolol Can You Climb a Flight of Stairs Without Yes SOB Hx Chest Pain No Hx SOB No Hx Syncope or Dizziness No Anti-Coagulant Therapy No Has a Consumer Services Advisor Yes[place] [place] Cardiac Testing Yes: Echo 12/01/19 Hx Pacemaker/ICD No Pacemaker Rep Required? No Cardiac Clearance Received Yes Comment Cardiac clearance part of visit 12/03/19, records scanned to record Diet Type At Home Regular dysphagia No Genitourinary Symptoms Frequency Bladder Pattern Frequency Urinary Catheter Present No Hx Urinary Self Catheterization No Diabetes No Hx Drug Resistant Organism No Presence of External or Internal Medical No Devices Have you had any close contact with No someone diagnosed with COVID-19? Evaluation/Screening for possible COVID- Yes 19 infection completed? Marital Status Single Lives With none Prior Living Arrangements House Number of Floors (Floors) One Floor Support System Friend(s) Does the Patient Have Assistance After Yes: Friends will stay w/pt to Surgery assist @ DC Patient Discharge Plan Description Return Home Feels Safe in Current Environment Yes Been Physically Hurt or Threatened By a No Person in Current Environment Do you have thoughts of harming yourself None or others? Are you currently considering suicide? No Do you have a plan to hurt yourself or No Plan others? Do You Have Any Spiritual Beliefs That No May Affect Your HC Choices? Do You Have Any Cultural Practices That No May Affect Your HC Choices? Comment [employer] Who Can We Speak to About Patient's Care Family, friends Identifying Code for Release of Patient Declines to issue Information Health Care Proxy/Next of Kin Aarti (sister) Health Care Proxy Emergency Contact Name Aarti () Emergency Contact Advance Directives? Yes Advance Directives on File Yes Power of Oncology Research Rn Yes Power of Oncology Research Rn Name Aarti Hightower--Sister Power of Oncology Research Rn Phone Number Home: Work: [employer] Instructions Durable medical equipment, Medications to take/avoid, Nasal antibiotic,No ETOH/ petroleum product on skin DOS, NPO,Post-op transportation,Pre -surgical wash,Sturdy shoes/ comfortable clothes,Do not bring valuables and remove jewelry
--- NOTE | 2020-01-24 14:26 | PC.NURSE ---
Patient is working with physical therapy and states that he would benefit from more therapy tomorrow as he is having some difficulty getting out of bed. He is a one person assist to the bathroom.. .He is voiding well and has had a bm. Bladder scanned x1 for 240... Has been voiding between 200and 150cc. Dressing to knee with acewrap. Dressing is cdi. Tylenol for pain.
--- NOTE | 2020-01-24 14:41 | PT.IPTN ---
Current Diagnoses Mechanical loosening of internal right knee prosthetic joint, subsequent encounter (01/23/20) Presence of right artificial knee joint (01/23/20) Surgery Performed Operation Date: 01/23/20 07:45 Actual Procedures p Total Knee Arthroplasty Revision(Right) - Dalton Cardona MD Physical Therapy Treatment Note M2 PT-IP Current Condition Start: 01/23/20 15:22 Freq: NEEDED Status: Active Protocol: Document 01/23/20 16:32 HH (Rec: 01/23/20 16:59 HH [id number]) Physical Therapy Current Condition Current Condition Evaluation Date 01/23/20 Treatment Diagnosis s/p revision R TKA, difficulty in walking Onset Date 01/23/20 Weight Bearing Status Weight Bearing Status Weight Bear as Tolerated M3 PT-IP Subjective Start: 01/23/20 15:22 Freq: NEEDED Status: Active Protocol: Document 01/24/20 14:11 KS (Rec: 01/24/20 15:18 KS [id number]) Subjective Physical Therapy Visit Type Type Treatment Note Visit Start Time 14:11 Visit Stop Time 14:41 Total Visit Minutes 30 Number of HAND BUFFER Visits 2 Physical Therapy Visit Comments Patient Comments Pt agreeable to working w/ therapy. Patient Goals Able to regain full ROM Therapy Pain Assessment Pain When Pain Assessed During Mobility Pain Present Pain Present Pain Reported Location Right Knee Intensity 4 Scale Used Numeric (0 - 10) Description Aching,Acute Pain Management Techniques Apply Cold,Elevation,Re- positioning M4 PT-IP Mobility and Gait Start: 01/23/20 15:22 Freq: NEEDED Status: Active Protocol: Document 01/24/20 14:11 KS (Rec: 01/24/20 15:18 KS [id number]) PT-Bed Mobility Assessment Rolling Type of Rolling Roll to Right Level of Assist Contact Guard Assistance Supine to Sit Supine to Sit Moderate Assistance Sit to Supine Sit to Supine Standby Assistance Scooting Scooting to Edge of Bed Standby Assistance PT-Transfer Assessment Sit to and From Stand Sit to and from Stand Contact Guard Assistance,Use of Upper Extremities Equipment Transfer Assistive Device Gait Belt,Front Wheeled Walker Orthotic/Prosthetic Devices or Brace: No Transfers Transfer Destination Bed Transfer Technique pt ambulated w/ FWW Transfer Ability Level of Assist Contact Guard Assistance,Use of Upper Extremities Comments Mobility Comments Pt was supine in bed upon arrival from therapy w/ RLE elevated. Pt performed 1x10 ankle pumps, quad sets, heel slides, and glute sets. Mod A x1 w/ flat HOB for sup<>sit. SBA for scooting to EOB and CGA for sit<>stand w/ FWW. Pt then ambulated SBA to CGA ~300 ft w/ FWW. Cues for equal step length and upright posture. Pt completed 1 platform step w/ FWW CGA, demonstrated good carryover of sequencing for ascend/descend step. Pt then ambulated back to room SBA and sit<>sup SBA. Pt left in bed w/ RLE elevated , ice applied, and all needs in reach. Gait Assessment Gait Gait Assistance Required: Standby Assistance,Contact Guard Assist Distance (Feet) 300 Able to Maintain Weight Bearing Status Yes During Gait Assistive Devices Assistive Device Gait Belt,Front Wheeled Walker Orthotic/Prosthetic Devices or Brace: No Gait Deviations General Gait Pattern Antalgic,Decreased Stride Length,Decreased Feet Clearance,Step-to Gait Factors Limiting Gait Function Factors Limiting Gait Function Decreased Activity Tolerance, Decreased Strength,Limited Range of Motion,Pain Comments Gait Comments Pt ambulated ~300 ft w/ FWW and SBA to CGA w/ 1x standing rest break. Cues for upright posture and equal step length. Demonstrated good use of FWW and good safety awareness. Stair Climbing Assessment Evaluation Level of Assist On Stairs Contact Guard Assistance,1 Person Assistance Devices Stair Climbing Assistive Devices Front Wheel Walker Technique/Endurance Stair Climbing Direction Ascend and Descend Stair Climbing Technique Step to Step Number of Steps Climbed 1 Stair Climbing Set # Repetitions (reps) 1 Comments Stair Climbing Comments Pt ascended/descended 1 platform step w/ FWW and CGA. Pt demonstrated proper technique and sequencing. PT-Balance Assessment Sitting Balance and Reactions Static Sitting Balance Ability Normal Dynamic Sitting Balance Ability Normal Standing Balance and Reactions Static Standing Balance Ability Normal Dynamic Standing Balance Ability Good Device Used FWW M5 PT-IP Objective Assessments Start: 01/23/20 15:22 Freq: NEEDED Status: Active Protocol: Document 01/23/20 16:32 HH (Rec: 01/23/20 16:59 HH [id number]) Orientation Orientation/Cognition Level of Alertness Alert Orientation Name,Age,Birthday,Month,Date, Year,Day of Week,Place, Situation Language Function Ability No Deficits Noted Safety Awareness Understands Safety Issues Memory Description No Deficits Noted Gross Range of Motion Upper Extremity ROM Assessment Within Functional Limits Lower Extremity ROM Assessment Right Impaired Impairments 6-110 knee AROM Strength Upper Extremity Strength Assessment Within Functional Limits Lower Extremity Strength Assessment Right Impaired Hip 4/5 Knee 4/5 Ankle 5/5 Sensation Assessment Sensation Gross Sensation WNL Muscle Tone Muscle Tone WNL Yes M6 PT-IP Treatment Start: 01/23/20 15:22 Freq: NEEDED Status: Active Protocol: Document 01/24/20 14:11 KS (Rec: 01/24/20 15:18 KS [id number]) Physical Therapy Treatment Exercises Exercises Ankle Pumps,Gluteal Sets,Quad Sets,Heel Slides Education Education Provided Precautions,Weight Bearing Status,Post-Op Packet,Safety M7 PT-IP Assessment and Plan Start: 01/23/20 15:22 Freq: NEEDED Status: Active Protocol: Document 01/24/20 14:11 KS (Rec: 01/24/20 15:18 KS [id number]) PT Summary Assessment and Plan Potential Rehabilitation Potential Excellent Status of Condition at Evaluation Stable Summary Assessment Summary Pt showing improvements w/ gait pattern and FWW management, but required Mod A for sup<>sit w/ flat HOB. Pt lives alone and would benefit from continued bed mobility training. SBA for sit<>sup, SBA to CGA for ambulation, CGA for platform step. Goals Bed Mobility Goal Independent Transfer Goal Independent,Front Wheeled Walker Gait Goal Independent,Front Wheel Walker Gait Distance 300 Other Goals 1 JASMYN with FWW Days to Meet Goals 2 Frequency of Treatment Frequency Of Treatment Twice a Day Treatment Plan Physical Therapy Treatment Plan Bed Mobility Training,Transfer Training,Gait Training, Therapeutic Exercise,Balance Retraining,Post Op Education, Discharge Planning,Hot or Cold Pack,Neuromuscular Re-ed Other Recommendations and Next Treatment Bed mobility Focus Recommendations To Nursing Amount of Assist Needed 1 Person Assist Discharge Recommendations PT Discharge Recommendations Home,Outpatient PT Transportation Needs at Discharge Private Vehicle
--- NOTE | 2020-01-24 18:46 | PC.NURSE ---
Assumed care of pt at 1500. A/O. Drsg c/d/i with venancio wrap. CMS+. Denies numbness. Up frequently to bathroom. Has urgency and frequency. Calls but gets out of bed without waiting for staff assist. Reminded several times to wait for staff arrival for safety. Pt verbalizes understanding but continues with behavior. Bed alarm remains on. Call light within reach. Pleasant with care.
[2020-01-24] MEDS: METOPROLOL ER 25 MG TABLET PO (21:17)
[2020-01-24] MEDS: SODIUM CHLORIDE 0.9% FLUSH 10 ML IV (21:19)
[2020-01-24] MEDS: SIMVASTATIN 10 MG TABLET 20 MG PO (21:22)
[2020-01-25] VITALS: BP 149/83; PULSE 81; RESP 16; TEMP 37.3; O2SAT 98
[2020-01-25] MEDS: OXYCODONE IR 10 MG TABLET PO ×2 (00:28→09:07)
--- NOTE | 2020-01-25 00:56 | PC.NURSE ---
Patient seen and assessed at 0034. Is alert and oriented. Breath sounds CTA with RA sat of 98%. HRR; BP higher at 149/83 and has had variable readings since admission. Denies nausea. BT present and had BM yesterday. Is voiding per urinal; denies dysuria or urgency but previous RN reports some frequency. Is able to move self in bed. Up to bathroom with walker and SBA. Aquacel dressing with small spot of drainage seen at proximal end; wrapped with venancio. Non pitting edema in right LE; elevated on pillows. Complains of 4/10 achy pain in right knee so medicated with 5mg Oxycodone (his request for lower dose) and ice applied. CMS is intact. Refusing SCD's but verbalizes understanding of ankle waves. Fall risk score is moderate and patient does not always wait for assist before getting out of bed or up from toilet so alarm is activated for safety.
[2020-01-25 03:27] VITALS: BP 146/80; PULSE 64; RESP 16; TEMP 36.9; O2SAT 98
[2020-01-25 07:34] VITALS: BP 116/70; PULSE 77; RESP 16; TEMP 36.7; O2SAT 96
--- NOTE | 2020-01-25 09:02 | CM.DPC ---
Addendum entered by Viry Last LPN 01/25/20 11:26: Dr. Vargas was here and states pt is stable for d/c once cleared by PT. Will be following. Original Note: DCP: continued: d/c was canceled yesterday afternoon by Dr. Vargas as pt had not been cleared by PT and was having urinary retention issues. PT did plan to see pt again this morning. Anticipate that if pt does well and is voiding he will d/c to home with friends' support as per his plan. Will be following and will discuss in Team Rounds.
[2020-01-25] MEDS: SODIUM CHLORIDE 0.9% FLUSH 10 ML IV (09:07)
[2020-01-25] MEDS: ASPIRIN EC 81 MG TABLET PO (09:07)
[2020-01-25] MEDS: ACETAMINOPHEN 325 MG TABLET 650 MG PO (09:07)
--- NOTE | 2020-01-25 09:55 | PM.PN.1 ---
Exam Vital Signs (past 8 hours): - 01/25/20 03:27 01/25/20 07:34 Temperature 98.4 F 98.1 F Pulse Rate 64 77 Respiratory Rate 16 16 Blood Pressure 146/80 H 116/70 Pulse Oximetry 98 96 Oxygen Delivery Method Room Air Oxygen Flow Rate 0 Objective Labs Result Diagrams: 01/24/20 05:51 Assessment & Plan Assessment & Plan narrative: POD#2 s/p revision TKA. Patient is doing well. On exam, he is neurovascularly intact and w/o s/s of DVT. Will discharge today to home once PT is clearing him.
--- NOTE | 2020-01-25 11:55 | PT.IPTN ---
Current Diagnoses Mechanical loosening of internal right knee prosthetic joint, subsequent encounter (01/23/20) Presence of right artificial knee joint (01/23/20) Surgery Performed Operation Date: 01/23/20 07:45 Actual Procedures p Total Knee Arthroplasty Revision(Right) - Dalton Cardona MD Physical Therapy Treatment Note M2 PT-IP Current Condition Start: 01/23/20 15:22 Freq: NEEDED Status: Active Protocol: Document 01/23/20 16:32 HH (Rec: 01/23/20 16:59 HH [id number]) Physical Therapy Current Condition Current Condition Evaluation Date 01/23/20 Treatment Diagnosis s/p revision R TKA, difficulty in walking Onset Date 01/23/20 Weight Bearing Status Weight Bearing Status Weight Bear as Tolerated M3 PT-IP Subjective Start: 01/23/20 15:22 Freq: NEEDED Status: Active Protocol: Document 01/25/20 11:55 AW (Rec: 01/25/20 12:05 AW [id number]) Subjective Physical Therapy Visit Type Type Treatment Note Visit Start Time 11:24 Visit Stop Time 11:52 Total Visit Minutes 28 Number of BB SHOT PACKER Visits 0 Physical Therapy Visit Comments Patient Comments Pt willing to participate with PT Therapy Pain Assessment Pain When Pain Assessed During Mobility Pain Present Pain Present Pain Reported Location Right Knee Intensity 5 Scale Used Numeric (0 - 10) Pain Management Techniques Apply Cold,Elevation,Re- positioning M4 PT-IP Mobility and Gait Start: 01/23/20 15:22 Freq: NEEDED Status: Active Protocol: Document 01/25/20 11:55 AW (Rec: 01/25/20 12:05 AW [id number]) PT-Bed Mobility Assessment Supine to Sit Supine to Sit Standby Assistance Sit to Supine Sit to Supine Standby Assistance Scooting Scooting to Edge of Bed Standby Assistance PT-Transfer Assessment Sit to and From Stand Sit to and from Stand Standby Assistance,Use of Upper Extremities Equipment Transfer Assistive Device Gait Belt,Front Wheeled Walker Orthotic/Prosthetic Devices or Brace: No Transfers Transfer Destination Bed,Chair Transfer Technique pt ambulated w/ FWW Transfer Ability Level of Assist Standby Assistance,Use of Upper Extremities Comments Mobility Comments Pt was supine in bed upon PT arrival. He stated his 909 pain medication had been effective and he was ready to get up. He completed all bed mobility SBA and proceeded to stand using FWW SBA. He then ambulated around the halls and participated in stair training before returning to the room where he practiced transferring to and from the chair and from the chair to the bed. He used his left leg to lift his right leg into the bed, completing sit to supine SBA. He was positioned in the bed with call light and table within reach. Gait Assessment Gait Gait Assistance Required: Standby Assistance,1 Person Assist Distance (Feet) 250 Able to Maintain Weight Bearing Status Yes During Gait Assistive Devices Assistive Device Gait Belt,Front Wheeled Walker Orthotic/Prosthetic Devices or Brace: No Gait Deviations General Gait Pattern Antalgic,Decreased Stride Length,Decreased Feet Clearance,Step-to Gait Factors Limiting Gait Function Factors Limiting Gait Function Decreased Activity Tolerance, Decreased Strength,Limited Range of Motion,Pain Comments Gait Comments Pt ambulated in the hals with FWW SBA. He was able to respond to verbal cues for knee flexion during swing phase, heel strike at initial contact, and glute engagement during stance phase with the result of improved posture and gait mechanics. Stair Climbing Assessment Evaluation Level of Assist On Stairs Standby Assistance,1 Person Assistance Devices Stair Climbing Assistive Devices Front Wheel Walker Technique/Endurance Stair Climbing Direction Ascend and Descend Stair Climbing Technique Step to Step Number of Steps Climbed 1 Stair Climbing Set # Repetitions (reps) 4 M5 PT-IP Objective Assessments Start: 01/23/20 15:22 Freq: NEEDED Status: Active Protocol: Document 01/23/20 16:32 HH (Rec: 01/23/20 16:59 HH [id number]) Orientation Orientation/Cognition Level of Alertness Alert Orientation Name,Age,Birthday,Month,Date, Year,Day of Week,Place, Situation Language Function Ability No Deficits Noted Safety Awareness Understands Safety Issues Memory Description No Deficits Noted Gross Range of Motion Upper Extremity ROM Assessment Within Functional Limits Lower Extremity ROM Assessment Right Impaired Impairments 6-110 knee AROM Strength Upper Extremity Strength Assessment Within Functional Limits Lower Extremity Strength Assessment Right Impaired Hip 4/5 Knee 4/5 Ankle 5/5 Sensation Assessment Sensation Gross Sensation WNL Muscle Tone Muscle Tone WNL Yes M6 PT-IP Treatment Start: 01/23/20 15:22 Freq: NEEDED Status: Active Protocol: Document 01/25/20 11:55 AW (Rec: 01/25/20 12:05 AW [id number]) Physical Therapy Treatment Exercises Exercises Passive Knee Extension Hang Education Education Provided Weight Bearing Status,Safety Other Treatments Other Treatment Performed Pt had already performed bed exercises before PT this AM. Reinforced the importance of maintaining extension ROM and advised pt to lie with knee in extension and pillow under distal leg as much as possible . M7 PT-IP Assessment and Plan Start: 01/23/20 15:22 Freq: NEEDED Status: Active Protocol: Document 01/25/20 11:55 AW (Rec: 01/25/20 12:05 AW [id number]) PT Summary Assessment and Plan Potential Rehabilitation Potential Excellent Status of Condition at Evaluation Stable Summary Impairments Pain,ROM,Strength,Balance,Bed Mobility,Transfers,Gait, Activity Tolerance Progress Towards Goals Progressing Toward Goals Assessment Summary Pt required no more than SBA for all mobility today and demonstrated improved gait mechanics. He is safe for discharge with outpatient PT. Goals Bed Mobility Goal Independent Transfer Goal Independent,Front Wheeled Walker Gait Goal Independent,Front Wheel Walker Gait Distance 300 Other Goals 1 JASMYN with FWW Days to Meet Goals 2 Frequency of Treatment Frequency Of Treatment Discharge Treatment Plan Physical Therapy Treatment Plan Bed Mobility Training,Transfer Training,Gait Training, Therapeutic Exercise,Balance Retraining,Post Op Education, Discharge Planning,Hot or Cold Pack,Neuromuscular Re-ed Recommendations To Nursing Amount of Assist Needed Standby Assistance Discharge Recommendations PT Discharge Recommendations Home,Outpatient PT Transportation Needs at Discharge Private Vehicle
--- NOTE | 2020-01-25 12:52 | CM.DPC ---
DCP: continued: Stopped in to see pt and spoke also with his nurse Chhaya. Pt confirms he is now voiding well. I don't have to measure it anymore. He has just worked with PT Leida (who he has also worked with in the outpt PT clinic at ) and has been cleared for home. Dr. Vargas has not yet put in the d/c order for today (as this was canceled yesterday) and thus Chhaya said she will be calling him with update and to obtain final orders. Pt's friends were planning to pick him up at noon but he did call them to tell them he did not yet know the time of d/c. P: home today as per above. Will follow prn until pt leaves.
--- NOTE | 2020-01-25 14:08 | PC.NURSE ---
Day shift note: Patient discharged home as per Dr. AQUINO orders. Discussed importance of F/U with Dr. Cardona, precautions, and s/sx of infections. Patient verbalized understanding of instructions. Discharge home via private vehicle, picked up by neighbor [place].
--- NOTE | 2020-02-18 21:31 | PM.DS.1 ---
History of Present Illness History of Present Illness Date Patient Seen: 01/24/20 Time Patient Seen: 07:00 Chief complaint: [id number] Narrative: Patient was admitted for revision right TKA for aseptic loosening. Discharge Providers Provider Date of admission: 01/23/20 06:34 Discharge Date: 01/25/20 Primary care physician: Anthony Rosas DO Consults: 01/23/20 13:08 Consult to Discharge Planning Routine Comment: Consult to Physical Therapy Evaluate & Treat Comment: Physician Instructions: postop TKA protocol Consult to Respiratory Therapy Evaluate & Treat Comment: Physician Instructions: Evaluate and treat Discharge provider: Dalton Cardona MD Summary Hospital Course Discharge Diagnosis: s/p revision R TKA Hospital Course: Patient was admitted for revision of R TKA for aseptic loosening of the tibial baseplate. Overall he has done well postoperativley. He has been progresisng with PT and is now ambulating with a FWW and minimal pain. Status at Discharge Cognitive/behavioral status at discharge: oriented Functional status at discharge: uses cane/walker Overall status at discharge: patient is progressing back to baseline Time Spent with Patient Time spent: Less than 30 minutes Exam Vital Signs (past 8 hours): Oxygen Delivery Method Room Air Oxygen Flow Rate 0 Narrative Exam Narrative: NV intact in RLE, moderate knee effusion, dressing c/d/i. Ambulating with minimal pain Objective Labs Result Diagrams: 01/24/20 05:51 Discharge Plan Discharge Plan Patient Disposition: Home Discharge comment: DC home when cleared by PT and not retaining urine Discharge orders & Medications Prescriptions: Continued simvastatin 20 mg tablet 20 mg PO QPM Qty: 90 RF: 3 multivitamin Tablet 1 tab PO DAILY RF: 0 metoprolol succinate 25 mg tablet extended release 24 hr 25 mg PO BEDTIME RF: 0 Follow up/Referrals: Dalton Cardona MD [Physician] - Anthony Rosas DO [Primary Care Provider] - Diet/Activity/Treatments Diet: Diet as Tolerated Activity: WBAT right lower extremity. Work on gentle ROM Cold/Heat Therapy: ICE as needed for pain control. Place towel between skin and ice to avoid de guzman Catheter comment: DC is pending resolution of urine retention. Skin/Wound/Dressing Care Dressing: OK to shower over dressing. Do not remove dressing until seen in clinic. Visit Report/Discharge Packet Instructions: DI for Knee Replacement, DI for Prescription Opioid Use Stand Alone Forms: Surgery Discharge Discharge Data Primary Care Provider: Anthony Rosas Discharges patient from system. Discharge Date/Time: 01/25/20 14:10
== END 2020-01-25 14:10 | disposition home or self-care (01) | DRG 468 ==
PROVIDERS: Admitting Provider Orthopaedic Surgery Adult Reconstructive Orthopaedic Surgery; PCP Family Medicine; Referring Provider Orthopaedic Surgery Adult Reconstructive Orthopaedic Surgery; Visit Provider Orthopaedic Surgery Adult Reconstructive Orthopaedic Surgery
DX: T84.032A Mechanical loosening of internal right knee prosthetic joint, initial encounter (principal); I10 Essential (primary) hypertension; R33.9 Retention of urine, unspecified; Z01.818 Encounter for other preprocedural examination
CPT/HCPCS: 36415; 36592; 73560; 85014; 85018; 85025; 87070; 87075; 87205; 87635; 97110; 97116; 97161; 97530; C1776; J0690; J1885; J2270; J2704

== ENCOUNTER → 2020-07-12 13:25 | Outpatient (CLI) | payer MEDICARE, SELFPAY ==
[2020-01-23 13:49] VITALS: BMI 28.0
[2020-07-12 14:03] LABS: COVID19 -Nasal RAPID Negative (Negative)
== END ==
PROVIDERS: PCP Family Medicine; Visit Provider Physician Assistant
DX: Z11.59 Encounter for screening for other viral diseases (principal)
CPT/HCPCS: 87635

== ENCOUNTER 2020-07-14 11:53 | Day surgery (SDC) | payer MEDICARE, SELFPAY ==
[2020-01-23 13:49] VITALS: BMI 28.0
[2020-07-14 12:10] VITALS: BP 152/86; PULSE 109; RESP 18; TEMP 36.3; O2SAT 98; BMI 26.9
[2020-07-14] MEDS: SODIUM CHLORIDE 0.9% 1,000 ML 84 ML IV (12:26)
--- NOTE | 2020-07-14 13:36 | PM.PREOP ---
Pre-operative Note COVID-19 COVID-19 status: Negative Interval Note History & Physical reviewed/Exam performed by Physician: Yes Changes to H&P: No ASA Class (for procedural sedation): II
--- NOTE | 2020-07-14 13:36 | PM.OP.ENDO ---
Operative Date/Time/Diagnoses Date of procedure: 07/14/20 Pre-op diagnosis: See indication and findings Procedure & Clinicians Study performed: Colonoscopy Same procedure as scheduled: Yes Indications: History of adenomatous colon polyps Surgeon: Mónica Guardado Procedure Notes Procedure in detail: After informed consent was obtained the patient was placed in left lateral decubitus position. The video colonoscope was introduced the rectum slowly advanced cecum. Preparation was good. On slow withdrawal mucosa was carefully examined. The scope was removed. The patient tolerated procedure well. Blood loss none Complications none Sedation Total sedation time 15 minutes Versed 5 mg fentanyl 100 micro g IV titration Findings 1. Normal colonoscopy to cecum Mr. Hightower, if he is in good health, could consider 1 more colonoscopy in 5-7 years.
[2020-07-14] MEDS: fentaNYL 250 MCG/5 ML INJ IV (13:59)
[2020-07-14] MEDS: MIDAZOLAM 5 MG/5 ML VIAL IV (13:59)
[2020-07-14 14:06] VITALS: BP 123/69; PULSE 87; RESP 18; TEMP 36.4; O2SAT 93
[2020-07-14 14:11] VITALS: BP 120/69; PULSE 82; RESP 17; O2SAT 93
[2020-07-14 14:16] VITALS: BP 121/67; PULSE 80; RESP 17; O2SAT 93
[2020-07-14 14:24] VITALS: BP 125/77; PULSE 93; RESP 17; TEMP 36.2; O2SAT 96
== END 2020-07-14 14:45 | disposition home or self-care (01) ==
PROVIDERS: PCP Family Medicine; Referring Provider Internal Medicine Gastroenterology; Visit Provider Internal Medicine Gastroenterology
PROC: 0DJD8ZZ Inspection of Lower Intestinal Tract, Via Natural or Artificial Opening Endoscopic (ICD-10-PCS; CPT 45378; principal; 2020-07-14 13:30)
DX: Z12.11 Encounter for screening for malignant neoplasm of colon (principal); Z86.010 Personal history of colon polyps; E78.5 Hyperlipidemia, unspecified; K21.00 Gastro-esophageal reflux disease with esophagitis, without bleeding
CPT/HCPCS: G0105; J2250; J3010

== ENCOUNTER → 2020-08-20 09:24 | Outpatient (CLI) | payer MEDICARE, SELFPAY ==
[2020-01-23 13:49] VITALS: BMI 28.0
[2020-08-20 10:59] LABS: Add Manual Diff / Slide Review NO; Basophils Absolute Auto 0 /uL (0-100); Basophils Percent Auto 0.5 % (0-2); Eosinophils Absolute Auto 200 /uL (0-450); Eosinophils Percent Auto 2.4 % (2-4); Hematocrit 42.3 % (41-53); Hemoglobin 14.5 g/dL (13.5-17.5); Lymphocytes Absolute Auto 1700 /uL (1100-4500); Lymphocytes Percent Auto 25.1 % (25-40); Mean Corpuscular HGB Conc 34.4 % (30-36); Mean Corpuscular Hemoglobin 31.5 PG (26-34); Mean Corpuscular Volume 91.7 fL (80-100); Monocytes Absolute Auto 600 /uL (0-900); Monocytes Percent Auto 9.3 % (3-14); Neutrophils Absolute Auto 4400 /uL (1500-7000); Neutrophils Percent Auto 62.7 % (50-75); Platelet Count 198 X10^3/uL (150-400); Red Blood Cell Count 4.61 X10^6/uL (4.5-5.9); Red Cell Distribution Width 13.7 % (11.6-14.8)
[2020-08-20 11:08] LABS: Hemoglobin A1C% w Est Avg Glu 6.2 % (4.0-6.0)
[2020-08-20 11:10] LABS: Blood Urea Nitrogen 18 mg/dL (9-20); Calcium 9.5 mg/dL (8.4-10.2); Carbon Dioxide 31 mmol/L (22-32); Chloride 103 mmol/L (98-107); Estimated Glomerular Filt Rate > 60.0 mL/min (>60); Glucose 94 mg/dL (80-110); HEMOLYSIS < 15 (0-50); Potassium 4.3 mmol/L (3.4-5.1); Sodium 138 mmol/L (137-145)
== END ==
PROVIDERS: PCP Family Medicine; Referring Provider Orthopaedic Surgery Adult Reconstructive Orthopaedic Surgery; Visit Provider Orthopaedic Surgery Adult Reconstructive Orthopaedic Surgery
DX: Z01.818 Encounter for other preprocedural examination (principal); R73.9 Hyperglycemia, unspecified
CPT/HCPCS: 36415; 80048; 83036; 85025; 93005

== ENCOUNTER → 2020-08-30 11:08 | Outpatient (CLI) | payer MEDICARE, SELFPAY ==
[2020-01-23 13:49] VITALS: BMI 28.0
[2020-08-30 12:25] LABS: COVID19 -Nasal RAPID Negative (Negative)
== END ==
PROVIDERS: PCP Family Medicine; Visit Provider Physician Assistant
DX: Z20.822 Contact with and (suspected) exposure to COVID-19 (principal)
CPT/HCPCS: 87635; C9803

== ENCOUNTER 2020-09-01 10:31 | Day surgery (SDC) | payer MEDICARE, SELFPAY ==
[2020-01-23 13:49] VITALS: BMI 28.0
[2020-09-01] VITALS (14 sets, daily range): BP systolic 103–147; BP diastolic 61–85; PULSE 77–104; RESP 13–20; TEMP 36.1–37.1; O2SAT 93–98; BMI 28.3
--- NOTE | 2020-09-01 | DI.RAD.S_ITS ---
PROCEDURE: XR HIP W PEL IF DONE LT 2V INDICATIONS: LEFT ANTERIOR HIP TECHNIQUE: 2 operative view(s) of the hip acquired. COMPARISON: Merged With [facility], CR, XR HIP W PEL IF DONE LT 2V, 12/29/2019, 14:01. FINDINGS: Bones: 2 operative fluoroscopic images demonstrate total left hip arthroplasty, with hardware components in expected positions. The hip joint appears congruent. The visualized bony structures appear intact. Soft tissues: Overlying postoperative changes are noted. No suspicious soft tissue densities. IMPRESSION: Operative imaging utilized during total left hip arthroplasty with no radiographic evidence of complications. Dictated by: Atif Walker M.D. on 09/01/2020 at 14:19 Approved by: Atif Walker M.D. on 09/01/2020 at 14:20
--- NOTE | 2020-09-01 06:00 | DI.RAD.S_ITS ---
PROCEDURE: XR PELVIS 1-2V INDICATIONS: post op films TECHNIQUE: 1 view of the lower pelvis acquired. COMPARISON: [facility], CR, XR HIP W PEL IF DONE LT 2V, 12/29/2019, 14:01. [facility], MR, MR HIP LT WO CON, 01/07/2020, 11:40. [facility], CR, XR PELVIS WITH LATERAL HIP LEFT, 07/21/2020, 16:26. [facility], CR, XR PELVIS 1 OR 2 VIEWS, 07/30/2020, 16:24. [facility], CR, XR HIP W PEL IF DONE LT 2V, 09/01/2020, 13:17. FINDINGS: Bones: Patient is status post left hip arthroplasty, with hardware components in expected positions. The hip joint appears congruent. The visualized bony structures appear intact postoperatively, an area of relative lucency and sclerosis involving the area just beneath the left hip joint is again noted which has been further assessed. Please also refer to prior MR scanning.. Soft tissues: Overlying postoperative changes are noted. No suspicious soft tissue densities. IMPRESSION: No trauma related to the left hip arthroplasty is identified, normal alignment established. Mixed sclerotic and lytic appearance at the osseous margin beneath the left hip arthroplasty is again noted, previously it evaluated independently, and the etiology remains uncertain but an unusual manifestation of Paget's disease could explain that appearance. It is possible that during the operative procedure biopsy was performed-please correlate clinically. Dictated by: Mandeep Cardona M.D. on 09/01/2020 at 14:51 Approved by: Mandeep Cardona M.D. on 09/01/2020 at 14:54
[2020-09-01] MEDS: PREGABALIN 75 MG CAPSULE PO (11:00)
[2020-09-01] MEDS: ACETAMINOPHEN 325 MG TABLET 975 MG PO (11:00)
[2020-09-01] MEDS: LACTATED RINGERS 1,000 ML 42 ML IV (11:00)
--- NOTE | 2020-09-01 11:51 | PM.PREOP ---
Pre-operative Note COVID-19 COVID-19 status: Negative Result date/Date tested (Pos, Neg/Pending): 08/30/20 Interval Note History & Physical reviewed/Exam performed by Physician: Yes Changes to H&P: No H&P completed within 30 days and has changed as indicated here:: Plan for left anterior LEVI
[2020-09-01] MEDS: CEFAZOLIN 2 GM/100 ML FROZ.PIGGY IV ×2 (12:10→21:04)
--- NOTE | 2020-09-01 13:03 | SUR.OPER ---
Supine on padded [place] table with bilateral legs secured in padded positioning boots and suspended in positioning spars, operative leg in traction per surgeon. Head on one pillow. Arm on non-operative side secured on padded armboard <90 degrees abduction. Arm on operative side padded and resting across chest then secured with tape over sheet. Padded perineal post in place per surgeon.
[2020-09-01] MEDS: ROPIVACAINE 0.5% PF 5 MG/ML 20ML VIAL 60 ML INJ (13:14)
[2020-09-01] MEDS: KETOROLAC 30 MG/ML VIAL IV (13:14)
[2020-09-01] MEDS: MORPHINE 4 MG/ML INJ INJ (13:15)
[2020-09-01] MEDS: TRANEXAMIC ACID 1,000 MG VIAL 1000 MG INJ ×2 (13:25→13:55)
--- NOTE | 2020-09-01 14:09 | P.OP_ITS ---
Operative Date/Time/Diagnoses Date of procedure: 09/01/20 Time of procedure: 14:10 Pre-op diagnosis: left hip OA Post-op diagnosis: same Procedure & Clinicians Procedure: left anterior LEVI Same procedure as scheduled: Yes Indications: left hip OA resistant to further conservative care Surgeon: Dalton Cardona Apron Worker: Jayden Barrios Anesthesia Type: General and Spinal Operative Notes Findings: Left hip osteoarthritis with mgcn-im-ihes articulation and moderate sized neck osteophytes. Prosthetic devices, grafts, tissues, transplants, or devices: [employer]hew R3 54 mm cup 1x 25 mm screw 1x 14mm screw 54 x 36 mm neutral offset polyethylene liner Size 6 standard offset anthology a fit femoral stem Biolox Delta ceramic 36+ 0 head Estimated Blood Loss (mL): 200 Blood products transfused: none Procedure in detail: Patient was met in the preoperative holding area where the site and side of surgery were marked by . Informed consent had been reviewed in clinic but was also reviewed the preoperative holding area. All last minute questions were answered. Patient was then brought back in the operating room where he received a spinal anesthetic was induced under general anesthesia and transferred onto the [place] table. Once on the [place] table both feet were placed in well-padded [place] table boots and the left hip was then prepped and draped in normal sterile fashion for an anterior total hip arthroplasty. Surgical final time-out was performed verifying the site and side of surgery as well as the name of the patient. A 7 cm long incision based approximately 2 cm distal and 1 cm lateral to the IS aiming towards the fibular head was made in the skin using 10. Blade. Electrocautery used to dissect down to the level of the tensor fascia. The tensor fascia was then incised with a new 10. Blade and Allis clamp was placed on the medial aspect of the tensor fascia and the tensor muscle itself was reflected laterally a Cobra was then placed over the superior neck of the femoral neck. A Meyerding was then placed over the lateral aspect of the rectus femoris and retracted medially and a 2nd Cobra retractor was then placed under the inferior aspect of the femoral neck. A bent Hohmann was then placed over the anterior aspect of the acetabular rim giving us good exposure to the anterior capsule. Inverted T-shaped capsulotomy was then performed a superior and inferior leaflets were tagged with a FiberWire suture and the Cobra ret ractors then placed intracapsularly this gave us good exposure to the femoral neck a reciprocating saw was then made used to make the femoral neck cut based off of her height based off of our preoperative template films. A corkscrew was then used to remove the femoral head. Bent Homans were then placed to give us good acetabular exposure and suction and electrocautery were then used to remove the pulvinar. The labrum was then removed using a Graves blade. We began reaming with a 46 mm Reamer and reamed down to the base of the fossa. This point x-ray was brought in and imaging was matched to his preoperative template standing films. I then began upsizing reamers by 2 mm at time under fluoroscopic guidance ending with a 52 mm and subsequently a 53 mm Reamer. A 54 mm 3 hole R3 cup was then selected and impacted in into place under fluoroscopic guidance. A 25 mm screw and a 15 mm screw were placed both with good purchase. A 54 mm x 36 mm neutral offset polyethylene liner was then packed into place as verify that all tabs around the acetabular rim were flush. Next a femoral elevator hook was placed under the posterior aspect of the femur the femur was then externally rotated rotated to 120? extended to the floor and adducted. A bent Hohmann was placed over the superior aspect of the superior leaflet of the capsulotomy and the capsule was released from the inner shoulder of the greater trochanter to allow a large bent retractor placed over the greater trochanter a Ruth retractor was then placed over the calcar and a controlled release of the short external rotators then performed and the proximal femur was then able to be elevated into the wound. A canal finer was used followed by a chili pepper broach followed by a curette and rongeur to remove bone. We then began broaching with a size 1 stem and then up sizing by 1 stem size at a time. We got to a 5 broach this countersink below the level of our neck cut and a 6 stem hung up distally and was not able to be countersunk. We then calcar planed off the 5 stem. I then opened the anthology a fit broaches and a size 6 a fit was able to be some the level of the cut with good rotational stability. We then trialed off the size 6 a fit anthology stem with a standard offset neck and a 36+ 0 head. This was reduced and was stable to maximal external rotation to approximately 120? as well as external rotation to 90? and extension of the leg to the floor. Fluoroscopy was brought in had good canal fit it did appear that we were several mm short on this side we then dislocated the hip removed the trial components and placed a size 6 ESTEBAN coated a fit anthology this set up several mm and so instead of going with a 36+ 4 we selected a 36+ 0 Biolox Delta ceramic this was malleted onto the trunnion and reduced a final time. Betadine solution was then placed into the wound allowed to soak during final fluoroscopic images. The Betadine solution was then lavage away with copious normal saline. Our periarticular injection was then placed followed by repair of the capsulotomy using a running Ethibond suture the FiberWire tag sutures were removed and final irrigation of this layer was then performed normal saline. The tensor fascia was then closed using a running locking 1. Vicryl followed by 2 Vicryl in subcutaneous layer followed by 3-0 running Stratafix followed by Dermabond and Aquacel dressing. Complications: none Post-operative Condition: stable Disposition: PACU Plan for aftercare: 24 hours post-op anx, WBAT LLE, ASA 81mg BId for 6 weeks for DVT prophylaxis
[2020-09-01] MEDS: LACTATED RINGERS 1,000 ML 125 ML IV (16:51)
[2020-09-01] MEDS: ACETAMINOPHEN 325 MG TABLET 650 MG PO ×2 (16:52→21:05)
[2020-09-01] MEDS: SIMVASTATIN 20 MG TABLET PO (16:53)
[2020-09-01] MEDS: IBUPROFEN 400 MG TABLET PO ×2 (16:53→21:05)
[2020-09-01 17:00] LABS: Add Manual Diff / Slide Review NO; Basophils Absolute Auto 0 /uL (0-100); Basophils Percent Auto 0.2 % (0-2); Eosinophils Absolute Auto 0 /uL (0-450); Hematocrit 39.7 % (41-53); Hemoglobin 13.5 g/dL (13.5-17.5); Lymphocytes Absolute Auto 500 /uL (1100-4500); Lymphocytes Percent Auto 4.3 % (25-40); Mean Corpuscular HGB Conc 33.9 % (30-36); Mean Corpuscular Volume 91.6 fL (80-100); Monocytes Absolute Auto 100 /uL (0-900); Monocytes Percent Auto 0.9 % (3-14); Neutrophils Absolute Auto 10300 /uL (1500-7000); Neutrophils Percent Auto 94.6 % (50-75); Platelet Count 188 X10^3/uL (150-400); Red Blood Cell Count 4.34 X10^6/uL (4.5-5.9); Red Cell Distribution Width 13.6 % (11.6-14.8); White Blood Cell Count 10.9 X10^3/uL (4.5-11.0)
[2020-09-01] MEDS: ASPIRIN EC 81 MG TABLET PO (21:05)
[2020-09-01] MEDS: METOPROLOL ER 25 MG TABLET PO (21:06)
[2020-09-01] MEDS: DOCUSATE 100 MG CAPSULE PO (21:06)
--- NOTE | 2020-09-01 22:16 | PC.ADMIT ---
Admission Note: The patient,Sung Hightower,75 y/o, was given written information regarding hospital policies, unit procedures and contact persons. Patient's smoking status: Never smoker. Pt arrived to room 205 at approx 1500. Awake, alert and oriented. Oriented to room and call system. Drsg c/d/i. No drains. Urinal placed at bedside. Stood at bedside for urinal attempts. Bladder scan 2040 shows 335 retention. Enc po fluid intake. Stood at bedside and voided 50 ml. Ambulated to bathroom 2 PA w/fww. steady on feet. voided another 200 ml. Returned to bed. Bed alarm on. Call light within reach. Vital Signs - 8 hr 09/01/20 14:28 09/01/20 14:31 09/01/20 14:36 Temperature 98.2 F Pulse Rate 84 85 80 Respiratory Rate 16 16 20 Blood Pressure 106/69 125/81 103/68 Pulse Oximetry 94 96 93 09/01/20 14:41 09/01/20 14:46 09/01/20 14:51 Temperature Pulse Rate 77 87 85 Respiratory Rate 17 14 13 Blood Pressure 110/72 114/62 111/64 Pulse Oximetry 95 94 97 09/01/20 14:56 09/01/20 15:10 09/01/20 15:40 Temperature 97.9 F 97.0 F L 97.8 F Pulse Rate 89 86 87 Respiratory Rate 17 16 16 Blood Pressure 105/61 120/76 121/71 Pulse Oximetry 98 94 94 09/01/20 16:10 09/01/20 17:10 09/01/20 18:19 Temperature 97.0 F L 97.9 F 98.8 F Pulse Rate 89 104 H 99 H Respiratory Rate 16 18 18 Blood Pressure 127/75 116/85 131/75 Pulse Oximetry 93 94 95
[2020-09-02] MEDS: IBUPROFEN 400 MG TABLET PO ×3 (00:42→08:47)
[2020-09-02] MEDS: LACTATED RINGERS 1,000 ML 125 ML IV (00:45)
[2020-09-02] MEDS: CEFAZOLIN 2 GM/100 ML FROZ.PIGGY IV (04:34)
[2020-09-02 06:02] VITALS: BP 135/55; PULSE 70; RESP 16; TEMP 36.1; O2SAT 96
[2020-09-02 06:32] LABS: Hematocrit 36.3 % (41-53); Hemoglobin 12.1 g/dL (13.5-17.5)
--- NOTE | 2020-09-02 06:55 | PC.NURSE ---
Pt stable through shift, denies pain or nausea. Pt able to urinate well with no hesitation.
--- NOTE | 2020-09-02 07:46 | P.PN_ITS ---
Subjective Subjective Date Patient Seen: 09/02/20 Time Patient Seen: 07:47 Interval history: POD #1 s/p L LEVI with Dr. Cardona. Patient's pain is well controlled with tylenol and ibuprofen. After his previous knee surgery he didn't need any narcotics. He has not been up with PT this Am yet. Voiding without difficulty. Exam Vital Signs (past 8 hours): - 09/01/20 23:53 09/02/20 06:02 Temperature 97.8 F 96.9 F L Pulse Rate 98 H 70 Respiratory Rate 18 16 Blood Pressure 147/68 H 135/55 L Pulse Oximetry 94 96 Oxygen Delivery Method Room Air Oxygen Flow Rate 0 Narrative Exam Narrative: Patient lying in bed in NAD. He is alert and oriented X3. Calves are soft, compressible, and nontender bilaterally. SILT throughout BLEs. DP pulses 2+. He is able to actively dorsiflex and plantarflex. Objective Labs Result Diagrams: 09/02/20 06:05 Labs: Laboratory Results - last 24 hr 09/01/20 09/02/20 16:54 06:05 WBC 10.9 RBC 4.34 L Hgb 13.5 12.1 L Hct 39.7 L 36.3 L MCV 91.6 MCH 31.0 MCHC 33.9 RDW 13.6 Plt Count 188 Neut % (Auto) 94.6 H Lymph % (Auto) 4.3 L [place] % (Auto) 0.9 L Eos % (Auto) 0.0 L Baso % (Auto) 0.2 Neut # (Auto) 55386 H Lymph # (Auto) 500 L [place] # (Auto) 100 Eos # (Auto) 0 Baso # (Auto) 0 PFSH Medical History Cardiac arrhythmia (~2009) Cardiomyopathy Chickenpox (~1950) Double vision (04/2019) Ejection fraction < 50% (06/2019) Encounter for pre-operative cardiovascular clearance Hip pain, left (1987) Hyperlipemia (Unknown) Knee pain, right (2014) Left hip pain Measles (~1950) Mumps (~1950) Osteoarthritis (Unknown) Primary osteoarthritis of left hip (06/29/16) Shoulder pain (Unknown) Varicose veins of bilateral lower extremities with other complications Surgical History History of arthroplasty of right knee (01/29/19) History of colonoscopy Status post hernia repair Status post hernia repair Status post knee surgery Status post knee surgery Status post rotator cuff repair Family History Father No problems noted. Mother No problems noted. Grandfather No problems noted. Grandfather No problems noted. Social History household members: none Smoking Status: Never smoker alcohol intake: current Assessment & Plan Post-op Postoperative Procedures: Procedures Operation Date: 09/01/20 11:45 Actual Procedures Side Surgeon p Total Hip Arthroplasty/Anterior Approach Left Dalton Cardona MD Patient will mobilize with PT today. Anterior hip precautions. ASA for VTE prophylaxis. Continue current pain control. Anticipate DC home today.
[2020-09-02 07:53] VITALS: BP 128/64; PULSE 68; RESP 16; TEMP 36; O2SAT 96
[2020-09-02] MEDS: DOCUSATE 100 MG CAPSULE PO (08:47)
[2020-09-02] MEDS: ASPIRIN EC 81 MG TABLET PO (08:47)
[2020-09-02] MEDS: ACETAMINOPHEN 325 MG TABLET 650 MG PO (08:47)
--- NOTE | 2020-09-02 09:05 | CM.DANOTE ---
DCP: Case received, EMR reviewed and met with patient. Introduced self and role. Was able to obtain information from patient regarding his baseline activity status prior to surgery, as well as his current living situation. DCP assessment completed with information currently available. Patient is a 75 year old male who admitted yesterday morning to the care of the orthopedic team. PCP: Dr. Rosas. [facility] came to the hospital for a surgical procedure. He had left total hip arthroplasty. Patient has had history of osteoarthritis. Met with patient in his room. He is pleasant, and was sitting on the edge of his bed having his breakfast. Patient is alert and oriented. Stated, he has had a few other surgeries here before, and knows what to expect. He had been going to [facility], for one of his prior surgeries. Confirmed that patient lives alone here in [place]. Stated that he has only one step to get into his home. He has a cane, FWW, and four wheel walker available. He stated that he has neighbors, Kevon and Gaudencio, that can pick him up from the hospital and assist if needed. Patient has been independent at his baseline. P: Patient has discharge orders for home. He will be working with [facility]. Dotty Gunn RN/Ingredient Mixer
--- NOTE | 2020-09-02 09:40 | PT.IIE ---
Current Diagnoses Unilateral primary osteoarthritis, left hip (09/01/20) Surgery Performed Operation Date: 09/01/20 11:45 Actual Procedures p Total Hip Arthroplasty/Anterior Approach(Left) - Dalton Cardona MD Surgical History (Last Reviewed 09/02/20 @ 09:17 by Ruby Lebron PA-C) History of arthroplasty of right knee (01/29/19) History of colonoscopy Status post hernia repair Status post hernia repair Status post knee surgery Status post knee surgery Status post rotator cuff repair Medical History (Last Reviewed 09/02/20 @ 09:17 by Ruby Lebron PA-C) Cardiac arrhythmia (~2009) Cardiomyopathy Chickenpox (~1950) Double vision (04/2019) Ejection fraction < 50% (06/2019) Encounter for pre-operative cardiovascular clearance Hip pain, left (1987) Hyperlipemia (Unknown) Knee pain, right (2014) Left hip pain Measles (~1950) Mumps (~1950) Osteoarthritis (Unknown) Primary osteoarthritis of left hip (06/29/16) Shoulder pain (Unknown) Varicose veins of bilateral lower extremities with other complications Physical Therapy Inpatient Evaluation/Re-Eval M1 PT/OT-IP Prior Functional Status Start: 09/02/20 11:42 Freq: NEEDED Status: Discharge Protocol: Document 09/02/20 09:40 AB (Rec: 09/02/20 12:03 AB [id number]) Medical Review Prior Functional Status Medical History Reviewed Yes Communication able to make needs known Mobility and Gait pt stated that he is indpeendent with all mobilities and ambulation without AD; usualy goes to the gym and [employer] pool to exercise and walks 1 mile daily Social History Household Members none Living Arrangements House Number of Floors (Floors) One Floor Number of Stairs To Enter/Railing? 1 step to enter Home Environment Standard Height Toilet,Walk in Shower Home Equipment Raised Toilet Seat w/Armrests, Hand Held Shower,Grab Bars In Shower Additional Social History Comment pt stated that his neighbor can come to assist him if needed M2 PT-IP Current Condition Start: 09/02/20 11:42 Freq: NEEDED Status: Discharge Protocol: Document 09/02/20 09:40 AB (Rec: 09/02/20 12:03 AB [email or web address]) Physical Therapy Current Condition Current Condition Evaluation Date 09/02/20 Treatment Diagnosis s/p L LEVI anterior approach; difficulty in walkinig Onset Date 09/01/20 Precautions Anterior Hip Precautions No Hip Extension,No Hip External Rotation Weight Bearing Status Weight Bearing Status Weight Bear as Tolerated Allowed Weight Bearing Amount (enter % LLE WBAT or #) (%) M3 PT-IP Subjective Start: 09/02/20 11:42 Freq: NEEDED Status: Discharge Protocol: Document 09/02/20 09:40 AB (Rec: 09/02/20 12:03 AB [email or web address]) Subjective Physical Therapy Visit Type Type Initial Evaluation Visit Start Time 09:40 Visit Stop Time 10:29 Total Visit Minutes 49 Number of SAFETY AIDE Visits 0 Physical Therapy Visit Comments Patient Comments pt is agreeable to do PT Therapy Pain Assessment Pain When Pain Assessed At Rest Pain Present Pain Present Pain Reported Location Left Hip Intensity 3 Scale Used Numeric (0 - 10) Pain Management Techniques Distraction,Modification of Treatment,Re-positioning, Timing of Activity with Medications M4 PT-IP Mobility and Gait Start: 09/02/20 11:42 Freq: NEEDED Status: Discharge Protocol: Document 09/02/20 09:40 AB (Rec: 09/02/20 12:03 AB [id number]) PT-Bed Mobility Assessment Supine to Sit Supine to Sit Standby Assistance Sit to Supine Sit to Supine Standby Assistance Scooting Scooting to Edge of Bed Standby Assistance Scooting Up and Down in Bed Standby Assistance PT-Transfer Assessment Sit to and From Stand Sit to and from Stand Standby Assistance,Use of Upper Extremities Equipment Transfer Assistive Device Gait Belt,Front Wheeled Walker Orthotic/Prosthetic Devices or Brace: No Transfers Transfer Destination Bed,Chair Transfer Technique ambulated using FWW Transfer Ability Level of Assist Standby Assistance,Use of Upper Extremities Comments Mobility Comments ecucated pt on hip precautions . completed sit to stand from chair SBA and ambulated to the bed using FWW SBA. initial cues to adhere to hip precautions. pt completed sit to supine SBA and cues. completed x 3 reps and without cues towards the end. pt ambulated in the hallway 250 ft using FWW SBA with initial cues for hip precautions and then able to complete without cues. pt completed up/down platform step using FWW x 3 reps SBA and initial cues but able to complete again without after first set. pt ambulated back to his room. completed sit <> stand from his chair x 3 reps SBA. positioned on chair. call light and table placed within reach. Gait Assessment Gait Gait Assistance Required: Standby Assistance Distance (Feet) 250 Able to Maintain Weight Bearing Status Yes During Gait Assistive Devices Assistive Device Gait Belt,Front Wheeled Walker Orthotic/Prosthetic Devices or Brace: No Gait Deviations General Gait Pattern Antalgic Factors Limiting Gait Function Factors Limiting Gait Function Decreased Activity Tolerance, Decreased Strength,Limited Range of Motion,Pain,Poor Balance,Poor Safety Awareness Stair Climbing Assessment Evaluation Level of Assist On Stairs Standby Assistance Devices Stair Climbing Assistive Devices Front Wheel Walker Technique/Endurance Stair Climbing Direction Ascend and Descend Stair Climbing Technique Step to Step Number of Steps Climbed 1 Query Text: Stair Climbing Set # Repetitions (reps) 3 PT-Balance Assessment Sitting Balance and Reactions Static Sitting Balance Ability Normal Dynamic Sitting Balance Ability Normal Standing Balance and Reactions Static Standing Balance Ability Good Dynamic Standing Balance Ability Fair Device Used FWW M5 PT-IP Objective Assessments Start: 09/02/20 11:42 Freq: NEEDED Status: Discharge Protocol: Document 09/02/20 09:40 AB (Rec: 09/02/20 12:[facility] Orientation Orientation/Cognition Level of Alertness Alert Orientation Name,Age,Birthday,Month,Date, Year,Day of Week,Place, Situation Language Function Ability No Deficits Noted Safety Awareness Understands Safety Issues Memory Description No Deficits Noted Gross Range of Motion Lower Extremity ROM Assessment Within Functional Limits Strength Lower Extremity Strength Assessment Left Impaired Hip 3+/5 Knee 4+/5 Coordination Assessment Gross Coordination Gross Coordination WNL Muscle Tone Muscle Tone WNL Yes M6 PT-IP Treatment Start: 09/02/20 11:42 Freq: NEEDED Status: Discharge Protocol: Document 09/02/20 09:40 AB (Rec: 09/02/20 12:03 AB [email or web address]) Physical Therapy Treatment Education Education Provided Precautions,Weight Bearing Status,Post-Op Packet,Safety M7 PT-IP Assessment and Plan Start: 09/02/20 11:42 Freq: NEEDED Status: Discharge Protocol: Document 09/02/20 09:40 AB (Rec: 09/02/20 12:03 AB [email or web address]) PT Summary Assessment and Plan Potential Rehabilitation Potential Good Status of Condition at Evaluation Stable Summary Impairments Pain,ROM,Strength,Balance, Coordination,Bed Mobility, Transfers,Gait,Activity Tolerance Assessment Summary pt requiring SBA with mobility and plans to go home. pt stated that his neighbor can assist him if needed. pt is set up for outpt PT. pt may go home when stable. Goals Bed Mobility Goal Independent Transfer Goal Independent,Front Wheeled Walker Gait Goal Independent,Front Wheel Walker Gait Distance 300 Other Goals u/down 1 steps using FWW mod I Days to Meet Goals 3 Frequency of Treatment Frequency Of Treatment Twice a Day Treatment Plan Physical Therapy Treatment Plan Bed Mobility Training,Transfer Training,Gait Training, Therapeutic Exercise,Balance Retraining,Post Op Education, Discharge Planning,Hot or Cold Pack,Neuromuscular Re-ed, Coordination Retraining,Manual Therapy Recommendations To Nursing Amount of Assist Needed Standby Assistance Discharge Recommendations PT Discharge Recommendations Home,Outpatient PT Transportation Needs at Discharge Private Vehicle
== END 2020-09-02 11:58 | disposition home or self-care (01) ==
LOC: OR 10:33 → AC 10:34
PROVIDERS: PCP Family Medicine; Referring Provider Orthopaedic Surgery Adult Reconstructive Orthopaedic Surgery; Visit Provider Orthopaedic Surgery Adult Reconstructive Orthopaedic Surgery
PROC: (CPT 27130; principal; 2020-09-01 11:45)
DX: M16.12 Unilateral primary osteoarthritis, left hip (principal); I42.9 Cardiomyopathy, unspecified; E78.5 Hyperlipidemia, unspecified
CPT/HCPCS: 27130; 36415; 72170; 73502; 76000; 85014; 85018; 85025; 97161; 97530; C1776; J0690; J1100; J1885; J2250; J2270; J2405; J2704; J3010

== ENCOUNTER → 2020-09-14 14:43 | Outpatient (CLI) | payer MEDICARE, SELFPAY ==
[2020-09-01 17:00] VITALS: BMI 28.3
--- NOTE | 2020-09-14 | DI.US.S_ITS ---
PROCEDURE: US PERIPH VENOUS LOW EXTREM LT INDICATIONS: Recent hip replacement with leg swelling, clinical concern for DVT TECHNIQUE: Real-time imaging, as well as color and pulse Doppler interrogation, were performed of the lower extremity deep veins from the inguinal ligament to the popliteal fossa. COMPARISON: None. FINDINGS: The common femoral, femoral and popliteal veins are normally compressible, and free of intraluminal thrombus. Color and pulse Doppler demonstrate normal phasic intraluminal flow. There is normal augmentation response to distal compression maneuver. IMPRESSION: Negative for deep venous thrombosis. Dictated by: Nuno Rene M.D. on 09/14/2020 at 14:18 Approved by: Nuno Rene M.D. on 09/14/2020 at 14:19
== END ==
PROVIDERS: PCP Family Medicine; Referring Provider Orthopaedic Surgery Adult Reconstructive Orthopaedic Surgery; Visit Provider Orthopaedic Surgery Adult Reconstructive Orthopaedic Surgery
DX: R22.42 Localized swelling, mass and lump, left lower limb (principal); Z96.642 Presence of left artificial hip joint
CPT/HCPCS: 93971

== ENCOUNTER → 2020-10-22 09:52 | Outpatient (CLI) | payer MEDICARE, SELFPAY ==
[2020-09-01 17:00] VITALS: BMI 28.3
[2020-10-22] MEDS: COVID-19 VACC, Ad26(JANSSEN)/PF 0.5 ML IM (10:06)
== END ==
PROVIDERS: PCP Family Medicine; Visit Provider Internal Medicine
DX: Z23 Encounter for immunization (principal)
CPT/HCPCS: 0031A; 91303

== ENCOUNTER → 2021-05-16 15:28 | Outpatient (CLI) | payer MEDICARE, SELFPAY ==
[2020-09-01 17:00] VITALS: BMI 28.3
[2021-05-16 17:59] LABS: COVID19 -Nasal RAPID Negative (Negative)
== END ==
PROVIDERS: PCP Family Medicine; Referring Provider Nurse Practitioner Family; Visit Provider Nurse Practitioner Family
DX: Z20.822 Contact with and (suspected) exposure to COVID-19 (principal); J02.9 Acute pharyngitis, unspecified; R05.9 Cough, unspecified; R09.89 Other specified symptoms and signs involving the circulatory and respiratory systems
CPT/HCPCS: 87635

== ENCOUNTER → 2021-06-29 11:15 | Outpatient (CLI) | payer MEDICARE, SELFPAY ==
[2020-09-01 17:00] VITALS: BMI 28.3
[2021-06-29 13:21] LABS: Alanine Aminotransferase 32 IU/L (<50); Albumin 4.5 g/dL (3.5-5.0); Albumin Globulin Ratio 1.7 (1.0-2.8); Alkaline Phosphatase 86 U/L (38-126); Aspartate Aminotransferase 39 IU/L (17-59); BUN Creatinine Ratio 23.3 (6-22); Bilirubin Total 0.6 mg/dL (0.2-1.3); Blood Urea Nitrogen 17 mg/dL (9-20); Calcium 9.7 mg/dL (8.4-10.2); Carbon Dioxide 29 mmol/L (22-32); Chloride 101 mmol/L (98-107); Cholesterol 150 mg/dL (140-199); Estimated Glomerular Filt Rate > 60.0 mL/min (>60); Globulin 2.6 g/dL (1.7-4.1); Glucose 91 mg/dL (80-110); HDL Cholesterol 53 mg/dL (40-60); HEMOLYSIS < 15 (0-50); LDL Cholesterol Calculated 73 mg/dL (<100); Potassium 4.6 mmol/L (3.4-5.1); Sodium 138 mmol/L (137-145); Total Protein 7.1 g/dL (6.3-8.2); Triglycerides 119 mg/dL (35-150)
[2021-06-30 04:10] LABS: Apolipoprotein B 80 mg/dL (<90)
== END ==
PROVIDERS: PCP Family Medicine; Referring Provider Internal Medicine Cardiovascular Disease; Visit Provider Internal Medicine Cardiovascular Disease
DX: I42.9 Cardiomyopathy, unspecified (principal); Z01.810 Encounter for preprocedural cardiovascular examination; R03.0 Elevated blood-pressure reading, without diagnosis of hypertension; R94.39 Abnormal result of other cardiovascular function study
CPT/HCPCS: 36415; 80053; 80061; 82172

== ENCOUNTER → 2022-08-18 10:09 | Outpatient (CLI) | payer MEDICARE, SELFPAY ==
[2020-09-01 17:00] VITALS: BMI 28.3
[2022-08-18 12:16] LABS: Alanine Aminotransferase 38 IU/L (<50); Albumin 4.3 g/dL (3.5-5.0); Albumin Globulin Ratio 1.4 (1.0-2.8); Alkaline Phosphatase 79 U/L (38-126); Aspartate Aminotransferase 36 IU/L (17-59); BUN Creatinine Ratio 24.3 (6-22); Bilirubin Total 0.8 mg/dL (0.2-1.3); Blood Urea Nitrogen 17 mg/dL (9-20); Carbon Dioxide 31 mmol/L (22-32); Chloride 103 mmol/L (98-107); Cholesterol 159 mg/dL (140-199); Estimated Glomerular Filt Rate > 60 mL/min (>60); Globulin 3.1 g/dL (1.7-4.1); Glucose 99 mg/dL (80-110); HDL Cholesterol 54 mg/dL (40-60); HEMOLYSIS < 15 (0-50); LDL Cholesterol Calculated 89 mg/dL (<100); Potassium 4.3 mmol/L (3.4-5.1); Sodium 140 mmol/L (137-145); Total Protein 7.4 g/dL (6.3-8.2); Triglycerides 82 mg/dL (35-150)
[2022-08-18 12:45] LABS: Prostate Specific Antigen 3.72 ng/mL (0.10-4.00)
[2022-08-19 07:40] LABS: Apolipoprotein B 76 mg/dL (<90)
== END ==
PROVIDERS: PCP Family Medicine; Referring Provider Internal Medicine Cardiovascular Disease; Visit Provider Internal Medicine Cardiovascular Disease
DX: E78.5 Hyperlipidemia, unspecified (principal); N40.1 Benign prostatic hyperplasia with lower urinary tract symptoms; I42.9 Cardiomyopathy, unspecified; R03.0 Elevated blood-pressure reading, without diagnosis of hypertension; E78.00 Pure hypercholesterolemia, unspecified; E78.2 Mixed hyperlipidemia; R35.0 Frequency of micturition; Z13.6 Encounter for screening for cardiovascular disorders
CPT/HCPCS: 36415; 80053; 80061; 82172; 84153

== ENCOUNTER → 2022-11-29 10:20 | Outpatient (CLI) | payer MEDICARE, SELFPAY ==
[2020-09-01 17:00] VITALS: BMI 28.3
[2022-11-29 12:35] LABS: Alanine Aminotransferase 39 IU/L (<50); Albumin 4.3 g/dL (3.5-5.0); Albumin Globulin Ratio 1.6 (1.0-2.8); Alkaline Phosphatase 73 U/L (38-126); Aspartate Aminotransferase 37 IU/L (17-59); Bilirubin Total 0.9 mg/dL (0.2-1.3); Blood Urea Nitrogen 17 mg/dL (9-20); Calcium 9.2 mg/dL (8.4-10.2); Carbon Dioxide 30 mmol/L (22-32); Chloride 103 mmol/L (98-107); Cholesterol 138 mg/dL (140-199); Estimated Glomerular Filt Rate > 60 mL/min (>60); Globulin 2.7 g/dL (1.7-4.1); Glucose 102 mg/dL (80-110); HDL Cholesterol 56 mg/dL (40-60); HEMOLYSIS < 15 (0-50); LDL Cholesterol Calculated 70 mg/dL (<100); Potassium 4.5 mmol/L (3.4-5.1); Sodium 139 mmol/L (137-145); Triglycerides 61 mg/dL (35-150)
[2022-11-30 04:18] LABS: Apolipoprotein B 66 mg/dL (<90)
== END ==
PROVIDERS: PCP Family Medicine; Referring Provider Internal Medicine Cardiovascular Disease; Visit Provider Internal Medicine Cardiovascular Disease
DX: E78.5 Hyperlipidemia, unspecified (principal); R03.0 Elevated blood-pressure reading, without diagnosis of hypertension
CPT/HCPCS: 36415; 80053; 80061; 82172

== ENCOUNTER → 2023-11-15 10:01 | Outpatient (CLI) | payer MEDICARE, SELFPAY ==
[2020-09-01 17:00] VITALS: BMI 28.3
[2023-11-15 11:14] LABS: Alanine Aminotransferase 40 IU/L (<50); Albumin 4.1 g/dL (3.5-5.0); Albumin Globulin Ratio 1.4 (1.0-2.8); Alkaline Phosphatase 71 U/L (38-126); Aspartate Aminotransferase 48 IU/L (17-59); BUN Creatinine Ratio 25.3 (6-22); Bilirubin Total 0.9 mg/dL (0.2-1.3); Blood Urea Nitrogen 19 mg/dL (9-20); Calcium 9.4 mg/dL (8.4-10.2); Carbon Dioxide 29 mmol/L (22-32); Chloride 107 mmol/L (98-107); Cholesterol 125 mg/dL (140-199); Estimated Glomerular Filt Rate > 60 mL/min (>60); Globulin 2.9 g/dL (1.7-4.1); Glucose 109 mg/dL (80-110); HDL Cholesterol 57 mg/dL (40-60); HEMOLYSIS < 15 (0-50); LDL Cholesterol Calculated 57 mg/dL (<100); Potassium 4.6 mmol/L (3.4-5.1); Sodium 139 mmol/L (137-145); Triglycerides 55 mg/dL (35-150)
[2023-11-15 11:44] LABS: Prostate Specific Antigen 4.13 ng/mL (0.10-4.00)
[2023-11-16 04:15] LABS: Apolipoprotein B 61 mg/dL (<90)
== END ==
PROVIDERS: PCP Family Medicine; Referring Provider Internal Medicine Cardiovascular Disease; Visit Provider Internal Medicine Cardiovascular Disease
DX: Z00.00 Encounter for general adult medical examination without abnormal findings (principal); E78.5 Hyperlipidemia, unspecified; R03.0 Elevated blood-pressure reading, without diagnosis of hypertension
CPT/HCPCS: 36415; 80053; 80061; 82172; 84153

== ENCOUNTER 2023-12-26 07:24 | Day surgery (SDC) | payer MEDICARE, SELFPAY ==
[2020-09-01 17:00] VITALS: BMI 28.3
[2023-12-20 11:00] VITALS: BMI 27.8
[2023-12-26] MEDS: LACTATED RINGERS 1,000 ML 21 ML IV ×2 (07:44→10:09)
[2023-12-26 08:02] VITALS: BP 165/86; PULSE 72; RESP 16; TEMP 36.8; O2SAT 97; BMI 27.8
--- NOTE | 2023-12-26 08:42 | PM.PREOP ---
Pre-operative Note Interval Note History & Physical reviewed/Exam performed by Physician: Yes Changes to H&P: No
[2023-12-26] MEDS: CEFAZOLIN 2 GM/100 ML PREMIX 100 ML IV (08:55)
--- NOTE | 2023-12-26 09:16 | SUR.OPER ---
Supine on padded OR bed, head on pillow, arms padded and tucked at sides, legs uncrossed, safety belt at thigh, tape over blanket over lower legs .
[2023-12-26] MEDS: BUPIVACAINE 0.25% (PF) VIAL 30 ML INJ (09:28)
--- NOTE | 2023-12-26 09:48 | SUR.OPER ---
MESH PLUG IMPLANTED PRIOR REMOVED - SEE EXPLANTS
--- NOTE | 2023-12-26 10:19 | P.OP_ITS ---
Operative Date/Time/Diagnoses Date of procedure: 12/26/23 Time of procedure: 10:19 Pre-op diagnosis: recurrent left inguinal hernia Post-op diagnosis: same Procedure & Clinicians Procedure: Laparoscopic repair of recurrent left inguinal hernia Same procedure as scheduled: Yes Indications: 78M prior left inguinal hernia repair with plug and patch Surgeon: Xavi Gomez Electronics Research Engineer: Duncan Mayer Anesthesia Type: General Operative Notes Findings: small indirect defect. large plug of mesh within the indirect defect excised. Specimen(s): none sent Estimated Blood Loss (mL): 50 Procedure in detail: The patient was brought to the operating room and placed supine on the table. Bilateral sequential compression devices were applied. General anesthesia was induced and they were intubated with an endotracheal tube. A bourgeois cath was placed in sterile fashion. They received 2g ancef prior to skin incision. They were prepped and draped in sterile fashion. A time out was performed to ensure the correct patient, procedure and necessary equipment within the operating room. The skin was infiltrated with 0.25% bupivicaine. A 1 cm supra umbilical midline incision was made. The fascia was sharply incised and the abdomen entered traumatically. A 10mm balloon port was placed and pneumoperitoneum was established at 15mm Hg. Inspection of the abdomen demonstrated no evidence of injury upon entry. Two 5 mm ports were then placed under direct visualization in the right and left lower quadrant lateral to the rectus muscle. A large plug of mesh was present in the left groin. There were adhesions between the sigmoid colon and the left pelvic side wall which were carefully dissected. Starting on the left side the peritoneum 4 cm superior to the deep inguinal ring between the medial umbilical ligament and the anterior superior iliac spine was incised. The medial preperitoneal dissection was carried out into the space of Retzius bluntly, the bladder was swept inferiorly, the pubis and Fady's ligament were identified. The large plug of mesh within the indirect space was excised. Once removed we could see a small indirect defect just lateral to the plug. I suspect his left groin pain and the palpable bulge in the groin was more likely the plug then the small indirect hernia. The preperitoneal fat with the testicular vessels was carefully dissected off the inferior peritoneal flap. The cord was carefully inspected there no additional abnormalities. A medium Bard 3D Max mesh was then placed into the abdomen and positioned such that the myopectineal orifice was completely covered with good overlap on all sides. The peritoneal flap was then repositioned back to its original position and a running V lock suture was used to close the peritoneum such that no bowel could herniate into the preperitoneal space. The area was examined for hemostasis. The 5mm trocars were removed under direct visualization and pneumoperitoneum was deflated through the umbilical trocar, The fascia at the umbilicus was closed with 0-Vicryl in figure of 8 fashion, skin closed with 4-0 Monocyl followed by Dermabond. The sponge and instrument count at the end of the case was correct. Both testicles were entirely within the scrotum at the end of the case. The patient emerged from anesthsia was extubated and transferred to recovery in stable condition. Complications: none Post-operative Condition: stable Disposition: same day surgery
[2023-12-26 10:25] VITALS: BP 135/62; PULSE 88; RESP 16; TEMP 36.2; O2SAT 98
[2023-12-26 10:30] VITALS: BP 131/62; PULSE 70; RESP 16; O2SAT 98
[2023-12-26 10:35] VITALS: BP 126/61; PULSE 74; RESP 16; TEMP 36.2; O2SAT 98
[2023-12-26] MEDS: OXYCODONE/ACETAMINOPHEN 5/325 TABLET 1 TAB PO (10:42)
[2023-12-26 10:45] VITALS: BP 142/62; PULSE 72; RESP 16; TEMP 36.2; O2SAT 95
[2023-12-26] MEDS: ONDANSETRON 4 MG/2 ML INJ IV (10:48)
== END 2023-12-26 12:30 | disposition home or self-care (01) ==
PROVIDERS: PCP Family Medicine; Referring Provider Surgery; Visit Provider Surgery
PROC: 0YQ64ZZ Repair Left Inguinal Region, Percutaneous Endoscopic Approach (ICD-10-PCS; principal; 2023-12-26 08:45)
CPT/HCPCS: J0330; J0690; J1100; J2405; J2704; J3010

== ENCOUNTER 2023-12-26 18:28 | Inpatient (IN) | payer MEDICARE, SELFPAY ==
[2020-09-01 17:00] VITALS: BMI 28.3
[2023-12-26] VITALS (51 sets, daily range): BP systolic 52–168; BP diastolic 36–111; PULSE 59–108; RESP 11–35; TEMP 36.5–36.9; O2SAT 92–100; BMI 27.4; BMI 29.7
--- NOTE | 2023-12-26 18:51 | ED.FALL ---
HPI - Fall General Chief Complaint: Fall Stated Complaint: Fell, Stiches ripped, Abd Hernia Time Seen by Provider: 12/26/23 18:36 Source: patient and EMS Mode of arrival: EMS History of Present Illness HPI Narrative: 78-year-old gentleman with history of hypertension who underwent abdominal hernia repair this morning under general anesthesia with a history of multiple prior hernia repairs. He states he was feeling slightly dizzy when he went home around noon today, however put comfortable with discharge. This evening he got up to go to the bathroom, as he was standing over the toilet voiding he became lightheaded, was leaning forward holding onto the back of the toilet for support and then looked down and noted quite a bit of blood coming from his umbilicus soaking his underwear and down onto the floor. He was increasingly weak but able to get back to the main portion of his house and called 911. He did not fall or hit his head. He is not on blood thinners. He does not complain of palpitations, acute neurologic findings, dyspnea, pain beyond what he believes is expected incisional pain. Related Data Home Medications Medication Instructions Recorded Confirmed multivitamin 1 tab PO DAILY 09/22/19 12/26/23 metoprolol succinate 25 mg 25 mg PO BEDTIME 12/29/19 12/26/23 tablet,extended release 24 hr rosuvastatin 10 mg tablet 10 mg PO DAILY To control 01/02/23 12/26/23 cholesterol Previous Rx's Medication Instructions Recorded acetaminophen 325 mg capsule 650 mg (2 x 325 mg) PO QID PRN 12/26/23 (Tylenol) pain #60 caps celecoxib 200 mg capsule (Celebrex) 200 mg PO BID #20 caps 12/26/23 docusate sodium 100 mg capsule 100 mg PO BID #30 caps 12/26/23 (Colace) tramadol 50 mg tablet 50 mg PO Q6H PRN pain #15 tabs 12/26/23 Allergies Allergy/AdvReac Type Severity Reaction Status Date / Time No Known Drug Allergies Allergy Verified 12/26/23 07:42 Review of Systems Review of Systems Narrative: Pertinent positive and negative findings as per HPI Patient History Medical History 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) Anemia BPH (benign prostatic hyperplasia) Plantar wart of both feet Hypertension Encounter for well adult exam without abnormal findings Encounter for pre-operative cardiovascular clearance Cardiomyopathy Varicose veins of bilateral lower extremities with other complications Left hip pain Double vision (04/2019) Ejection fraction < 50% (06/2019) Osteoarthritis (Unknown) Hyperlipemia (Unknown) Shoulder pain (Unknown) Hip pain, left (1987) Knee pain, right (2014) Chickenpox (~1950) Measles (~1950) Mumps (~1950) Cardiac arrhythmia (~2010) Primary osteoarthritis of left hip (06/29/16) Surgical History History of colonoscopy History of arthroplasty of right knee (01/29/19) Status post rotator cuff repair Status post knee surgery Status post knee surgery Status post hernia repair (2017) Status post hernia repair Family History Father No problems noted. Mother No problems noted. Grandfather No problems noted. Grandfather No problems noted. Social History marital status: unmarried,single household members: none lives independently: Yes occupational status: previously employed Smoking Status: Never smoker alcohol intake: current substance use type: does not use Smoking Status: Never smoker alcohol intake frequency: a few times a month Substance Use Type: does not use Exam Initial Vital Signs Initial Vital Signs: Vital Signs Pulse Rate 90 12/26/23 18:30 Respiratory Rate 18 12/26/23 18:30 Blood Pressure 138/111 H 12/26/23 18:30 Pulse Oximetry 99 12/26/23 18:30 Oxygen Delivery Method Room Air 12/26/23 18:30 General: Healthy appearing, in no acute distress. Able to give a complete and coherent history. Well-nourished well-developed HEENT: normal sclera with reactive pupils, somewhat dry mucous membranes Respiratory: Lungs are clear to auscultation, no wheezing no rales no rhonchi. Full and symmetrical air movement Cardiac: Regular rate and rhythm no murmurs no bruits Abdomen: Laparoscopic incision supraumbilical appears appropriate. He has some dark non clotted blood in his umbilicus that is cleaned out with no continued active bleeding. He has bruising and a bandlike distribution across his mid abdomen and is quite tender along the left side of his abdomen into his flank. Skin: Warm and dry, slightly pale Neurologic: Grossly neurologically intact with no obvious asymmetries or abnormalities Extremities: No trauma, well perfused Psych: Cooperative, appropriate insight and affect Course Orders Ordered: ED Orders 12/26/23 18:35 Complete Blood Count AUTO DIFF Stat Comprehensive Metabolic Panel Stat Fresh Frozen Plasma Stat PRBC [Packed Cells] Stat Platelets Stat Troponin I Stat Type and Screen Stat 12/26/23 19:02 CT abdomen pelvis w con Stat 12/26/23 21:20 Urinalysis and Microscopic Stat 12/27/23 Complete Blood Count AUTO DIFF Routine Hydromorphone HCl (Hydromorphone 0.5 Mg Inj) 0.5 mg IV Q2H PRN PRN Reason: Pain, Severe (7-10) Last Admin: 12/26/23 23:32 Dose: 0.5 mg Documented By: TAMARA Lactated Ringer's (Lactated Ringers) 1,000 mls @ 75 mls/hr IV CONT DARRELL Last Admin: 12/26/23 23:31 Dose: 75 mls/hr Documented By: TAMARA Naloxone HCl (Naloxone 0.4 Mg/Ml Vial) 0.2 mg IV Q2MIN PRN PRN Reason: Opiate Reversal Discontinued Medications Hydromorphone HCl (Hydromorphone 0.5 Mg Inj) 0.5 mg IV Q15MIN PRN PRN Reason: Pain, Last Admin: 12/26/23 20:29 Dose: 0.5 mg Documented By: JESI Sodium Chloride (Normal Saline 0.9%) 1,000 mls @ 1,000 mls/hr IV BOLUS ONE Stop: 12/26/23 20:00 Last Infusion: 12/26/23 20:21 Dose: Infused Documented By: Admin: 12/26/23 19:21 Dose: 1,000 mls/hr Documented By: JESI Piperacillin Sod/Tazobactam (Sod 4.5 gm/ Sodium Chloride) 100 mls @ 200 mls/hr IV NOW ONE Stop: 12/26/23 20:05 Last Infusion: 12/26/23 21:04 Dose: Infused Documented By: Admin: 12/26/23 20:30 Dose: 200 mls/hr Documented By: JESI Tranexamic Acid 1,000 mg/ (Sodium Chloride) 100 mls @ 200 mls/hr IV NOW ONE Stop: 12/26/23 21:01 Last Infusion: 12/26/23 21:27 Dose: Infused Documented By: Admin: 12/26/23 20:57 Dose: 200 mls/hr Documented By: JESI Vital Signs Vital signs: Vital Signs - 8 hr 12/26/23 19:00 12/26/23 19:00 12/26/23 19:15 Temperature Pulse Rate 90 Respiratory Rate 24 Blood Pressure 112/70 110/69 Pulse Oximetry 99 Oxygen Delivery Method Oxygen Flow Rate 12/26/23 19:15 12/26/23 19:30 12/26/23 19:45 Temperature Pulse Rate 89 85 Respiratory Rate 11 L 24 Blood Pressure 134/69 Pulse Oximetry 99 94 Oxygen Delivery Method Oxygen Flow Rate 12/26/23 19:45 12/26/23 19:47 12/26/23 19:47 Temperature Pulse Rate 97 H 95 H Respiratory Rate 26 H 24 Blood Pressure 109/69 Pulse Oximetry 93 97 Oxygen Delivery Method Oxygen Flow Rate 12/26/23 20:00 12/26/23 20:26 12/26/23 20:26 Temperature Pulse Rate 80 80 Respiratory Rate 25 H 28 H Blood Pressure 91/55 L Pulse Oximetry 95 95 Oxygen Delivery Method Oxygen Flow Rate 12/26/23 20:27 12/26/23 20:27 12/26/23 20:30 Temperature Pulse Rate 79 73 Respiratory Rate 24 28 H Blood Pressure 85/53 L Pulse Oximetry 94 95 Oxygen Delivery Method Oxygen Flow Rate 12/26/23 20:30 12/26/23 20:31 12/26/23 20:31 Temperature Pulse Rate 69 Respiratory Rate 28 H Blood Pressure 75/48 L 68/42 L Pulse Oximetry 96 Oxygen Delivery Method Oxygen Flow Rate 12/26/23 20:33 12/26/23 20:33 12/26/23 20:37 Temperature Pulse Rate 66 61 Respiratory Rate 25 H 28 H Blood Pressure 53/38 L Pulse Oximetry 97 94 Oxygen Delivery Method Oxygen Flow Rate 12/26/23 20:37 12/26/23 20:42 12/26/23 20:45 Temperature 98 F Pulse Rate 59 L 70 Respiratory Rate 26 H 24 Blood Pressure 52/36 L 52/36 L 87/50 L Pulse Oximetry Oxygen Delivery Method Oxygen Flow Rate 12/26/23 20:45 12/26/23 20:45 12/26/23 20:50 Temperature Pulse Rate 60 Respiratory Rate 26 H Blood Pressure 87/50 L 121/59 L Pulse Oximetry 95 Oxygen Delivery Method Oxygen Flow Rate 12/26/23 20:50 12/26/23 20:55 12/26/23 20:55 Temperature 97.9 F Pulse Rate 82 93 H Respiratory Rate 25 H 26 H Blood Pressure 121/59 L 119/65 Pulse Oximetry 95 Oxygen Delivery Method Oxygen Flow Rate 12/26/23 20:55 12/26/23 21:00 12/26/23 21:00 Temperature Pulse Rate 93 H 97 H Respiratory Rate 33 H 30 H Blood Pressure 136/68 Pulse Oximetry 96 95 Oxygen Delivery Method Oxygen Flow Rate 12/26/23 21:05 12/26/23 21:05 12/26/23 21:10 Temperature Pulse Rate 96 H Respiratory Rate 35 H Blood Pressure 164/89 H 161/81 H Pulse Oximetry 94 Oxygen Delivery Method Oxygen Flow Rate 12/26/23 21:10 12/26/23 21:15 12/26/23 21:15 Temperature Pulse Rate 107 H 101 H Respiratory Rate 29 H 26 H Blood Pressure 166/82 H Pulse Oximetry 95 95 Oxygen Delivery Method Oxygen Flow Rate 12/26/23 21:16 12/26/23 21:16 12/26/23 21:20 Temperature 98.5 F Pulse Rate 98 H Respiratory Rate 22 Blood Pressure 165/76 H 168/76 H Pulse Oximetry 97 Oxygen Delivery Method Nasal Cannula Oxygen Flow Rate 2 12/26/23 21:20 Temperature Pulse Rate 101 H Respiratory Rate 30 H Blood Pressure Pulse Oximetry 97 Oxygen Delivery Method Oxygen Flow Rate MDM - Fall Lab Data 12/26/23 21:15 12/26/23 18:35 Labs: Lab Results 12/26/23 12/26/23 12/26/23 Range/Units 18:35 21:15 21:20 WBC 15.1 H (4.5-11.0) X10^3/uL RBC 3.76 L (4.5-5.9) X10^6/uL Hgb 11.8 L 12.0 L (13.5-17.5) g/dL Hct 35.8 L 36.5 L (41-53) % MCV 95.3 (80-100) fL MCH 31.3 (26-34) PG MCHC 32.9 (30-36) % RDW 13.0 (11.6-14.8) % Plt Count 264 161 (150-400) X10^3/uL Neut % (Auto) 89.8 H (50-75) % Lymph % (Auto) 8.4 L (25-40) % [place] % (Auto) 1.7 L (3-14) % Eos % (Auto) 0.0 L (2-4) % Baso % (Auto) 0.1 (0-2) % Neut # (Auto) 02105 H (5505-3486) /uL Lymph # (Auto) 1300 (2689-2584) /uL [place] # (Auto) 300 (0-900) /uL Eos # (Auto) 0 (0-450) /uL Baso # (Auto) 0 (0-100) /uL PT 15.1 H (9.4-12.5) SECONDS INR 1.3 (0.9-1.3) APTT 27 (25.1-36.5) SECONDS Fibrinogen 174 L (238-498) mg/dL Sodium 138 (137-145) mmol/L Potassium 3.8 (3.4-5.1) mmol/L Chloride 105 (98-107) mmol/L Carbon Dioxide 13 L (22-32) mmol/L BUN 22 H (9-20) mg/dL Creatinine 1.09 (0.66-1.25) mg/dL Estimated GFR > 60 (>60) mL/min BUN/Creatinine Ratio 20.2 (6-22) Glucose 307 H (80-110) mg/dL Calcium 8.5 (8.4-10.2) mg/dL Total Bilirubin 0.7 (0.2-1.3) mg/dL AST 51 (17-59) IU/L ALT 47 (<50) IU/L Alkaline Phosphatase 61 (38-126) U/L Troponin I < 0.012 (0.01-0.034) ng/mL Total Protein 6.5 (6.3-8.2) g/dL Albumin 4.1 (3.5-5.0) g/dL Globulin 2.4 (1.7-4.1) g/dL Albumin/Globulin Ratio 1.7 (1.0-2.8) Urine Color Yellow Urine Appearance Clear Urine pH 5.5 (4.5-8.0) Ur Specific [place] 1.020 (1.000-1.035) Urine Protein Trace H (Negative) Urine Glucose (UA) 1+ H (Negative) g/dL Urine Ketones Trace H (NEGATIVE) Urine Occult Blood 2+ H (Negative) Urine Nitrate Negative (Negative) Urine Bilirubin Negative (NEGATIVE) Urine Urobilinogen 0.2 (0.2) E.U./dL Ur Leukocyte Esterase Negative (NEGATIVE) Urine RBC 10-30/hpf H (0-5/HPF) Urine WBC 0-1/hpf (0-5/HPF) Ur Squamous Epith Cells 0-1 /hpf (0-5/HPF) Urine Bacteria Occasional (0-1) (None) Hyaline Casts 1-5/lpf (None) Granular Casts 0-1/lpf (None) Urine Mucus 1+ H (Negative) Ur Culture Indicated? Cult not indicated Vol Urine Centrifuged 10ml (spun) Blood Type O Positive Antibody Screen Negative Crossmatch See Detail MDM Narrative Medical decision making narrative: CC: Near-syncope, postoperative bleeding Complicating co-morbidities: Laparoscopic abdominal hernia repair this morning under general anesthesia, hypertension, Data collected from: patient Social determinants of health that may influence the patients condition: Medical records reviewed: Some of his prior records indicate a history of anemia however it looks like his last H&H was done in August of 2020. Preop notes, anesthesia and op notes from today's surgery with Dr. Gomez are reviewed Primary care notes from mid November are reviewed Differential considered: Internal bleeding secondary to recent surgery with the acute anemia, weakness after general anesthesia, Exam documented above, pertinent findings include: Patient describes a moderate amount of blood loss on the floor of the bathroom, moderate amount over close and significant bruising over the middle portion of his abdomen, seems more than 1 would expect for simple postoperative laparoscopic surgery with a focus of the surgery in the left groin. Lab Test results independently reviewed as above. Pertinent findings: CBC shows leukocytosis at 15.1 with 89% neutrophils. Initial H and H is 11.8 and 35.8. Comparison is from August of 2020 at 12.1 and 36.3. Chemistries are reassuring, creatinine is 1. Blood sugar slightly elevated at 307, I do not see a diagnosis of diabetes. Troponin is undetectable Independently reviewed EKG: Imaging studies independently reviewed: Initial independent review of CT scan concerning for significant intra-abdominal bleeding. We will talk to Radiology to see acute and CT angiography might be helpful. 815pm discussed with radiologist, Dr. Alba. He describes quantify viable hematoma of around 175 cc with more blood extending retroperitoneally up the psoas muscle and down into the pelvis and perirectal area. The left external iliac vein he notes his collapsed. There does not appear to be active extravasation at this time. Consultations: 815pm discussed with Dr. Fortune. Will admit the patient to the intensive care unit for observation of the course of the evening. Agrees with unit of blood I have ordered. Treatments:Blood transfusion Re-evaluations: 8pm concern for significant intra-abdominal postoperative bleeding. Mild anemia, currently hemodynamically stable but significant concern for ongoing and significant blood loss 830pm pressure dropping to 90 systolic. Crossmatch blood is available and we will be administered. We will order TXA and an additional 2 units of packed red cells. Patient is on metoprolol and I do not expect a heart rate response to his hypotension 832 SBP now 70. Massive Transfusion protocol activated Call to Dr Fortune,,will be in. Asked OR crew to come in, Discussed with dry house worker (MTP activation as well as OR crew) 840 MTP, blood volumes and concerns coordinated with nursing team in the ER 856 Dr Fortune at bedside. 3 units of packed red cells been transfused over approximately 10 minutes and systolic blood pressure is up to 120. Discussion: 78-year-old gentleman with laparoscopic left inguinal hernia complex repair earlier today discharge home around noon with postoperative intra-abdominal/retroperitoneal bleeding and near syncopal episode. With the obvious blood loss on the floor at the scene in his clothing and seen on CT scan at this point he will be given a unit of crossmatched blood cells. He is not actively extravasating but will need close following and likely will need additional blood. Care is reviewed with Dr. Fortune who will admit the patient to the intensive care unit for observation overnight. Moderate leukocytosis with left shift, a dose of Zofran is given as were continuing to sort out the rest of the clinical picture. Findings reviewed with the patient including need for hospitalization. In light of significant hypotensive episode, message transfusion protocol was initiated. Patient responded nicely to blood. Dr. Enriquez in his considering OR versus active management and continued blood transfusions over the course of the evening. Patient will be admitted to the intensive care unit Critical Care Time Critical Care Time Critical Care Time: Yes Total Critical Care Time: 42 Attestation: Critical care time is separate from other billable procedures. There is a high probability of a significant, sudden or life-threatening deterioration that requires my full and direct attention, intervention and personal management. This critical care time includes consultation with family and other consulting doctors, review of records, and interpretation of data from labs, EKGs and imaging as well as managements of severe postoperative blood loss with hemodynamic instability, institution of massive transfusion protocols and blood transfusions Discharge Plan Departure Patient Disposition: Admitted As Inpatient Clinical Impression: Acute blood loss anemia, Transient hypotension Post-operative haemorrhage Qualifiers: Surgical complication system/body Area: musculoskeletal system Admit Date/Time: 12/26/23 21:24 Admit Provider: Lamont Fortune
--- NOTE | 2023-12-26 19:02 | DI.CT.S_ITS ---
PROCEDURE: CT ABDOMEN PELVIS W CON INDICATIONS: post op bleeding, syncope TECHNIQUE: After the administration of intravenous contrast, axial sections acquired from the lung bases to the pubic symphysis. Coronal and sagittal reformats were performed. For radiation dose reduction, the following was used: automated exposure control, adjustment of mA and/or kV according to patient size. COMPARISON: [facility], CT, CT ABDOMEN PELVIS WO CON, 06/19/2019, 8:35. FINDINGS: Image quality: Diagnostic. Lower Chest: No significant findings. ABDOMEN: Liver: No solid mass. Question hepatic steatosis. Gallbladder: No radiopaque gallstones or wall thickening. Biliary ducts: No biliary dilation. Pancreas: No ductal dilation. Spleen: Size is within normal limits. Adrenal Glands: No adrenal nodules. Kidneys and Ureters: No hydronephrosis. Small bilateral nonobstructing kidney stones. No solid mass. No complex renal cystic lesion which requires follow up. Stomach and Bowel: Colon is not distended. The visualized portions of the appendix are not dilated. No small bowel obstruction. The stomach is within normal limits. Peritoneum: There is a scant amount of free air adjacent to the liver and lower abdomen which is within normal limits in this postsurgical patient. There is a large hematoma in the left lower quadrant measuring approximately 12.6 x 5.7 x 4.7 cm, estimated volume 176 cc. Portion of the hematoma is tracking into the left pelvis and along the left psoas muscle. There also blood products in the left inguinal canal. There is fluid in the left inguinal canal. There is also all small amount of blood products at the left lower abdominal musculature. Scant blood products near the rectum. There is also presacral edema. No active extravasation is identified. Ventral Wall: No significant ventral hernia. Scant subcutaneous gas. Abdominal Nodes: No retroperitoneal or mesenteric adenopathy by size criteria. Vessels: No abdominal aortic aneurysm. The left iliac arteries are patent. The left external iliac vein is flattened. PELVIS: Pelvic Organs: Unremarkable. Bladder: Within normal limits. No stone. Pelvic Nodes: No enlarged lymph nodes. Miscellaneous: No inguinal hernias are seen. Bones: No aggressive osseous abnormality. Left hip arthroplasty. IMPRESSION: 1. Large intra-abdominal hematoma in the left lower quadrant measuring approximately 12.6 cm in length and at least 176 cc. No active extravasation is identified on this portal venous phase exam. 2. Scant amount of pneumoperitoneum is felt to be within postsurgical normal limits. No bowel obstruction. Dictated by: River Alba M.D. on 12/26/2023 at 19:59 Approved by: River Alba M.D. on 12/26/2023 at 20:10
[2023-12-26 19:16] LABS: Add Manual Diff / Slide Review NO; Basophils Absolute Auto 0 /uL (0-100); Basophils Percent Auto 0.1 % (0-2); Eosinophils Absolute Auto 0 /uL (0-450); Hematocrit 35.8 % (41-53); Hemoglobin 11.8 g/dL (13.5-17.5); Lymphocytes Absolute Auto 1300 /uL (1100-4500); Lymphocytes Percent Auto 8.4 % (25-40); Mean Corpuscular HGB Conc 32.9 % (30-36); Mean Corpuscular Hemoglobin 31.3 PG (26-34); Mean Corpuscular Volume 95.3 fL (80-100); Monocytes Absolute Auto 300 /uL (0-900); Monocytes Percent Auto 1.7 % (3-14); Neutrophils Absolute Auto 13600 /uL (1500-7000); Neutrophils Percent Auto 89.8 % (50-75); Platelet Count 264 X10^3/uL (150-400); Red Blood Cell Count 3.76 X10^6/uL (4.5-5.9); White Blood Cell Count 15.1 X10^3/uL (4.5-11.0)
[2023-12-26 19:19] LABS: Albumin 4.1 g/dL (3.5-5.0); Albumin Globulin Ratio 1.7 (1.0-2.8); Alkaline Phosphatase 61 U/L (38-126); BUN Creatinine Ratio 20.2 (6-22); Bilirubin Total 0.7 mg/dL (0.2-1.3); Blood Urea Nitrogen 22 mg/dL (9-20); Calcium 8.5 mg/dL (8.4-10.2); Carbon Dioxide 13 mmol/L (22-32); Chloride 105 mmol/L (98-107); Estimated Glomerular Filt Rate > 60 mL/min (>60); Globulin 2.4 g/dL (1.7-4.1); Glucose 307 mg/dL (80-110); HEMOLYSIS < 15 (0-50); Potassium 3.8 mmol/L (3.4-5.1); Sodium 138 mmol/L (137-145); Total Protein 6.5 g/dL (6.3-8.2)
[2023-12-26] MEDS: SODIUM CHLORIDE 0.9% 1,000 ML 1000 ML IV (19:21)
[2023-12-26 19:25] LABS: Aspartate Aminotransferase 51 IU/L (17-59)
[2023-12-26 19:26] LABS: Alanine Aminotransferase 47 IU/L (<50)
[2023-12-26 19:31] LABS: Troponin I < 0.012 ng/mL (0.01-0.034)
--- NOTE | 2023-12-26 19:58 | PC.NURSE ---
Patient called RN to room, notes blood on gown. Patient with continued bleeding from umbilicus, ABD applied and venancio bandage wrapped around patient. Patient with pain to LLQ/left groin, bruising and taut noted to groin.
[2023-12-26] MEDS: HYDROMORPHONE 0.5 MG INJ IV ×2 (20:29→23:32)
[2023-12-26] MEDS: PIPERACILLIN/TAZO 4.5 GM in SODIUM CHLORIDE 0.9% 100 ML IV (20:30)
[2023-12-26] MEDS: TRANEXAMIC ACID 1,000 MG in SODIUM CHLORIDE 0.9% 100 ML 200 MG IV (20:57)
--- NOTE | 2023-12-26 21:05 | P.HP_ITS ---
History of Present Illness History of Present Illness Date Patient Seen: 12/26/23 Time Patient Seen: 21:05 Chief complaint: Fell, Stiches ripped, Abd Hernia Narrative: Sung is a 78-year-old man who had a laparoscopic recurrent left inguinal hernia repair this morning. There was an old mesh plug that was removed. The surgery was otherwise uneventful and he was discharged home from the postoperative care unit. At home he began feeling dizzy and syncopized and came back to the ER. He had a CT scan which showed significant amount of blood in the pelvis and he was bleeding from his umbilical surgical site. Then in the ER his blood pressure dropped significantly and the massive transfusion protocol was initiated. After several units of packed red blood cells his blood pressure has normalized. He feels better now. He denies shortness of breath. 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) Anemia BPH (benign prostatic hyperplasia) Plantar wart of both feet Hypertension Encounter for well adult exam without abnormal findings Encounter for pre-operative cardiovascular clearance Cardiomyopathy Varicose veins of bilateral lower extremities with other complications Left hip pain Double vision (04/2019) Ejection fraction < 50% (06/2019) Osteoarthritis (Unknown) Hyperlipemia (Unknown) Shoulder pain (Unknown) Hip pain, left (1987) Knee pain, right (2014) Chickenpox (~1950) Measles (~1950) Mumps (~1950) Cardiac arrhythmia (~2009) Primary osteoarthritis of left hip (06/29/16) Surgical History History of colonoscopy History of arthroplasty of right knee (01/29/19) Status post rotator cuff repair Status post knee surgery Status post knee surgery Status post hernia repair (2018) Status post hernia repair Family History Father No problems noted. Mother No problems noted. Grandfather No problems noted. Grandfather No problems noted. Social History marital status: unmarried,single household members: none lives independently: Yes occupational status: previously employed Smoking Status: Never smoker alcohol intake: current substance use type: does not use Meds Home Medications and Allergies Home Medications Medication Instructions Recorded Confirmed Type multivitamin 1 tab PO DAILY 09/22/19 12/26/23 History metoprolol succinate 25 mg 25 mg PO BEDTIME 12/29/19 12/26/23 History tablet,extended release 24 hr rosuvastatin 10 mg tablet 10 mg PO DAILY To control 01/02/23 12/26/23 History cholesterol acetaminophen 325 mg capsule 650 mg (2 x 325 mg) PO QID PRN 12/26/23 Rx (Tylenol) pain #60 caps celecoxib 200 mg capsule (Celebrex) 200 mg PO BID #20 caps 12/26/23 Rx docusate sodium 100 mg capsule 100 mg PO BID #30 caps 12/26/23 Rx (Colace) tramadol 50 mg tablet 50 mg PO Q6H PRN pain #15 tabs 12/26/23 Rx Allergies Allergy/AdvReac Type Severity Reaction Status Date / Time No Known Drug Allergies Allergy Verified 12/26/23 07:42 Exam Vital Signs (past 8 hours): - 12/26/23 18:30 12/26/23 18:34 12/26/23 18:37 Temperature 97.7 F Pulse Rate 90 90 Respiratory Rate 18 Blood Pressure 138/111 H 134/71 Pulse Oximetry 99 99 Oxygen Delivery Method Room Air 12/26/23 18:37 12/26/23 18:37 12/26/23 18:47 Temperature Pulse Rate 85 Respiratory Rate Blood Pressure 134/71 130/71 Pulse Oximetry 100 Oxygen Delivery Method 12/26/23 18:47 12/26/23 19:00 12/26/23 19:00 Temperature Pulse Rate 91 H 90 Respiratory Rate 24 Blood Pressure 112/70 Pulse Oximetry 100 99 Oxygen Delivery Method 12/26/23 19:15 12/26/23 19:15 12/26/23 19:30 Temperature Pulse Rate 89 85 Respiratory Rate 11 L 24 Blood Pressure 110/69 Pulse Oximetry 99 94 Oxygen Delivery Method 12/26/23 19:45 12/26/23 19:45 12/26/23 19:47 Temperature Pulse Rate 97 H Respiratory Rate 26 H Blood Pressure 134/69 109/69 Pulse Oximetry 93 Oxygen Delivery Method 12/26/23 19:47 12/26/23 20:00 12/26/23 20:26 Temperature Pulse Rate 95 H 80 Respiratory Rate 24 25 H Blood Pressure 91/55 L Pulse Oximetry 97 95 Oxygen Delivery Method 12/26/23 20:26 12/26/23 20:27 12/26/23 20:27 Temperature Pulse Rate 80 79 Respiratory Rate 28 H 24 Blood Pressure 85/53 L Pulse Oximetry 95 94 Oxygen Delivery Method 12/26/23 20:30 12/26/23 20:30 12/26/23 20:31 Temperature Pulse Rate 73 Respiratory Rate 28 H Blood Pressure 75/48 L 68/42 L Pulse Oximetry 95 Oxygen Delivery Method 12/26/23 20:31 12/26/23 20:33 12/26/23 20:33 Temperature Pulse Rate 69 66 Respiratory Rate 28 H 25 H Blood Pressure 53/38 L Pulse Oximetry 96 97 Oxygen Delivery Method 12/26/23 20:37 12/26/23 20:37 12/26/23 20:42 Temperature 98 F Pulse Rate 61 59 L Respiratory Rate 28 H 26 H Blood Pressure 52/36 L 52/36 L Pulse Oximetry 94 Oxygen Delivery Method 12/26/23 20:45 12/26/23 20:55 Temperature 97.9 F Pulse Rate 70 93 H Respiratory Rate 24 26 H Blood Pressure 87/50 L 121/59 L Pulse Oximetry Oxygen Delivery Method Oxygen Delivery Method Room Air Narrative Exam Narrative: Alert, awake and oriented Normal respirations Abdomen is somewhat distended without peritonitis Small amount of oozing from the umbilical incision Objective Labs 12/26/23 18:35 12/26/23 18:35 Labs: Laboratory Results - last 24 hr 12/26/23 18:35 WBC 15.1 H RBC 3.76 L Hgb 11.8 L Hct 35.8 L MCV 95.3 MCH 31.3 MCHC 32.9 RDW 13.0 Plt Count 264 Neut % (Auto) 89.8 H Lymph % (Auto) 8.4 L [place] % (Auto) 1.7 L Eos % (Auto) 0.0 L Baso % (Auto) 0.1 Neut # (Auto) 05767 H Lymph # (Auto) 1300 [place] # (Auto) 300 Eos # (Auto) 0 Baso # (Auto) 0 Sodium 138 Potassium 3.8 Chloride 105 Carbon Dioxide 13 L BUN 22 H Creatinine 1.09 Estimated GFR > 60 BUN/Creatinine Ratio 20.2 Glucose 307 H Calcium 8.5 Total Bilirubin 0.7 AST 51 ALT 47 Alkaline Phosphatase 61 Troponin I < 0.012 Total Protein 6.5 Albumin 4.1 Globulin 2.4 Albumin/Globulin Ratio 1.7 Blood Type O Positive Antibody Screen Negative Crossmatch See Detail Assessment & Plan Assessment and plan (1) Post-operative haemorrhage: Qualifiers: Surgical complication system/body Area: musculoskeletal system Status: Acute Plan Now that his blood pressure has normalized we will proceed with the next steps in the massive transfusion protocol which include platelets and plasma and then stop. The bleeding most likely stopped prior to the CT scan but his blood pressure may have simply been labile and now that his blood volume is restored he should be stable. He will be monitored closely in the ICU overnight for signs of ongoing bleeding.
--- NOTE | 2023-12-26 21:16 | PC.NURSE ---
Patient's ordered 1 unit of FFP 325mL started (Product # [id number], O-positive, Unit EXp 09/06/2024, [id number]) Verified with MYRIAM Olmedo. Consent in chart, patient's ID band nad blood band verified with MYRIAM Olmedo.
[2023-12-26 21:24] LABS: Hematocrit 36.5 % (41-53); Platelet Count 161 X10^3/uL (150-400)
[2023-12-26 21:33] LABS: INR 1.3 (0.9-1.3); Prothrombin Time 15.1 SECONDS (9.4-12.5)
[2023-12-26 21:34] LABS: Fibrinogen 174 mg/dL (238-498)
[2023-12-26 21:36] LABS: PTT Partial Thromboplastin Tim 27 SECONDS (25.1-36.5)
[2023-12-26 21:36] LABS: Appearance Urine UA CLEAR; Bilirubin Urine UA NEGATIVE (NEGATIVE); Color Urine UA YELLOW; Glucose Urine UA 1+ g/dL (Negative); Ketones Urine UA TRACE (NEGATIVE); Leukocyte Esterase Urine UA NEGATIVE (NEGATIVE); Nitrite Urine UA NEGATIVE (Negative); Occult Blood Urine UA 2+ (Negative); Protein Urine UA TRACE (Negative); Urobilinogen Urine UA 0.2 E.U./dL (0.2); pH Urine UA 5.5 (4.5-8.0)
[2023-12-26 21:48] LABS: Urine Volume 10mL (spun)
[2023-12-26 21:49] LABS: Bacteria Urine Occasional (0-1); Hyaline Casts Urine 1-5/LPF; RBC Urine 10-30/HPF (0-5/HPF); Squamous Epithelial Cell Urine 0-1 /HPF (0-5/HPF); WBC Urine 0-1/HPF (0-5/HPF)
[2023-12-26 21:50] LABS: Culture Indicated Urine Cult Not Indicated; Granular Casts Urine 0-1/LPF; Mucus Urine 1+ (Negative)
[2023-12-26] MEDS: LACTATED RINGERS 1,000 ML 75 ML IV (23:31)
[2023-12-27] VITALS (40 sets, daily range): BP systolic 114–164; BP diastolic 57–88; PULSE 65–103; RESP 12–30; TEMP 36.4–37.2; O2SAT 91–100
--- NOTE | 2023-12-27 00:26 | PC.NURSE ---
Pt. arrived to the unit via stretcher, transferred from stretcher to bed with transfer board. Pt. is alert, oriented and appropriate. Oriented to bed control and call light use and instructed not to get OOB without assistance. Bed alarm activated. Call light within reach.
[2023-12-27 01:49] LABS: MRSA (Nasal) PCR NOT DETECTED (Not Detect)
[2023-12-27 03:03] LABS: Add Manual Diff / Slide Review NO; Basophils Absolute Auto 0 /uL (0-100); Eosinophils Absolute Auto 0 /uL (0-450); Hematocrit 34.9 % (41-53); Lymphocytes Absolute Auto 700 /uL (1100-4500); Lymphocytes Percent Auto 6.3 % (25-40); Mean Corpuscular HGB Conc 34.3 % (30-36); Mean Corpuscular Hemoglobin 31.3 PG (26-34); Mean Corpuscular Volume 91.2 fL (80-100); Monocytes Absolute Auto 600 /uL (0-900); Monocytes Percent Auto 5.3 % (3-14); Neutrophils Absolute Auto 10100 /uL (1500-7000); Neutrophils Percent Auto 88.4 % (50-75); Platelet Count 179 X10^3/uL (150-400); Red Blood Cell Count 3.83 X10^6/uL (4.5-5.9); Red Cell Distribution Width 13.8 % (11.6-14.8); White Blood Cell Count 11.4 X10^3/uL (4.5-11.0)
[2023-12-27] MEDS: HYDROMORPHONE 0.5 MG INJ IV ×2 (04:47→21:15)
--- NOTE | 2023-12-27 09:14 | P.PN_ITS ---
Subjective Subjective Date Patient Seen: 12/27/23 Time Patient Seen: 09:14 Interval history: hemodynamically stable overnight Recieved 3 units PRBCs in ER starting Hct 40, today 35, plt 180, INR 1.3 CT intra abdominal hematoma. Abdominal pain 02/19 this am Exam Vital Signs (past 8 hours): - 12/27/23 01:34 12/27/23 01:34 12/27/23 01:36 Temperature 97.5 F L Pulse Rate 74 76 Respiratory Rate 23 19 Blood Pressure 118/59 L 118/59 L Pulse Oximetry 98 12/27/23 02:00 12/27/23 02:00 12/27/23 02:00 Temperature 97.6 F Pulse Rate 65 65 Respiratory Rate 19 17 Blood Pressure 128/61 128/61 Pulse Oximetry 96 12/27/23 03:00 12/27/23 03:00 12/27/23 03:30 Temperature 98.6 F Pulse Rate 76 65 Respiratory Rate 19 19 Blood Pressure 125/61 142/67 H Pulse Oximetry 96 12/27/23 03:30 12/27/23 03:30 12/27/23 04:00 Temperature Pulse Rate 73 Respiratory Rate 19 Blood Pressure 142/67 H 136/61 Pulse Oximetry 97 12/27/23 04:00 12/27/23 05:00 12/27/23 05:00 Temperature Pulse Rate 68 95 H Respiratory Rate 17 20 Blood Pressure 157/72 H Pulse Oximetry 97 95 12/27/23 06:00 12/27/23 06:00 12/27/23 07:00 Temperature Pulse Rate 91 H Respiratory Rate 19 Blood Pressure 119/65 164/77 H Pulse Oximetry 98 12/27/23 07:00 12/27/23 08:00 12/27/23 08:01 Temperature 98.6 F Pulse Rate 93 H 95 H 95 H Respiratory Rate 19 19 21 Blood Pressure Pulse Oximetry 96 97 97 12/27/23 08:01 12/27/23 09:00 12/27/23 09:00 Temperature Pulse Rate 85 Respiratory Rate Blood Pressure 153/71 H 134/64 Pulse Oximetry 96 Oxygen Delivery Method Nasal Cannula Oxygen Flow Rate 2 Narrative Exam Narrative: Gen-Adult man alert and orineted uncomfortable Abdomen-Tender oozing from incisions abdominal wall hematoma. Objective Labs 12/27/23 02:30 12/26/23 18:35 Labs: Laboratory Results - last 24 hr 12/26/23 12/26/23 12/26/23 18:35 21:15 21:20 WBC 15.1 H RBC 3.76 L Hgb 11.8 L 12.0 L Hct 35.8 L 36.5 L MCV 95.3 MCH 31.3 MCHC 32.9 RDW 13.0 Plt Count 264 161 Neut % (Auto) 89.8 H Lymph % (Auto) 8.4 L [place] % (Auto) 1.7 L Eos % (Auto) 0.0 L Baso % (Auto) 0.1 Neut # (Auto) 27682 H Lymph # (Auto) 1300 [place] # (Auto) 300 Eos # (Auto) 0 Baso # (Auto) 0 PT 15.1 H INR 1.3 APTT 27 Fibrinogen 174 L Sodium 138 Potassium 3.8 Chloride 105 Carbon Dioxide 13 L BUN 22 H Creatinine 1.09 Estimated GFR > 60 BUN/Creatinine Ratio 20.2 Glucose 307 H Calcium 8.5 Total Bilirubin 0.7 AST 51 ALT 47 Alkaline Phosphatase 61 Troponin I < 0.012 Total Protein 6.5 Albumin 4.1 Globulin 2.4 Albumin/Globulin Ratio 1.7 Urine Color Yellow Urine Appearance Clear Urine pH 5.5 Ur Specific [place] 1.020 Urine Protein Trace H Urine Glucose (UA) 1+ H Urine Ketones Trace H Urine Occult Blood 2+ H Urine Nitrate Negative Urine Bilirubin Negative Urine Urobilinogen 0.2 Ur Leukocyte Esterase Negative Urine RBC 10-30/hpf H Urine WBC 0-1/hpf Ur Squamous Epith Cells 0-1 /hpf Urine Bacteria Occasional (0-1) Hyaline Casts 1-5/lpf Granular Casts 0-1/lpf Urine Mucus 1+ H Ur Culture Indicated? Cult not indicated Vol Urine Centrifuged 10ml (spun) Nasal Screen MRSA (PCR) Blood Type O Positive Antibody Screen Negative Crossmatch See Detail 12/26/23 12/27/23 23:25 02:30 WBC 11.4 H RBC 3.83 L Hgb 12.0 L Hct 34.9 L MCV 91.2 D MCH 31.3 MCHC 34.3 RDW 13.8 Plt Count 179 Neut % (Auto) 88.4 H Lymph % (Auto) 6.3 L [place] % (Auto) 5.3 Eos % (Auto) 0.0 L Baso % (Auto) 0.0 Neut # (Auto) 13004 H Lymph # (Auto) 700 L [place] # (Auto) 600 Eos # (Auto) 0 Baso # (Auto) 0 PT INR APTT Fibrinogen Sodium Potassium Chloride Carbon Dioxide BUN Creatinine Estimated GFR BUN/Creatinine Ratio Glucose Calcium Total Bilirubin AST ALT Alkaline Phosphatase Troponin I Total Protein Albumin Globulin Albumin/Globulin Ratio Urine Color Urine Appearance Urine pH Ur Specific [place] Urine Protein Urine Glucose (UA) Urine Ketones Urine Occult Blood Urine Nitrate Urine Bilirubin Urine Urobilinogen Ur Leukocyte Esterase Urine RBC Urine WBC Ur Squamous Epith Cells Urine Bacteria Hyaline Casts Granular Casts Urine Mucus Ur Culture Indicated? 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) Anemia BPH (benign prostatic hyperplasia) Plantar wart of both feet Hypertension Encounter for well adult exam without abnormal findings Encounter for pre-operative cardiovascular clearance Cardiomyopathy Varicose veins of bilateral lower extremities with other complications Left hip pain Double vision (04/2019) Ejection fraction < 50% (06/2019) Osteoarthritis (Unknown) Hyperlipemia (Unknown) Shoulder pain (Unknown) Hip pain, left (1987) Knee pain, right (2014) Chickenpox (~1950) Measles (~1950) Mumps (~1950) Cardiac arrhythmia (~2009) Primary osteoarthritis of left hip (06/29/16) Surgical History History of colonoscopy History of arthroplasty of right knee (01/29/19) Status post rotator cuff repair Status post knee surgery Status post knee surgery Status post hernia repair (2017) Status post hernia repair Family History Father No problems noted. Mother No problems noted. Grandfather No problems noted. Grandfather No problems noted. Social History marital status: unmarried,single household members: none lives independently: Yes occupational status: previously employed Smoking Status: Never smoker alcohol intake: current substance use type: does not use Assessment & Plan Assessment & Plan narrative: 78M POD 1 laparoscopic repair of recurrent left inguinal hernia with post op bleed hemodynamically stable. No signs of active hemorrhage, but has uncomfortable intra abdominal hematoma. Discussed diagnostic laparoscopy with evacuation of hematoma vs observation. His preference is surgery which is reasonable. Can probably DC this evening after surgery OR 330 12/26 with Tong Babb for clears until noon Quality VTE Deep Vein Thrombosis/Pulmonary Embolism Present on Admission: Yes
[2023-12-27] MEDS: LACTATED RINGERS 1,000 ML 75 ML IV ×3 (12:20→18:45)
--- NOTE | 2023-12-27 13:22 | CM.DANOTE ---
Initial DCP Assessment Note Pt is a 78 yo male, resident of [place], s/p hernia repair, returns with post operative bleeding with anemia, received units overnight and scheduled for laparoscopy with evacuation of hematoma today. PCP: Anthony Rosas Payer: Marlene PEARSON [facility] Reviewed chart, patient indp w/o DME at baseline, has help from friends and neighbors to assist as needed. No barriers identified at this time to patient's safe discharge home w/friends to assist as needed; close outpatient f/u recommended. CM team will plan to follow clinical course closely in case any DC needs or concerns arise. DENISE Blake Discharge Planning/Care Management CM Discharge Assessment Start: 12/27/23 13:19 Freq: Status: Active Protocol: Document 12/27/23 13:19 ADRIAN (Rec: 12/27/23 13:21 ADRIAN [id number]) Discharge Planning Assessment Assigned Adventure Guide DENISE Brunson DPOA/Assigned Designee Name Aarti Hightower--Sister Contact Information Home: Work: Advance Directives? Yes Advance Directives on File Yes History Provided By Medical Record Prior Living Arrangements House Household Members none Type of transporation used prior to Drives own vehicle admit Independent with ADL's Yes Is patient alert and oriented? Yes Barriers to Discharge No Discharge Plan Home Transportation Arrangement Friends/neighbors Referrals Initiated None needed
--- NOTE | 2023-12-27 15:24 | PC.NURSE ---
Addendum entered by Carine West R.N. 12/27/23 18:23: Pt transferred back to [facility] at 1800. Audible wheezing, pt repositioned in bed, instructed to take deep breaths, cough. Wheezing diminished, lungs clear. 2L NC 95% BP and HR stable, RR stable. A&Ox3, fatigued. Dressing CDI. Bed alarm active. Care ongoing, will continue to monitor. Original Note: Day shift: Pt A&Ox4 denies pain. VSS, ABD pad changed, saturated with sangious drainage, provider notified. Pt transferred by [employer] ADMINISTRATOR to preop at approximately 1525.
--- NOTE | 2023-12-27 15:35 | PM.PREOP ---
Pre-operative Note COVID-19 COVID-19 status: Not tested Interval Note History & Physical reviewed/Exam performed by Physician: Yes Changes to H&P: No ASA Class (for procedural sedation): II
[2023-12-27] MEDS: LACTATED RINGERS 1,000 ML 42 ML IV (16:00)
[2023-12-27] MEDS: CEFAZOLIN 2 GM/100 ML PREMIX 100 ML IV (16:05)
[2023-12-27] MEDS: BUPIVACAINE 0.5% W/ EPI (PF) 30 ML VIAL INJ (16:42)
--- NOTE | 2023-12-27 16:56 | P.OP_ITS ---
Operative Date/Time/Diagnoses Date of procedure: 12/27/23 Time of procedure: 16:56 Pre-op diagnosis: Intra-abdominal hematoma Post-op diagnosis: same Procedure & Clinicians Procedure: Diagnostic laparoscopy Evacuation of intra-abdominal hematoma Same procedure as scheduled: Yes Surgeon: Lamont Fortune Anesthesia Type: General Operative Notes Procedure in detail: The patient was brought to the operating room and placed on the table in the supine position. General endotracheal anesthesia was induced. Ancef was administered. The abdomen was prepped and draped in the usual fashion and a time-out was performed. The supraumbilical skin incision was opened with a 15 blade. The fascial stitch was cut. The [place] port was placed and the abdomen was insufflated to 15 mmHg. The skin was opened at the left lateral port site and a 5 mm port was placed through the prior left incision. The patient was placed in Trendelenburg. There was blood clot in the abdomen which was easily suctioned with the suction senior planning manager. Some irrigation was used to break up some clot. In total approximately 200 mL of blood clot was evacuated. The peritoneal closure in the left groin appeared intact. No active bleeding was identified. The left-sided 5 mm port was removed under direct vision. The abdomen was desufflated. The [place] port was removed. Additional local was injected into the fascia and the fascial defect was closed with 3 interrupted 0 Vicryl sutures. The skin incisions were closed with 4-0 Monocryl and Steri-Strips and Band-Aids were applied. EBL: 0 Evacuated blood clot: Roughly 200 mL The patient was awakened brought to recovery room. Post-operative Condition: stable Disposition: PACU
[2023-12-27] MEDS: ONDANSETRON 4 MG/2 ML INJ IV (17:19)
[2023-12-27] MEDS: HYDROMORPHONE 1 MG INJ IV (17:28)
[2023-12-27] MEDS: hydrOXYzine 50 MG/ML INJ 25 MG IM (17:28)
[2023-12-27] MEDS: ALBUTEROL/IPRATROPIUM 3 ML AMPUL INH (17:36)
[2023-12-27] MEDS: SODIUM CHLORIDE 0.9% FLUSH 10 ML IV ×2 (21:15)
[2023-12-28] VITALS (34 sets, daily range): BP systolic 107–154; BP diastolic 54–88; PULSE 62–108; RESP 16–41; TEMP 37.1–37.2; O2SAT 90–98
[2023-12-28] MEDS: ACETAMINOPHEN 325 MG TABLET 975 MG PO (06:00)
[2023-12-28] MEDS: FUROSEMIDE 40 MG/4 ML VIAL IV (08:46)
[2023-12-28] MEDS: SODIUM CHLORIDE 0.9% FLUSH 10 ML IV ×2 (08:47→21:08)
--- NOTE | 2023-12-28 12:00 | PT.IIE ---
Current Diagnoses Postprocedural hemorrhage of a digestive system organ or structure following a digestive system procedure (12/26/23) Surgery Performed Operation Date: 12/27/23 15:45 Actual Procedures p Laparoscopy, Diagnostic, GEN, evacuation of hematoma - Lamont Fortune MD Surgical History (Last Reviewed 12/26/23 @ 19:06 by Brittni Rueda MD) History of arthroplasty of right knee (01/29/19) History of colonoscopy Status post hernia repair Status post hernia repair (2017) Status post knee surgery Status post knee surgery Status post rotator cuff repair Medical History (Last Reviewed 12/26/23 @ 19:06 by Brittni Rueda MD) Anemia BPH (benign prostatic hyperplasia) Cardiac arrhythmia (~2009) Cardiomyopathy Chickenpox (~1949) Double vision (04/2019) Ejection fraction < 50% (06/2019) Encounter for pre-operative cardiovascular clearance Encounter for well adult exam without abnormal findings Hip pain, left (1987) 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) Hyperlipemia (Unknown) Hypertension Knee pain, right (2014) Left hip pain Measles (~1950) Mumps (~1950) Osteoarthritis (Unknown) Plantar wart of both feet Primary osteoarthritis of left hip (06/29/16) Shoulder pain (Unknown) Varicose veins of bilateral lower extremities with other complications Physical Therapy Inpatient Evaluation/Re-Eval M1 PT/OT-IP Prior Functional Status Start: 12/28/23 14:03 Freq: NEEDED Status: Active Protocol: Document 12/28/23 12:00 AB (Rec: 12/28/23 14:21 AB [id number]) Medical Review Prior Functional Status Medical History Reviewed Yes Communication able to make needs known Mobility and Gait pt stated that he was indpeendent with all mobilities and ambulation wihtout AD Social History Household Members none Living Arrangements House Number of Floors (Floors) One Floor Number of Stairs To Enter/Railing? 1 step to enter Home Environment Standard Height Toilet,Walk in Shower,Built-In Shower Seat Home Equipment Straight Cane,Raised Toilet Seat w/Armrests,Grab Bars In Shower Additional Social History Comment pt lives alone; has neighbors that he can call to assist but no consistent person to assist and be able to stay with him pt has a chair recliner M2 PT-IP Current Condition Start: 12/28/23 14:03 Freq: NEEDED Status: Active Protocol: Document 12/28/23 12:00 AB (Rec: 12/28/23 14:21 [id number]) Physical Therapy Current Condition Current Condition Evaluation Date 12/28/23 Treatment Diagnosis anemia; s/p hernia repair; difficulty in walking Onset Date 12/26/23 M3 PT-IP Subjective Start: 12/28/23 14:03 Freq: NEEDED Status: Active Protocol: Document 12/28/23 12:00 AB (Rec: 12/28/23 14:21 AB [id number]) Subjective Physical Therapy Visit Type Type Initial Evaluation Visit Start Time 12:00 Visit Stop Time 13:02 Number of WIRE PRODUCTS INSPECTOR Visits 0 Physical Therapy Visit Comments Patient Comments agreeable to do PT Therapy Pain Assessment Pain When Pain Assessed At Rest Pain Present Pain Present Pain Reported Location Abdomen Scale Used pain scale not stated Pain Behaviors Guarding Pain Management Techniques Distraction,Modification of Treatment,Re-positioning, Timing of Activity with Medications M4 PT-IP Mobility and Gait Start: 12/28/23 14:03 Freq: NEEDED Status: Active Protocol: Document 12/28/23 12:00 AB (Rec: 12/28/23 14:21 [id number]) PT-Bed Mobility Assessment Rolling Type of Rolling Log Rolling Level of Assist Maximal Assistance Supine to Sit Supine to Sit Maximum Assistance,Bedrails Sit to Supine Sit to Supine Maximum Assistance,Bedrails PT-Transfer Assessment Sit to and From Stand Sit to and from Stand Moderate Assistance,1 Person Assistance,Use of Upper Extremities Equipment Transfer Assistive Device Gait Belt,Front Wheeled Walker Orthotic/Prosthetic Devices or Brace: No Transfers Transfer Destination Chair Transfer Technique ambulated Transfer Ability Level of Assist Minimal Assistance,Moderate Assistance,1 Person Assistance ,Use of Upper Extremities Comments Mobility Comments pt sitting on the chair and agreeable to do PT. obtained PLOF and home set up from pt. BP: 137/68 O2 sat 94-96% at RA. provided pt with post-op handout and educated on abdominal precautions and log roll bed mobility. pt needs cues to recall precautions. pt completed sit to stand mod A and max cues. pt tremulous with initial standing needing mod A for steadiness. pt ambulated ~ 12 ft to EOB using fWW min to mod A and max cues . presents with unsteady steps with decrease LE elevation and propulsion. pt sat on EOB . completed log roll sit<> supine max A and max cues. requires x 3 attempts to complete tasks and max cues for techniques and safety. pt completed sit to stand from EOB mod A and ambulation using FWW to chair min to mod A and max cues. positioned pt on the chair. call light and table placed within reach. informed pt regarding need of FWW to use at this time and pt agreed. pt stated that he will call her friend to see if he can get a fWW. also informed pt regarding asssitance needed at home but at this time will only have neighbors to assist him as needed. pt with difficulty with bed mobility and pt has a recliner at home that he can sleep in at this time. pt understood. informed nurse regarding pt's mobility level. also informed nurse to obtain OT eval order. Gait Assessment Gait Gait Assistance Required: Minimum Assistance,Moderate Assistance Distance (Feet) 12 Able to Maintain Weight Bearing Status Yes During Gait Assistive Devices Assistive Device Gait Belt,Front Wheeled Walker Orthotic/Prosthetic Devices or Brace: No Gait Deviations General Gait Pattern Ataxic,Decreased Feet Clearance,Step-to Gait Factors Limiting Gait Function Factors Limiting Gait Function Decreased Activity Tolerance, Decreased Strength,Difficulty Following Directions,Limited Range of Motion,Pain,Poor Balance,Poor Safety Awareness PT-Balance Assessment Sitting Balance and Reactions Static Sitting Balance Ability Good Dynamic Sitting Balance Ability Fair Standing Balance and Reactions Static Standing Balance Ability Fair Dynamic Standing Balance Ability Poor Device Used FWW M5 PT-IP Objective Assessments Start: 12/28/23 14:03 Freq: NEEDED Status: Active Protocol: Document 12/28/23 12:00 AB (Rec: 12/28/23 14:21 [id number]) Orientation Orientation/Cognition Level of Alertness Alert Orientation Name,Place,Situation Language Function Ability No Deficits Noted Safety Awareness Decreased Safety Awareness Memory Description Short Term Impaired Gross Range of Motion Lower Extremity ROM Assessment Within Functional Limits Strength Lower Extremity Strength Assessment Within Functional Limits Sensation Assessment Sensation Gross Sensation WNL Muscle Tone Muscle Tone WNL Yes M6 PT-IP Treatment Start: 12/28/23 14:03 Freq: NEEDED Status: Active Protocol: Document 12/28/23 12:00 AB (Rec: 12/28/23 14:21 [id number]) Physical Therapy Treatment Education Education Provided Precautions,Post-Op Packet, Safety M7 PT-IP Assessment and Plan Start: 12/28/23 14:03 Freq: NEEDED Status: Active Protocol: Document 12/28/23 12:00 AB (Rec: 12/28/23 14:21 AB [id number]) PT Summary Assessment and Plan Potential Rehabilitation Potential Fair Status of Condition at Evaluation Evolving Summary Impairments Pain,ROM,Strength,Balance, Coordination,Sensation,Tone, Cognition,Bed Mobility, Transfers,Gait,Activity Tolerance Assessment Summary pt is a 78 y/o M who presented to the ED s/p fall. pt stated that he had an abdominal hernia repair that day and was going to use the toilet but he got dizzy and fell. stated that he was able to get up and call for assistance. pt found to have anemia, stitches from the repair ripped open. pt underwent Diagnostic laparoscopy evacuation of intra-abdominal hematoma 12/16. pt requiring max A with bed mobility, min to mod A for sit to stand, transfers and ambulation using fWW. pt will need assistance at home and at this time will require 24/7 assist. pt will benefit from SNF rehab. will continue to assess progress. Goals Bed Mobility Goal Standby Assistance Transfer Goal Standby Assistance,Front Wheeled Walker Gait Goal Standby Assistance,Front Wheel Walker Other Goals improve bed mobility, transfers and ambulation using LRAD 300 ft mod I up/down 1 step using AD/ without AD mod I Days to Meet Goals 10 Frequency of Treatment Frequency Of Treatment Once a Day Treatment Plan Physical Therapy Treatment Plan Bed Mobility Training,Transfer Training,Gait Training, Therapeutic Exercise,Balance Retraining,Post Op Education, Discharge Planning,Hot or Cold Pack,Neuromuscular Re-ed, Coordination Retraining,Manual Therapy Precautions Abdominal Surgery Precautions Log Roll,Lifting Restrictions, Gait Belt above Incisional Area Other Precautions falls Recommendations To Nursing Amount of Assist Needed 1 Person Assist Discharge Recommendations PT Discharge Recommendations Home with 24/7 Assist Available,Home Health,SNF Rehab,Home vs SNF Equipment Needed for Home Before FWW Discharge Transportation Needs at Discharge Private Vehicle,Wheelchair/ Cabulance
--- NOTE | 2023-12-28 16:15 | OT.IP.EVAL ---
Current Diagnoses Postprocedural hemorrhage of a digestive system organ or structure following a digestive system procedure (12/26/23) Surgery Performed Operation Date: 12/27/23 15:45 Actual Procedures p Laparoscopy, Diagnostic, GEN, evacuation of hematoma - Lamont Fortune MD Past Medical History (Last Reviewed 12/26/23 @ 19:06 by Brittni Rueda MD) Anemia BPH (benign prostatic hyperplasia) Cardiac arrhythmia (~2009) Cardiomyopathy Chickenpox (~1949) Double vision (04/2019) Ejection fraction < 50% (06/2019) Encounter for pre-operative cardiovascular clearance Encounter for well adult exam without abnormal findings Hip pain, left (1987) 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) Hyperlipemia (Unknown) Hypertension Knee pain, right (2014) Left hip pain Measles (~1949) Mumps (~1950) Osteoarthritis (Unknown) Plantar wart of both feet Primary osteoarthritis of left hip (06/29/16) Shoulder pain (Unknown) Varicose veins of bilateral lower extremities with other complications Surgical History (Last Reviewed 12/26/23 @ 19:06 by Brittni Rueda MD) History of arthroplasty of right knee (01/29/19) History of colonoscopy Status post hernia repair Status post hernia repair (2017) Status post knee surgery Status post knee surgery Status post rotator cuff repair Occupational Therapy Inpatient Evaluation/Re-Eval M1 PT/OT-IP Prior Functional Status Start: 12/28/23 14:03 Freq: NEEDED Status: Active Protocol: Document 12/28/23 16:20 [facility] (Rec: 12/28/23 16:42 [facility] [id number]) Medical Review Prior Functional Status Medical History Reviewed Yes Communication able to make needs known Mobility and Gait pt stated that he was indpendent with all mobilities and ambulation without AD Activities of Daily Living and IADL's Pt states prior was completely independent and just started training to for a 50 mile hike in [place] for his 79th birthday coming up in March. Social History Household Members none Living Arrangements House Number of Floors (Floors) One Floor Number of Stairs To Enter/Railing? 1 step to enter Home Environment Standard Height Toilet,Walk in Shower,Built-In Shower Seat Home Equipment Straight Cane,Raised Toilet Seat w/Armrests,Grab Bars In Shower Additional Social History Comment pt lives alone; has neighbors that he can call to assist but no consistent person to assist and be able to stay with him pt has a chair recliner M2 OT-IP Current Condition Start: 12/28/23 16:17 Freq: Status: Active Protocol: Document 12/28/23 16:20 [facility] (Rec: 12/28/23 16:42 [facility] [id number]) Occupational Therapy Current Condition Current Condition Evaluation Date 12/28/23 Treatment Diagnosis S/P Hernia, anemia Diagnosis Onset Date 12/26/23 Post Operative Precautions Abdominal Surgery Precautions Log Roll,Lifting Restrictions, Gait Belt above Incisional Area M3 OT- IP Subjective and Pain Start: 12/28/23 16:17 Freq: Status: Active Protocol: Document 12/28/23 16:20 [facility] (Rec: 12/28/23 16:42 [facility] [id number]) OT- Subjective Occupational Therapy Visit Type Type Initial Evaluation Visit Start Time 15:35 Visit Stop Time 16:15 Occupational Therapy Visit Comments Patient Comments Pt agreed to get up and practice use of LB dressing equipment. Patient/Caregiver Goals TO go home. OT Pain Assessment Pain When Pain Assessed During Mobility Pain Present Pain Present Pain Reported Location Abdomen Intensity 5 M4 OT- IP ADL's Start: 12/28/23 16:17 Freq: Status: Active Protocol: Document 12/28/23 16:20 [facility] (Rec: 12/28/23 16:42 [facility] [id number]) OT [id number] Comments OT Self-Feeding Comments Not at meal time. OT ADL-Grooming Comments OT Grooming Comments Not performed no issues anticipated. OT ADL-Oral Care Comments Oral Care Comments Not performed, no issues anticipated. OT ADL-Dressing General Eval Lower Body Dressing Ability Maximum Assistance Areas Needing Assistance Socks Comments OT Dressing Comments At this time would be best for pt to use LB dressing equipment of jewelry polisher and sock aid to best follow his abdominal precautions. OT ADL-Toileting Comments OT Toileting Comments Educated to stand and wipe and use of wet ones would be helpful at this time to follow his abdominal precautions. OT ADL-Bathing Comments OT Bathing Comments Pt has a built in seat at home to use. M5 OT- IP IADL's Start: 12/28/23 16:17 Freq: Status: Active Protocol: Document 12/28/23 16:20 [facility] (Rec: 12/28/23 16:42 [facility] [id number]) OT-Instrumental Activities of Daily Living Home Safety Awareness Awareness of Need for Assistance at Home Good Awareness Ability to Problem Solve Emergency Able to Problem Solve Situations Home Safety Comments Pt would benefit from assist as having difficulty with his STM and needing information repeated. Medication Management Medication Management Comments Pt would benefit from supervision and pt is still not thinking well and tends to repeat himself multiple times . Money Management Money Management Comments Pt will benefit from assist until thinking clearer. Meal Preparation Meal Preparation Comments Pt will benefit from assist. Fittings Finisher Fittings Finisher Comments Pt will need assist. M6 OT- IP Functional Cognition Start: 12/28/23 16:17 Freq: Status: Active Protocol: Document 12/28/23 16:20 [facility] (Rec: 12/28/23 16:42 [facility] [id number]) Cognitive Factors Limiting Selfcare Function Cognitive Ability Level of Alertness Alert Patient Orientation Name,Age,Birthday,Place, Situation Attention Span Ability Capable of Focused Attention, Capable of Sustained Attention Ability to Follow Commands Able to Follow One Step Commands Memory Description Short Term Impaired Safety Awareness Decreased Ability to Apply Precautions Cognitive Comments Cognitive Assessment Comments Pt having with his thinking and repeating his stories several times during OT eval. Pt may still be affected from the anesthesia as having two surgeries in a row. OT- Vision and Hearing OT- Hearing Assessment OT- Hearing Assessment WFL OT- Vision Assessment Visual Acuity WFL Visual Attentiveness WFL Occular Pursuits WFL M7 OT- IP Mobility and Balance Start: 12/28/23 16:17 Freq: Status: Active Protocol: Document 12/28/23 16:20 [facility] (Rec: 12/28/23 16:42 [facility] [id number]) OT- Bed Mobility Assessment Supine to Sit Supine to Sit Assist Minimal Assistance Sit to Supine Sit to Supine Assist Minimal Assistance OT-Transfer Assessment Sit to and From Stand Sit to and from Stand Standby Assistance,Contact Guard Assistance Transfers Transfer Ability Standby Assistance Technique Transfer Destination Bed,Chair Transfer Technique Stand Step Pivot Devices Transfer Assistive Devices Gait Belt,Front Wheeled Walker Comments Mobility Comments BAL to assist to get his trunk upright and assist to get his legs up during bed mobility needs. Pt would benefit from sleeping in a recliner in able at this time . Once on his feet close SBA. Once pt is moving better, may benefit from a 4ww so able to move items and assist for IADl needs. OT- Balance Assessment Sitting Balance and Reactions Static Sitting Balance Ability Good Dynamic Sitting Balance Ability Good Standing Balance and Reactions Static Standing Balance Ability Good Dynamic Standing Balance Ability Fair M8 OT- IP Objective Assessments Start: 12/28/23 16:17 Freq: Status: Active Protocol: Document 12/28/23 16:20 [facility] (Rec: 12/28/23 16:42 [facility] [id number]) OT Gross Range of Motion Upper Extremity Range of Motion ROM Impairments Limited at end ROM. OT Strength Comments Strength Comments Appears WFL for mobility needs , NT due to abdominal sx. M9 OT- IP Assessment and Plan Start: 12/28/23 16:17 Freq: Status: Active Protocol: Document 12/28/23 16:20 [facility] (Rec: 12/28/23 16:42 [facility] [id number]) OT Summary Assessment and Plan Potential Rehabilitation Potential Good Analytic Complexity at Evaluation Moderate Summary OT Impairments Pain,Balance,Functional Mobility,Dressing,Toileting, Bathing,Toilet Transfers, Shower Transfers,Activity Tolerance Progress Towards Goals Progressing Toward Goals Assessment Summary Pt MOD complexity and main barriers are pt not remembering what is has said and keep repeating his stories over and over. Pt's memory may be affected by his recent surgeries back to back. Able to go over equipment needs for ADl and mobility needs. Pt to go home with 24/7 available assist and possibly home health pending progress. Goals Dressing Goal Independent,Steward/Stewardess Second Class,Sock Aid Toileting Goal Independent Bathing Goal Independent Toilet Transfer Goal Independent Shower Transfer Goal Independent Days to Meet Goals 5 Frequency of Treatment Frequency Of Treatment Once a Day Treatment Plan OT Treatment Plan ADL Training,Functional Cognition Training,Functional Mobility,Patient/Family Education,Discharge Planning Other Treatment Recommendations and Next SLUMS pending how pt clears Treatment Focus from just having two surgeries in a row. Discharge Recommendations OT Discharge Recommendations Home with 24/7 Assist Available,Home Health Home Equipment Needs LB dressing equipment,4ww Transportation Needs at Discharge Private Vehicle
--- NOTE | 2023-12-28 18:07 | P.PN_ITS ---
Subjective Subjective Date Patient Seen: 12/28/23 Time Patient Seen: 18:07 Interval history: Postoperative day 1 status post diagnostic laparoscopy and evacuation of hematoma following a laparoscopic inguinal hernia repair No major overnight events. Exam Vital Signs (past 8 hours): - 12/28/23 11:00 12/28/23 11:01 12/28/23 11:01 Temperature Pulse Rate 96 H 96 H Respiratory Rate 25 H 31 H Blood Pressure 141/64 H Pulse Oximetry 95 94 12/28/23 12:00 12/28/23 12:01 12/28/23 12:01 Temperature Pulse Rate 77 79 Respiratory Rate 24 24 Blood Pressure 108/58 L Pulse Oximetry 92 97 12/28/23 12:31 12/28/23 12:31 12/28/23 12:53 Temperature Pulse Rate 77 85 Respiratory Rate 29 H 30 H Blood Pressure 143/67 H Pulse Oximetry 95 96 12/28/23 12:53 12/28/23 13:00 12/28/23 13:00 Temperature Pulse Rate 93 H Respiratory Rate 33 H Blood Pressure 142/63 H 132/57 L Pulse Oximetry 95 12/28/23 14:00 12/28/23 14:00 12/28/23 15:00 Temperature 98.8 F 98.9 F Pulse Rate 83 Respiratory Rate 20 Blood Pressure 139/63 Pulse Oximetry 93 12/28/23 15:00 12/28/23 15:00 Temperature Pulse Rate 91 H Respiratory Rate 23 Blood Pressure 140/68 Pulse Oximetry 96 Oxygen Delivery Method Nasal Cannula Oxygen Flow Rate 1 Narrative Exam Narrative: General adult man alert oriented no acute distress Abdomen soft abdominal wall hematoma appropriately tender Objective Labs 12/27/23 02:30 12/26/23 18:35 [facility] Medical History 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) Anemia BPH (benign prostatic hyperplasia) Plantar wart of both feet Hypertension Encounter for well adult exam without abnormal findings Encounter for pre-operative cardiovascular clearance Cardiomyopathy Varicose veins of bilateral lower extremities with other complications Left hip pain Double vision (04/2019) Ejection fraction < 50% (06/2019) Osteoarthritis (Unknown) Hyperlipemia (Unknown) Shoulder pain (Unknown) Hip pain, left (1987) Knee pain, right (2014) Chickenpox (~1950) Measles (~1950) Mumps (~1950) Cardiac arrhythmia (~2010) Primary osteoarthritis of left hip (06/29/16) Surgical History History of colonoscopy History of arthroplasty of right knee (01/29/19) Status post rotator cuff repair Status post knee surgery Status post knee surgery Status post hernia repair (2018) Status post hernia repair Family History Father No problems noted. Mother No problems noted. Grandfather No problems noted. Grandfather No problems noted. Social History marital status: unmarried,single household members: none lives independently: Yes occupational status: previously employed Smoking Status: Never smoker alcohol intake: current substance use type: does not use Assessment & Plan Post-op Postoperative Procedures: Procedures Operation Date: 12/27/23 15:45 Actual Procedure Side Surgeon p Laparoscopy, Diagnostic, GEN, evacuation of hematoma Lamont Fortune MD Postoperative status narrative: 78-year-old man postoperative day 1 status post diagnostic laparoscopy and evacuation of hematoma. There were no signs of active hemorrhage intraoperatively. He remains hemodynamically stable. Anticipate discharge home tomorrow with walker but no other needs. Quality VTE Deep Vein Thrombosis/Pulmonary Embolism Present on Admission: Yes
[2023-12-28] MEDS: HYDROCODONE/ACET 5/325 TABLET 1 TAB PO (21:56)
[2023-12-29] VITALS (14 sets, daily range): BP systolic 132–156; BP diastolic 63–86; PULSE 55–83; RESP 16–27; TEMP 36.2–36.9; O2SAT 94–99
[2023-12-29] MEDS: SODIUM CHLORIDE 0.9% FLUSH 10 ML IV (08:17)
--- NOTE | 2023-12-29 09:59 | PM.DS.1 ---
History of Present Illness History of Present Illness Date Patient Seen: 12/29/23 Time Patient Seen: 10:35 Chief complaint: Fell, Stiches ripped, Abd Hernia Narrative: Sung is a 78-year-old man who had a laparoscopic recurrent left inguinal hernia repair December 25.. There was an old mesh plug that was removed. The surgery was otherwise uneventful and he was discharged home from the postoperative care unit. At home he began feeling dizzy and syncopized and came back to the ER. He had a CT scan which showed 250 mL of blood in the pelvis and he was bleeding from his umbilical surgical site. He was transiently hypotensive in the emergency department. Admission hematocrit 37 Discharge Providers Provider Date of admission: 12/26/23 21:24 Discharge Date: 12/29/23 Primary care physician: Anthony Rosas DO Consults: 12/28/23 09:55 Consult to Physical Therapy Evaluate & Treat Comment: Physician Instructions: Evaluate and Treat 12/28/23 12:59 Consult to Occupational Therapy Evaluate & Treat Comment: Physician Instructions: Evaluate and treat Discharge provider: Xavi Gomez MD Summary Hospital Course Discharge Diagnosis: Acute blood loss anemia Hospital Course: He received red blood cell transfusion and remained hemodynamically stable after his brief episode of hypotension in the emergency department. He was uncomfortable from the intra-abdominal hematoma. We discussed either observation with self resolution of the hematoma versus surgical evacuation. His preference was to proceed with surgery and he was taken to the operating room December 26 where he underwent diagnostic laparoscopy and evacuation of hematoma. There was approximately 200 mL of hematoma within the abdomen there was no signs of active hemorrhage or disruption of the hernia repair. He did well postoperatively and was discharged home in stable condition. Exam Vital Signs (past 8 hours): - 12/29/23 02:00 12/29/23 03:00 12/29/23 03:54 Temperature Pulse Rate 64 65 68 Respiratory Rate 17 17 25 H Blood Pressure Pulse Oximetry 98 98 98 Oxygen Flow Rate 12/29/23 03:54 12/29/23 04:00 12/29/23 04:00 Temperature Pulse Rate 67 Respiratory Rate 21 Blood Pressure 156/71 H Pulse Oximetry 97 96 Oxygen Flow Rate 1.5 12/29/23 04:39 12/29/23 05:00 12/29/23 06:00 Temperature 98.3 F Pulse Rate 66 65 60 Respiratory Rate 27 H 17 26 H Blood Pressure 156/71 H Pulse Oximetry 98 98 97 Oxygen Flow Rate 12/29/23 07:00 12/29/23 08:00 Temperature 98.4 F Pulse Rate 64 70 Respiratory Rate 24 21 Blood Pressure 137/64 Pulse Oximetry 99 94 Oxygen Flow Rate Fraction of Inspired Oxygen 28 SaO2/FiO2 Ratio 353 Oxygen Delivery Method Nasal Cannula Oxygen Flow Rate 1.5 Narrative Exam Narrative: GENERAL: A well nourished, well developed adult, resting comfortably, in no acute distress. HEENT: Normocephalic, atraumatic. No scleral icterus CHEST: Rising symmetrically. No audible wheezes CARDIOVASCULAR: Warm and well perfused. Regular rate ABDOMEN: Soft, abdominal wall ecchymosis EXTREMITIES: Normal tone and without edema. NEUROLOGIC: Moving all extremities spontaneously. No gross motor deficits. 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) Anemia BPH (benign prostatic hyperplasia) Plantar wart of both feet Hypertension Encounter for well adult exam without abnormal findings Encounter for pre-operative cardiovascular clearance Cardiomyopathy Varicose veins of bilateral lower extremities with other complications Left hip pain Double vision (04/2019) Ejection fraction < 50% (06/2019) Osteoarthritis (Unknown) Hyperlipemia (Unknown) Shoulder pain (Unknown) Hip pain, left (1987) Knee pain, right (2014) Chickenpox (~1950) Measles (~1950) Mumps (~1950) Cardiac arrhythmia (~2010) Primary osteoarthritis of left hip (06/29/16) Surgical History History of colonoscopy History of arthroplasty of right knee (01/29/19) Status post rotator cuff repair Status post knee surgery Status post knee surgery Status post hernia repair (2018) Status post hernia repair Family History Father No problems noted. Mother No problems noted. Grandfather No problems noted. Grandfather No problems noted. Social History marital status: unmarried,single household members: none lives independently: Yes occupational status: previously employed Smoking Status: Never smoker alcohol intake: current substance use type: does not use Discharge Plan Discharge Plan Patient Disposition: Home Provider Discharge Comment: No lifting >10 lbs x 4 weeks Anticipate abdominal wall bruising for at least several weeks No driving while taking narcotics Discharge orders & Medications Prescriptions: New docusate sodium [Colace] 100 mg capsule 100 mg PO BID Qty: 30 0RF ferrous sulfate 325 mg (65 mg iron) tablet 325 mg PO DAILY Qty: 60 0RF Continued rosuvastatin 10 mg tablet 10 mg PO DAILY Patient Comments: Repeat lab tests at [facility] on 11/29/2022 demonstrate that rosuvastatin is working better than simvastatin for reducing cholesterol in my bloodstream. multivitamin Tablet 1 tab PO DAILY metoprolol succinate 25 mg tablet extended release 24 hr 25 mg PO BEDTIME acetaminophen [Tylenol] 325 mg capsule 650 mg PO QID PRN (Reason: pain) Qty: 60 0RF Follow up/Referrals: Xavi Gomez MD [Physician] - 1 Week Diet/Activity/Treatments Diet: Regular Skin/Wound/Dressing Care Report to your healthcare provider any signs of infection, such as:: chills, fever, increased pain, unusual drainage and unusual redness Visit Report/Discharge Packet Stand Alone Forms: Patient Portal/API, Stroke Signs & Symptoms Discharge Data Primary Care Provider: Anthony Rosas VTE Deep Vein Thrombosis/Pulmonary Embolism Present on Admission: Yes
--- NOTE | 2023-12-29 11:17 | CM.DPC ---
Addendum entered by Dotty Gunn R.N. 12/29/23 15:05: Spoke to Madeleine at [facility] and updated her on referral, both right fax and regular fax is not transmitting out, but did email Lou at [facility], and Madeleine is aware that patient discharged home today. Addendum entered by Dotty Gunn R.N. 12/29/23 12:46: Faxed over referral via right fax. Addendum entered by Dotty Gunn R.N. 12/29/23 11:58: Faxed [employer], has not gone through, just sent fax again, they also have access to [email or web address]. Original Note: DCP Cont: Patient is being discharged home today. Met with patient in his room, introduced self and role. Confirmed that he resides alone here in [place], has supportive neighbors. Has a sister that resides in [facility], and a brother in [place]. Confirmed that he is interested in home health services. Looking at the list, since he has [employer] [facility], list indicates that [facility] takes this. Sent an email to Lou Bryant at [facility], about referral, and faxed over face sheet, face to face, H&P, P.T. notes, DC Summary and orders. Left Lou a message as well. Let patient know that they will need to obtain authorization from his insurance, which may not happen until Sunday. P: Patient has DC orders, ordered [facility], have left message and sent email to Lou Bryant, about referral. Dotty Gunn RN/Rental Car Deliverer
--- NOTE | 2023-12-29 12:30 | PT.IPTN ---
Current Diagnoses Postprocedural hemorrhage of a digestive system organ or structure following a digestive system procedure (12/26/23) Surgery Performed Operation Date: 12/27/23 15:45 Actual Procedures p Laparoscopy, Diagnostic, GEN, evacuation of hematoma - Lamont Fortune MD Physical Therapy Treatment Note M2 PT-IP Current Condition Start: 12/28/23 14:03 Freq: NEEDED Status: Active Protocol: Document 12/28/23 12:00 AB (Rec: 12/28/23 14:21 AB [id number]) Physical Therapy Current Condition Current Condition Evaluation Date 12/28/23 Treatment Diagnosis anemia; s/p hernia repair; difficulty in walking Onset Date 12/26/23 M3 PT-IP Subjective Start: 12/28/23 14:03 Freq: NEEDED Status: Active Protocol: Document 12/29/23 12:58 TS (Rec: 12/29/23 13:03 TS [id number]) Subjective Physical Therapy Visit Type Type Treatment Note Visit Start Time 12:30 Visit Stop Time 12:53 Number of RN PEDIATRIC ICU Visits 1 Physical Therapy Visit Comments Patient Comments Pt found resting in chair, is agreeable to PT. M4 PT-IP Mobility and Gait Start: 12/28/23 14:03 Freq: NEEDED Status: Active Protocol: Document 12/29/23 12:58 TS (Rec: 12/29/23 13:03 TS [id number]) PT-Transfer Assessment Sit to and From Stand Sit to and from Stand Standby Assistance,Use of Upper Extremities Equipment Transfer Assistive Device Gait Belt,Front Wheeled Walker Orthotic/Prosthetic Devices or Brace: No Comments Mobility Comments STS from chair SBA with FWW, pt demonstrates good carryover of STS sequencing. He ambulated ~150'SBA with FWW and step thru gait. Pt ambulated back to chair, was left in room, all needs met. Gait Assessment Gait Gait Assistance Required: Standby Assistance Distance (Feet) 150 Able to Maintain Weight Bearing Status Yes During Gait Assistive Devices Assistive Device Gait Belt,Front Wheeled Walker Orthotic/Prosthetic Devices or Brace: No Gait Deviations General Gait Pattern Ataxic,Decreased Feet Clearance Factors Limiting Gait Function Factors Limiting Gait Function Decreased Activity Tolerance, Decreased Strength,Limited Range of Motion,Pain,Poor Balance PT-Balance Assessment Sitting Balance and Reactions Static Sitting Balance Ability Good Dynamic Sitting Balance Ability Good Standing Balance and Reactions Static Standing Balance Ability Good Dynamic Standing Balance Ability Fair Device Used FWW M5 PT-IP Objective Assessments Start: 12/28/23 14:03 Freq: NEEDED Status: Active Protocol: Document 12/28/23 12:00 AB (Rec: 12/28/23 14:21 AB [id number]) Orientation Orientation/Cognition Level of Alertness Alert Orientation Name,Place,Situation Language Function Ability No Deficits Noted Safety Awareness Decreased Safety Awareness Memory Description Short Term Impaired Gross Range of Motion Lower Extremity ROM Assessment Within Functional Limits Strength Lower Extremity Strength Assessment Within Functional Limits Sensation Assessment Sensation Gross Sensation WNL Muscle Tone Muscle Tone WNL Yes M6 PT-IP Treatment Start: 12/28/23 14:03 Freq: NEEDED Status: Active Protocol: Document 12/29/23 12:58 TS (Rec: 12/29/23 13:03 TS [id number]) Physical Therapy Treatment Education Education Provided Precautions,Post-Op Packet, Safety M7 PT-IP Assessment and Plan Start: 12/28/23 14:03 Freq: NEEDED Status: Active Protocol: Document 12/29/23 12:58 TS (Rec: 12/29/23 13:03 TS [id number]) PT Summary Assessment and Plan Potential Rehabilitation Potential Fair Summary Impairments Pain,ROM,Strength,Balance, Coordination,Sensation,Tone, Cognition,Bed Mobility, Transfers,Gait,Activity Tolerance Progress Towards Goals Progressing Toward Goals Assessment Summary Sung is making good progress with his mobility. He is SBA for STS with FWW and demonstrates good carryover of sequencing. He ambulated ~150 'SBA with FWW and a step thru gait. PT is recommending home with assist and HHPT. Goals Bed Mobility Goal Standby Assistance Transfer Goal Standby Assistance,Front Wheeled Walker Gait Goal Standby Assistance,Front Wheel Walker Other Goals improve bed mobility, transfers and ambulation using LRAD 300 ft mod I up/down 1 step using AD/ without AD mod I Days to Meet Goals 10 Frequency of Treatment Frequency Of Treatment Once a Day Treatment Plan Physical Therapy Treatment Plan Bed Mobility Training,Transfer Training,Gait Training, Therapeutic Exercise,Balance Retraining,Post Op Education, Discharge Planning,Hot or Cold Pack,Neuromuscular Re-ed, Coordination Retraining,Manual Therapy Precautions Abdominal Surgery Precautions Log Roll,Lifting Restrictions, Gait Belt above Incisional Area Other Precautions falls Recommendations To Nursing Amount of Assist Needed Standby Assistance Discharge Recommendations PT Discharge Recommendations Home with Assistance,Home Health Equipment Needed for Home Before FWW Discharge Transportation Needs at Discharge Private Vehicle,Wheelchair/ Cabulance
== END 2023-12-29 13:30 | disposition home health service (06) | DRG 908 ==
LOC: ED 20:58 → AC 21:24 → ICU 22:36
PROVIDERS: Admitting Provider Surgery; Emergency Provider Emergency Medicine; PCP Family Medicine; Referring Provider Emergency Medicine; Visit Provider Surgery
PROC: 0WCG4ZZ Extirpation of Matter from Peritoneal Cavity, Percutaneous Endoscopic Approach (ICD-10-PCS; CPT 49320; principal; 2023-12-27 15:45)
DX: K91.870 Postprocedural hematoma of a digestive system organ or structure following a digestive system procedure (principal); D62 Acute posthemorrhagic anemia; I10 Essential (primary) hypertension; E78.5 Hyperlipidemia, unspecified; K40.91 Unilateral inguinal hernia, without obstruction or gangrene, recurrent
CPT/HCPCS: 36415; 36430; 49322; 49505; 74177; 80053; 81001; 82962; 84484; 85014; 85018; 85025; 85049; 85384; 85610; 85730; 86850; 86900; 86901; 86927; 87797; 94762; 96365; 96375; 97116; 97162; 97166; 97530; 97535; 99285; 99291; P9016; J0330; J0690; J1100; J1170; J1940; J2250; J2405; J2543; J2704; J3010; J3410; J3490; P9035; Q9967

== ENCOUNTER → 2024-02-19 10:49 | Outpatient (CLI) | payer MEDICARE, SELFPAY ==
[2023-12-26 23:41] VITALS: BMI 29.7
[2024-02-19 12:18] LABS: Add Manual Diff / Slide Review NO; Basophils Absolute Auto 0 /uL (0-100); Basophils Percent Auto 0.5 % (0-2); Eosinophils Absolute Auto 100 /uL (0-450); Hematocrit 41.1 % (41-53); Hemoglobin 13.9 g/dL (13.5-17.5); Lymphocytes Absolute Auto 1500 /uL (1100-4500); Lymphocytes Percent Auto 22.6 % (25-40); Mean Corpuscular HGB Conc 33.9 % (30-36); Mean Corpuscular Hemoglobin 31.7 PG (26-34); Mean Corpuscular Volume 93.3 fL (80-100); Monocytes Absolute Auto 500 /uL (0-900); Neutrophils Absolute Auto 4400 /uL (1500-7000); Neutrophils Percent Auto 67.9 % (50-75); Platelet Count 188 X10^3/uL (150-400); Red Cell Distribution Width 13.1 % (11.6-14.8); White Blood Cell Count 6.5 X10^3/uL (4.5-11.0)
[2024-02-19 12:51] LABS: HEMOLYSIS < 15 (0-50); Iron 114 ug/dL (49-181)
[2024-02-19 13:03] LABS: Percent Iron Saturation 39 % (20-50); Total Iron Binding Capacity 293 ug/dL (261-462); Transferrin 222 mg/dL (206-381)
[2024-02-19 13:34] LABS: Vitamin B12 803 pg/mL (239-931)
[2024-02-21 07:36] LABS: PSA Free % 21.8 % (.); PSA, Total 3.4 ng/mL (0.0-4.0)
== END ==
PROVIDERS: PCP Family Medicine; Referring Provider Family Medicine; Visit Provider Family Medicine
DX: D64.9 Anemia, unspecified (principal)
CPT/HCPCS: 36415; 82607; 83540; 83550; 84153; 84154; 85025

== ENCOUNTER → 2024-07-17 14:29 | Outpatient (CLI) | payer MEDICARE, SELFPAY ==
[2023-12-26 23:41] VITALS: BMI 29.7
--- NOTE | 2024-07-17 14:33 | DI.RAD.S_ITS ---
PROCEDURE: XR KUB INDICATIONS: abdominal pain epigastric x center 3 weeks TECHNIQUE: One view of the abdomen acquired. COMPARISON: [facility], CT, CT ABDOMEN PELVIS W CON, 12/26/2023, 19:31. FINDINGS: Surgical changes and devices: Left total hip arthroplasty is present. Bowel: Bowel gas pattern is normal. Soft tissues: No suspicious abdominal calcifications. Visualized solid organ contours appear normal in size. Bones: No suspicious bony lesions. IMPRESSION: Nonobstructive bowel gas pattern. No pneumoperitoneum. Approved by: Raudel Newman M.D. on 07/17/2024 at 16:18
[2024-07-17 15:17] LABS: Add Manual Diff / Slide Review NO; Basophils Absolute Auto 0 /uL (0-100); Basophils Percent Auto 0.4 % (0-2); Eosinophils Absolute Auto 200 /uL (0-450); Eosinophils Percent Auto 2.6 % (2-4); Hematocrit 45.5 % (41-53); Hemoglobin 15.3 g/dL (13.5-17.5); Lymphocytes Absolute Auto 1700 /uL (1100-4500); Lymphocytes Percent Auto 22.7 % (25-40); Mean Corpuscular HGB Conc 33.7 % (30-36); Mean Corpuscular Hemoglobin 31.2 PG (26-34); Mean Corpuscular Volume 92.6 fL (80-100); Monocytes Absolute Auto 600 /uL (0-900); Monocytes Percent Auto 8.4 % (3-14); Neutrophils Absolute Auto 4900 /uL (1500-7000); Neutrophils Percent Auto 65.9 % (50-75); Platelet Count 203 X10^3/uL (150-400); Red Blood Cell Count 4.91 X10^6/uL (4.5-5.9); Red Cell Distribution Width 13.2 % (11.6-14.8); White Blood Cell Count 7.4 X10^3/uL (4.5-11.0)
[2024-07-17 15:25] LABS: Appearance Urine UA CLEAR; Bilirubin Urine UA NEGATIVE (NEGATIVE); Color Urine UA YELLOW; Glucose Urine UA NEGATIVE (Negative); Ketones Urine UA NEGATIVE (NEGATIVE); Leukocyte Esterase Urine UA TRACE (NEGATIVE); Nitrite Urine UA NEGATIVE (Negative); Occult Blood Urine UA NEGATIVE (Negative); Protein Urine UA NEGATIVE (Negative); Specific Gravity Urine UA <=1.005 (1.000-1.035); Urobilinogen Urine UA 0.2 E.U./dL (0.2); pH Urine UA 6.5 (4.5-8.0)
[2024-07-17 15:47] LABS: Alanine Aminotransferase 37 IU/L (<50); Albumin 4.7 g/dL (3.5-5.0); Albumin Globulin Ratio 1.8 (1.0-2.8); Alkaline Phosphatase 106 U/L (38-126); Aspartate Aminotransferase 43 IU/L (17-59); BUN Creatinine Ratio 21.3 (6-22); Bilirubin Total 0.7 mg/dL (0.2-1.3); Blood Urea Nitrogen 17 mg/dL (9-20); Calcium 9.8 mg/dL (8.4-10.2); Carbon Dioxide 29 mmol/L (22-32); Chloride 103 mmol/L (98-107); Estimated Glomerular Filt Rate > 60 mL/min (>60); Globulin 2.6 g/dL (1.7-4.1); Glucose 99 mg/dL (80-110); HEMOLYSIS < 15 (0-50); Lipase 362 U/L (23-300); Potassium 4.8 mmol/L (3.4-5.1); Sodium 138 mmol/L (137-145); Total Protein 7.3 g/dL (6.3-8.2)
[2024-07-17 15:48] LABS: Urine Volume 10mL (spun)
[2024-07-17 15:49] LABS: Bacteria Urine Occasional (0-1); RBC Urine None Seen (0-5/HPF); WBC Urine None Seen (0-5/HPF)
[2024-07-17 15:54] LABS: Culture Indicated Urine Specimen Cultured; Squamous Epithelial Cell Urine None Seen (0-5/HPF)
== END ==
PROVIDERS: PCP Family Medicine; Referring Provider Physician Assistant; Visit Provider Physician Assistant
DX: R10.9 Unspecified abdominal pain (principal); Z96.642 Presence of left artificial hip joint
CPT/HCPCS: 36415; 74018; 80053; 81001; 83690; 85025; 87086

== ENCOUNTER → 2024-08-25 12:22 | Outpatient (CLI) | payer MEDICARE, SELFPAY ==
[2023-12-26 23:41] VITALS: BMI 29.7
--- NOTE | 2024-08-25 12:25 | DI.CT.S_ITS ---
PROCEDURE: CT ABDOMEN PELVIS W CON INDICATIONS: abdominal pain TECHNIQUE: After the administration of intravenous contrast, axial sections acquired from the lung bases to the pubic symphysis. Coronal and sagittal reformats were performed. For radiation dose reduction, the following was used: automated exposure control, adjustment of mA and/or kV according to patient size. COMPARISON: [facility], CR, XR KUB, 07/17/2024, 14:29. [facility], CT, CT ABDOMEN PELVIS W CON, 12/26/2023, 19:31. FINDINGS: Image quality: Diagnostic. Lower Chest: Tiny hiatal hernia. No pleural effusion. ABDOMEN: Liver: No solid mass. Gallbladder: No radiopaque gallstones or wall thickening. Biliary ducts: No biliary dilation. Pancreas: No ductal dilation. No peripancreatic fluid collection. Spleen: Size is within normal limits. Adrenal Glands: No adrenal nodules. Kidneys and Ureters: No hydronephrosis. Punctate nonobstructing kidney stones bilaterally. No solid mass. No complex renal cystic lesion which requires follow up. Stomach and Bowel: A diverticulosis. No definite diverticulitis. Normal appendix. No small bowel obstruction. Ventral abdominal wall hernia containing small bowel, new. There is mild stranding in the hernia sac. The hernia is supraumbilical with the hernia neck measuring of 4.9 cm, (282). Peritoneum: No ascites. No pneumoperitoneum. Ventral Wall: No significant ventral hernia. Left flank subcutaneous cyst measuring 4.7 cm, (2/71), unchanged. Abdominal Nodes: No retroperitoneal or mesenteric adenopathy by size criteria. Vessels: Aorta and inferior vena cava are normal in size. PELVIS: Pelvic Organs: Prostatomegaly. Bladder: No bladder wall thickening. Small bladder diverticula. Pelvic Nodes: No enlarged lymph nodes. Miscellaneous: Left inguinal region thickening, (2/115), corresponding to the site of large hematoma seen on 12/26/2023. No inguinal hernias are seen. Small hydroceles. Bones: Mild sclerosis at the left inferior pubic ramus, unchanged since 2019. Left hip arthroplasty. IMPRESSION: 1. New ventral abdominal wall hernia containing small bowel. There is stranding in the hernia sac fat which could represent edema or inflammation. 2. No small bowel obstruction is demonstrated. 3. Small nonobstructing kidney stones. No hydronephrosis. 4. Mild residual thickening or scarring at the site of previous large left inguinal hematoma. Dictated by: River Alba M.D. on 08/25/2024 at 15:21 Approved by: River Alba M.D. on 08/25/2024 at 15:34
[2024-08-25 13:00] LABS: Estimated Glomerular Filt Rate > 60 mL/min (>60)
== END ==
PROVIDERS: Radiology Diagnostic Radiology; PCP Family Medicine; Referring Provider Physician Assistant; Visit Provider Physician Assistant
DX: K43.9 Ventral hernia without obstruction or gangrene (principal); N20.0 Calculus of kidney; K57.90 Diverticulosis of intestine, part unspecified, without perforation or abscess without bleeding; L72.9 Follicular cyst of the skin and subcutaneous tissue, unspecified; N40.0 Benign prostatic hyperplasia without lower urinary tract symptoms; R10.9 Unspecified abdominal pain; Z96.642 Presence of left artificial hip joint
CPT/HCPCS: 36415; 74177; 82565; Q9967

== ENCOUNTER 2024-09-23 10:21 | Day surgery (SDC) | payer MEDICARE, SELFPAY ==
[2023-12-26 23:41] VITALS: BMI 29.7
[2024-09-17 08:57] VITALS: BMI 29.2
[2024-09-23] VITALS (13 sets, daily range): BP systolic 127–159; BP diastolic 59–89; PULSE 59–107; RESP 15–18; TEMP 36.2–36.7; O2SAT 92–98; BMI 28.5; BMI 28.9
[2024-09-23] MEDS: ACETAMINOPHEN 325 MG TABLET 975 MG PO (10:44)
[2024-09-23] MEDS: LACTATED RINGERS 1,000 ML 42 ML IV ×2 (10:46→12:09)
[2024-09-23] MEDS: FAMOTIDINE 20 MG/2 ML VIAL IV (10:46)
--- NOTE | 2024-09-23 10:51 | PM.PREOP ---
Pre-operative Note COVID-19 COVID-19 status: Not tested Interval Note History & Physical reviewed/Exam performed by Physician: Yes Changes to H&P: No ASA Class (for procedural sedation): II
--- NOTE | 2024-09-23 11:03 | EKG_ITS ---
[place] [id number] [place] [id number] Test Date: 2024-09-23 Pat Name: Sung Hightower Department: [facility] Room: A Gender: Male Certified Athletic Trainer: JOS : 1945 Requested By: Order Number: [id number] Reading MD: Harsh Gaviria MD Measurements Intervals [place] Rate: 87 P: 51 MS: 138 QRS: -2 QRSD: 106 T: 47 QT: 374 QTc: 450 Interpretive Statements Sinus rhythm with occasional premature ventricular complexes Electronically Signed On 09-23-2024 11:32:10 PST by Harsh Gaviria MD
[2024-09-23] MEDS: CEFAZOLIN 2 GM/100 ML PREMIX 100 ML IV (11:18)
--- NOTE | 2024-09-23 11:28 | SUR.OPER ---
Supine on padded OR bed, head on pillow, arms secured on padded arm boards at <90 degrees abduction, legs uncrossed, safety belt at thigh, tape over blanket over lower legs.
[2024-09-23] MEDS: BUPIVACAINE 0.5% W/ EPI (PF) 30 ML VIAL INJ (11:44)
--- NOTE | 2024-09-23 12:19 | P.OP_ITS ---
Operative Date/Time/Diagnoses Date of procedure: 09/23/24 Time of procedure: 12:19 Pre-op diagnosis: Incisional ventral hernia Post-op diagnosis: same Procedure & Clinicians Procedure: Open ventral hernia repair with mesh Same procedure as scheduled: Yes Surgeon: Lamont Fortune Manufacturing Coordinator: Duncan Mayer Anesthesia Type: General Operative Notes Procedure in detail: Ancef was administered. The patient was brought to the operating room, placed on the table in the supine position and general LMA anesthesia was induced. The abdomen was prepped and draped in the usual fashion. A time-out was performed. A 6 cm transverse incision was made just superior to the umbilicus. Dissection was carried down to the hernia sac. The hernia sac was partially amputated and the peritoneal cavity was entered. There was no bowel or omentum adherent to the sac. The facial defect was about 3 cm in diameter. First we cleared the remnants of the hernia sac off the fascial edge. The fascia was then closed with multiple interrupted 0 Ethibond sutures. The subcutaneous adipose tissue was cleared off of the anterior sheath circumferentially about 2 cm in each direction. A piece of polypropylene mesh was trimmed to fit over the fascial closure and secured with Tisseel. Once the Tisseel was dried the subcutaneous adipose tissue was closed with interrupted 3-0 Vicryl sutures. The skin was closed with multiple interrupted 3-0 Vicryl dermal sutures followed by a running 4 Monocryl subcuticular closure. EBL: 10 mL Steri-Strips were applied and an abdominal binder was applied. Duncan MUÑOZ provided assistance with exposure, retraction and closure of incisions. Post-operative Condition: stable Disposition: PACU
--- NOTE | 2024-09-23 19:17 | PC.NURSE ---
Admit Note Pt arrived to room 229 from PACU at 1318. Walked self to bed, SBA and steady on feet. VSS, RA with SpO2 upper 90s. Denies pain. Dressing to abdomen C/D/I with abdominal binder. Oriented to room and to bed/tv/ call light controls. Bed alarm on for safety.
[2024-09-23] MEDS: METOPROLOL ER 25 MG TABLET PO (21:05)
[2024-09-23] MEDS: SODIUM CHLORIDE 0.9% FLUSH 10 ML IV (21:05)
[2024-09-24 06:13] VITALS: BP 124/58; PULSE 51; RESP 18; O2SAT 93
[2024-09-24] MEDS: ACETAMINOPHEN 325 MG TABLET 650 MG PO (07:00)
[2024-09-24 07:01] VITALS: BP 124/58; PULSE 51
[2024-09-24 08:00] VITALS: BP 115/57; PULSE 51; RESP 16; TEMP 36.6; O2SAT 95
[2024-09-24] MEDS: ATORVASTATIN 20 MG TABLET PO (08:57)
[2024-09-24] MEDS: SODIUM CHLORIDE 0.9% FLUSH 10 ML IV (08:57)
--- NOTE | 2024-09-24 11:52 | PC.NURSE ---
Called Dr. Fortune, stated okay to discharge home with original discharge orders.
--- NOTE | 2024-09-24 13:19 | CM.DANOTE ---
B DCP Assessment note pt is a 79yo M POD1 from hernia repair with Dr. Fortune PCP [facility] self pay KEYCASE ASSEMBLER reviewed EMR. Per RN/furnace chargerfredy dc orders from [facility] from yesterday. KEYCASE ASSEMBLER called the surgeon industrial economist, Dr. Trevizo, to clarify the dc orders. confirms he plans to write new dc orders today and will do so later. KEYCASE ASSEMBLER updated RN/furnace charger. Per chart review, pt lives alone in [place], has siblings as emergency contact. Per RN, ambulating indep, no CM needs likely Pt left prior to this KEYCASE ASSEMBLER being able to see him due to triaging needs. P: dc home today with OP f/u recommended. CM team will continue to follow as needed DENISE Trujillo Discharge Planning/Care Management CM Discharge Assessment Start: 09/24/24 13:06 Freq: Status: Active Protocol: Document 09/24/24 13:07 SL (Rec: 09/24/24 13:18 SL [id number]) Discharge Planning Assessment Assigned Fishing Rod Mechanic DENISE Castañeda DPOA/Assigned Designee Name sister Broussard Contact Information [phone] Advance Directives? Yes Advance Directives on File Yes History Provided By Patient,Medical Record Prior Living Arrangements House Household Members none Type of transporation used prior to Drives own vehicle admit Independent with ADL's Yes Is patient alert and oriented? Yes Comment Also, has four wheel walker Comment Patient has neighbors next door to assist if needed. Discharge Plan Home Transportation Arrangement Friends/neighbors Referrals Initiated None needed Review Status In Process Please Provide Date Initial DC 09/24/24 Assessment Was Performed Next Review Type Continued Stay Review Pre-Anesthesia Assessment Start: 09/17/24 08:57 Freq: Status: Complete Protocol: Document 09/17/24 08:57 LB (Rec: 09/17/24 09:17 LB [id number]) Pre-Anesthesia Assessment PAC Comment 09/17/24 Chart review. Patient Information Reviewed Via Chart Review Diagnostic Results BMP/CMP,CBC Comment 07/17/24 at . Primary Care Provider Anthony Rosas Seen Specialist in Last 12 Months Yes Specialist Seen General surgeon Primary Language Mexican Preferred Language Mexican Patient Care Nursing Assistant Required No Height 162.56 cm Weight 77.111 kg Body Mass Index (BMI) 29.2 Hx Anesthesia Reactions Yes: inability to urinate after anesthesia Anesthesia Review Requested No Health Officer No alcohol intake current Smoking Status Never smoker Is patient on oxygen? No Hx Sleep Apnea No Currently Taking a Beta Sandoval Yes: Metoprolol 25mg qd. Anti-Coagulant Therapy No Has a Building Equipment Inspector Yes Building Equipment Inspector [place] [facility] [place] Yes[place] [facility] [place] Hx Pacemaker/ICD No Bladder Pattern Frequency Hx Urinary Self Catheterization No Diabetes No HgbA1C 6.1 Date 02/26/24 Comment A1c 6.1 02/26/24 Presence of External or Internal Medical Yes: Bilateral knee. Devices Received a COVID vaccine? Yes Marital Status Single Lives With none Patient Discharge Plan Description Return Home Emergency Contact Name Aarti Hightower - sister. Emergency Contact Advance Directives? Yes Advance Directives on File Yes Power of Benefits Processor Yes Power of Benefits Processor Name Aarti Hightower--Sister Power of Benefits Processor Phone Number Home: Work:
--- NOTE | 2024-09-24 13:54 | PC.NURSE ---
IV removed. D/c instructions reviewed with pt. Pt confirmed he had all belongings, and exited via w/c with ROUTER OPERATOR RADIAL to private vehicle.
== END 2024-09-24 12:10 | disposition home or self-care (01) ==
LOC: OR 10:21 → AC 10:22 → ICU 12:59
PROVIDERS: PCP Family Medicine; Referring Provider Surgery; Visit Provider Surgery
PROC: (CPT 49591; principal; 2024-09-23 12:00)
DX: K43.2 Incisional hernia without obstruction or gangrene (principal)
CPT/HCPCS: 49591; 93005; 93010; C1781; C9250; J0690; J1100; J2405; J2704; J3010

== ENCOUNTER → 2025-01-08 09:18 | Outpatient (CLI) | payer MEDICARE, SELFPAY ==
[2024-09-23 15:38] VITALS: BMI 28.9
[2025-01-08 11:35] LABS: Alanine Aminotransferase 44 IU/L (<50); Albumin 4.5 g/dL (3.5-5.0); Albumin Globulin Ratio 1.9 (1.0-2.8); Alkaline Phosphatase 78 U/L (38-126); Aspartate Aminotransferase 54 IU/L (17-59); BUN Creatinine Ratio 25.7 (6-22); Blood Urea Nitrogen 19 mg/dL (9-20); Calcium 9.6 mg/dL (8.4-10.2); Carbon Dioxide 27 mmol/L (22-32); Chloride 105 mmol/L (98-107); Cholesterol 137 mg/dL (140-199); Estimated Glomerular Filt Rate > 60 mL/min (>60); Globulin 2.4 g/dL (1.7-4.1); Glucose 110 mg/dL (70-99); HDL Cholesterol 54 mg/dL (40-60); HEMOLYSIS < 15 (0-50); LDL Cholesterol Calculated 70 mg/dL (<100); Potassium 4.5 mmol/L (3.4-5.1); Sodium 140 mmol/L (137-145); Total Protein 6.9 g/dL (6.3-8.2); Triglycerides 63 mg/dL (35-150)
[2025-01-09 04:39] LABS: Apolipoprotein B 62 mg/dL (<90)
== END ==
PROVIDERS: PCP Family Medicine; Referring Provider Internal Medicine Cardiovascular Disease; Visit Provider Internal Medicine Cardiovascular Disease
DX: E78.00 Pure hypercholesterolemia, unspecified (principal)
CPT/HCPCS: 36415; 80053; 80061; 82172

== ENCOUNTER → 2025-06-26 11:56 | Outpatient (CLI) | payer MEDICARE, SELFPAY ==
[2024-09-23 15:38] VITALS: BMI 28.9
[2025-06-26 12:44] LABS: Influenza A - CEPHEID Flu A POSITIVE (NEGATIVE); Influenza B - CEPHEID Flu B NEGATIVE (NEGATIVE)
[2025-06-26 12:48] LABS: COVID-19 CEPHEID 4-PLEX PCR Negative (Negative)
== END ==
LOC: LAB 11:56
PROVIDERS: PCP Family Medicine; Visit Provider Nurse Practitioner Family
DX: R05.1 Acute cough (principal)
CPT/HCPCS: 87637